=== PATIENT | male | born 1950 | race Caucasian/White ===

== ENCOUNTER → 2016-07-08 | Outpatient (CLI) | payer BC ==
[~2016-07-08] MED LIST: ASCO500T16 PO; ASPI1TAB48 PO; ATOR10TA88 PO; CHOL1000 PO; COLON HEALTH PO; METO-217 PO; MULTTAB5 PO; OCTR20KI IM; OMEG10007 PO; RXC5 PO
[2016-07-13 23:32] LABS: 5-HIAA 5.1 mg/24 h (<=6.0)
== END | disposition home or self-care (01) ==
LOC: C.LABPVFM 16:31
PROVIDERS: ATTEND Nurse Practitioner Family
DX: E34.0 Carcinoid syndrome (principal)

== ENCOUNTER 2016-07-17 10:04 | Day surgery (SDC) | payer BC ==
--- NOTE | 2016-06-25 10:47 | PAT Medication Instructions ---
Service Date Jun 25, 2016. Current Home Medication List Ascorbic Acid (Ascorbic Acid), 500 MG PO QAM Aspirin (Aspirin Low Dose), 81 MG PO QAM Atorvastatin (Lipitor), 10 MG PO QPM Cholecalciferol (Vitamin D3), 5,000 TAB PO BID Fish Oil ([place]-3), 1 CAPSULE PO QAM Metoprolol Succinate (Toprol Xl), 50 MG PO QAM Multiple Vitamins W/ Minerals (Centrum), 1 TABLET PO QAM Octreotide Acetate (Sandostatin [place]), 40 MG IM MONTHLY [Colon Health], 1 TAB PO QAM Medication Instructions For Your Scheduled Surgery - Check with surgeon/regulatory affairs internship for instructions: Aspirin (Aspirin Low Dose), 81 MG PO QAM - Continue as usual: Octreotide Acetate (Sandostatin [place]), 40 MG IM MONTHLY - Hold the following medications starting 06/26/16: Fish Oil ([place]-3), 1 CAPSULE PO QAM - Hold the following medications the morning of surgery: [Colon Health], 1 TAB PO QAM Multiple Vitamins W/ Minerals (Centrum), 1 TABLET PO QAM Cholecalciferol (Vitamin D3), 5,000 TAB PO BID Ascorbic Acid (Ascorbic Acid), 500 MG PO QAM - Take the following medications the morning of surgery with a sip of water: Metoprolol Succinate (Toprol Xl), 50 MG PO QAM - Take the following medications as scheduled the night before surgery: Atorvastatin (Lipitor), 10 MG PO QPM If you have any questions please call us at [phone] (Marva Flores PA-C) or [phone] or [phone]
[2016-06-25 11:28] LABS: BASO % 0.3 %; BASO ABS # 0.02 K/uL (0-0.2); COMPLETE YES; EOS % 1.8 %; HEMATOCRIT 41.2 % (42-52); IG% 0.3 %; LYMPH ABS # 1.91 K/uL (1.2-3.4); MEAN CELL VOLUME 90.5 fL (80-100); MEAN CORPUSCULAR HEMOGLOBIN 31.9 pg (25-34); MEAN CORPUSCULAR HGB CONC 35.2 g/dl (32-36); MEAN PLATELET VOLUME 9.3 fL (7.4-10.4); MONO % 8.7 %; NEUT % 56.9 %; PLATELET COUNT 154 K/uL (130-400); RED BLOOD COUNT 4.55 M/uL (4.7-6.1); WHITE BLOOD COUNT 5.97 K/uL (4.8-10.8)
[2016-06-25 11:36] LABS: PROTHROMBIN TIME (PATIENT) 11.2 SECONDS (9.0-12.0)
--- NOTE | 2016-07-16 12:13 | HISTORY & PHYSICAL EXAMINATION ---
DATE OF ADMISSION: 07/17/2016 HISTORY OF PRESENT ILLNESS: The patient presents as a 66-year-old, 5 foot 4, 183 pounds, BMI of 31.41, white male with left knee pain and loose body as well as a chondral lesion medial femoral condyle presents for arthroscopy, arthroscopic removal of loose bodies, arthroscopic chondroplasty. He has failed attempts at conservative management, physical therapy, anti-inflammatories, relative rest and presents for the above. PAST MEDICAL HISTORY: Consistent with that of a heart murmur, heart valve abnormalities, hypercholesterolemia, sleep apnea, previous history of a TIA. PAST SURGICAL HISTORY: Unremarkable. ALLERGIES: PENICILLIN, TYLENOL WITH CODEINE. REVIEW OF SYSTEMS: Unremarkable. See history of present illness for pertinent positives. MEDICATIONS: Include Lipitor p.o. q. daily, multivitamin p.o. q. daily, metoprolol 50 mg 1 tab p.o. daily, tramadol 50 mg when needed. PAST MEDICAL HISTORY: Otherwise unremarkable. See history of present illness for pertinent positives. 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 PHYSICAL EXAMINATION: GENERAL: A very pleasant 66-year-old male. HEAD, EYES, EARS, NOSE, AND THROAT: Otherwise unremarkable. Atraumatic, normocephalic. HEART: Regular at 72 beats per minute. No murmurs are noted. LUNGS: Clear. No rales, rhonchi, or wheezes noted. ABDOMEN: Soft, nontender, nondistended. Bowel sounds present in all 4 quadrants. RECTAL: No rectal examination was performed. MUSCULOSKELETAL EXAMINATION: Consistent with that of left knee pain with loose body and chondral lesion medial femoral condyle. PLAN: For arthroscopy, arthroscopic chondroplasty, arthroscopic removal of loose body pending findings at time of surgery, postoperative pain management, DVT prophylaxis, antibiotics.
[~2016-07-17] VITALS: Ht 162.6 cm; Wt 80.8 kg
[~2016-07-17 10:04] MED LIST changes: +ATROPINE SULFATE 0.1 MG/ML 5ML SYR IV PRN; +EpHEDrine SULFATE INJ 50 MG/ML AMP IV PRN; +FENTANYL CITRATE INJ 50 MCG/1 ML 2 ML VIAL IV PRN; +LACTATED RINGER'S 1000ML 1,000 ML IV SCH; +ONDANSETRON INJ 2 MG/ML 2 ML VIAL IV PRN; -RXC5 PO
[2016-07-17 10:31] VITALS: BP 143/93; PULSE 82; TEMP 36.3; O2SAT 98; Ht 162.6 cm; Wt 80.8 kg
--- NOTE | 2016-07-17 11:21 | History & Physical Bridge Note ---
H&P Re-Evaluation Bridge Note: I have examined the patient, reviewed the History & Physical and in the interval since the performance of the History & Physical I have noted the following changes of clinical significance: No changes noted
[2016-07-17] MEDS ORDERED: NURSING VERBAL MED ORDER STA (11:31)
[2016-07-17] MEDS ORDERED: CLINDAMYCIN 600 MG/54 ML D5W IV ONE (11:39)
[2016-07-17] MEDS ORDERED: ONDANSETRON INJ 2 MG/ML 2 ML VIAL ONE (11:41)
[2016-07-17] MEDS ORDERED: PROPOFOL IV EMULSION 10 MG/ML 20 ML VIAL IV ONE (11:41)
[2016-07-17] MEDS ORDERED: LIDOCAINE HCL 2% 2 ML VIAL (20MG/ML) ONE (11:41)
[2016-07-17] MEDS ORDERED: FENTANYL CITRATE INJ 50 MCG/1 ML 2 ML VIAL ONE ×2 (11:41→13:37)
[2016-07-17] MEDS ORDERED: MIDAZOLAM HCL 1 MG/ML 2ML VIAL ONE (11:41)
--- NOTE | 2016-07-17 12:54 | Discharge Instructions ---
Discharge Instructions Visit Reason for Visit: Left Knee Loose Body In Unspecified Joint Discharge Discharge Diagnosis / Problem: left knee arthroscopy, loose body removal, chondroplasty Discharge Goals Goal(s): Decrease discomfort, Improve function, Increase independence Activity Recommendations Activity Limitations: as noted below Weightbearing Status: Left weightbearing (as tolerated) Anesthesia . Post Anesthesia Instructions: If you have had General Anesthesia or IV Sedation: * Do not drive today. * Resume driving when surgeon permits. * Do not make important decisions or sign legal documents today. * Call surgeon for: 1. Temperature elevations greater than 101 degrees F. 2. Uncontrollable pain. 3. Excessive bleeding. 4. Persistent nausea and vomiting. 5. Medication intolerance (nausea, vomiting or rash). * For nausea and vomiting use only clear liquids such as: tea, soda, bouillon until nausea subsides, then gradually increase diet as tolerated. * If you have any concerns or questions, call your surgeon's office. If physician is unavailable and it is an emergency, call 911 or go to the nearest emergency room. . Instructions / Follow-Up Instructions / Follow-Up ACTIVITY RECOMMENDATIONS: * You may walk on the leg with or without crutches as comfort permits. * Bending of the knee should start at once. * Do not shower for 48 hours following surgery. SPECIAL CARE INSTRUCTIONS: * You may cleanse the skin adjacent to the small wounds with soap and water at the time of the first dressing change. * The application of an ice bag to the front and sides of the knee will decrease swelling and discomfort for the first 48 hours. * The small incisions may be sore and develop bruising. This bruising does not require any special care. SPECIAL PRECAUTIONS: * If you experience unusual pain unrelieved by prescriptions, temperature elevation (100 degrees F. or above) or progressive swelling or bleeding, you should contact our office at for further evaluation. * You may have been prescribed pain medication. If you experience nausea and/or fine skin rash, discontinue this medication and contact our office at for an alternate medication. DRESSING: * Dressing should be comfortable and absorb any leakage of fluid and/or blood. * The dressing may become moist or bloodstained. * Dressing may be removed _24 hours_ after surgery and bandaids placed over the small surgical incisions. If can be removed sooner if it becomes very soiled or loose. * Bandaids may be used over next several days as needed and can be discontinued when there is not further drainage from the wounds. FOLLOW UP VISIT: If appointment is not already scheduled: YOU SHOULD CALL AND SCHEDULE PHYSICAL THERAPY TO BEGIN 07/19/16. PRESCRIPTION PLACED IN YOUR CHART. Please call [facility] to make a follow-up appointment for your surgery at . Diet Recommendations Recommended Home Diet: resume previous diet Pending Studies Studies pending at discharge: no Medical Emergencies . Who to Call and When: Medical Emergencies: If at any time you feel your situation is an emergency, please call 911 immediately. . Non-Emergent Contact Non-Emergency issues call your: Primary Care Provider, Surgeon . . "Provider Documentation" section prepared by Jatin Mccloud.
[2016-07-17] MEDS ORDERED: RXC5 PO (12:55)
[2016-07-17] MEDS ORDERED: SODIUM CHLORIDE 0.9% 1000ML 1,000 ML IV SCH (12:56)
[2016-07-17] MEDS ORDERED: OXYCODONE/ACETAMINOPHEN 5-325 TAB PO PRN ×2 (13:00)
[2016-07-17] MEDS ORDERED: ONDANSETRON INJ 2 MG/ML 2 ML VIAL IV PRN (13:00)
--- NOTE | 2016-07-17 13:10 | [facility] Post Operative Brief Note ---
Immediate Operative Summary Operative Date Jul 17, 2016. Pre-Operative Diagnosis Loose body times 2 1 x 1 cm Tear lateral meniscus Post-Operative Diagnosis same Procedure(s) Performed Partial lateral menisectomy Surgeon Contreras Cupola Tender Helper Surgeon(s) none Estimated Blood Loss 3cc Findings TLM loose bodies times two Specimens loose bodies 1 x 1 cm times two Complication(s) None Disposition Recovery Room / PACU
[2016-07-17] MEDS ORDERED: BUPIVACAINE/EPINEPHRINE 0.5% MPF 1:200,000 30 ML VIAL INJ ONE (13:28)
--- NOTE | 2016-07-17 13:57 | OPERATIVE REPORT ---
DATE OF OPERATION: 07/17/2016 PREOPERATIVE DIAGNOSIS: Torn lateral meniscus left knee loose bodies x2, left knee 1 x 1 cm. POSTOPERATIVE DIAGNOSIS: Same. PROCEDURE: Arthroscopy, arthroscopic partial lateral meniscectomy, arthroscopic removal of loose bodies 1 x 1 x2, left knee. SURGEON: Dr. Chairez. ANESTHESIA: General. COMPLICATIONS: None. ESTIMATED BLOOD LOSS: 3 mL HISTORY OF PRESENT ILLNESS: The patient presents as a very pleasant 66-year-old male with complaints of ongoing pain attributed to his left knee. He has been nonresponsive to conservative therapy. At time of surgery, the above findings were noted. PROCEDURE: After proper prepping and draping the left lower extremity, arthroscopic examination revealed there to be evidence of a loose body sitting within the anterior intercondylar notch. This loose body was immediately removed. There was a second loose body, they are both measuring approximately 1 x 1 cm, which were both removed. A tear involving the posterior horn of the lateral meniscus was noted, this was debrided back to a stable margin, thus a partial posterior horn lateral meniscectomy was performed. Anterior and posterior cruciate ligaments were visualized and probed and noted to be intact. The medial meniscus visualized and probed and noted to be intact. The patellofemoral joint had grade 3 and 4 diffuse chondrosis and this was all debrided to a stable margin. Subsequently, all particulate matter and debris was removed. Skin portals were closed with 4-0 nylon. Sterile compression dressing was placed. The patient was taken to recovery room in stable condition. I attest to the content of the Intraoperative Record and any orders documented therein. Any exceptio ns are noted below.
--- NOTE | 2016-07-17 14:04 | Anesthesiology Progress Note ---
Anesthesia Post Op Note Date & Time Jul 17, 2016 at 14:03 Vital Signs Pain Intensity: 5 Vital Signs Past 12 Hours Date Time Temp Pulse Resp B/P Pulse Ox O2 Delivery O2 Flow Rate FiO2 07/17/16 13:57 65 15 07/17/16 13:57 65 15 95 07/17/16 13:53 117/80 07/17/16 13:52 64 18 07/17/16 13:52 65 18 94 07/17/16 13:48 116/83 07/17/16 13:47 65 12 93 07/17/16 13:47 65 12 07/17/16 13:43 117/79 07/17/16 13:42 65 14 07/17/16 13:42 65 14 95 07/17/16 13:38 121/81 07/17/16 13:37 67 16 07/17/16 13:37 66 16 97 07/17/16 13:33 123/81 07/17/16 13:32 60 17 100 07/17/16 13:32 60 17 07/17/16 13:28 120/81 07/17/16 13:27 60 19 07/17/16 13:27 60 19 100 07/17/16 13:23 120/82 07/17/16 13:22 61 15 99 07/17/16 13:22 61 15 07/17/16 13:18 125/81 07/17/16 13:17 65 13 07/17/16 13:17 66 13 97 07/17/16 13:17 36.2 62 16 122/85 99 Mask 10 07/17/16 10:31 36.3 82 20 143/93 98 Room Air Notes Mental Status: alert / awake / arousable, participated in evaluation Pt Amnestic to Procedure: Yes Nausea / Vomiting: adequately controlled Pain: adequately controlled Airway Patency, RR, SpO2: stable & adequate BP & HR: stable & adequate Hydration State: stable & adequate Anesthetic Complications: no major complications apparent
[2016-07-17 14:15] VITALS: BP 120/79; PULSE 63; TEMP 36.5; O2SAT 95
[2016-07-17 14:45] VITALS: BP 119/83; PULSE 62; O2SAT 96
[2016-07-17 15:15] VITALS: BP 126/83; PULSE 65; TEMP 36.4; O2SAT 96
== END 2016-07-17 15:40 | disposition home or self-care (01) ==
LOC: C.ACU 10:04
PROVIDERS: ATTEND Orthopaedic Surgery
DX: M23.232 Derangement of other medial meniscus due to old tear or injury, left knee (principal); M23.42 Loose body in knee, left knee; E78.5 Hyperlipidemia, unspecified; R01.1 Cardiac murmur, unspecified; E78.00 Pure hypercholesterolemia, unspecified; G47.30 Sleep apnea, unspecified; Z98.890 Other specified postprocedural states; Z86.73 Personal history of transient ischemic attack (TIA), and cerebral infarction without residual deficits; Z79.899 Other long term (current) drug therapy; Z88.0 Allergy status to penicillin; Z88.5 Allergy status to narcotic agent

== ENCOUNTER → 2016-09-05 | Outpatient (CLI) | payer BC ==
[~2016-09-05] MED LIST changes: -ATROPINE SULFATE 0.1 MG/ML 5ML SYR IV PRN; -EpHEDrine SULFATE INJ 50 MG/ML AMP IV PRN; -FENTANYL CITRATE INJ 50 MCG/1 ML 2 ML VIAL IV PRN; -LACTATED RINGER'S 1000ML 1,000 ML IV SCH; -ONDANSETRON INJ 2 MG/ML 2 ML VIAL IV PRN; +RXC5 PO
[2016-09-05 13:34] LABS: BUN/CREATININE RATIO 9.7 (10-20); CREATININE 1.1 mg/dl (0.60-1.40)
== END | disposition home or self-care (01) ==
LOC: C.LABPVFM 09:03
PROVIDERS: ATTEND Specialist
DX: C78.7 Secondary malignant neoplasm of liver and intrahepatic bile duct (principal); C80.1 Malignant (primary) neoplasm, unspecified

== ENCOUNTER → 2016-10-04 | Outpatient (CLI) | payer BC ==
[~2016-10-04] MED LIST changes: +ATOR10TA82 PO; -ATOR10TA88 PO; +BACL10TA PO; -OCTR20KI IM; +TRAM-10 PO; +[UNRECOGNIZED DRUG - CODE] IM
[2016-10-04 17:45] LABS: BASO % 0.2 %; BASO ABS # 0.02 K/uL (0-0.2); COMPLETE YES; EOS % 0.8 %; HEMATOCRIT 43.5 % (42-52); IG% 0.5 %; LYMPH % 26.6 %; LYMPH ABS # 3.05 K/uL (1.2-3.4); MEAN CELL VOLUME 93.1 fL (80-100); MEAN CORPUSCULAR HEMOGLOBIN 32.1 pg (25-34); MEAN CORPUSCULAR HGB CONC 34.5 g/dl (32-36); MEAN PLATELET VOLUME 9.9 fL (7.4-10.4); MONO % 10.2 %; NEUT % 61.7 %; PLATELET COUNT 147 K/uL (130-400); RED BLOOD COUNT 4.67 M/uL (4.7-6.1); WHITE BLOOD COUNT 11.48 K/uL (4.8-10.8)
[2016-10-04 17:54] LABS: ALT/SGPT 34 U/L (12-78); AST/SGOT 15 U/L (15-37); BLOOD UREA NITROGEN 14 mg/dl (7-18); CALCIUM 8.7 mg/dl (8.5-10.1); CARBON DIOXIDE 30 mmol/L (21-32); CHLORIDE 107 mmol/L (98-107); CREATININE 0.94 mg/dl (0.60-1.40); GLUCOSE 99 mg/dl (70-99); POTASSIUM 4.1 mmol/L (3.5-5.1); SODIUM 142 mmol/L (136-145)
[2016-10-04 17:57] LABS: ALB/GLOB RATIO 0.9 (0.9-2); ALKALINE PHOSPHATASE 92 U/L (45-117)
== END | disposition home or self-care (01) ==
LOC: C.LABPVFM 15:48
PROVIDERS: ATTEND Internal Medicine Hematology & Oncology
DX: E34.0 Carcinoid syndrome (principal)

== ENCOUNTER → 2017-01-30 | Outpatient (CLI) | payer BC ==
[~2017-01-30] MED LIST changes: -ATOR10TA82 PO; +ATOR10TA88 PO; -BACL10TA PO; +OCTR20KI IM; -TRAM-10 PO; -[UNRECOGNIZED DRUG - CODE] IM
[2017-01-30 12:34] LABS: BASO % 0.2 %; BASO ABS # 0.01 K/uL (0-0.2); COMPLETE YES; EOS % 2.2 %; HEMATOCRIT 44.1 % (42-52); IG% 0.3 %; LYMPH % 35.9 %; LYMPH ABS # 2.16 K/uL (1.2-3.4); MEAN CORPUSCULAR HEMOGLOBIN 31.6 pg (25-34); MEAN CORPUSCULAR HGB CONC 33.6 g/dl (32-36); MEAN PLATELET VOLUME 9.8 fL (7.4-10.4); NEUT % 52.4 %; PLATELET COUNT 165 K/uL (130-400); RED BLOOD COUNT 4.69 M/uL (4.7-6.1); WHITE BLOOD COUNT 6.02 K/uL (4.8-10.8)
[2017-01-30 12:52] LABS: ALT/SGPT 47 U/L (12-78); BLOOD UREA NITROGEN 17 mg/dl (7-18); BUN/CREATININE RATIO 17.2 (10-20); CALCIUM 8.9 mg/dl (8.5-10.1); CARBON DIOXIDE 25 mmol/L (21-32); CHLORIDE 106 mmol/L (98-107); CREATININE 0.98 mg/dl (0.60-1.40); GLUCOSE 124 mg/dl (70-99); POTASSIUM 4.4 mmol/L (3.5-5.1); SODIUM 138 mmol/L (136-145)
[2017-01-30 12:54] LABS: CHOLESTEROL/HDL RATIO 3.1
[2017-01-30 12:55] LABS: ALKALINE PHOSPHATASE 93 U/L (45-117); AST/SGOT 39 U/L (15-37)
== END | disposition home or self-care (01) ==
LOC: C.LABPVFM 08:16
PROVIDERS: ATTEND Internal Medicine Hematology & Oncology
DX: C7A.019 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, unspecified portion (principal); E78.5 Hyperlipidemia, unspecified; E55.9 Vitamin D deficiency, unspecified

== ENCOUNTER → 2017-02-07 | Outpatient (CLI) | payer BC ==
--- NOTE | 2017-02-07 15:36 | DIAGNOSTIC IMAGING REPORT ---
L-SPINE MIN 4 VIEWS ROUTINE HISTORY: Pain Low back pain Lumbar radicular pain COMPARISON: None. FINDINGS: Moderate to significant degenerative disc change throughout the entire lumbar region. Moderate sclerosis of the vertebral endplates. No evidence for subluxation. No evidence for compression deformity. Mild degenerative change posterior element. IMPRESSION: Moderate to significant degenerative change primarily of the mid to lower lumbar region. No acute process. No evidence for compression deformity. The above report was generated using voice recognition software. It may contain grammatical, syntax or spelling errors. Electronically signed by: Jatin Farmer M.D. 02/07/2017 3:34 PM Dictated Date/Time: 02/07/2017 3:33 PM
== END | disposition home or self-care (01) ==
LOC: C.RADPV 15:10
PROVIDERS: ATTEND Nurse Practitioner
DX: M54.16 Radiculopathy, lumbar region (principal); M51.36 Other intervertebral disc degeneration, lumbar region

== ENCOUNTER → 2017-04-02 | Outpatient (CLI) | payer BC ==
[~2017-04-02] MED LIST changes: +OPTIRAY 320 IV PRN
--- NOTE | 2017-04-02 14:55 | DIAGNOSTIC IMAGING REPORT ---
LUMBAR SPINE WITH CLINICAL HISTORY: 67 years-old Male presenting with M51.37 Disc degeneration, lumbosacralfailed prednisone, [id number]. TECHNIQUE: Multidetector CT of the lumbar spine was performed after the administration of intravenous contrast. IV contrast: 118 mL of Optiray 320. A dose lowering technique was used consistent with the principles of ALARA (as low as reasonably achievable). COMPARISON: Plain radiographs from 02/07/2017 and MR from [address]. CT DOSE (mGy.cm): The estimated cumulative dose is 635.53 mGycm. FINDINGS: [employer] topogram: Moderate stool burden with gaseous distention of the sigmoid colon. Mild osteopenia. Slight retrolisthesis of L1 on L2 and L2 on 3. Otherwise normal lumbar lordosis. Mild levoscoliotic curvature. Intervertebral disc height loss noted at L2-3, L3-4, and L4-5, where there is also vacuum disc phenomenon. Mixed sclerotic and erosive endplate changes noted at L2-3, greatest along the right aspect of the disc space. Less extensive but similar changes noted at L1-2 along the right aspect. Multilevel degenerative changes further detailed below: L1-2: Disc bulge mildly effaces the ventral thecal sac. No neural foraminal narrowing. L2-3: More significant disc bulge moderately effaces the ventral thecal sac narrowing the spinal canal by nearly 50% of its diameter. Mild right neural foraminal narrowing. L3-4: Disc bulge minimally effaces the ventral thecal sac. Mild facet arthropathy and disc bulge result in mild right neural foraminal narrowing. L4-5: Disc bulge and ligamentum flavum thickening minimally circumferentially efface the thecal sac area mild bilateral neural foraminal narrowing secondary to mild facet arthropathy. L5-S1: Normal. Paraspinal soft tissues remarkable for atherosclerosis of the normal caliber, aorta. Right pelvocaliectasis. Right ureter nondilated. Paraspinal muscles bilaterally atrophic. No inflammatory change is evident. Mild nonspecific subcutaneous edema in the posterior back. IMPRESSION: 1. Multilevel degenerative changes with varying degrees of spinal canal stenosis most severe at L2-3. Mild neural foraminal narrowing noted at several levels, more so on the right. 2. Apparent erosive changes at the L2-3 disc space and less extensively at L1-2. These are most likely degenerative in etiology, however, to exclude infectious symptoms as this appearance can be seen in the setting of discitis osteomyelitis. If there is clinical concern for infection, contrast-enhanced MR of the lumbar spine is recommended. 3. Mild osteopenia. Electronically signed by: Teddy Awan M.D. 04/02/2017 2:53 PM Dictated Date/Time: 04/02/2017 2:41 PM
== END | disposition home or self-care (01) ==
LOC: C.CTS 13:59
PROVIDERS: ATTEND Nurse Practitioner
DX: M51.37 Other intervertebral disc degeneration, lumbosacral region (principal); M48.061 Spinal stenosis, lumbar region without neurogenic claudication; M85.88 Other specified disorders of bone density and structure, other site

== ENCOUNTER → 2017-07-04 | Outpatient (CLI) | payer BC ==
[~2017-07-04] MED LIST changes: +ATOR10TA82 PO; -ATOR10TA88 PO; +BACL10TA PO; -OCTR20KI IM; -OPTIRAY 320 IV PRN; -RXC5 PO; +TRAM-10 PO; +[UNRECOGNIZED DRUG - CODE] IM
[2017-07-04 17:33] LABS: BASO % 0.1 %; BASO ABS # 0.01 K/uL (0-0.2); EOS % 0.8 %; EOS ABS # 0.06 K/uL (0-0.5); HEMATOCRIT 45.6 % (42-52); HEMOGLOBIN 15.4 g/dL (14.0-18.0); IG# 0.04 K/uL (0.00-0.02); LYMPH % 34.2 %; LYMPH ABS # 2.42 K/uL (1.2-3.4); MEAN CELL VOLUME 93.4 fL (80-100); MEAN CORPUSCULAR HEMOGLOBIN 31.6 pg (25-34); MEAN CORPUSCULAR HGB CONC 33.8 g/dl (32-36); MEAN PLATELET VOLUME 9.7 fL (7.4-10.4); MONO ABS # 0.71 K/uL (0.11-0.59); NEUT % 54.3 %; NEUT ABS # 3.84 K/uL (1.4-6.5); PLATELET COUNT 181 K/uL (130-400); RED CELL DISTRIBUTION WIDTH CV 13.4 % (11.5-14.5); RED CELL DISTRIBUTION WIDTH SD 45.9 fL (36.4-46.3); WHITE BLOOD COUNT 7.08 K/uL (4.8-10.8)
[2017-07-04 19:20] LABS: ALBUMIN 3.5 gm/dl (3.4-5.0); ALKALINE PHOSPHATASE 96 U/L (45-117); ALT/SGPT 53 U/L (12-78); AST/SGOT 30 U/L (15-37); BLOOD UREA NITROGEN 18 mg/dl (7-18); CALCIUM 8.7 mg/dl (8.5-10.1); CARBON DIOXIDE 27 mmol/L (21-32); CREATININE 1.06 mg/dl (0.60-1.40); GLUCOSE 110 mg/dl (70-99); POTASSIUM 4.1 mmol/L (3.5-5.1); SODIUM 138 mmol/L (136-145); TOTAL PROTEIN 7.7 gm/dl (6.4-8.2)
== END | disposition home or self-care (01) ==
LOC: C.LABPVFM 15:21
PROVIDERS: ATTEND Internal Medicine Hematology & Oncology
DX: C7A.019 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, unspecified portion (principal)

== ENCOUNTER → 2017-08-08 | Outpatient (CLI) | payer BC ==
[2017-08-08 13:30] LABS: ALBUMIN 3.4 gm/dl (3.4-5.0); ALT/SGPT 46 U/L (12-78); BLOOD UREA NITROGEN 11 mg/dl (7-18); CALCIUM 8.8 mg/dl (8.5-10.1); CARBON DIOXIDE 33 mmol/L (21-32); CHOLESTEROL 124 mg/dl (0-200); CREATININE 0.95 mg/dl (0.60-1.40); GLUCOSE 129 mg/dl (70-99); POTASSIUM 4.5 mmol/L (3.5-5.1); SODIUM 137 mmol/L (136-145)
[2017-08-08 13:33] LABS: ALKALINE PHOSPHATASE 98 U/L (45-117); AST/SGOT 28 U/L (15-37); LDL CHOLESTEROL CALCULATED 27 mg/dl; TOTAL PROTEIN 7.4 gm/dl (6.4-8.2)
== END | disposition home or self-care (01) ==
LOC: C.LABPVFM 08:07
PROVIDERS: ATTEND Nurse Practitioner
DX: E55.9 Vitamin D deficiency, unspecified (principal); E78.5 Hyperlipidemia, unspecified; R73.01 Impaired fasting glucose

== ENCOUNTER → 2017-08-29 | Outpatient (CLI) | payer BC ==
[2017-08-29 17:22] LABS: BASO % 0.3 %; BASO ABS # 0.02 K/uL (0-0.2); EOS ABS # 0.06 K/uL (0-0.5); HEMOGLOBIN 14.4 g/dL (14.0-18.0); IG# 0.01 K/uL (0.00-0.02); LYMPH % 39.9 %; LYMPH ABS # 2.32 K/uL (1.2-3.4); MEAN CELL VOLUME 92.7 fL (80-100); MEAN CORPUSCULAR HEMOGLOBIN 31.8 pg (25-34); MEAN CORPUSCULAR HGB CONC 34.3 g/dl (32-36); MEAN PLATELET VOLUME 9.5 fL (7.4-10.4); MONO % 13.6 %; MONO ABS # 0.79 K/uL (0.11-0.59); NEUT ABS # 2.61 K/uL (1.4-6.5); PLATELET COUNT 163 K/uL (130-400); RED CELL DISTRIBUTION WIDTH CV 14.7 % (11.5-14.5); WHITE BLOOD COUNT 5.81 K/uL (4.8-10.8)
[2017-08-29 17:44] LABS: ALBUMIN 3.7 gm/dl (3.4-5.0); ALT/SGPT 54 U/L (12-78); AST/SGOT 27 U/L (15-37); BLOOD UREA NITROGEN 16 mg/dl (7-18); CALCIUM 8.7 mg/dl (8.5-10.1); CARBON DIOXIDE 28 mmol/L (21-32); CREATININE 0.94 mg/dl (0.60-1.40); GLUCOSE 118 mg/dl (70-99); POTASSIUM 4.3 mmol/L (3.5-5.1); SODIUM 137 mmol/L (136-145)
[2017-08-29 17:47] LABS: ALKALINE PHOSPHATASE 96 U/L (45-117); TOTAL PROTEIN 7.5 gm/dl (6.4-8.2)
[2017-08-30 07:10] LABS: HEMOGLOBIN A1C 6.5 % (4.5-5.6)
== END | disposition home or self-care (01) ==
LOC: C.LABPVFM 14:16
PROVIDERS: ATTEND Nurse Practitioner
DX: C7A.019 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, unspecified portion (principal)

== ENCOUNTER → 2017-10-09 | Outpatient (CLI) | payer BC ==
[2017-10-09 14:02] LABS: ALBUMIN 3.6 gm/dl (3.4-5.0); ALKALINE PHOSPHATASE 87 U/L (45-117); ALT/SGPT 53 U/L (12-78); AST/SGOT 30 U/L (15-37); BLOOD UREA NITROGEN 14 mg/dl (7-18); CREATININE 1.04 mg/dl (0.60-1.40); TOTAL PROTEIN 7.1 gm/dl (6.4-8.2)
== END | disposition home or self-care (01) ==
LOC: C.LABPVFM 08:34
PROVIDERS: ATTEND Specialist
DX: C78.7 Secondary malignant neoplasm of liver and intrahepatic bile duct (principal); C7A.8 Other malignant neuroendocrine tumors; C7B.8 Other secondary neuroendocrine tumors

== ENCOUNTER → 2017-10-31 | Outpatient (CLI) | payer BC ==
[~2017-10-31] MED LIST changes: +PRIM50TA29 PO
[2017-10-31 17:25] LABS: BASO % 0.1 %; BASO ABS # 0.01 K/uL (0-0.2); EOS % 0.7 %; EOS ABS # 0.05 K/uL (0-0.5); HEMATOCRIT 43.5 % (42-52); HEMOGLOBIN 14.9 g/dL (14.0-18.0); IG# 0.04 K/uL (0.00-0.02); LYMPH % 34.1 %; LYMPH ABS # 2.57 K/uL (1.2-3.4); MEAN CELL VOLUME 92.8 fL (80-100); MEAN CORPUSCULAR HEMOGLOBIN 31.8 pg (25-34); MEAN CORPUSCULAR HGB CONC 34.3 g/dl (32-36); MEAN PLATELET VOLUME 9.7 fL (7.4-10.4); MONO % 9.8 %; MONO ABS # 0.74 K/uL (0.11-0.59); NEUT % 54.8 %; NEUT ABS # 4.13 K/uL (1.4-6.5); PLATELET COUNT 172 K/uL (130-400); RED CELL DISTRIBUTION WIDTH CV 12.4 % (11.5-14.5); RED CELL DISTRIBUTION WIDTH SD 42.1 fL (36.4-46.3); WHITE BLOOD COUNT 7.54 K/uL (4.8-10.8)
[2017-10-31 17:46] LABS: ALBUMIN 3.4 gm/dl (3.4-5.0); ALT/SGPT 49 U/L (12-78); AST/SGOT 31 U/L (15-37); BLOOD UREA NITROGEN 19 mg/dl (7-18); CALCIUM 8.5 mg/dl (8.5-10.1); CARBON DIOXIDE 26 mmol/L (21-32); GLUCOSE 163 mg/dl (70-99); POTASSIUM 4.3 mmol/L (3.5-5.1); SODIUM 136 mmol/L (136-145)
[2017-10-31 17:49] LABS: ALKALINE PHOSPHATASE 93 U/L (45-117); TOTAL PROTEIN 7.1 gm/dl (6.4-8.2)
== END | disposition home or self-care (01) ==
LOC: C.LABPVFM 15:48
PROVIDERS: ATTEND Internal Medicine Hematology & Oncology
DX: C7A.019 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, unspecified portion (principal)

== ENCOUNTER → 2018-01-30 | Outpatient (CLI) | payer BC ==
[~2018-01-30] MED LIST changes: -BACL10TA PO; -TRAM-10 PO
[2018-01-30 17:25] LABS: BASO % 0.2 %; BASO ABS # 0.01 K/uL (0-0.2); EOS % 1.4 %; EOS ABS # 0.08 K/uL (0-0.5); HEMATOCRIT 42.6 % (42-52); HEMOGLOBIN 14.3 g/dL (14.0-18.0); IG# 0.03 K/uL (0.00-0.02); LYMPH % 41.3 %; MEAN CELL VOLUME 93.4 fL (80-100); MEAN CORPUSCULAR HEMOGLOBIN 31.4 pg (25-34); MEAN CORPUSCULAR HGB CONC 33.6 g/dl (32-36); MONO % 11.8 %; MONO ABS # 0.66 K/uL (0.11-0.59); NEUT % 44.8 %; NEUT ABS # 2.49 K/uL (1.4-6.5); PLATELET COUNT 174 K/uL (130-400); RED CELL DISTRIBUTION WIDTH CV 13.7 % (11.5-14.5); RED CELL DISTRIBUTION WIDTH SD 46.4 fL (36.4-46.3); WHITE BLOOD COUNT 5.57 K/uL (4.8-10.8)
[2018-01-30 17:51] LABS: ALBUMIN 3.5 gm/dl (3.4-5.0); ALKALINE PHOSPHATASE 83 U/L (45-117); ALT/SGPT 43 U/L (12-78); AST/SGOT 31 U/L (15-37); BLOOD UREA NITROGEN 15 mg/dl (7-18); CALCIUM 8.7 mg/dl (8.5-10.1); CARBON DIOXIDE 27 mmol/L (21-32); CREATININE 1.05 mg/dl (0.60-1.40); GLUCOSE 122 mg/dl (70-99); POTASSIUM 4.2 mmol/L (3.5-5.1); SODIUM 141 mmol/L (136-145); TOTAL PROTEIN 7.1 gm/dl (6.4-8.2)
== END | disposition home or self-care (01) ==
LOC: C.LABPVFM 15:08
PROVIDERS: ATTEND Internal Medicine Hematology & Oncology
DX: C7A.019 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, unspecified portion (principal)

== ENCOUNTER → 2018-02-13 | Outpatient (CLI) | payer BC ==
[2018-02-13 15:56] LABS: HEMOGLOBIN A1C 6.4 % (4.5-5.6)
== END | disposition home or self-care (01) ==
LOC: C.LABPVFM 08:11
PROVIDERS: ATTEND Nurse Practitioner
DX: E55.9 Vitamin D deficiency, unspecified (principal); R73.01 Impaired fasting glucose

== ENCOUNTER 2019-04-15 09:48 | Observation (INO) ==
[2019-04-15] MEDS ORDERED: NiCARDipine HCL INJ 2.5 MG/ML 10 ML AMP ONE (10:25)
[2019-04-15] MEDS ORDERED: HEPARIN (PORCINE) 1000 UNIT/ML 10 ML (CATH LAB USE ONLY) ONE (10:25)
[2019-04-15] MEDS ORDERED: fentaNYL citrate 100 MCG/2 ML VIAL ONE (10:25)
[2019-04-15] MEDS ORDERED: MIDAZOLAM HCL 1 MG/ML 2ML VIAL ONE ×2 (10:26→11:22)
[2019-04-15] MEDS ORDERED: NITROGLYCERIN/D5W 100MCG/ML 20ML SYR ONE (10:27)
[2019-04-15] MEDS ORDERED: ASPIRIN 81 MG CHEW ONE ×2 (11:03→11:04)
--- NOTE | 2019-04-15 11:11 | History & Physical Bridge Note ---
Date of Service April 15, 2019 History & Physical Bridge Note I have examined the patient, reviewed the History & Physical and in the interval since the performance of the History & Physical I have noted the following changes of clinical significance: no changes noted. Discussed with Dr. Bailey and coronary angiography is requested. Right heart catheterization and aortography is not needed per Dr. Bailey. Last dose of Xarelto was 2 days ago.
--- NOTE | 2019-04-15 11:11 | Pre Anesthesia Assessment ---
Date of Service April 15, 2019 Pre Sedation Assessment Vital Signs Temp Pulse Resp BP Pulse Ox 04/15/19 10:07 36.7 C 74 18 135/91 99 Cardiovascular + regular rate + murmur Respiratory normal respiratory effort, lungs clear to auscultation Pre-Sedation Airway Assessment Smoking Status: Former smoker Short, Thick Neck: No Oral Cavity: + Dental Abnormalities Mallampati Class: III ASA: ASA3 NPO Status Date of Last Intake of Fluids: 04/14/19 Time of Last Intake of Fluids: 21:00 Date of Last Intake of Solid Food: 04/14/19 Time of Last Intake of Solid Foods: 21:00 Procedure Planning Contraindications for Sedation: none Current Medications Reviewed: Yes Notes The planned sedation has been discussed with the patient. Informed Consent was obtained. I have identified the patient, determined the appropriateness of sedation and have assessed the patient immediately prior to the procedure. All medicine(s) and interventions are by my order.
--- NOTE | 2019-04-15 12:00 | Cardiac Catheterization ---
[facility] Data: Veneer Gluer Cardiac Status Clinical evaluation leading to the procedure CAD Presenation: No Sxs, No angina Anginal Classification: No Symptoms Heart Failure: No Cardiogenic Shock within 24 Hours: No Cardiac Arrest within 24 Hours: No Imaging Studies Past 6 Months: Yes Stress Studies Past 6 Months: No Standard Exercise Test: No Stress Echocardiogram: No Stress Testing w/SPECT MPI: No Cardiac CTA: No Coronary Anatomy Dominant: Right Left Ventricular Angiography EF (%): n/a Diagnostic Physicians Name: Justin Saenz MD Status: Elective Closure Device Percutaneous Entry Location: Radial Closure Device: Radial Band Recommendations: Valve Replacement (as directed as per Dr. Bailey) Cardiac Cath Procedure Full Procedure Date April 15, 2019 Pre-Procedure Diagnosis Pre-Procedure Diagnosis: Valvular Disease AUC Score AUC Score: 7 Post-Procedure Diagnosis Post-Procedure Diagnosis: Normal Coronary Arteries Procedure(s) Performed Procedure(s) Performed: Coronary Angiography Tinner Helper Justin Saenz MD Bottom Painter(s) You Acosta Estimated Blood Loss Estimated Blood Loss: < 20 ml Medication(s) Medication(s): Fentanyl, Heparin, Lidocaine 1%, Nicardipine and Versed Summary of Findings Procedures: 1. Coronary angiography 2. Moderate sedation Coronary angiography: 1. LMCA is a large-caliber vessel without significant CAD. 2. Left anterior descending: LAD is a large caliber vessel throughout the proximal and midportion but then extends from mid to distal as a small caliber vessel with the apical LAD being very small in caliber. There is a large- caliber D1 and a small caliber D2. No significant CAD within the LAD system. 3. Circumflex: The circumflex is a large-caliber vessel. Circumflex gives rise to a large OM1, large OM 2, medium caliber OM 3, small-caliber OM 4. No significant CAD within the circumflex system. 4. Right coronary artery: The RCA is a large-caliber vessel. RCA is dominant. No significant CAD within the RCA, large PDA, and PL branch. Moderate sedation: 1. Sedation start time: 11:15 AM 2. Sedation end time: 11:46 AM Procedural notes: 1. A 6 [place] JL4 diagnostic catheter was used to selectively engage the LMCA. 2. A 6 [place] multipurpose diagnostic catheter was used to selectively engage the RCA. 3. There was no attempt to cross the aortic valve. Impression: 1. No significant CAD. 2. Previously documented severe aortic stenosis. 3. Previously documented ascending aortic aneurysm (recent CTA). Plan: 1. Continue to follow with Dr. Bailey for cardiology care and with Dr. Kate for CT surgery evaluation/care. Hemodynamics Rest Ao:: 129/69 Final Ao: 134/71 LV: n/a Recommendations Recommendations: Valve Replacement (as directed as per Dr. Bailey) Specimens Specimens: None Radiation Exposure (mGy) 1930 mGy. Fluoro time 13 min. Contrast (mls) 90 ml Procedural Complication(s) None Disposition Veneer Gluer Holding/Recovery I attest to the content of the Intraoperative Record and any orders documented therein. Any exceptions are noted below.
[2019-04-15] MEDS ORDERED: SODIUM CHLORIDE 0.9% 500 ML IV PRN (12:06)
[2019-04-15] MEDS ORDERED: ONDANSETRON INJ 2 MG/ML 2 ML VIAL IV PRN (12:06)
[2019-04-15] MEDS ORDERED: ACETAMINOPHEN 325 MG TAB PO PRN (12:06)
[2019-04-15] MEDS ORDERED: SODIUM CHLORIDE 0.9% 1000ML 1,000 ML IV SCH (12:15)
--- NOTE | 2019-04-15 13:23 | Post Anesthesia Assessment ---
Date of Service April 15, 2019 Post Sedation Assessment Vital Signs Temp Pulse Resp BP Pulse Ox 04/15/19 13:00 65 20 114/73 94 04/15/19 12:30 67 20 125/80 94 04/15/19 12:00 67 20 117/77 94 04/15/19 11:50 67 20 100/70 94 04/15/19 10:07 36.7 C 74 18 135/91 99 Recovery Score Activity: Moves 4 extremities Respiration: Deep Breath/Cough Circulation: +/-20% PreAnes Value Consciousness: Fully Awake Oxygen Saturation: > 92% On Room Air Post Anesthesia Score: 10 Post Sedation Plan On clinical assessment, the patient appears to have tolerated the sedation without complications. Patient is recovering as anticipated. Patient will continue to be monitored by nursing and may be discharged when sedation discharge criteria are met per below protocol. Upon Completions of procedure and additional 15 minutes continue every 5 minute vital signs and the P.A.R. score; then discharge to a Phase I or Fast Track to Phase II per the following guidelines: * Discharge Patient to appropriate Phase II area if PAR is 8 or greater or return to pre- procedure baseline. The post - procedure orders will be as directed. * If PAR score is less than 8 or not return to pre-procedure baseline then patient will follow Phase I monitoring till PAR is reached for Phase II. The Phase I may be done in procedure room or may call to secure a Phase I area. * If naloxone or flumazenil are used for reversal, hold in Phase I for continued monitoring from when last reversal dose was given for a minimum of 60 minutes or longer pending the nurse and/or physician discretion of patient condition before discharge to Phase II. Please call the Sedation Physician to re-evaluate and complete post-note for discharge to Phase II area. Do NOT discharge from procedure sedation or Phase 1 until post- sedation evaluation note is complete by procedure /sedation MD Sedation Discharge Instructions to be given to the patient at discharge to home.
--- NOTE | 2019-04-15 15:53 | Cardiology Progress Note ---
Date of Service April 15, 2019 Subjective Patient has had issues with chronic dizziness, blurry vision, nausea, and vomiting. He was here today for cardiac catheterization. He tolerated the procedure well without known complication. When he was ready for discharge, he developed dizziness. His blood pressure remained stable as it was checked promptly by nursing staff. Orthostatics were also checked and were reported as normal. He and his state that the symptoms have been intermittently occurring for the past several months and that they have reported it to both his CT surgeon, and jitterbug operator. Several studies have been done and ultimately he underwent cardiac catheterization today in anticipation of aortic valve replacement. He was given 200 mL of normal saline. Despite this, he continues to have intermittent dizziness both while standing and while in bed. Once again, vitals have remained stable. He then developed nausea with large amount of vomiting. His had stated that she is uncomfortable taking him home as they do not live close by. Etiology of symptoms not known at this time but not likely cardiac as there has not been a rhythm change on telemetry, with stable vitals. Hospitalist service, Dr. Atkins, was personally called to discuss intermittent symptoms. He was agreeable to have him sent to the floors under observation under his care to further evaluate the symptoms. I will be away for the hospital for the next several days. Dr. Garcia will be available for any cardiology needs. Patient care will be discussed with Dr. Garcia so that he can check on him tomorrow from a cardiology standpoint. Appreciate Dr. Atkins's assistance. Results & Data Vital Signs (Past 12 Hours) Vital Signs Temp Pulse Resp BP Pulse Ox 04/15/19 15:30 65 20 134/70 95 04/15/19 15:00 65 20 128/89 95 04/15/19 14:30 65 20 118/72 95 04/15/19 14:00 68 20 111/80 95 04/15/19 13:00 65 20 114/73 94 04/15/19 12:30 67 20 125/80 94 04/15/19 12:00 67 20 117/77 94 04/15/19 11:50 67 20 100/70 94 04/15/19 10:07 36.7 C 74 18 135/91 99 PG Care Time/CCT Total # of Minutes Spent Total Time Spent with Patient: Total time spent is greater than 50% in coordination of care (as documented) at patient's floor/unit and/or counseling patient:
[2019-04-15] MEDS ORDERED: MECLIZINE HCL 25 MG TAB PO PRN (16:21)
[2019-04-15] MEDS: SODIUM CHLORIDE 0.9% 1000ML 1,000 ML IV SCH (17:19)
[2019-04-15 17:33] LABS: Basophils # (auto) 0.01 K/uL (0-0.2); Basophils % (auto) 0.2 %; Eosinophils # (auto) 0.06 K/uL (0-0.5); Hematocrit (blood only) 42.4 % (42-52); Hemoglobin 14.2 g/dL (14.0-18.0); Immature Granulocytes # (auto) 0.01 K/uL (0.00-0.02); Immature Granulocytes % (auto) 0.2 %; Lymphocytes # (auto) 1.75 K/uL (1.2-3.4); Lymphocytes % (auto) 29.8 %; Mean Corpuscular Hemoglobin 30.8 pg (25-34); Mean Corpuscular Hgb Conc 33.5 g/dL (32-36); Mean Platelet Volume 9.9 fL (7.4-10.4); Monocytes # (auto) 0.48 K/uL (0.11-0.59); Monocytes % (auto) 8.2 %; Neutrophils # (auto) 3.57 K/uL (1.4-6.5); Neutrophils % (auto) 60.6 %; Platelet Count 138 K/uL (130-400); RDW Coefficient of Variation 13.5 % (11.5-14.5); RDW Standard Deviation 44.9 fL (36.4-46.3); Red Blood Count 4.61 M/uL (4.7-6.1); White Blood Count 5.88 K/uL (4.8-10.8)
[2019-04-15 19:15] LABS: Albumin Globulin Ratio 0.9 (0.9-2); Albumin Level 3.4 gm/dl (3.4-5.0); Bilirubin,Total 0.5 mg/dl (0.2-1); Calcium 8.6 mg/dl (8.5-10.1); Creatinine Clr Calc Pharmacy 70.7 ml/min; Est GFR (African American) 99.7; Globulin 3.7 gm/dl (2.5-4.0); Total Protein 7.1 gm/dl (6.4-8.2)
--- NOTE | 2019-04-15 21:02 | History & Physical Report ---
Date of Service April 15, 2019 Assessment & Plan (1) Vertigo: acute onset after heart cath h/o experiencing this periodically will treat with Meclizine PRN see how he feels tomorrow, usually self limiting (2) Nausea and vomiting: associated with vertigo vomited several times today, feels much better after vomiting Zofran PRN clears for tonight NSS at 100cc/hr CMP and lipase normal on labs moving bowels so no signs of obstruction (3) Aortic stenosis due to bicuspid aortic valve: plans for follow up with [facility] cardiothoracic surgeon on 04/28 had left heart cath today, normal (4) Hypertension: BP stable, no orthostatic changes continue home medications Toprol 50mg (5) Hyperlipidemia: continue Lipitor 10mg (6) AF (paroxysmal atrial fibrillation): continue Xarelto, Toprol he has 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 Saenz. He was feeling well prior to the procedure. Afterwards he was also doing well, he ate lunch. He went to get up from his bed and experienced profound dizziness and nausea. He became pale and diaphoretics and vomited several times violently. He did not have any chest pain. Of note his left heart cath did not show any severe disease. He rested in bed for about an hour and then his symptoms returned. Since he lives far away and was not feeling well his did not feel comfortable going home with him. He was put in for observation. Upon arriving to the telemetry floor he had another episode of violent emesis. He says that he did not have any abdominal pain associated with it. He moved his bowels this morning, and he has been regular. He gives a recent history of episodes of dizziness and vomiting. He describes the symptoms as true vertigo with everything spinning. He has had to crawl into his house when he has these episodes. He typically vomits, rests, and the symptoms get better. Allergies Allergy/AdvReac Type Severity Reaction Status Date / Time Penicillins Allergy Mild Nausea Verified 04/01/19 14:24 amoxicillin Allergy Unknown Verified 04/14/19 12:00 codeine AdvReac Mild DIZZINESS, Verified 04/01/19 14:24 NAUSEA Home Medications Home Medications Medication Instructions Recorded Confirmed Type metoprolol succinate ER 50 mg 50 mg PO QAM 03/10/18 04/14/19 History tablet,extended release 24 hr octreotide,microspheres ER 20 mg 40 mg IM MONTHLY ea 03/10/18 04/14/19 History intramuscular susp, extended release rivaroxaban 20 mg tablet 20 mg PO DAILY 11/25/18 04/14/19 History ascorbic acid (vitamin C) 500 mg 500 mg PO DAILY tab 01/22/19 04/14/19 History tablet multivit with min-folic 1 tab PO DAILY 01/22/19 04/14/19 History acid-lutein 400 mcg-250 mcg chewable tablet atorvastatin 10 mg tablet 10 mg PO DAILY #90 tab 02/09/19 04/14/19 Rx L.acidophilus-B.bifidum-B.longum 1 cap PO DAILY cap 03/22/19 04/14/19 History 240 mg (3 billion cell) capsule cholecalciferol (vitamin D3) 5,000 5,000 units PO DAILY 03/22/19 04/14/19 History unit capsule tramadol 50 mg tablet 50 mg PO .COMPLEX PRN #60 tab 04/01/19 04/14/19 Rx Past Med/Surg History Social History Preferred Language: [place] Communication Ability: Effective Passenger Attendant Required: No Beliefs That Will Affect Care: None Current Living Situation: Spouse Feels Safe at Home: Yes Safety Concerns: Feels Safe At This Time Smoking Status: Former smoker Cigarettes Per Day: QUIT 2002 ; Second Hand Exposure: No ; Hx Alcohol Use: No Hx Substance Use: No Review of Systems Review of Systems: All systems reviewed & are unremarkable except as noted in HPI & below Constitutional: + sweats and + weakness; no fever, no chills and no fatigue Respiratory: no cough, no dyspnea, no dyspnea on exertion and no wheezing Cardiovascular: no chest pain, no palpitations, no syncope and no edema Gastrointestinal: + nausea and + vomiting; no abdominal pain, no constipation and no diarrhea/loose stools Genitourinary: no dysuria and no difficulty urinating Musculoskeletal: no back pain and no joint pain Neurologic: + dizziness Physical Exam Constitutional: WD/WN, vitals as above + diaphoretic Eyes: PERRL, conjunctivae normal, anicteric sclerae ENMT: external ear and nose normal, oropharynx normal Neck: trachea midline, no thyromegaly Respiratory: normal respiratory effort, lungs clear to auscultation Cardiovascular: Rate/Rhythm: regular rate and regular rhythm Heart Sounds: normal S1, normal S2 and + murmur (systolic, radiates to apex and carotids) Vessels: no JVD Extremities: normal capillary refill; no edema Gastrointestinal (Abdomen): normal bowel sounds, soft, nontender, no hepatosplenomegaly Musculoskeletal: no cyanosis or clubbing, extremities motor strength 5/5 Skin: no rashes, warm and dry Neurologic: patellar DTR's 2+ bilat, sensation intact and PERRL, EOMI, accommodation nl, no face palsy, no dysarthria Psychiatric: A+Ox3, euthymic affect Lymphatic: no cervical or axillary lymphadenopathy Results & Data Vital Signs (Past 12 Hours) Vital Signs Temp Pulse Resp BP Pulse Ox 04/15/19 20:25 36.4 C L 69 20 129/80 93 04/15/19 16:44 36.8 C 73 18 156/97 H 98 04/15/19 16:00 60 20 135/88 95 04/15/19 15:30 65 20 134/70 95 04/15/19 15:00 65 20 128/89 95 04/15/19 14:30 65 20 118/72 95 04/15/19 14:00 68 20 111/80 95 04/15/19 13:00 65 20 114/73 94 04/15/19 12:30 67 20 125/80 94 04/15/19 12:00 67 20 117/77 94 04/15/19 11:50 67 20 100/70 94 04/15/19 10:07 36.7 C 74 18 135/91 99 Laboratory Results Laboratory Results - last 24 hr 04/15/19 04/15/19 04/15/19 17:08 17:08 17:08 WBC 5.88 RBC 4.61 L Hgb 14.2 Hct 42.4 MCV 92.0 MCH 30.8 MCHC 33.5 RDW Std Deviation 44.9 RDW Coeff of Paulo 13.5 Plt Count 138 MPV 9.9 Immature Gran % (Auto) 0.2 Neut % (Auto) 60.6 Lymph % (Auto) 29.8 [place] % (Auto) 8.2 Eos % (Auto) 1.0 Baso % (Auto) 0.2 Immature Gran # (Auto) 0.01 Neut # (Auto) 3.57 Lymph # (Auto) 1.75 [place] # (Auto) 0.48 Eos # (Auto) 0.06 Baso # (Auto) 0.01 Sodium 138 Potassium 4.0 Chloride 106 Carbon Dioxide 27 Anion Gap 5.0 BUN 16 Creatinine 0.89 Est Cr Clr Drug Dosing 70.7 Est GFR ( Amer) 99.7 Est GFR (Non-Af Amer) 86.0 BUN/Creatinine Ratio 18.0 Glucose 131 H Calcium 8.6 Total Bilirubin 0.5 AST 18 ALT 34 Alkaline Phosphatase 76 Total Protein 7.1 Albumin 3.4 Globulin 3.7 Albumin/Globulin Ratio 0.9 Lipase 78 Hepatitis C Ab Screen Neg Medications Administered Current Inpatient Medications Acetaminophen (Tylenol) 650 mg PO Q4H PRN PRN Reason: PAIN 1-3 Stop: 05/15/19 12:05 Sodium Chloride (Nss) 500 mls @ 999 mls/hr IV .Q31M PRN PRN Reason: IF SYS BP LESS THAN 90 Stop: 05/15/19 12:05 Sodium Chloride (Nss 1000ml) 1,000 mls @ 100 mls/hr IV .Q10H [facility] Stop: 05/15/19 16:59 Last Admin: 04/15/19 17:19 Dose: 100 mls/hr Documented by: Meclizine HCl (Antivert) 25 mg PO Q6H PRN PRN Reason: Dizziness or Vertigo Stop: 05/15/19 16:20 Metoprolol Succinate (Toprol Xl) 50 mg PO QAM [facility] Stop: 05/16/19 08:59 Ondansetron HCl (Zofran) 4 mg IV Q6H PRN PRN Reason: Nausea Stop: 05/15/19 12:05 Last Admin: 04/15/19 17:19 Dose: 4 mg Documented by: Rivaroxaban (Xarelto) 20 mg PO QDD [facility] Stop: 05/16/19 16:29 Code Status & VTE Plan Code Status full code VTE Prophylaxis Plan VTE Prophylaxis will be ordered: Yes PG Care Time/CCT Total # of Minutes Spent Total Time Spent with Patient: Total time spent is greater than 50% in coordination of care (as documented) at patient's floor/unit and/or counseling patient:
[2019-04-16] MEDS: SODIUM CHLORIDE 0.9% 1000ML 1,000 ML IV SCH ×2 (03:11→14:40)
[2019-04-16] MEDS ORDERED: METOPROLOL SUCC 50MG EXT REL TAB PO SCH (09:00)
[2019-04-16] MEDS ORDERED: RIVAROXABAN 20 MG TAB PO SCH (16:30)
--- NOTE | 2019-04-17 08:43 | Discharge Summary ---
Date of Service April 16, 2019 Admission HPI Per Admitting Provider 69 yo male with severe aortic stenosis who presented today for pre-operative left heart cath with Dr. Saenz. He was feeling well prior to the procedure. Afterwards he was also doing well, he ate lunch. He went to get up from his bed and experienced profound dizziness and nausea. He became pale and diaphoretics and vomited several times violently. He did not have any chest pain. Of note his left heart cath did not show any severe disease. He rested in bed for about an hour and then his symptoms returned. Since he lives far away and was not feeling well his did not feel comfortable going home with him. He was put in for observation. Upon arriving to the telemetry floor he had another episode of violent emesis. He says that he did not have any abdominal pain associated with it. He moved h is bowels this morning, and he has been regular. He gives a recent history of episodes of dizziness and vomiting. He describes the symptoms as true vertigo with everything spinning. He has had to crawl into his house when he has these episodes. He typically vomits, rests, and the symptoms get better. Principal Diagnosis Nausea and vomiting Discharge Exam Constitutional WD/WN, vitals as above Eyes PERRL, conjunctivae normal, anicteric sclerae ENMT external ear and nose normal, oropharynx normal Neck trachea midline, no thyromegaly Respiratory normal respiratory effort, lungs clear to auscultation Cardiovascular Rate/Rhythm: regular rate and regular rhythm Heart Sounds: normal S1, normal S2 and + murmur (systolic, radiates to apex and carotids) Vessels: no JVD Extremities: normal capillary refill; no edema Gastrointestinal (Abdomen) normal bowel sounds, soft, nontender, no hepatosplenomegaly Musculoskeletal no cyanosis or clubbing, extremities motor strength 5/5 Skin no rashes, warm and dry Neurologic patellar DTR's 2+ bilat, sensation intact and PERRL, EOMI, accommodation nl, no face palsy, no dysarthria Psychiatric A+Ox3, euthymic affect Lymphatic no cervical or axillary lymphadenopathy Discharge Data Allergies Allergy/AdvReac Type Severity Reaction Status Date / Time Penicillins Allergy Mild Nausea Verified 04/01/19 14:24 amoxicillin Allergy Unknown Verified 04/14/19 12:00 codeine AdvReac Mild DIZZINESS, Verified 04/01/19 14:24 NAUSEA Procedures Performed Operation Date: 04/15/19 11:00 Actual Procedures p Cath, Coronaries ONLY (no LV) - Justin Saenz MD s Cineradiography w/Routine Exam - Justin Saenz MD Ordered Studies 04/15/19 06:42 CL Cath Imgs for PACS use only Urgent Hospital Course (1) Vertigo: acute onset after heart cath h/o experiencing this periodically treated with Meclizine PRN symptoms completely resolved the next morning, ambulating freely around the room will continue to use Meclizine PRN on discharge (2) Nausea and vomiting: associated with vertigo vomited several times, felt much better after vomiting Zofran PRN NSS at 100cc/hr CMP and lipase normal on labs moving bowels so no signs of obstruction diet advanced from clears to regular food tolerated well (3) Aortic stenosis due to bicuspid aortic valve: plans for follow up with [facility] cardiothoracic surgeon on 04/28 had left heart cath, normal coronary arteries (4) Hypertension: BP stable, no orthostatic changes continue home medications Toprol 50mg (5) Hyperlipidemia: continue Lipitor 10mg (6) AF (paroxysmal atrial fibrillation): continue Xarelto, Toprol he has 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 Known severe aortic stenosis. Intermittent vertigo Condition on Discharge: Good Goals: follow up with cardiothoracic surgeon for valve replacement treat vertigo as needed with Meclizine Activity: Per Instructions section Non-emergency contact: Primary Care Provider and Team Guide Call non-emergency contact if: you have any medication questions, your symptoms worsen, you have a fever, your wound has increased redness, your wound has increased drainage and your wound pain has increased Follow-up/Referrals: Anjali Marshall CRNP [Primary Care Provider] - Diet: Regular Addtl Attending Provider Instructions: ACTIVITY RECOMMENDATIONS: Excess manipulation of the wrist should be avoided for the next 24-48 hours. * No lifting over 2 pounds (approximately a 1/2 gallon of milk) with the utilized arm for 24 hours. * No strenuous activity such as bowling or tennis for 3 days. * Keep the site of the procedure covered with a bandage for 24 hours. *You may shower the day after the procedure. Do not take a tub bath or submerge the puncture site in water for the next 3 days. *Do not operate any motorized equipment for 3 days. SPECIAL CARE INSTRUCTIONS: The site may be slightly bruised and sore following your procedure. Should any of the following occur, contact the Dr. who performed your procedure. 1. Redness/inflammation, swelling, chills, or fever, or colored drainage at procedure site within 3-7 days after your procedure. 2. Coldness, discoloration, ongoing numbness, severe pain, or swelling. Expect mild tingling of hand and tenderness at the puncture site for up to three days. If this persists beyond three days, or other symptoms develop, notify the Dr. who performed your procedure. BLEEDING: If the procedure site on your wrist begins to bleed, do not panic 1. Place 1 or 2 fingers firmly just slightly above the insertion site to stop the bleeding. You may be able to feel your pulse as you hold pressure. 2. Lift your finger after 5 minutes to see if the bleeding has stopped. 3. Once the bleeding has stopped, gently wipe the wrist area clean with a bandage. * If the bleeding from your wrist does not stop after 10 minutes, or if there is a large amount of bleeding or spurting, call 911 (do not drive yourself to the hospital). SKIN IRRITATION: * You may experience some redness and/or swelling in the area where radiation was administered. If any skin irritation occurs, please contact your family physician. FOLLOW UP VISIT: 1. Resume Xarelto Friday04/16/19. 2. Follow up with Dr. Bailey and Dr. Kate. 3. Keep any scheduled doctor appointments. Pending Studies at Discharge: No Stand-Alone Forms: Anesthesia/Sedation, Adult, [facility] Medications and DC Order Prescriptions: New meclizine 25 mg Tablet 25 mg PO Q8 PRN (Reason: dizziness) 10 Days Qty: 30 RF: 0 Continued metoprolol succinate [Toprol XL] 50 mg tablet extended release 24 hr 50 mg PO QAM RF: 0 octreotide,microspheres 20 mg suspension,extended rel recon 40 mg IM MONTHLY RF: 0 Xarelto 20 mg tablet 20 mg PO DAILY RF: 0 tramadol 50 mg tablet 50 mg PO .COMPLEX PRN (Reason: pain) Qty: 60 RF: 0 atorvastatin 10 mg tablet 10 mg PO DAILY Qty: 90 RF: 3 cholecalciferol (vitamin D3) 5,000 unit capsule 5,000 units PO DAILY RF: 0 L.acidophilus-B.bifidum,longum 240 mg (3 billion cell) capsule 1 cap PO DAILY RF: 0 Centrum Silver 400-250 mcg tablet,chewable 1 tab PO DAILY RF: 0 ascorbic acid (vitamin C) 500 mg tablet 500 mg PO DAILY RF: 0 Discharge Orders: Discharge Order (Routine); Ordered 04/16/19 Ordered By: Alexys Donato Admission Data Admit Date/Time: 04/15/19 15:45 Attending Provider: Alexys Donato Admit Provider: Justin Saenz Primary Care Provider: Anjali Marshall Other Interventions: Discharge Summary Assessment (RN) Last Done: 04/16/19 12:10 DC Date/Time DO NOT enter until pt leaves facility: 04/16/19 15:19
== END 2019-04-16 15:19 | disposition home or self-care (01) ==
LOC: CC 09:48 → 2E 09:48 → SUATTDRO 15:45
PROC: CLB.CCO (2019-04-15 11:00)

== ENCOUNTER 2019-06-05 11:57 | Observation (INO) ==
[2019-06-05 12:58] LABS: Basophils # (auto) 0.02 K/uL (0-0.2); Basophils % (auto) 0.4 %; Eosinophils # (auto) 0.06 K/uL (0-0.5); Eosinophils % (auto) 1.2 %; Hemoglobin 12.6 g/dL (14.0-18.0); Immature Granulocytes # (auto) 0.02 K/uL (0.00-0.02); Immature Granulocytes % (auto) 0.4 %; Lymphocytes # (auto) 1.48 K/uL (1.2-3.4); Lymphocytes % (auto) 28.6 %; Mean Corpuscular Hemoglobin 29.6 pg (25-34); Mean Corpuscular Hgb Conc 32.3 g/dL (32-36); Mean Corpuscular Volume 91.8 fL (80-100); Monocytes # (auto) 0.68 K/uL (0.11-0.59); Monocytes % (auto) 13.2 %; Neutrophils # (auto) 2.91 K/uL (1.4-6.5); Neutrophils % (auto) 56.2 %; Platelet Count 207 K/uL (130-400); RDW Coefficient of Variation 14.9 % (11.5-14.5); RDW Standard Deviation 50.1 fL (36.4-46.3); Red Blood Count 4.25 M/uL (4.7-6.1); White Blood Count 5.17 K/uL (4.8-10.8)
[2019-06-05 13:14] LABS: Albumin Level 3.1 gm/dl (3.4-5.0); BUN Creatinine Ratio 12.9 (10-20); Calcium 8.9 mg/dl (8.5-10.1); Creatinine Clr Calc Pharmacy 56.3 ml/min; Est GFR (African American) 78.7; Est GFR (Non-African American) 67.9; INR 2.6 (0.9-1.1); Magnesium 2.3 mg/dl (1.8-2.4); Potassium 4.1 mmol/L (3.5-5.1); Prothrombin Time 24.7 Seconds (9.0-12.0)
--- NOTE | 2019-06-05 13:17 | XRay Report ---
XR chest 1V portable HISTORY: Atypical Chest Pain COMPARISON: Chest 04/13/2019. FINDINGS: Poststernotomy changes and a left-sided dual-chamber pacemaker. The heart remains mildly en larged. No evidence for pulmonary edema. The upper lung zones are clear. No pneumothorax. Bibasilar l inear densities have slightly progressed. IMPRESSION: 1. Bibasilar linear densities favor subsegmental atelectasis or scarring. 2. Stable mild cardiomegaly. Electronically signed by: Mauro Harrison M.D. 06/05/2019 1:15 PM
[2019-06-05 13:19] LABS: Albumin Globulin Ratio 0.6 (0.9-2); Bilirubin,Total 0.5 mg/dl (0.2-1); Globulin 4.8 gm/dl (2.5-4.0); Phosphorus 3.2 mg/dl (2.5-4.9); Total Protein 7.9 gm/dl (6.4-8.2); Troponin I 0.015 ng/ml (0-0.045)
[2019-06-05] MEDS ORDERED: SODIUM CHLORIDE 0.9% 500 ML IV ONE ×2 (13:22→14:45)
[2019-06-05 16:03] LABS: Influenza A virus by PCR Neg for Influ A (Neg); Influenza B virus by PCR Neg for Influ B (Neg)
--- NOTE | 2019-06-05 17:26 | Emergency Department Note ---
Entered by Ciara Biswas acting as a scribe for History of Present Illness General Chief complaint: Nausea Stated complaint: NAUSEA, DIZZINESS, WEAKNESS, HAD AORITIC REPLACEME Time Seen by Provider: 06/05/19 12:33 Source: patient and family Mode of arrival: ambulatory Limitations: no limitations History of Present Illness Provider complaint: Nausea Onset (ago): hour(s) (today) Location: head Pain Consistency: + other (worsening) Maximum Pain Intensity: 5 Quality: + other (nausea) Associated symptoms: + cough (mucousy), + loss of appetite, + weakness (legs) and + other (Additional symptoms: diarrhea, dizziness, warmth, weight loss) Treatments prior to arrival: none The patient is a 69 year old male with a history of atrial fibrillation, aortic stenosis due to bicuspid aortic valve, pacemaker, liver cancer, colon cancer, hypertension, hyperlipidemia, TIA, and aortic aneurysm repair who presents to the Emergency Room with complaints of worsening nausea starting today. Per family, the patient had an aortic root replacement performed in [place] on May 13. Since his operation, the patient reports that he has not had a great appetite and has been experiencing 1-2 episodes of diarrhea a day. He states that he had otherwise been feeling good until today when he started feeling nauseous, dizzy, weak in his legs, and hot. One of his family members notes that his temperature was 99.7 this morning and that his blood pressure was lower than normal (101/71). She also complains of a mucousy cough and weight loss. She recalls that the patient was 180 lb before his surgery and 166.8 lb yesterday. Another family member explains that she spoke to Cardiology at [facility] about the patient's symptoms and was recommended to report to the ED out of concern for pneumonia or fluid around the heart. The patient reports that he takes Lasix daily and last took oxycodone yesterday. He adds that he has slept well on his recliner for the past 2 days. Home Medications Home Medications Medication Instructions Recorded Confirmed Type octreotide,microspheres 20 mg 40 mg IM MONTHLY ea 03/10/18 06/05/19 History intramuscular susp, extended release ascorbic acid (vitamin C) 500 mg 500 mg PO QAM tab 01/22/19 06/05/19 History tablet multivit with min-folic 1 tab PO QAM 01/22/19 06/05/19 History acid-lutein 400 mcg-250 mcg chewable tablet tramadol 50 mg tablet 50 mg PO .COMPLEX PRN #60 tab 04/01/19 06/05/19 Rx famotidine 20 mg tablet 20 mg PO BID #60 tab 05/20/19 06/05/19 Rx oxycodone 5 mg tablet 5 mg PO Q4H PRN #30 tab 05/20/19 06/05/19 Rx M87 1 cap PO QAM 06/05/19 06/05/19 History aspirin [Adult Low Dose Aspirin] 162 mg PO QAM 06/05/19 06/05/19 History atorvastatin 10 mg PO HS 06/05/19 06/05/19 History cholecalciferol (vitamin D3) 2,000 unit PO BID 06/05/19 06/05/19 History [Vitamin D3] furosemide 40 mg PO QAM 06/05/19 06/05/19 History potassium chloride 20 meq PO QAM 06/05/19 06/05/19 History warfarin 2.5 mg PO UD 06/05/19 06/05/19 History Allergies Allergy/AdvReac Type Severity Reaction Status Date / Time Penicillins Allergy Mild Nausea Verified 06/05/19 13:31 amoxicillin Allergy Unknown Verified 06/05/19 13:31 codeine AdvReac Mild DIZZINESS, Verified 06/05/19 13:31 NAUSEA Past Med/Surg History Medical History Acute allergic reaction (Resolved) AF (paroxysmal atrial fibrillation) (Chronic) Aortic aneurysm (Resolved) Aortic root, ascending and into arch Aortic stenosis Aortic stenosis due to bicuspid aortic valve (Resolved) Moderate-Severe Arrhythmia (Resolved) 5 YEARS AGO/IMPLANTED PACEMAKER Bicuspid aortic valve (Chronic) Cancer LIVER CANCER COLON CANCER Cardiac pacemaker (Chronic) Chronic low back pain RICHARD (dyspnea on exertion) (Resolved) Dyslipidemia Essential tremor (Chronic) Fatigue (Chronic) Hearing deficit History of malignant carcinoid tumor (Inactive) Hyperlipidemia (Chronic) Hypertension (Chronic) Impaired fasting glucose (Chronic) Kidney stones (Resolved) Left bundle-branch block (Chronic) Liver lesion (Chronic) Lumbar radicular pain (Chronic) Lumbar spinal stenosis (Chronic) 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, 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 Osteoarthritis (Chronic) Personal history of allergy to penicillin Post-op pain (Acute) Prediabetes Supraventricular aortic stenosis Third degree AV block (Chronic) Transient ischemic attack (TIA) (Resolved) "THE DOCTOR THOUGHT HE HAD ONE/ABOUT 5 YEARS AGO" Tremor of both hands (Resolved) Vitamin D deficiency (Chronic) Surgical History H/O knee surgery History of arthroscopy RT/LEFT KNEE History of carpal tunnel release (Inactive) History of cholecystectomy (Inactive) History of colectomy (Inactive) History of colonoscopy (Inactive) History of nasal septoplasty (Inactive) History of surgery RT KIDNEY SURGERY "NOT DRAINING CORRECTLY" History of tooth extraction (Inactive) Hx of resection of liver (Inactive) Pacemaker 5 YEARS AGO WILL BRING CARD TO APT. S/P aortic aneurysm repair (Acute) Status post cardiac surgery (Inactive) 05/13/19 Dr. Armen Kate- Aortic root replacement with a 25 mm epic bioprosthesis and a 30 mm Gelweave graft and left atrial appendage clip Status post small bowel resection Family History Mother Family history of diabetes mellitus Father Kidney disease Brother Valvular heart disease Sister Ovarian cancer Social History Preferred Language: Polish Communication Ability: Effective Filer Metal Patterns Required: No Beliefs That Will Affect Care: None Current Living Situation: Spouse Feels Safe at Home: Yes Smoking Status: Former smoker Cigarettes Per Day: QUIT 2002 ; Second Hand Exposure: No ; Hx Alcohol Use: No Hx Substance Use: No Review of Systems See HPI for pertinent positives & negatives. and A total of 10 systems reviewed and were otherwise negative Physical Exam Vital Signs Vital Signs - 24 hr 06/05/19 12:04 06/05/19 12:25 06/05/19 12:35 Temperature 36.4 C L Temperature Source Oral Pulse Rate 82 Pulse Rate [Left] 80 Pulse Rhythm [Left] Regular Respiratory Rate 20 18 Respiratory Effort / Characteristics Non-Labored Non-Labored Respiratory Depth Normal Normal Respiratory Pattern Regular Blood Pressure 113/75 Blood Pressure [Left Arm] 97/73 L Blood Pressure Mean 87 Blood Pressure Mean [Left Arm] 81 Pulse Oximetry 100 98 97 Oxygen Delivery Method Room Air Room Air Room Air Sepsis Recent Fever Within 48 Hours No Sepsis Action Taken by Nursing No Action Required 06/05/19 14:00 06/05/19 16:14 Temperature Temperature Source Pulse Rate Pulse Rate [Left] 80 80 Pulse Rhythm [Left] Regular Regular Respiratory Rate 20 18 Respiratory Effort / Characteristics Non-Labored Non-Labored Spontaneous Respiratory Depth Normal Normal Respiratory Pattern Regular Blood Pressure Blood Pressure [Left Arm] 111/74 111/69 Blood Pressure Mean Blood Pressure Mean [Left Arm] 86 83 Pulse Oximetry 98 96 Oxygen Delivery Method Room Air Room Air Sepsis Recent Fever Within 48 Hours Sepsis Action Taken by Nursing GENERAL: Awake, alert, fatigued-appearing, in no distress HENT: Normocephalic, atraumatic. Oropharynx with dry mucous membranes and otherwise unremarkable. EYES: Normal conjunctiva. Sclera non-icteric. NECK: Supple. No nuchal rigidity. FROM. No JVD. RESPIRATORY: CTAB. CARDIAC: Regular rate, normal rhythm. Extremities warm and well perfused. Pulses equal. ABDOMEN: Soft, non-distended. No tenderness to palpation. No rebound or guarding. No masses. RECTAL: Deferred. MUSCULOSKELETAL: Chest examination reveals no tenderness. The back is symmetrical on inspection without obvious abnormality. There is no CVA tenderness to palpation. No joint edema. LOWER EXTREMITIES: Calves are equal size bilaterally and non-tender. No edema. No discoloration. NEURO: Normal sensorium. No sensory or motor deficits noted. Cerebellar function intact, including finger to nose, alternating palms, heel to izquierdo. 5/5 strength and SILT x4 extremities. SKIN: No rash or jaundice noted. Procedures Free Text Procedures Limited Point of Care Cardiac Ultrasound performed by me: Indication: Weakness Findings: Limited echocardiography revealed no gross pericardial fluid. Additional findings: Near 100% IVC collapse with sniff c/w intravascular depletion. Impression: No gross pericardial effusion. Intravascular depletion. Course Course 1314: The patient was evaluated in room A2, and a complete history and physical examination were performed. 1430: I performed a bedside echo at this time. 1500: I reviewed the patient's case with Giovanny Ferraro PA-C, Thoracic and Cardiac Surgery, [facility]. Master agrees that the patient seems to be on the dry side and can stop taking his Lasix at this time. 1510: I checked on the patient and updated him on his results. 1538: I reviewed the [facility]'s case [facility] - Hospitalist, [facility] will evaluate the patient for further management. Consultations Consultation #1: I reviewed the patient's case with Giovanny Sandoval, Thoracic and Cardiac Surgery, [facility]. Masonyohan agrees that the patient seems to be on the dry side and can stop taking his Lasix at this time. Time: 15:00 Consultation #2: I reviewed the patient's case with Julio Owens PA-C, [facility] [place]. [facility] will evaluate the patient for further management. Time: 15:38 Administered Medications Discontinued Medications Ascorbic Acid (Vitamin C) 500 mg PO QAM [facility] Stop: 07/06/19 08:59 Last Admin: 06/06/19 08:11 Dose: 500 mg Documented by: [id number] Aspirin (Ecotrin Ectab) 162 mg PO QAM [facility] Stop: 07/06/19 08:59 Last Admin: 06/06/19 08:10 Dose: 162 mg Documented by: [id number] Atorvastatin Calcium (Lipitor) 10 mg PO HS [facility] Stop: 07/05/19 20:59 Last Admin: 06/05/19 20:25 Dose: 10 mg Documented by: [id number] Diphenhydramine HCl (Benadryl Capsule) 25 mg PO HS PRN PRN Reason: Insomnia Stop: 07/05/19 22:01 Last Admin: 06/05/19 22:21 Dose: 25 mg Documented by: [id number] Famotidine (Pepcid) 20 mg PO BID [facility] Stop: 07/05/19 20:59 Last Admin: 06/06/19 08:09 Dose: 20 mg Documented by: [id number] Admin: 06/05/19 20:26 Dose: 20 mg Documented by: [id number] Sodium Chloride (Nss) 500 mls @ 999 mls/hr IV .Q31M ONE Stop: 06/05/19 13:52 Last Infusion: 06/05/19 14:08 Dose: 0 mls/hr Documented by: [id number] Admin: 06/05/19 13:30 Dose: 999 mls/hr Documented by: [id number] Sodium Chloride (Nss) 500 mls @ 999 mls/hr IV .Q31M ONE Stop: 06/05/19 15:15 Last Infusion: 12/07/19 15:54 Dose: 0 mls/hr Documented by: [id number] Admin: 06/05/19 15:11 Dose: 999 mls/hr Documented by: [id number] Potassium Chloride/Sodium Chloride (Normal Saline W/20 Meq Kcl) 20 meq in 1,000 mls @ 75 mls/hr IV .[id number] [facility] Stop: 07/05/19 18:17 Last Admin: 06/06/19 08:13 Dose: 75 mls/hr Documented by: [id number] Infusion: 06/06/19 08:13 Dose: 75 mls/hr Documented by: [id number] Admin: 06/05/19 20:23 Dose: 75 mls/hr Documented by: [id number] Lactobacillus Acidophilus (Floranex) 4 tab PO TIDM [facility] Stop: 07/05/19 18:29 Last Admin: 06/06/19 12:09 Dose: 4 tab Documented by: [id number] Admin: 06/06/19 08:10 Dose: 4 tab Documented by: [id number] Admin: 06/05/19 20:26 Dose: Not Given Documented by: [id number] Multivitamins/Minerals (Multivitamin W/ Minerals Tab) 1 tab PO QAM [facility] Stop: 07/06/19 08:59 Last Admin: 06/06/19 08:11 Dose: 1 tab Documented by: [id number] Potassium Chloride (Klor-Con M20) 20 meq PO QAM [facility] Stop: 07/06/19 08:59 Last Admin: 06/06/19 08:10 Dose: 20 meq Documented by: [id number] Vitamin D (Vitamin D3) 2,000 units PO BID [facility] Stop: 07/05/19 20:59 Last Admin: 06/06/19 08:11 Dose: 2,000 units Documented by: [id number] Admin: 06/05/19 20:26 Dose: Not Given Documented by: [id number] Warfarin Sodium (Coumadin) 1.25 mg PO 1900 ONE Stop: 06/05/19 19:01 Last Admin: 06/05/19 20:24 Dose: 1.25 mg Documented by: [id number] Zolpidem Tartrate (Ambien) 5 mg PO HS PRN PRN Reason: Sleep Stop: 07/06/19 01:59 Last Admin: 06/06/19 02:22 Dose: 5 mg Documented by: [id number] Medical Decision Making Differential Diagnosis Differential diagnosis: Etiologies such as metabolic, infection, hypo/hyperglycemia, electrolyte abnormalities, cardiac sources, intracerebral event, toxicologic, neurologic, as well as others were entertained. Medical Records Attestation: I reviewed the patient's medical records. Home Medications Current Medication List: was personally reviewed by me Laboratory Data Attestation: I reviewed the patient's lab results. Result diagrams: 06/06/19 06:30 06/06/19 06:30 Lab Results 06/05/19 06/05/19 06/05/19 Range/Units 12:48 12:48 12:48 WBC 5.17 (4.8-10.8) K/uL RBC 4.25 L (4.7-6.1) M/uL Hgb 12.6 L (14.0-18.0) g/dL Hct 39.0 L (42-52) % MCV 91.8 (80-100) fL MCH 29.6 (25-34) pg MCHC 32.3 (32-36) g/dL RDW Std Deviation 50.1 H (36.4-46.3) fL RDW Coeff of Paulo 14.9 H (11.5-14.5) % Plt Count 207 (130-400) K/uL MPV 9.0 (7.4-10.4) fL Immature Gran % (Auto) 0.4 % Neut % (Auto) 56.2 % Lymph % (Auto) 28.6 % [place] % (Auto) 13.2 % Eos % (Auto) 1.2 % Baso % (Auto) 0.4 % Immature Gran # (Auto) 0.02 (0.00-0.02) K/uL Neut # (Auto) 2.91 (1.4-6.5) K/uL Lymph # (Auto) 1.48 (1.2-3.4) K/uL [place] # (Auto) 0.68 H (0.11-0.59) K/uL Eos # (Auto) 0.06 (0-0.5) K/uL Baso # (Auto) 0.02 (0-0.2) K/uL PT 24.7 H (9.0-12.0) Seconds INR 2.6 H (0.9-1.1) Sodium 137 (136-145) mmol/L Potassium 4.1 (3.5-5.1) mmol/L Chloride 104 (98-107) mmol/L Carbon Dioxide 27 (21-32) mmol/L Anion Gap 6.0 (3-11) BUN 14 (7-18) mg/dl Creatinine 1.09 (0.6-1.4) mg/dl Est Cr Clr Drug Dosing 56.3 ml/min Est GFR ( Amer) 78.7 Est GFR (Non-Af Amer) 67.9 BUN/Creatinine Ratio 12.9 (10-20) Glucose 141 H (70-99) mg/dl Calcium 8.9 (8.5-10.1) mg/dl Phosphorus 3.2 (2.5-4.9) mg/dl Magnesium 2.3 (1.8-2.4) mg/dl Total Bilirubin 0.5 (0.2-1) mg/dl AST 20 (15-37) U/L ALT 30 (12-78) U/L Alkaline Phosphatase 129 H (45-117) U/L Troponin I 0.015 (0-0.045) ng/ml Total Protein 7.9 (6.4-8.2) gm/dl Albumin 3.1 L (3.4-5.0) gm/dl Globulin 4.8 H (2.5-4.0) gm/dl Albumin/Globulin Ratio 0.6 L (0.9-2) Lipase 124 (73-393) U/L Influenza Type A (PCR) (Neg) Influenza Type B (PCR) (Neg) 06/05/19 Range/Units 15:15 WBC (4.8-10.8) K/uL RBC (4.7-6.1) M/uL Hgb (14.0-18.0) g/dL Hct (42-52) % MCV (80-100) fL MCH (25-34) pg MCHC (32-36) g/dL RDW Std Deviation (36.4-46.3) fL RDW Coeff of Apulo (11.5-14.5) % Plt Count (130-400) K/uL MPV (7.4-10.4) fL Immature Gran % (Auto) % Neut % (Auto) % Lymph % (Auto) % [place] % (Auto) % Eos % (Auto) % Baso % (Auto) % Immature Gran # (Auto) (0.00-0.02) K/uL Neut # (Auto) (1.4-6.5) K/uL Lymph # (Auto) (1.2-3.4) K/uL [place] # (Auto) (0.11-0.59) K/uL Eos # (Auto) (0-0.5) K/uL Baso # (Auto) (0-0.2) K/uL PT (9.0-12.0) Seconds INR (0.9-1.1) Sodium (136-145) mmol/L Potassium (3.5-5.1) mmol/L Chloride (98-107) mmol/L Carbon Dioxide (21-32) mmol/L Anion Gap (3-11) BUN (7-18) mg/dl Creatinine (0.6-1.4) mg/dl Est Cr Clr Drug Dosing ml/min Est GFR ( Amer) Est GFR (Non-Af Amer) BUN/Creatinine Ratio (10-20) Glucose (70-99) mg/dl Calcium (8.5-10.1) mg/dl Phosphorus (2.5-4.9) mg/dl Magnesium (1.8-2.4) mg/dl Total Bilirubin (0.2-1) mg/dl AST (15-37) U/L ALT (12-78) U/L Alkaline Phosphatase (45-117) U/L Troponin I (0-0.045) ng/ml Total Protein (6.4-8.2) gm/dl Albumin (3.4-5.0) gm/dl Globulin (2.5-4.0) gm/dl Albumin/Globulin Ratio (0.9-2) Lipase (73-393) U/L Influenza Type A (PCR) Neg for Influ A (Neg) Influenza Type B (PCR) Neg for Influ B (Neg) Imaging Data Radiologist's Impression: Radiology results as stated below per my review and the radiologist's interpretation: XR chest 1V portable HISTORY: Atypical Chest Pain COMPARISON: Chest 04/13/2019. FINDINGS: Poststernotomy changes and a left-sided dual-chamber pacemaker. The heart remains mildly enlarged. No evidence for pulmonary edema. The upper lung zones are clear. No pneumothorax. Bibasilar linear densities have slightly progressed. IMPRESSION: 1. Bibasilar linear densities favor subsegmental atelectasis or scarring. 2. Stable mild cardiomegaly. Electronically signed by: Mauro Harrison M.D. 06/05/2019 1:15 PM ECG Data Attestation: I personally reviewed and interpreted this ECG as follows: Indication: + nausea Rate (beats per minute): 82 Rhythm: + other (v-paced rhythm) ECG ST segments: no ST depression and no ST elevation ECG Findings: + Other (QTC is 523); no PACs and no PVCs Blood Pressure Blood Pressure Findings: Normal blood pressure MDM Narrative The patient is a pleasant 69-year-old gentleman with a past medical history of heart block status post PPM, history of aortic stenosis and thoracic aortic aneurysm status post AVR last month at [facility] who presents emergency departm ent with generalized fatigue/malaise over the past 48 hours with report of low- grade fever several days ago per HPI. On arrival patient is fatigued appearing but no acute distress, afebrile, BP 90-100s/70s stable vital signs. The patient appears clinically dry. The patient's incision site is clean dry and intact without evidence of infection. Left upper chest wall PPM site also unremarkable. Abdomen is benign. Patient is neurologically intact. EKG demonstrates a paced rhythm. Chest x-ray negative for acute process. WBC and platelets within normal limits. H/H 12.6/39.0 improved from postop values after discussion with [facility] cardiac surgery KERRIE Hodge. INR therapeutic at 2.6. Chemistry without acidosis. Electrolytes and LFTs unremarkable. Troponin negative at 0.015. Interrogation of the patient's pacemaker was negative for any concerning arrhythmias. Patient was reevaluated after initial 500 cc of IV fluids and did report some improvement though still feeling generally unwell. Limited bedside echo was performed and was negative for pericardial effusion. The patient's IVC demonstrates near collapse on sniff (even after initial 500cc NSS) consistent with the patient's clinically dry appearance and likely component of dehydration to his symptoms. BP improved to 100-110s/70s. I did review the case with [facility] cardiac surgery KERRIE Hodge who agreed that the patient's work-up was reassuring and there was no need for transfer at this time. Would suggest likely discontinue his Lasix. Agrees would be reasonable to observe for 24 hours if the patient is continued to feel unwell. I did review findings and recommendation for admission with the patient and his family and the patient was agreeable for admission at this time. Case was discussed with Julio hopkins PAC with rebecca Hooker who will admit the patient under Dr. Munoz. Impression & Plan Dehydration, Status post aortic valve replacement, Normally functioning cardiac pacemaker present, Malaise and fatigue, On warfarin therapy Discharge Plan Visit Data *Final* Discharge Date/Time: 06/05/19 17:46 Chief Complaint: Nausea Stated Complaint: NAUSEA, DIZZINESS, WEAKNESS, HAD AORITIC REPLACEME ED Provider: Oscar Camargo Discharge Problem: Dehydration, Status post aortic valve replacement, Normally functioning cardiac pacemaker present, Malaise and fatigue, On warfarin therapy Patient Disposition: Admitted As Inpatient Discharge Instructions Interventions: ED Discharge Assessment Last Done: 06/05/19 17:46 The scribe's documentation has been prepared under my direction and personally reviewed by me in its entirety. I confirm that the note above accurately reflects all work, treatment, procedures, and medical decision making performed by me.
--- NOTE | 2019-06-05 17:28 | History & Physical Report ---
Date of Service June 05, 2019 Assessment & Plan (1) Weakness: Patient presents with weakness which is probably multifactorial. Although his BUN and creatinine are stable, bedside ultrasound presents with collapsible IVC with sniff and inspiration Patient reports poor oral intake for the last week secondary to malaise and nausea Patient has had no vomiting or diarrhea Patient recently had a AVR 05/14/2019 at [facility] in [place] and is still recovering At this point we will admit the patient under observation for fluid hydration with normal saline with 20 mEq of potassium per liter at 75 mL/h. Patient is currently anticoagulated with Coumadin with an INR of 2.6 -we will follow INR daily as well as usual labs (2) Status post aortic valve replacement: Recent AVR at [facility] Check an echocardiogram in the morning Will have [facility] cardiology group read the echo so they have access to the [facility] records as well At this point we will continue gentle hydration and continue anticoagulation with Coumadin as follows * 's 2.5 mg on Friday and * 1.25 mg on Friday and Friday Check daily INR (3) Dehydration: Normal saline with 20 of K at 75 mL/h Check repeat labs in the morning Check orthostatics (4) AF (paroxysmal atrial fibrillation): Patient currently not on any beta-anthony at home Rate controlled at 80 bpm Pacemaker is in place and firing Interrogation shows atrial fibrillation Continue to monitor on telemetry Continue anticoagulation with warfarin (5) History of malignant carcinoid tumor: First diagnosed in 2002 Chemoembolization of the liver in doses Follows with [facility] No acute issues Sandostatin injection monthly No other chemotherapy per patient (6) Hypertension: Patient has been hypotensive at home with a systolic pressure in the 90s and low 100s Currently systolic pressure is 101 Follow closely as we begin hydration Gentle hydration due to recent AVR Follow on telemetry (7) Hyperlipidemia: Continue atorvastatin at bedtime (8) DVT prophylaxis: Patient chronically anticoagulated with warfarin INR 2.6 Patient may continue to wear his JEFFERY hose Please refer to Dr. Munoz's addendum for further recommendations. History of Present Illness Primary Care Provider: RONNY Wills Attending: Dr. Munoz This is a 69-year-old male who follows with RONNY Morgan at [facility]. He has a past medical history including recent aortic valve root replacement 05/14/2019 at [facility], carcinomatosis, history of chemoembolization in 2014, atrial fibrillation on chronic warfarin th era, cardiac pacemaker, essential tremor, left bundle branch block, hyperlipidemia, hypertension, osteoarthritis, and history of tobacco abuse (40 pack history/quit smoking 2002). The patient presents this morning at about 1130 to the emergency department due to malaise and weakness. The patient recently had an aortic valve replacement May 14, 2019 at [facility]. He has chronic chest wall pain from the surgery but has no protruding wires and he has a well-healed surgical scar. He states that over the last 2 days he has had increasing weakness and nausea which worsened yesterday morning. This morning he got up and could have a little bit of tea but was unable to function so his family brought him to the emergency department. He felt warm but had no fever. He has chronic loose stools since his discharge from [place] with no diarrhea. He has no vomiting. He has no unusual chest pain or back pain. He denies any falls or leg weakness. He has no new paresthesias or neurological findings. The patient is on Coumadin and has an INR of 2.6. He follows with Coumadin clinic. He has no unusual bleeding or ecchymosis. He is tolerating the Coumadin well. The patient denies any recent falls or loss of balance. He has no lightheadedness or dizziness. He has no syncope or presyncope. He denies any awareness of tachyarrhythmia or ectopy. He does however have shortness of breath with exertion. Bedside ultrasound was performed by Dr. guzman who reports a collapsible IVC with sniff. Patient has no significant edema. He does take furosemide daily as scheduled. He does state that his typical blood pressures in the 130 systolically but lately it has been in the 90s and low 100s. The patient has no other acute complaints. Allergies Allergy/AdvReac Type Severity Reaction Status Date / Time Penicillins Allergy Mild Nausea Verified 06/05/19 13:31 amoxicillin Allergy Unknown Verified 06/05/19 13:31 codeine AdvReac Mild DIZZINESS, Verified 06/05/19 13:31 NAUSEA Home Medications Home Medications Medication Instructions Recorded Confirmed Type octreotide,microspheres 20 mg 40 mg IM MONTHLY ea 03/10/18 06/05/19 History intramuscular susp, extended release ascorbic acid (vitamin C) 500 mg 500 mg PO QAM tab 01/22/19 06/05/19 History tablet multivit with min-folic 1 tab PO QAM 01/22/19 06/05/19 History acid-lutein 400 mcg-250 mcg chewable tablet tramadol 50 mg tablet 50 mg PO .COMPLEX PRN #60 tab 04/01/19 06/05/19 Rx famotidine 20 mg tablet 20 mg PO BID #60 tab 05/20/19 06/05/19 Rx oxycodone 5 mg tablet 5 mg PO Q4H PRN #30 tab 05/20/19 06/05/19 Rx Enertiv Health 1 cap PO QAM 06/05/19 06/05/19 History aspirin [Adult Low Dose Aspirin] 162 mg PO QAM 06/05/19 06/05/19 History atorvastatin 10 mg PO HS 06/05/19 06/05/19 History cholecalciferol (vitamin D3) 2,000 unit PO BID 06/05/19 06/05/19 History [Vitamin D3] furosemide 40 mg PO QAM 06/05/19 06/05/19 History potassium chloride 20 meq PO QAM 06/05/19 06/05/19 History warfarin 2.5 mg PO UD 06/05/19 06/05/19 History Past Med/Surg History Medical History Acute allergic reaction (Resolved) AF (paroxysmal atrial fibrillation) (Chronic) Aortic aneurysm (Resolved) Aortic root, ascending and into arch Aortic stenosis Aortic stenosis due to bicuspid aortic valve (Resolved) Moderate-Severe Arrhythmia (Resolved) 5 YEARS AGO/IMPLANTED PACEMAKER Bicuspid aortic valve (Chronic) Cancer LIVER CANCER COLON CANCER Cardiac pacemaker (Chronic) Chronic low back pain RICHARD (dyspnea on exertion) (Resolved) Dyslipidemia Essential tremor (Chronic) Fatigue (Chronic) Hearing deficit History of malignant carcinoid tumor (Inactive) Hyperlipidemia (Chronic) Hypertension (Chronic) Impaired fasting glucose (Chronic) Kidney stones (Resolved) Left bundle-branch block (Chronic) Liver lesion (Chronic) Lumbar radicular pain (Chronic) Lumbar spinal stenosis (Chronic) 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, 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 Osteoarthritis (Chronic) Personal history of allergy to penicillin Post-op pain (Acute) Prediabetes Supraventricular aortic stenosis Third degree AV block (Chronic) Transient ischemic attack (TIA) (Resolved) "THE DOCTOR THOUGHT HE HAD ONE/ABOUT 5 YEARS AGO" Tremor of both hands (Resolved) Vitamin D deficiency (Chronic) Surgical History H/O knee surgery History of arthroscopy RT/LEFT KNEE History of carpal tunnel release (Inactive) History of cholecystectomy (Inactive) History of colectomy (Inactive) History of colonoscopy (Inactive) History of nasal septoplasty (Inactive) History of surgery RT KIDNEY SURGERY "NOT DRAINING CORRECTLY" History of tooth extraction (Inactive) Hx of resection of liver (Inactive) Pacemaker 5 YEARS AGO WILL BRING CARD TO APT. S/P aortic aneurysm repair (Acute) Status post cardiac surgery (Inactive) 05/13/19 Dr. Armen Kate- Aortic root replacement with a 25 mm epic bioprosthesis and a 30 mm Gelweave graft and left atrial appendage clip Status post small bowel resection Family History Mother Family history of diabetes mellitus Father Kidney disease Brother Valvular heart disease Sister Ovarian cancer Social History Preferred Language: Mohawk Communication Ability: Effective Partnership Manager Required: No Beliefs That Will Affect Care: None Current Living Situation: Spouse Feels Safe at Home: Yes Smoking Status: Former smoker Cigarettes Per Day: QUIT 2002 ; Second Hand Exposure: No ; Hx Alcohol Use: No Hx Substance Use: No Review of Systems Review of Systems: All systems reviewed & are unremarkable except as noted in HPI & below Physical Exam Physical Exam: GENERAL : No acute distress. Appears tired EYES: No icterus, gaze conjugate. Pupils equal round and reactive to light NOSE: No evidence of epistaxis. MOUTH: No lesions or candidiasis. Mucosa is moist. Tongue is midline. Upper and lower dentures in place. NECK: Supple. No appreciation carotid bruits LUNGS: CTA B/L, no wheezes, rales or rhonchi. HEART: Regular, rate controlled. No appreciation of ectopy. ABDOMEN: Soft, NT, ND, BS Present EXTREMITIES: No LE edema, pedal pulses intact. JEFFERY hose are in place NEURO: A&OX3. Results & Data Vital Signs (Past 12 Hours) Vital Signs Temp Pulse Pulse Resp BP BP Pulse Ox 06/05/19 16:14 80 18 111/69 96 06/05/19 14:00 80 20 111/74 98 06/05/19 12:35 97 06/05/19 12:25 80 18 97/73 L 98 06/05/19 12:04 36.4 C L 82 20 113/75 100 Laboratory Results 06/05/19 12:48 06/05/19 12:48 INR 2.6 (0.9-1.1) H 06/05/19 12:48 Diagnostic Findings XR chest 1V portable HISTORY: Atypical Chest Pain COMPARISON: Chest 04/13/2019. FINDINGS: Poststernotomy changes and a left-sided dual-chamber pacemaker. The heart remains mildly enlarged. No evidence for pulmonary edema. The upper lung zones are clear. No pneumothorax. Bibasilar linear densities have slightly progressed. IMPRESSION: 1. Bibasilar linear densities favor subsegmental atelectasis or scarring. 2. Stable mild cardiomegaly. Electronically signed by: Mauro Harrison M.D. 06/05/2019 1:15 PM Code Status & VTE Plan Code Status Full resuscitation VTE Prophylaxis Plan VTE Prophylaxis will be ordered: Yes Supervising Physician Co-Signing Physician Notes During my face to face encounter with the patient, I obtained a history and physical examination on the patient. I discussed case with APC, and answered all of the patient's questions. I reviewed above note and agree with it except for the following: Patient will be admitted under Observation. Will give ivf. Will monitor patient, no signs of sepsis at this time. May consider pt consult in am. If no improvement in am, will need to find other causes of his weakness. PG Care Time/CCT Total # of Minutes Spent Total Time Spent with Patient: Total time spent is greater than 50% in c oordination of care (as documented) at patient's floor/unit and/or counseling patient: 60 minutes
[2019-06-05] MEDS ORDERED: ONDANSETRON INJ 2 MG/ML 2 ML VIAL IV PRN (18:18)
[2019-06-05] MEDS ORDERED: POLYETHYLENE (MIRALAX) 17 GM PACK PO PRN (18:18)
[2019-06-05] MEDS ORDERED: OXYCODONE HCL IR 5 MG TAB (IMMEDIATE RELEASE) PO PRN (18:18)
[2019-06-05] MEDS ORDERED: TRAMADOL HCL 50 MG TABLET PO PRN (18:18)
[2019-06-05] MEDS ORDERED: WARFARIN SOD 1.25 MG TAB PO ONE (19:00)
[2019-06-05 19:43] LABS: Prothrombin Time 19.8 Seconds (9.0-12.0)
[2019-06-05] MEDS: NSS + 20MEQ KCL 20 MEQ/1,000 ML BAG IV SCH (20:23)
[2019-06-05] MEDS: FAMOTIDINE 20 MG TAB PO SCH (20:26)
[2019-06-05] MEDS: LACTOBACILLUS ACIDOPHILUS (FLORANEX) TAB PO SCH (20:26)
[2019-06-05] MEDS: CHOLECALCIFEROL 1,000 UNITS 25 MCG TAB PO SCH (20:26)
[2019-06-05] MEDS ORDERED: ATORVASTATIN 10 MG TAB PO SCH (21:00)
[2019-06-06] MEDS ORDERED: ZOLPIDEM TARTRATE 5 MG TAB PO PRN (02:00)
[2019-06-06 07:16] LABS: Basophils # (auto) 0.03 K/uL (0-0.2); Basophils % (auto) 0.6 %; Eosinophils # (auto) 0.12 K/uL (0-0.5); Eosinophils % (auto) 2.3 %; Hematocrit (blood only) 36.3 % (42-52); Hemoglobin 11.5 g/dL (14.0-18.0); Immature Granulocytes # (auto) 0.01 K/uL (0.00-0.02); Immature Granulocytes % (auto) 0.2 %; Lymphocytes % (auto) 30.9 %; Mean Corpuscular Hemoglobin 29.5 pg (25-34); Mean Corpuscular Hgb Conc 31.7 g/dL (32-36); Mean Corpuscular Volume 93.1 fL (80-100); Mean Platelet Volume 9.3 fL (7.4-10.4); Monocytes # (auto) 0.58 K/uL (0.11-0.59); Monocytes % (auto) 11.2 %; Neutrophils # (auto) 2.84 K/uL (1.4-6.5); Neutrophils % (auto) 54.8 %; Platelet Count 184 K/uL (130-400); RDW Coefficient of Variation 15.2 % (11.5-14.5); RDW Standard Deviation 51.1 fL (36.4-46.3); White Blood Count 5.18 K/uL (4.8-10.8)
[2019-06-06 07:27] LABS: INR 1.6 (0.9-1.1); Prothrombin Time 16.2 Seconds (9.0-12.0)
[2019-06-06 07:46] LABS: BUN Creatinine Ratio 15.8 (10-20); Calcium 8.9 mg/dl (8.5-10.1); Creatinine Clr Calc Pharmacy 67.1 ml/min; Est GFR (African American) 97.9; Est GFR (Non-African American) 84.5
[2019-06-06] MEDS: FAMOTIDINE 20 MG TAB PO SCH (08:09)
[2019-06-06] MEDS: LACTOBACILLUS ACIDOPHILUS (FLORANEX) TAB PO SCH ×2 (08:10→12:09)
[2019-06-06] MEDS: CHOLECALCIFEROL 1,000 UNITS 25 MCG TAB PO SCH (08:11)
[2019-06-06] MEDS: NSS + 20MEQ KCL 20 MEQ/1,000 ML BAG IV SCH (08:13)
[2019-06-06] MEDS ORDERED: CEROVITE ADV FORMULA TAB PO SCH (09:00)
[2019-06-06] MEDS ORDERED: POTASSIUM CHLORIDE 20 MEQ TABCR PO SCH (09:00)
[2019-06-06] MEDS ORDERED: ASPIRIN 81 MG ECTAB PO SCH (09:00)
[2019-06-06] MEDS ORDERED: ASCORBIC ACID 500 MG TAB PO SCH (09:00)
[2019-06-06 11:38] VITALS: BP 125/77; PULSE 82; TEMP 97.3; O2SAT 99
[2019-06-06 13:01] LABS: Albumin Level 2.7 gm/dl (3.4-5.0); Bilirubin Direct 0.1 mg/dl (0-0.2); Bilirubin,Total 0.5 mg/dl (0.2-1); Total Protein 6.9 gm/dl (6.4-8.2)
[2019-06-06] MEDS ORDERED: WARFARIN SOD 2.5 MG TAB PO SCH (16:00)
--- NOTE | 2019-06-07 10:47 | XCELERA ---
[id number] \\[email or web address]\[id number]_[email or web address]\[id number]
[2019-06-07] MEDS ORDERED: WARFARIN SOD 1.25 MG TAB PO SCH (16:00)
--- NOTE | 2019-06-09 16:37 | Discharge Summary ---
Date of Service June 06, 2019 Admission HPI Per Admitting Provider Attending: Dr. Munoz This is a 69-year-old male who follows with RONNY Morgan at [facility]. He has a past medical history including recent aortic valve root replacement 05/14/2019 at [facility], carcinomatosis, history of chemoembolization in 2014, atrial fibrillation on chronic warfarin therapy, cardiac pacemaker, essential tremor, left bundle branch block, hyperlipidemia, hypertension, osteoarthritis, and history of tobacco abuse (40 pack history/quit smoking 2002). The patient presents this morning at about 1130 to the emergency department due to malaise and weakness. The patient recently had an aortic valve replacement May 14, 2019 at [facility]. He has chronic chest wall pain from the surgery but has no protruding wires and he has a well-healed surgical scar. He states that over the last 2 days he has had increasing weakness and nausea which worsened yesterday morning. This morning he got up and could have a little bit of tea but was unable to function so his family brought him to the emergency department. He felt warm but had no fever. He has chronic loose stools since his discharge from [place] with no diarrhea. He has no vomiting. He has no unusual chest pain or back pain. He denies any falls or leg weakness. He has no new paresthesias or neurological findings. The patient is on Coumadin and has an INR of 2.6. He follows with Coumadin clinic. He has no unusual bleeding or ecchymosis. He is tolerating the Coumadin well. The patient denies any recent falls or loss of balance. He has no lightheadedness or dizziness. He has no syncope or presyncope. He denies any awareness of tachyarrhythmia or ectopy. He does however have shortness of breath with exertion. Bedside ultrasound was performed by Dr. guzman who reports a collapsible IVC with sniff. Patient has no significant edema. He does take furosemide daily as scheduled. He does state that his typical blood pressures in the 130 systolically but lately it has been in the 90s and low 100s. The patient has no other acute complaints. Principal Diagnosis weakness Discharge Exam GENERAL : No acute distress. Appears well. EYES: No icterus, gaze conjugate. Pupils equal round and reactive to light NOSE: No evidence of epistaxis. MOUTH: No lesions or candidiasis. Mucosa is moist. Tongue is midline. Upper and lower dentures in place. NECK: Supple. No appreciation carotid bruits LUNGS: CTA B/L, no wheezes, rales or rhonchi. HEART: Regular, rate controlled. No appreciation of ectopy. ABDOMEN: Soft, NT, ND, BS Present EXTREMITIES: No LE edema, pedal pulses intact. JEFFERY hose are in place NEURO: A&OX3. Discharge Data Allergies Allergy/AdvReac Type Severity Reaction Status Date / Time Penicillins Allergy Mild Nausea Verified 06/05/19 13:31 amoxicillin Allergy Unknown Verified 06/05/19 13:31 codeine AdvReac Mild DIZZINESS, Verified 06/05/19 13:31 NAUSEA Consultations 06/05/19 15:15 ED Decision to Admit Stat 06/05/19 18:18 Consult Case Management - Discharge Planning Routine Ordered Studies 06/05/19 14:00 US point of care ultrasound Stat Hospital Course (1) Weakness: Patient presents with weakness which is probably multifactorial. Although his BUN and creatinine are stable, bedside ultrasound presents with collapsible IVC with sniff and inspiration Patient reports poor oral intake for the last week secondary to malaise and nausea Patient has had no vomiting or diarrhea Patient recently had a AVR 05/14/2019 at [facility] in [place] and is still recovering At this point we will admit the patient under observation for fluid hydration with normal saline with 20 mEq of potassium per liter at 75 mL/h. Patient is currently anticoagulated with Coumadin with an INR of 2.6 -we will follow INR daily as well as usual labs On day of discharge: Patient improved with IVF. Patient ambulated the halls with no issue. Patient was no longer symptomatic at discharge. (2) Status post aortic valve replacement: Recent AVR at [facility] Check an echocardiogram in the morning Will have [facility] cardiology group read the echo so they have access to the [facility] records as well At this point we will continue gentle hydration and continue anticoagulation with Coumadin as follows * 's 2.5 mg on Friday and * 1.25 mg on Friday and Friday Check daily INR Echo cardio gram shows signs of conduction abnormality. 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 (3) Dehydration: Normal saline with 20 of K at 75 mL/h Check repeat labs in the morning Check orthostatics (4) AF (paroxysmal atrial fibrillation): Patient currently not on any beta-anthony at home Rate controlled at 80 bpm Pacemaker is in place and firing Interrogation shows atrial fibrillation Continue to monitor on telemetry Continue anticoagulation with warfarin (5) History of malignant carcinoid tumor: First diagnosed in 2002 Chemoembolization of the liver in doses Follows with Dr. [facility] No acute issues Sandostatin injection monthly No other chemotherapy per patient (6) Hypertension: Patient has been hypotensive at home with a systolic pressure in the 90s and low 100s Currently systolic pressure is 101 Follow closely as we begin hydration Gentle hydration due to recent AVR Follow on telemetry (7) Hyperlipidemia: Continue atorvastatin at bedtime (8) DVT prophylaxis: Patient chronically anticoagulated with warfarin INR 2.6 Patient may continue to wear his JEFFERY hose Total Time Total Time Spent Total Time Spent (In Minutes): 32 Total Time Includes: Examination of the Patient, Discharge Planning and Medication Reconciliation Discharge Plan Discharge Items Patient Disposition: Home - Self-Care Reason For Visit: DEHYDRATION, WEAKNESS, MALAISE Discharge Diagnosis: weakness, dehydration Activity: Resume your previous activity Non-emergency contact: Primary Care Provider Call non-emergency contact if: you have any medication questions Follow-up/Referrals: Anjali Marshall CRNP [Primary Care Provider] - Diet: Heart Healthy Addtl Attending Provider Instructions: Recommend followup with PCP in 1-2 weeks. Hold lasix for one more day. Restart furosemide on 06/08 Pending Studies at Discharge: No Stand-Alone Forms: My [facility], Smoking Cessation Medications and DC Order Prescriptions: Continued octreotide,microspheres 20 mg suspension,extended rel recon 40 mg IM MONTHLY RF: 0 tramadol 50 mg tablet 50 mg PO .COMPLEX PRN (Reason: pain) Qty: 60 RF: 0 famotidine 20 mg tablet 20 mg PO BID Qty: 60 RF: 0 oxycodone 5 mg tablet 5 mg PO Q4H PRN (Reason: pain) Qty: 30 RF: 0 Centrum Silver 400-250 mcg tablet,chewable 1 tab PO QAM RF: 0 ascorbic acid (vitamin C) 500 mg tablet 500 mg PO QAM RF: 0 potassium chloride 10 mEq tablet extended release 20 meq PO QAM RF: 0 cholecalciferol (vitamin D3) [Vitamin D3] 2,000 unit Tablet 2,000 unit PO BID RF: 0 [employer] 1.5 billion cell Capsule 1 cap PO QAM RF: 0 furosemide 40 mg tablet 40 mg PO QAM RF: 0 atorvastatin 10 mg tablet 10 mg PO HS RF: 0 warfarin 2.5 mg tablet 2.5 mg PO UD RF: 0 aspirin [Adult Low Dose Aspirin] 81 mg tablet,delayed release (DR/EC) 162 mg PO QAM RF: 0 Discharge Orders: Discharge Order (Routine); Ordered 06/06/19 Ordered By: Sanchez Hagan/Other Patient Handouts: Coumadin, Tips Using Less Salt, Choices Low Salt, Eat Healthy, Herbs Spices Use, Diet Low Salt Dc, Foods Heart Healthy Admission Data Admit Date/Time: 06/05/19 17:12 Attending Provider: Sanchez Munoz Admit Provider: Sanchez Munoz Primary Care Provider: Anjali Marshall Other Providers: Alexys Donato Other Interventions: Discharge Summary Assessment (RN) Last Done: 06/06/19 18:53 DC Date/Time DO NOT enter until pt leaves facility: 06/06/19 16:30
[2019-06-26] MEDS ORDERED: [UNRECOGNIZED DRUG - OTHER] SCH (09:00)
[2019-06-26] MEDS ORDERED: OCTREOTIDE SCH (09:00)
== END 2019-06-06 16:30 | disposition home or self-care (01) ==
LOC: ED 11:57 → 2S 11:57

== ENCOUNTER 2022-12-09 08:53 | Inpatient (IN) ==
[2022-12-09] MEDS ORDERED: SODIUM CHLORIDE 0.9% 1000ML 1,000 ML IV STA (09:23)
--- NOTE | 2022-12-09 09:24 | Emergency Department Note ---
Impression & Plan Anemia ADMIT ED Provider Note HPI: The patient is a 72-year-old gentleman with history of atrial fibrillation, currently on Xarelto, presents emergency department with a chief complaint of melanotic stools that of been loose in nature over the past several days. Jodi flores's states that he had some outpatient lab work done on 12/06 that showed that he was anemic. On arrival here to the ED the patient is hemodynamically stable, he denies any abdominal pain, he is otherwise in no acute distress on my initial assessment. States he has had multiple episodes of melanotic and loose stools over the past several days each day. ROS: - Per HPI *Outpatient medications and allergy history reviewed. *Pertinent external medical records reviewed. 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 Medical Decision Making: Shortly after the patient arrived IV was established and lab work obtained, patient was given an IV fluid bolus, lab work shows no leukocytosis, hemoglobin is noted to be low at 7.7, this is in comparison to lab work obtained 3 days ago that shows a hemoglobin of 10.7, platelet count is noted to be within normal limits, CMP shows evidence of uremia with BUN elevated 28, creatinine is within normal limits, no critical electrolyte abnormalities are noted, troponin is slightly elevated at 25.3, patient's EKG per my interpretation does not show any evidence of ischemic changes and he denies any chest pain. Lipase is within normal limits. Patient's abdomen is soft and nontender on my exam, therefore CT imaging of the abdomen pelvis was not ordered. Patient was given IV fluids, started on a Protonix bolus and drip over concern for lower GI bleed. Rectal examination was performed and there is melena within the rectal vault, occult positive stool. No evidence of any gross bleeding. Given the acute drop in the patient's hemoglobin he was consented for 2 units packed red blood cells which were ordered for transfusion. I discussed the patient's presentation with on-call gastroenterology, Dr. Zuluaga, he is in agreement for consultation and at this time given the patient's hemodynamic stability I do not feel that he needs an emergent endoscopy which Dr. Zuluaga was in agreement. Case was also discussed with the anticoagulation specialist, Dr. Rai, and PCC was ordered for the patient given that he is on Xarelto, he tells me his last dose was last night with dinner. Case was then discussed with the on-call hospitalist, Dr. Frederick, and the patient was placed for admission in stable condition. Consultants: - Gastroenterology, Dr. Zuluaga - Anticoagulation specialist, Dr. Rai Disposition discussion held by myself with: - Patient * CRITICAL CARE TIME: ( 45 ) minutes -Management of patient with lower GI bleed with significant drop in hemoglobin level over the past 3 days to 7.7 today requiring packed red blood cell transfusion and initiation of Protonix bolus and drip, time spent at the bedside, discussion with other physicians and arrangement of admission Diagnosis: 1. Lower GI bleed, acute, on anticoagulation 2. Anemia, acute 3. Elevated high-sensitivity troponin level 4. Uremia, acute Disposition: Admission Jatin Shine DO Emergency Medicine Past Med/Surg History Medical History Acute exacerbation of chronic low back pain Aortic aneurysm Aortic stenosis due to bicuspid aortic valve Atrial fibrillation Bicuspid aortic valve Cancer Chronic anticoagulation Chronic congestion of paranasal sinus Chronic low back pain Chronic low back pain Diabetes Dyslipidemia Hearing deficit History of colon cancer History of colon polyps History of kidney stones History of malignant carcinoid tumor History of Mohs micrographic surgery for skin cancer History of stroke Hypertension Liver lesion 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, 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 Osteoarthritis Poor historian Right knee DJD Right knee pain Sensorineural hearing loss (SNHL) of both ears Spinal stenosis Supraventricular aortic stenosis Third degree AV block Transient ischemic attack (TIA) Tubular adenoma Surgical History H/O knee surgery History of arthroscopy History of carpal tunnel release History of cholecystectomy History of colectomy History of colonoscopy History of cystoscopy History of nasal septoplasty History of surgery History of tooth extraction Hx of resection of liver Pacemaker S/P aortic aneurysm repair S/P epidural steroid injection Status post aortic valve replacement Status post aorto-coronary artery bypass graft Status post cardiac surgery Status post small bowel resection Family History Mother Family history of diabetes mellitus Diabetes Father Kidney disease Brother Valvular heart disease Heart disease Hearing loss Cancer Sister Ovarian cancer Cancer Family/Other Colorectal cancer Self Denies family history of Prostate cancer Myocardial infarction Breast cancer Social History Smoking Status: Former smoker Second Hand Exposure: Yes (hx); Do You Dip or Chew Tobacco: No; Hx Alcohol Use: No Hx Substance Use: No Preferred Language: Northern Irish Communication Ability: Effective Territory Account Representative Required: No Beliefs That Will Affect Care: None Current Living Situation: Spouse Feels Safe at Home: Yes Assistive Devices: Denture - Upper, Denture - Lower, Glasses and Hearing Aid - Bilateral Allergies Allergies Allergy/AdvReac Type Severity Reaction Status Date / Time Penicillins Allergy Mild Nausea Verified 12/04/22 14:20 amoxicillin Allergy Unknown Verified 12/04/22 14:20 codeine AdvReac Mild DIZZINESS, Verified 12/04/22 14:20 NAUSEA metformin AdvReac Mild rash Verified 12/04/22 14:20 Home Meds Home Medications Medication Instructions Recorded Confirmed octreotide,microspheres 20 mg 40 mg IM MONTHLY 03/10/18 12/09/22 intramuscular susp, extended release ascorbic acid (vitamin C) 500 mg 500 mg PO QAM 01/22/19 12/09/22 tablet multivit with min-folic 1 tab PO QAM 01/22/19 12/09/22 acid-lutein 400 mcg-250 mcg chewable tablet (Centrum Silver) Lactobacills gasseri-Bifidobac 1 cap PO QAM 06/05/19 12/09/22 bifidum,longum 1.5 billion cell capsule ([employer]) aspirin 81 mg tablet,delayed 81 mg PO QAM 06/18/19 12/09/22 release (Adult Low Dose Aspirin) ferrous sulfate 325 mg (65 mg 325 mg PO QAM 10/30/20 12/09/22 iron) tablet cholecalciferol (vitamin D3) 25 50 mcg PO QAM 12/11/20 12/09/22 mcg (1,000 unit) tablet (Vitamin D3) benzonatate 200 mg capsule 0 mg PO TID PRN cough 12/09/22 diclofenac sodium 1 % topical gel 0 g topical QID 12/09/22 (Arthritis Pain (diclofenac)) losartan 25 mg tablet 0 mg PO DAILY 12/09/22 triamcinolone acetonide 0.1 % 0 applic topical BID 12/09/22 topical ointment Previous Rx's Medication Instructions Recorded blood-glucose meter #1 ea 06/20/20 atorvastatin 10 mg tablet 10 mg PO HS #90 tabs 07/29/22 empagliflozin 10 mg tablet 10 mg PO QAM #30 tabs 09/04/22 (Jardiance) blood sugar diagnostic #50 ea 10/22/22 lancets 30 gauge (Advocate Lancet) #200 ea 10/22/22 tramadol 50 mg tablet 50 mg PO .COMPLEX PRN pain #60 tabs 10/30/22 albuterol sulfate 90 mcg/actuation 2 puff inhalation QID PRN 11/18/22 aerosol inhaler shortness of breath or wheezing #8.5 grams inhalation device to use with #1 ea 11/18/22 albuterol rivaroxaban 20 mg tablet (Xarelto) 20 mg PO HS #90 tabs 11/28/22 Results & Data (ED) Vital Signs Vital Signs - 24 hr 12/09/22 09:03 12/09/22 09:21 12/09/22 09:34 Temperature 37.0 C Temperature Source Temporal Artery Scan Pulse Rate 80 Pulse Rate [Left Apical] 82 Pulse Rhythm [Left Apical] Respiratory Rate 20 20 Respiratory Effort / Characteristics Non-Labored Non-Labored Spontaneous Respiratory Depth Normal Normal Respiratory Pattern Blood Pressure 122/88 Blood Pressure [Right Arm] 117/63 Blood Pressure Mean 99 Blood Pressure Mean [Right Arm] 81 Pulse Oximetry 96 100 100 Oxygen Delivery Method Room Air Room Air Room Air Sepsis Recent Fever Within 48 Hours No Sepsis New/Unexplained Change in Mental Status N/A Sepsis Action Taken by Nursing No Action Required 12/09/22 09:36 12/09/22 11:09 12/09/22 13:26 Temperature Temperature Source Pulse Rate 80 80 Pulse Rate [Left Apical] 80 Pulse Rhythm [Left Apical] Regular Respiratory Rate 18 Respiratory Effort / Characteristics Non-Labored Respiratory Depth Normal Respiratory Pattern Regular Blood Pressure Blood Pressure [Right Arm] 117/72 Blood Pressure Mean Blood Pressure Mean [Right Arm] 87 Pulse Oximetry 99 Oxygen Delivery Method Room Air Sepsis Recent Fever Within 48 Hours Sepsis New/Unexplained Change in Mental Status Sepsis Action Taken by Nursing 12/09/22 13:45 12/09/22 14:25 Temperature Temperature Source Pulse Rate 81 Pulse Rate [Left Apical] 80 Pulse Rhythm [Left Apical] Respiratory Rate 20 18 Respiratory Effort / Characteristics Non-Labored Respiratory Depth Normal Respiratory Pattern Regular Blood Pressure 114/66 Blood Pressure [Right Arm] 104/60 Blood Pressure Mean Blood Pressure Mean [Right Arm] 74 Pulse Oximetry 97 99 Oxygen Delivery Method Room Air Room Air Sepsis Recent Fever Within 48 Hours Sepsis New/Unexplained Change in Mental Status Sepsis Action Taken by Nursing Laboratory Data 12/09/22 09:29 12/09/22 09:29 Lab Results 12/09/22 12/09/22 12/09/22 Range/Units 09:29 09:29 09:29 WBC 6.39 (4.8-10.8) K/ul RBC 2.66 L (4.70-6.10) M/uL Hgb 7.7 L (14.0-18.0) g/dl Hct 24.7 L (42.0-52.0) % MCV 92.9 (80.0-100.0) fL MCH 28.9 (25.0-34.0) pg MCHC 31.2 L (32.0-36.0) g/dL RDW Std Deviation 49.8 H (36.4-46.3) fL RDW Coeff of Paulo 16.6 H (11.5-14.5) % Plt Count 131 (130-400) K/uL MPV 10.3 (9.4-12.4) fL Immature Gran % (Auto) 0.9 % Neut % (Auto) 68.7 % Lymph % (Auto) 21.3 % Davie % (Auto) 8.0 % Eos % (Auto) 0.8 % Baso % (Auto) 0.3 % Neut # (Auto) 4.39 (1.40-6.50) K/uL Lymph # (Auto) 1.36 (1.2-3.4) K/uL Davie # (Auto) 0.51 (0.11-0.59) K/uL Eos # (Auto) 0.05 (0-0.50) K/uL Baso # (Auto) 0.02 (0-0.2) K/uL Immature Gran # (Auto) 0.06 (0.01-0.20) K/uL Absolute Nucleated RBC 0.09 (0-0.12) K/uL Nucleated RBC % (auto) 1.4 % Polychromasia 1+ PT 13.9 H (9.0-12.0) Seconds INR 1.3 H (0.9-1.1) Sodium 136 (136-145) mmol/L Potassium 4.6 (3.5-5.1) mmol/L Chloride 103 (98-107) mmol/L Carbon Dioxide 27 (21-32) mmol/L Anion Gap 6 (3-11) BUN 28 H (6-23) mg/dl Creatinine 1.22 (0.6-1.4) mg/dl Est Cr Clr Drug Dosing 49.2 ml/min Est GFR ( Amer) 67.3 ml/min Est GFR (Non-Af Amer) 58.0 ml/min BUN/Creatinine Ratio 23.0 H (10-20) Glucose 182 H (70-99(Fasting)) mg/dl POC Glucose (70-99) mg/dl Lactate (0.4-2.0) mmol/L Calcium 8.3 L (8.6-10.3) mg/dl Total Bilirubin 0.5 (0.2-1.0) mg/dl AST 19 (13-39) U/L ALT 18 (7-52) U/L Alkaline Phosphatase 64 (34-104) U/L Troponin I High Sens 25.3 H (0-20) pg/ml Total Protein 6.2 (6.0-8.3) gm/dl Albumin 3.5 (3.4-5.0) gm/dl Globulin 2.7 (2.5-4.0) gm/dl Albumin/Globulin Ratio 1.3 (0.9-2) Lipase 30 (11-82) U/L SARS-CoV-2, RNA, NAAT (NEGATIVE) Blood Type Blood Type Recheck Antibody Screen Crossmatch 12/09/22 12/09/22 12/09/22 Range/Units 09:29 09:30 12:11 WBC (4.8-10.8) K/ul RBC (4.70-6.10) M/uL Hgb (14.0-18.0) g/dl Hct (42.0-52.0) % MCV (80.0-100.0) fL MCH (25.0-34.0) pg MCHC (32.0-36.0) g/dL RDW Std Deviation (36.4-46.3) fL RDW Coeff of Paulo (11.5-14.5) % Plt Count (130-400) K/uL MPV (9.4-12.4) fL Immature Gran % (Auto) % Neut % (Auto) % Lymph % (Auto) % Davie % (Auto) % Eos % (Auto) % Baso % (Auto) % Neut # (Auto) (1.40-6.50) K/uL Lymph # (Auto) (1.2-3.4) K/uL Davie # (Auto) (0.11-0.59) K/uL Eos # (Auto) (0-0.50) K/uL Baso # (Auto) (0-0.2) K/uL Immature Gran # (Auto) (0.01-0.20) K/uL Absolute Nucleated RBC (0-0.12) K/uL Nucleated RBC % (auto) % Polychromasia PT (9.0-12.0) Seconds INR (0.9-1.1) Sodium (136-145) mmol/L Potassium (3.5-5.1) mmol/L Chloride (98-107) mmol/L Carbon Dioxide (21-32) mmol/L Anion Gap (3-11) BUN (6-23) mg/dl Creatinine (0.6-1.4) mg/dl Est Cr Clr Drug Dosing ml/min Est GFR ( Amer) ml/min Est GFR (Non-Af Amer) ml/min BUN/Creatinine Ratio (10-20) Glucose (70-99(Fasting)) mg/dl POC Glucose (70-99) mg/dl Lactate 1.8 (0.4-2.0) mmol/L Calcium (8.6-10.3) mg/dl Total Bilirubin (0.2-1.0) mg/dl AST (13-39) U/L ALT (7-52) U/L Alkaline Phosphatase (34-104) U/L Troponin I High Sens (0-20) pg/ml Total Protein (6.0-8.3) gm/dl Albumin (3.4-5.0) gm/dl Globulin (2.5-4.0) gm/dl Albumin/Globulin Ratio (0.9-2) Lipase (11-82) U/L SARS-CoV-2, RNA, NAAT NEGATIVE (NEGATIVE) Blood Type O Positive Blood Type Recheck Antibody Screen NEGATIVE Crossmatch See Detail 12/09/22 12/09/22 12/09/22 Range/Units 13:00 13:50 13:55 WBC (4.8-10.8) K/ul RBC (4.70-6.10) M/uL Hgb (14.0-18.0) g/dl Hct (42.0-52.0) % MCV (80.0-100.0) fL MCH (25.0-34.0) pg MCHC (32.0-36.0) g/dL RDW Std Deviation (36.4-46.3) fL RDW Coeff of Paulo (11.5-14.5) % Plt Count (130-400) K/uL MPV (9.4-12.4) fL Immature Gran % (Auto) % Neut % (Auto) % Lymph % (Auto) % Davie % (Auto) % Eos % (Auto) % Baso % (Auto) % Neut # (Auto) (1.40-6.50) K/uL Lymph # (Auto) (1.2-3.4) K/uL Davie # (Auto) (0.11-0.59) K/uL Eos # (Auto) (0-0.50) K/uL Baso # (Auto) (0-0.2) K/uL Immature Gran # (Auto) (0.01-0.20) K/uL Absolute Nucleated RBC (0-0.12) K/uL Nucleated RBC % (auto) % Polychromasia PT (9.0-12.0) Seconds INR (0.9-1.1) Sodium (136-145) mmol/L Potassium (3.5-5.1) mmol/L Chloride (98-107) mmol/L Carbon Dioxide (21-32) mmol/L Anion Gap (3-11) BUN (6-23) mg/dl Creatinine (0.6-1.4) mg/dl Est Cr Clr Drug Dosing ml/min Est GFR ( Amer) ml/min Est GFR (Non-Af Amer) ml/min BUN/Creatinine Ratio (10-20) Glucose (70-99(Fasting)) mg/dl POC Glucose 166 H (70-99) mg/dl Lactate (0.4-2.0) mmol/L Calcium (8.6-10.3) mg/dl Total Bilirubin (0.2-1.0) mg/dl AST (13-39) U/L ALT (7-52) U/L Alkaline Phosphatase (34-104) U/L Troponin I High Sens 24.3 H (0-20) pg/ml Total Protein (6.0-8.3) gm/dl Albumin (3.4-5.0) gm/dl Globulin (2.5-4.0) gm/dl Albumin/Globulin Ratio (0.9-2) Lipase (11-82) U/L SARS-CoV-2, RNA, NAAT (NEGATIVE) Blood Type Blood Type Recheck O Positive Antibody Screen Crossmatch Administered Medications Pantoprazole Sodium 40 mg/ (Dextrose) 100 mls @ 20 mls/hr IV Q5H ROBIN Stop: 01/08/23 12:29 Last Admin: 12/09/22 12:49 Dose: 8 mg/hr, 20 mls/hr Documented By: DAISY Insulin Aspart (Insulin Aspart Per Unit Charge) 0 units SC Q4 ROBIN Stop: 01/08/23 13:44 Last Admin: 12/09/22 13:57 Dose: Not Given Documented By: MARK Co-signed By: DAISY Discontinued Medications Sodium Chloride (Nss 1000ml) 1,000 mls @ 999 mls/hr IV .Q1H1M STA Stop: 12/09/22 10:23 Last Infusion: 06/12/23 11:12 Dose: 0 mls/hr Documented By: Admin: 12/09/22 09:31 Dose: 999 mls/hr Documented By: VIKRAM Pantoprazole Sodium (Protonix Bolus/Drip) 0 mls @ 1 mls/hr IV ONE STA Stop: 12/09/22 12:11 Last Infusion: 12/09/22 13:12 Dose: 0 mls/hr Documented By: Admin: 12/09/22 12:49 Dose: 1 mls/hr Documented By: DAISY Pantoprazole Sodium 80 mg/ (Dextrose) 120 mls @ 400 mls/hr IV NOW ONE Stop: 12/09/22 12:27 Last Infusion: 12/09/22 13:12 Dose: 0 mls/hr Documented By: Admin: 12/09/22 12:33 Dose: 400 mls/hr Documented By: DAISY Prothrombin Complex Concent ( (Human) 2,000 units/ Syringe) 80 mls @ 10 mls/min IV NOW STA; Protocol Stop: 12/09/22 12:38 Last Admin: 12/09/22 12:44 Dose: 10 mls/min Documented By: DAISY Insulin Aspart (Insulin Aspart Per Unit Charge) 0 units SC ONE STA Stop: 12/09/22 13:43 Last Admin: 12/09/22 13:56 Dose: Not Given Documented By: MARK Co-signed By: DAISY Discharge Plan Visit Data Chief Complaint: Diarrhea Stated Complaint: BLACK DIARRHEA, LOW ENERGY, ED Provider: Jatin Shine Discharge Problem: Anemia Patient Disposition: Admitted As Inpatient Discharge Instructions Interventions: ED Discharge Assessment Last Done: 12/09/22 14:25
[2022-12-09 09:49] LABS: Basophils # (auto) 0.02 K/uL (0-0.2); Basophils % (auto) 0.3 %; Eosinophils # (auto) 0.05 K/uL (0-0.50); Eosinophils % (auto) 0.8 %; Hematocrit (blood only) 24.7 % (42.0-52.0); Hemoglobin 7.7 g/dl (14.0-18.0); Immature Granulocytes # (auto) 0.06 K/uL (0.01-0.20); Immature Granulocytes % (auto) 0.9 %; Lymphocytes # (auto) 1.36 K/uL (1.2-3.4); Lymphocytes % (auto) 21.3 %; Mean Corpuscular Hemoglobin 28.9 pg (25.0-34.0); Mean Corpuscular Hgb Conc 31.2 g/dL (32.0-36.0); Mean Corpuscular Volume 92.9 fL (80.0-100.0); Mean Platelet Volume 10.3 fL (9.4-12.4); Monocytes # (auto) 0.51 K/uL (0.11-0.59); Neutrophils # (auto) 4.39 K/uL (1.40-6.50); Neutrophils % (auto) 68.7 %; Nucleated RBC # (auto) 0.09 K/uL (0-0.12); Nucleated RBC % (auto) 1.4 %; Platelet Count 131 K/uL (130-400); RDW Coefficient of Variation 16.6 % (11.5-14.5); RDW Standard Deviation 49.8 fL (36.4-46.3); Red Blood Count 2.66 M/uL (4.70-6.10); White Blood Count 6.39 K/ul (4.8-10.8)
[2022-12-09 10:09] LABS: Albumin Globulin Ratio 1.3 (0.9-2); Albumin Level 3.5 gm/dl (3.4-5.0); Bilirubin,Total 0.5 mg/dl (0.2-1.0); Calcium 8.3 mg/dl (8.6-10.3); Creatinine Clr Calc Pharmacy 49.2 ml/min; Est GFR (African American) 67.3 ml/min; Globulin 2.7 gm/dl (2.5-4.0); Potassium 4.6 mmol/L (3.5-5.1); Total Protein 6.2 gm/dl (6.0-8.3)
[2022-12-09 10:14] LABS: INR 1.3 (0.9-1.1); Prothrombin Time 13.9 Seconds (9.0-12.0); Troponin I High Sensitivity 25.3 pg/ml (0-20)
[2022-12-09 10:27] LABS: Polychromasia 1+
[2022-12-09] MEDS ORDERED: SODIUM CHLORIDE 0.9% 250 ML IV PRN (11:39)
[2022-12-09] MEDS ORDERED: PANTOprazole 80 MG in DEXTROSE 5% 100 ML IV ONE (12:10)
[2022-12-09] MEDS ORDERED: PANTOPRAZOLE BOLUS/DRIP 1 EACH IV STA (12:10)
[2022-12-09] MEDS ORDERED: KCENTRA (500unit vial) 2000 units IVP IV STA (12:31)
[2022-12-09] MEDS: PANTOprazole 40 MG in DEXTROSE 5% 100 ML IV SCH ×3 (12:49→23:22)
--- NOTE | 2022-12-09 13:30 | History & Physical Report ---
Date of Service December 09, 2022 Assessment & Plan (1) GI bleed: Plan: -Admit to the PCU on tele and pulse oximetry -Currently stable -Has had one week of black stool, with progressive fatigue and nausea -Noted to be Guaiac positive and Hgb of 10.7 on outpatient labs earlier in the week -Hgb today is 7.7, patient still having melena since arrival -S/P 2000 units KCentra in the ED to reverse his Xarelto, last dose was last night -Blood consent obtained by ED staff, Type/Screen and 2 units of PRBC's ordered by ED staff -Started on protonix drip in the ED, will continue with drip for now with his ongoing bleed -GI consulted by the ED, will keep NPO and wait to hear back if they would like to start a bowel prep -Hold all anticoagulants, including home Xarelto and aspirin for now due to active bleed -Order placed for 2 large bore IV's -Will monitor CBC q6h with first repeat approximately 1 hour after his second unit has been given -PRN IV zofran for nausea -BL SCD's for DVT PPX -NPO except meds for now (2) Acute blood loss anemia: Plan: -Hgb down from 10.7 on 12/06 to 7.7 today -Had a long discussion regarding the risks and benefits of holding his Xarelto and aspirin at this time with his active GI bleed. The patient and his are in agreement with holding anticoagulants for now -High sen trop elevated at 25, otherwise no other signs of end organ damage -Monitor CBC q6, transfuse to keep Hgb at or above 8.0 (3) Elevated troponin: Plan: -Initial high sen trop elevated at 25 -Patient is asymptomatic and without acute ECG changes -Likely due to demand from acute blood loss anemia -Will repeat a STAT 2 hour high sen trop now -Continue to monitor on tele (4) Hypertension: Plan: -Stable -Hold losartan for now to prevent hypotension (5) Lumbar radicular pain: Plan: -Prn tylenol and home tramadol (6) Atrial fibrillation, permanent: Plan: -Currently stable -Hold Xarelto for now with active GI bleed (7) Diabetes mellitus: Plan: -Hold Jardiance -Monitor BSG q4h while NPO, goal is 110-140 -Start with 5 units lantus BID for Basal -CF of 50 q4h while NPO -Adjust regimen as needed (8) Dyslipidemia: Plan: -Continue atorvastatin Plan The patient was discussed with Dr. 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 IN the ED he was noted to be stable. Labs were significant for a hgb of 7.7 (down from 10/7 on 12/06), INR of 1.3, BUN of 28, initial high sen trop of 25, and Covid 19 negative. Prior to admission the patient was given 2000 units of Kcentra, started on a protonix drip, given 1L NSS, and ordered 2 units PRBCs. Per chart review, the patient saw his PCP on 12/06 due to multiple days of black stool. Outpatient labs were obtained, including fecal occult screen. He was noted to be anemia and stool guaiac positive, he brought him to the ED today for ongoing symptoms. At the time of the exam the patient was lying in bed in no acute distress with his sitting bedside, history was obtained from both. The patient started to notice black stool approximately one week ago. This has been associated with progressive fatigue/generalized weakness compared to baseline. He and his confirmed he was seen by his PCP who gave him the at home stool test and outpatient labs. His states that they were told they would be called regarding next steps when he was noted to be anemic, but they never received a call. His brought him to the ED today as he continued to clinically decline. The patient's only complaints at this time are fatigue and feeling cold. He had one episode of non-bloody/non-coffee ground emesis yesterday. He had another black bowel movement after arriving to the ED. He denies recent or current fever, chest pain, SOB, abd pain, dysuria, hematuria, LE swelling and recent trauma. His last IM injection of Octreotide was approximately one month ago. His last dose of Xarelto was last night. He denies recent NSAID use, he only uses tylenol and prn tramadol for his chronic back pain. He denies recent alcohol use as well. He is a full code and his is his POA if he cannot make decisions himself. Please refer to Dr. Frederick's attestation for any changes to the treatment plan Allergies Allergy/AdvReac Type Severity Reaction Status Date / Time Penicillins Allergy Mild Nausea Verified 12/04/22 14:20 amoxicillin Allergy Unknown Verified 12/04/22 14:20 codeine AdvReac Mild DIZZINESS, Verified 12/04/22 14:20 NAUSEA metformin AdvReac Mild rash Verified 12/04/22 14:20 Home Medications Medication Instructions Recorded Confirmed Type octreotide,microspheres 20 mg 40 mg IM MONTHLY 03/10/18 12/09/22 History intramuscular susp, extended release ascorbic acid (vitamin C) 500 mg 500 mg PO QAM 01/22/19 12/09/22 History tablet multivit with min-folic 1 tab PO QAM 01/22/19 12/09/22 History acid-lutein 400 mcg-250 mcg chewable tablet (Centrum Silver) Lactobacills gasseri-Bifidobac 1 cap PO QAM 06/05/19 12/09/22 History bifidum,longum 1.5 billion cell capsule (Assurz) aspirin 81 mg tablet,delayed 81 mg PO QAM 06/18/19 12/09/22 History release (Adult Low Dose Aspirin) blood-glucose meter #1 ea 06/20/20 12/04/22 Rx ferrous sulfate 325 mg (65 mg 325 mg PO QAM 10/30/20 12/09/22 History iron) tablet cholecalciferol (vitamin D3) 25 50 mcg PO QAM 12/11/20 12/09/22 History mcg (1,000 unit) tablet (Vitamin D3) atorvastatin 10 mg tablet 10 mg PO HS #90 tabs 07/29/22 12/09/22 Rx empagliflozin 10 mg tablet 10 mg PO QAM #30 tabs 09/04/22 12/09/22 Rx (Jardiance) blood sugar diagnostic #50 ea 10/22/22 12/04/22 Rx lancets 30 gauge (Advocate Lancet) #200 ea 10/22/22 12/04/22 Rx tramadol 50 mg tablet 50 mg PO .COMPLEX PRN pain #60 tabs 10/30/22 12/09/22 Rx albuterol sulfate 90 mcg/actuation 2 puff inhalation QID PRN 11/18/22 12/09/22 Rx aerosol inhaler shortness of breath or wheezing #8.5 grams inhalation device to use with #1 ea 11/18/22 12/04/22 Rx albuterol rivaroxaban 20 mg tablet (Xarelto) 20 mg PO HS #90 tabs 11/28/22 12/09/22 Rx benzonatate 200 mg capsule 0 mg PO TID PRN cough 12/09/22 History diclofenac sodium 1 % topical gel 0 g topical QID 12/09/22 History (Arthritis Pain (diclofenac)) losartan 25 mg tablet 0 mg PO DAILY 12/09/22 History triamcinolone acetonide 0.1 % 0 applic topical BID 12/09/22 History topical ointment Past Med/Surg History Medical History Acute exacerbation of chronic low back pain Aortic aneurysm Aortic root, ascending and into arch Aortic stenosis due to bicuspid aortic valve Moderate-Severe Atrial fibrillation pacemaker/Xarelto Bicuspid aortic valve Cancer LIVER CANCER COLON CANCER sees oncology with [place] Chronic anticoagulation Chronic congestion of paranasal sinus Chronic low back pain Chronic low back pain Diabetes Dyslipidemia Hearing deficit History of colon cancer History of colon polyps History of kidney stones History of malignant carcinoid tumor History of Mohs micrographic surgery for skin cancer History of stroke does not know details> was told this by Anshu Michele Hypertension Liver lesion 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, 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 Osteoarthritis Poor historian Right knee DJD Right knee pain Sensorineural hearing loss (SNHL) of both ears Spinal stenosis Supraventricular aortic stenosis Third degree AV block Transient ischemic attack (TIA) "THE DOCTOR THOUGHT HE HAD ONE/ABOUT 5 YEARS AGO" Tubular adenoma Surgical History H/O knee surgery bilat arthroscopic History of arthroscopy RT/LEFT KNEE History of carpal tunnel release bilat History of cholecystectomy History of colectomy History of colonoscopy History of cystoscopy History of nasal septoplasty History of surgery RT KIDNEY SURGERY "NOT DRAINING CORRECTLY" History of tooth extraction Hx of resection of liver 2006 Pacemaker 2012 > Medtronic > last checked August 2020 > Anshu Michele S/P aortic aneurysm repair pt unaware of details S/P epidural steroid injection Status post aortic valve replacement 2019 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 Armen Kate- Aortic root replacement with a 25 mm epic bioprosthesis and a 30 mm Gelweave graft and left atrial appendage clip Status post small bowel resection Family History Mother Family history of diabetes mellitus Diabetes Father Kidney disease Brother Valvular heart disease Heart disease Hearing loss Cancer Sister Ovarian cancer Cancer Family/Other Colorectal cancer Self Denies family history of Prostate cancer Myocardial infarction Breast cancer Social History Smoking Status: Never smoker Second Hand Exposure: Yes (hx); Do You Dip or Chew Tobacco: No; Hx Alcohol Use: No Hx Substance Use: No Preferred Language: Malagasy Communication Ability: Effective Clay Maker Required: No Beliefs That Will Affect Care: None Current Living Situation: Spouse Feels Safe at Home: Yes Safety Concerns: Feels Safe At This Time Assistive Devices: Glasses Physical Exam Physical Exam: Physical Exam: General: In no acute distress, stated age, pale and chronically ill-appearing but non-toxic HEENT: Normocephalic, atraumatic, no scleral icterus, positive palpebral conjunctival pallor pupils around round, symmetrical, and reactive to light, moist mucus membranes, trachea midline, no thyromegaly Chest/Pulm: No respiratory distress, symmetrical chest expansion, clear breath sounds throughout Cardiac: RRR, systolic murmur noted Abdomen: Negative for ascites and bruising, normoactive bowel sounds, soft, non-tender to palpation throughout Musculoskeletal: Symmetrical and without signs of acute trauma, upper and lower extremities with full ROM, no atrophy, spasticity, or flaccidity Extremities: Radial, dorsalis pedis, and posterior tibial pulses are intact and symmetrical, no edema noted in the BL LE's Skin: Warm, dry, no rashes , lesions, or scars noted Neuro: Alert and oriented to person, place, month, year, and president, no focal defects, CN II-XII tested and intact, no tremors noted Psych: No acute distress, calm and cooperative during the exam Results & Data Results & Data Vital Signs (Past 12 Hours) Vital Signs Temp Pulse Pulse Resp BP BP Pulse Ox 12/09/22 13:26 80 12/09/22 11:09 80 18 117/72 99 12/09/22 09:36 80 12/09/22 09:34 100 12/09/22 09:21 82 20 117/63 100 12/09/22 09:03 37.0 C 80 20 122/88 96 O2 Del Method 12/09/22 13:26 12/09/22 11:09 Room Air 12/09/22 09:36 12/09/22 09:34 Room Air 12/09/22 09:21 Room Air 12/09/22 09:03 Room Air Laboratory Results Abnormal lab results 12/09/22 12/09/22 12/09/22 Range/Units 09:29 09:29 09:29 RBC 2.66 L (4.70-6.10) M/uL Hgb 7.7 L (14.0-18.0) g/dl Hct 24.7 L (42.0-52.0) % MCHC 31.2 L (32.0-36.0) g/dL RDW Std Deviation 49.8 H (36.4-46.3) fL RDW Coeff of Paulo 16.6 H (11.5-14.5) % PT 13.9 H (9.0-12.0) Seconds INR 1.3 H (0.9-1.1) BUN 28 H (6-23) mg/dl BUN/Creatinine Ratio 23.0 H (10-20) Glucose 182 H (70-99(Fasting)) mg/dl Calcium 8.3 L (8.6-10.3) mg/dl Troponin I High Sens 25.3 H (0-20) pg/ml Crossmatch 12/09/22 Range/Units 12:11 RBC (4.70-6.10) M/uL Hgb (14.0-18.0) g/dl Hct (42.0-52.0) % MCHC (32.0-36.0) g/dL RDW Std Deviation (36.4-46.3) fL RDW Coeff of Pauol (11.5-14.5) % PT (9.0-12.0) Seconds INR (0.9-1.1) BUN (6-23) mg/dl BUN/Creatinine Ratio (10-20) Glucose (70-99(Fasting)) mg/dl Calcium (8.6-10.3) mg/dl Troponin I High Sens (0-20) pg/ml Crossmatch See Detail ECG Additional Comments: Ventricular-paced rhythm Abnormal ECG When compared with ECG of 12-AUG-2019 18:09, Vent. rate has decreased BY 8 BPM Code Status & VTE Plan Code Status Full code VTE Prophylaxis Plan VTE Prophylaxis will be ordered: Yes Supervising Physician Co-Signing Physician Notes Patient seen and examined, chart reviewed, case discussed with Hair Bernard PA-C and I agree with the assessment and plan as above except as otherwise noted Labs and images reviewed. Teddy is a 72-year-old male with a history of carcinoid tumor, liver resection, RFA, A-fib on Xarelto, bioprosthetic AVR, heart block post pacer placement who presented with melena and anemia with symptomatic anemia of 7.7. At bedside patient is with pallor, he is not tachycardic or hypotensive. Has received Kcentra, being transfused 2 units on admission. Agree with checking posttransfusion H&H and then trending. Xarelto/aspirin held. GI consulted. Agree with assessment and management above. PG Care Time/CCT Total # of Minutes Spent Total Time Spent with Patient: Total time spent is greater than 50% in coordination of care (as documented) at patient's floor/unit and/or counseling patient: Coding [place] [address] INT INP/OBS CARE 3/75MIN Patient Type Established Medical Decision Making High Complexity Diagnoses GI bleed K92.2 Acute blood loss anemia D62 Elevated troponin R77.8 Hypertension I10 Lumbar radicular pain M54.16 Atrial fibrillation, permanent I48.21 Diabetes mellitus E11.9 Dyslipidemia E78.5
[2022-12-09] MEDS ORDERED: ONDANSETRON INJ 2 MG/ML 2 ML VIAL IV PRN (13:31)
[2022-12-09] MEDS ORDERED: GLUCAGON FOR INJ 1 MG VIAL SQ PRN (13:36)
[2022-12-09] MEDS ORDERED: GLUCOSE 40% GEL 15 GM TUBE PO PRN (13:36)
[2022-12-09] MEDS ORDERED: GLUCOSE 10 TAB/TUBE PO PRN (13:36)
[2022-12-09] MEDS ORDERED: DEXTROSE 50% 50 ML SYRINGE IV PRN (13:36)
[2022-12-09] MEDS ORDERED: CARBOHYDRATES FOR HYPOGLYCEMIA PO PRN (13:36)
[2022-12-09] MEDS ORDERED: INSULIN ASPART PER UNIT CHARGE SC STA (13:42)
[2022-12-09] MEDS ORDERED: ACETAMINOPHEN 325 MG TAB PO PRN (13:50)
[2022-12-09] MEDS: INSULIN ASPART PER UNIT CHARGE SC SCH ×3 (13:57→21:37)
[2022-12-09] MEDS ORDERED: traMADol HCL 50 MG TABLET PO PRN (15:26)
[2022-12-09] MEDS ORDERED: ALBUTEROL HFA 8 GM INHALER INH PRN (15:26)
--- NOTE | 2022-12-09 17:25 | Gastrointestinal Consultation ---
Date of Consultation December 09, 2022 Assessment & Plan (1) Acute blood loss anemia: Continue Protonix gtt at 8 mg/hour Hold Aspirin and Xarelto therapy Transfuse PRN to maintain H/H around 10/30 Plan on EGD in AM for further evaluation History of Present Illness Reason for Consultation: Acute blood loss anemia Attending Physician: Teddy Frederick MD History of Present Illness Teddy Yang is a 72 yo CM with a PMHx of Type II DM and Chronic A-fib on Xarelto and Aspirin therapy who presented to the ER today with complaints of 1 week of melena, and progressive weakness. He states that he was seen by his PCP and had outpatient labs including a Hgb of 10.7 and a heme positive stool. He continued to have black BM's and presented to the ER and was noted to have an H/H of 7.7 and 24.7. He was given KCentra in the ER and started on a Protonix gtt. He was also ordered 2 units of PRBC for transfusion, and admitted to the PCU. At the time I saw the patient he was feeling slightly improved. He denied any lightheadedness or dizziness. He further denied any fevers, chills, nausea, vomiting, abdominal pain, hematemesis or bright red blood per rectum. His last colonoscopy was in 2020, and he was noted to have a poor bowel prep. He was advised to return in 3 months, but did not followup. He has no further complaints at this time. Allergies Allergy/AdvReac Type Severity Reaction Status Date / Time Penicillins Allergy Mild Nausea Verified 12/04/22 14:20 amoxicillin Allergy Unknown Verified 12/04/22 14:20 codeine AdvReac Mild DIZZINESS, Verified 12/04/22 14:20 NAUSEA metformin AdvReac Mild rash Verified 12/04/22 14:20 Home Medications Medication Instructions Recorded Confirmed Type octreotide,microspheres 20 mg 40 mg IM MONTHLY 03/10/18 12/09/22 History intramuscular susp, extended release ascorbic acid (vitamin C) 500 mg 500 mg PO QAM 01/22/19 12/09/22 History tablet multivit with min-folic 1 tab PO QAM 01/22/19 12/09/22 History acid-lutein 400 mcg-250 mcg chewable tablet (Centrum Silver) Lactobacills gasseri-Bifidobac 1 cap PO QAM 06/05/19 12/09/22 History bifidum,longum 1.5 billion cell capsule (TidePool) aspirin 81 mg tablet,delayed 81 mg PO QAM 06/18/19 12/09/22 History release (Adult Low Dose Aspirin) blood-glucose meter #1 ea 06/20/20 12/04/22 Rx ferrous sulfate 325 mg (65 mg 325 mg PO QAM 10/30/20 12/09/22 History iron) tablet cholecalciferol (vitamin D3) 25 50 mcg PO QAM 12/11/20 12/09/22 History mcg (1,000 unit) tablet (Vitamin D3) atorvastatin 10 mg tablet 10 mg PO HS #90 tabs 07/29/22 12/09/22 Rx empagliflozin 10 mg tablet 10 mg PO QAM #30 tabs 09/04/22 12/09/22 Rx (Jardiance) blood sugar diagnostic #50 ea 10/22/22 12/04/22 Rx lancets 30 gauge (Advocate Lancet) #200 ea 10/22/22 12/04/22 Rx tramadol 50 mg tablet 50 mg PO .COMPLEX PRN pain #60 tabs 10/30/22 12/09/22 Rx albuterol sulfate 90 mcg/actuation 2 puff inhalation QID PRN 11/18/22 12/09/22 Rx aerosol inhaler shortness of breath or wheezing #8.5 grams inhalation device to use with #1 ea 11/18/22 12/04/22 Rx albuterol rivaroxaban 20 mg tablet (Xarelto) 20 mg PO HS #90 tabs 11/28/22 12/09/22 Rx benzonatate 200 mg capsule 0 mg PO TID PRN cough 12/09/22 History diclofenac sodium 1 % topical gel 0 g topical QID 12/09/22 History (Arthritis Pain (diclofenac)) losartan 25 mg tablet 0 mg PO DAILY 12/09/22 History triamcinolone acetonide 0.1 % 0 applic topical BID 12/09/22 History topical ointment Patient History Medical History Acute exacerbation of chronic low back pain Aortic aneurysm Aortic root, ascending and into arch Aortic stenosis due to bicuspid aortic valve Moderate-Severe Atrial fibrillation pacemaker/Xarelto Bicuspid aortic valve Cancer LIVER CANCER COLON CANCER sees oncology with [place] Chronic anticoagulation Chronic congestion of paranasal sinus Chronic low back pain Chronic low back pain Diabetes Dyslipidemia Hearing deficit History of colon cancer History of colon polyps History of kidney stones History of malignant carcinoid tumor History of Mohs micrographic surgery for skin cancer History of stroke does not know details> was told this by Anshu Michele Hypertension Liver lesion 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, 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 Osteoarthritis Poor historian Right knee DJD Right knee pain Sensorineural hearing loss (SNHL) of both ears Spinal stenosis Supraventricular aortic stenosis Third degree AV block Transient ischemic attack (TIA) "THE DOCTOR THOUGHT HE HAD ONE/ABOUT 5 YEARS AGO" Tubular adenoma Surgical History H/O knee surgery bilat arthroscopic History of arthroscopy RT/LEFT KNEE History of carpal tunnel release bilat History of cholecystectomy History of colectomy History of colonoscopy History of cystoscopy History of nasal septoplasty History of surgery RT KIDNEY SURGERY "NOT DRAINING CORRECTLY" History of tooth extraction Hx of resection of liver 2006 Pacemaker 2012 > Medtronic > last checked August 2020 > Anshu Michele S/P aortic aneurysm repair pt unaware of details S/P epidural steroid injection Status post aortic valve replacement 2019 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 Armen Kate- Aortic root replacement with a 25 mm epic bioprosthesis and a 30 mm Gelweave graft and left atrial appendage clip Status post small bowel resection Family History Mother Family history of diabetes mellitus Diabetes Father Kidney disease Brother Valvular heart disease Heart disease Hearing loss Cancer Sister Ovarian cancer Cancer Family/Other Colorectal cancer Self Denies family history of Prostate cancer Myocardial infarction Breast cancer Social History Smoking Status: Never smoker Second Hand Exposure: Yes (hx); Do You Dip or Chew Tobacco: No; Hx Alcohol Use: No Hx Substance Use: No Preferred Language: Mozambican Communication Ability: Effective Metal Tank Erector Required: No Beliefs That Will Affect Care: None Current Living Situation: Spouse Feels Safe at Home: Yes Safety Concerns: Feels Safe At This Time Assistive Devices: Denture - Upper, Denture - Lower and Hearing Aid - Bilateral Review of Systems Review of Systems: All systems reviewed & are unremarkable except as noted in Subjective Physical Exam Constitutional: WD/WN, vitals as above Eyes: + anicteric sclerae Respiratory: normal respiratory effort, lungs clear to auscultation Cardiovascular: RRR, no murmur, no edema Gastrointestinal (Abdomen): normal bowel sounds, soft, nontender, no hepatosplenomegaly Skin: + pallor Psychiatric: A+Ox3, euthymic affect Results & Data Vital Signs (Past 12 Hours) Vital Signs Temp Pulse Pulse Resp BP BP Pulse Ox 12/09/22 16:45 36.8 C 90 18 112/64 100 12/09/22 16:15 36.7 C 85 15 106/67 99 12/09/22 16:00 36.6 C 90 18 110/63 100 12/09/22 15:45 36.9 C 80 16 108/65 100 12/09/22 15:43 36.7 C 80 20 107/62 100 12/09/22 14:25 81 18 114/66 99 12/09/22 13:45 80 20 104/60 97 12/09/22 13:26 80 12/09/22 11:09 80 18 117/72 99 12/09/22 09:36 80 12/09/22 09:34 100 12/09/22 09:21 82 20 117/63 100 12/09/22 09:03 37.0 C 80 20 122/88 96 O2 Del Method 12/09/22 16:45 12/09/22 16:15 12/09/22 16:00 12/09/22 15:45 12/09/22 15:43 Room Air 12/09/22 14:25 Room Air 12/09/22 13:45 Room Air 12/09/22 13:26 12/09/22 11:09 Room Air 12/09/22 09:36 12/09/22 09:34 Room Air 12/09/22 09:21 Room Air 12/09/22 09:03 Room Air PG Care Time/CCT Total # of Minutes Spent Total Time Spent with Patient: Total time spent is greater than 50% in coordination of care (as documented) at patient's floor/unit and/or counseling patient: Coding Level of Care Code 45853 IN/OBS CONSULT LVL 4,60M Diagnoses Acute blood loss anemia D62
--- NOTE | 2022-12-09 17:59 | Electrocardiogram Report ---
Test Reason : Blood Pressure : / mmHG Vent. Rate : 080 BPM Atrial Rate : 073 BPM P-R Int : 000 ms QRS Dur : 162 ms QT Int : 464 ms P-R-T Axes : 000 -68 089 degrees QTc Int : 535 ms Ventricular-paced rhythm Abnormal ECG When compared with ECG of 12-AUG-2019 18:09, Vent. rate has decreased BY 8 BPM Confirmed by Master Wayne ([id number]) on 12/09/2022 5:59:07 PM Referred By: Anjali Marshall Confirmed By:Devon Wayne
[2022-12-09] MEDS: ATORVASTATIN 10 MG TAB PO SCH (21:37)
[2022-12-09] MEDS: LANTUS PER UNIT CHARGE SQ SCH (21:37)
[2022-12-09 22:20] LABS: Hematocrit (blood only) 27.9 % (42.0-52.0); Hemoglobin 9.1 g/dl (14.0-18.0); Mean Corpuscular Hemoglobin 29.5 pg (25.0-34.0); Mean Corpuscular Hgb Conc 32.6 g/dL (32.0-36.0); Mean Corpuscular Volume 90.6 fL (80.0-100.0); Mean Platelet Volume 10.7 fL (9.4-12.4); Nucleated RBC # (auto) 0.12 K/uL (0-0.12); Nucleated RBC % (auto) 1.8 %; Platelet Count 115 K/uL (130-400); RDW Standard Deviation 49.7 fL (36.4-46.3); Red Blood Count 3.08 M/uL (4.70-6.10); White Blood Count 6.82 K/ul (4.8-10.8)
[2022-12-09] MEDS ORDERED: MELATONIN 3 MG TAB PO PRN (22:31)
[2022-12-10] MEDS: INSULIN ASPART PER UNIT CHARGE SC SCH ×6 (00:40→20:29)
[2022-12-10 03:34] LABS: Hematocrit (blood only) 27.7 % (42.0-52.0); Hemoglobin 9.1 g/dl (14.0-18.0); Mean Corpuscular Hemoglobin 29.1 pg (25.0-34.0); Mean Corpuscular Hgb Conc 32.9 g/dL (32.0-36.0); Mean Corpuscular Volume 88.5 fL (80.0-100.0); Mean Platelet Volume 10.5 fL (9.4-12.4); Nucleated RBC # (auto) 0.07 K/uL (0-0.12); Platelet Count 117 K/uL (130-400); RDW Coefficient of Variation 17.6 % (11.5-14.5); RDW Standard Deviation 49.1 fL (36.4-46.3); Red Blood Count 3.13 M/uL (4.70-6.10); White Blood Count 7.24 K/ul (4.8-10.8)
[2022-12-10 03:48] LABS: Appearance Urine Clear (Clear); Bacteria Urine Automated Negative (Negative); Bilirubin Urine Negative (Negative); Blood Urine Negative (Negative); Cast Urine Automated 0 /lpf (0-5); Color Urine Yellow; Glucose Urine UA 3+ (Negative); Ketones Urine 1+ (Negative); Leukocyte Esterase Urine Negative (Negative); Nitrite Urine Negative (Negative); Protein Urine Trace (Negative); RBC Urine Automated 0-4 /hpf (0-4); Specific Gravity Urine 1.027 (1.000-1.030); Urobilinogen Urine Negative (Negative); pH Urine 5.5 (4.5-7.5)
[2022-12-10 03:59] LABS: Albumin Globulin Ratio 1.3 (0.9-2); Albumin Level 3.2 gm/dl (3.4-5.0); BUN Creatinine Ratio 25.2 (10-20); Bilirubin,Total 1.2 mg/dl (0.2-1.0); Creatinine Clr Calc Pharmacy 53.9 ml/min; Est GFR (African American) 75.4 ml/min; Est GFR (Non-African American) 65.1 ml/min; Globulin 2.4 gm/dl (2.5-4.0); Magnesium 2.1 mg/dl (1.7-2.4); Potassium 4.2 mmol/L (3.5-5.1); Total Protein 5.6 gm/dl (6.0-8.3)
[2022-12-10 04:03] LABS: INR 1.1 (0.9-1.1); Prothrombin Time 12.1 Seconds (9.0-12.0)
[2022-12-10] MEDS: PANTOprazole 40 MG in DEXTROSE 5% 100 ML IV SCH ×3 (04:41→13:14)
[2022-12-10] MEDS: LANTUS PER UNIT CHARGE SQ SCH ×2 (08:13→20:29)
--- NOTE | 2022-12-10 09:30 | History & Physical Bridge Note ---
Date of Service December 10, 2022 History & Physical Bridge Note I have examined the patient, reviewed the History & Physical and in the interval since the performance of the History & Physical I have noted the following changes of clinical significance: No acute issues overnight. H&H is stable. He endorses, however, that he did have a loose, dark stool this morning. No abdominal pain, n/v or other GI complaints. PE:A&Ox3. RRR. Lungs CTA bilaterally. Abdomen soft, nontender. Normal bowel sounds. A/P: TERESITA, melena. -NPO. -Continue PPI ggt at 8 mg/hr. -Proceed with EGD today by Dr. Zuluaga. -Further recommendations will be made pending results of testing. Supervising Physician Co-Signing Physician Notes Agree with RONNY Caballero as above Abd: Soft, NT, ND, +BS Continue current therapy and supportive care Proceed with EGD now
[2022-12-10] MEDS ORDERED: PROPOFOL IV EMULSION 10 MG/ML 20 ML VIAL IV ONE (09:45)
--- NOTE | 2022-12-10 09:47 | Anesthesiology Consultation ---
Date of Service December 10, 2022 History Surgery Operation Date: 12/10/22 17:30 Proposed Procedures p Esophagogastroduodenoscopy Dr Zuluaga - Ruben Coello Case, DO Height/Weight Height: 5 ft 4 in Weight: 73.8 kg Allergies Allergy/AdvReac Type Severity Reaction Status Date / Time Penicillins Allergy Mild Nausea Verified 12/04/22 14:20 amoxicillin Allergy Unknown Verified 12/04/22 14:20 codeine AdvReac Mild DIZZINESS, Verified 12/04/22 14:20 NAUSEA metformin AdvReac Mild rash Verified 12/04/22 14:20 Medications Home Medications Medication Instructions Recorded Confirmed Last Taken octreotide,microspheres 20 mg 40 mg IM MONTHLY 03/10/18 12/09/22 12/18/20 intramuscular susp, extended release ascorbic acid (vitamin C) 500 mg 500 mg PO QAM 01/22/19 12/09/22 01/14/21 tablet multivit with min-folic 1 tab PO QAM 01/22/19 12/09/22 01/14/21 acid-lutein 400 mcg-250 mcg chewable tablet (Centrum Silver) Lactobacills gasseri-Bifidobac 1 cap PO QAM 06/05/19 12/09/22 01/14/21 bifidum,longum 1.5 billion cell capsule (Badge) aspirin 81 mg tablet,delayed 81 mg PO QAM 06/18/19 12/09/22 02/20/22 release (Adult Low Dose Aspirin) blood-glucose meter #1 ea 06/20/20 12/04/22 Unknown ferrous sulfate 325 mg (65 mg 325 mg PO QAM 10/30/20 12/09/22 01/14/21 iron) tablet cholecalciferol (vitamin D3) 25 50 mcg PO QAM 12/11/20 12/09/22 01/14/21 mcg (1,000 unit) tablet (Vitamin D3) atorvastatin 10 mg tablet 10 mg PO HS #90 tabs 07/29/22 12/09/22 Unknown empagliflozin 10 mg tablet 10 mg PO QAM #30 tabs 09/04/22 12/09/22 Unknown (Jardiance) blood sugar diagnostic #50 ea 10/22/22 12/04/22 Unknown lancets 30 gauge (Advocate Lancet) #200 ea 10/22/22 12/04/22 Unknown tramadol 50 mg tablet 50 mg PO .COMPLEX PRN pain #60 tabs 10/30/22 12/09/22 Unk nown albuterol sulfate 90 mcg/actuation 2 puff inhalation QID PRN 11/18/22 12/09/22 Unknown aerosol inhaler shortness of breath or wheezing #8.5 grams inhalation device to use with #1 ea 11/18/22 12/04/22 Unknown albuterol rivaroxaban 20 mg tablet (Xarelto) 20 mg PO HS #90 tabs 11/28/22 12/09/22 Unknown benzonatate 200 mg capsule 0 mg PO TID PRN cough 12/09/22 Unknown diclofenac sodium 1 % topical gel 0 g topical QID 12/09/22 Unknown (Arthritis Pain (diclofenac)) losartan 25 mg tablet 0 mg PO DAILY 12/09/22 Unknown triamcinolone acetonide 0.1 % 0 applic topical BID 12/09/22 Unknown topical ointment Active Medications Generic Name Dose Route Start Last Admin Trade Name Freq PRN Reason Stop Dose Admin Acetaminophen 650 mg 12/09/22 13:50 12/09/22 21:40 Acetaminophen 325 Mg Tab PO 01/08/23 13:59 650 mg Q6H PRN Administration pain(1,2,3),headache,fever Atorvastatin Calcium 10 mg 12/09/22 21:00 12/09/22 21:37 Atorvastatin 10 Mg Tab PO 01/08/23 20:59 10 mg HS ROBIN Administration Pantoprazole Sodium 40 mg/ 100 mls @ 20 mls/hr 12/09/22 12:30 12/10/22 08:12 Dextrose IV 01/08/23 12:29 8 mg/hr Q5H ROBIN 20 mls/hr Administration 8 MG/HR Insulin Aspart 0 units 12/09/22 13:45 12/10/22 08:12 Insulin Aspart Per Unit Charge SC 01/08/23 13:44 1 units Q4 ROBIN Administration Insulin Glargine 5 units 12/09/22 21:00 12/10/22 08:13 Lantus Per Unit Charge SQ 01/08/23 20:59 5 units BID ROBIN Administration Past Medical History Medical History Acute exacerbation of chronic low back pain Aortic aneurysm Aortic root, ascending and into arch Aortic stenosis due to bicuspid aortic valve Moderate-Severe Atrial fibrillation pacemaker/Xarelto Bicuspid aortic valve Cancer LIVER CANCER COLON CANCER sees oncology with [place] Chronic anticoagulation Chronic congestion of paranasal sinus Chronic low back pain Chronic low back pain Diabetes Dyslipidemia Hearing deficit History of colon cancer History of colon polyps History of kidney stones History of malignant carcinoid tumor History of Mohs micrographic surgery for skin cancer History of stroke does not know details> was told this by Anshu Michele Hypertension Liver lesion 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, 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 Osteoarthritis Poor historian Right knee DJD Right knee pain Sensorineural hearing loss (SNHL) of both ears Spinal stenosis Supraventricular aortic stenosis Third degree AV block Transient ischemic attack (TIA) "THE DOCTOR THOUGHT HE HAD ONE/ABOUT 5 YEARS AGO" Tubular adenoma Past Family History Family History Mother Family history of diabetes mellitus Diabetes Father Kidney disease Brother Valvular heart disease Heart disease Hearing loss Cancer Sister Ovarian cancer Cancer Family/Other Colorectal cancer Self Denies family history of Prostate cancer Myocardial infarction Breast cancer Past Surgical History Surgical History H/O knee surgery bilat arthroscopic History of arthroscopy RT/LEFT KNEE History of carpal tunnel release bilat History of cholecystectomy History of colectomy History of colonoscopy History of cystoscopy History of nasal septoplasty History of surgery RT KIDNEY SURGERY "NOT DRAINING CORRECTLY" History of tooth extraction Hx of resection of liver 2006 Pacemaker 2012 > Medtronic > last checked August 2020 > Anshu Michele S/P aortic aneurysm repair pt unaware of details S/P epidural steroid injection Status post aortic valve replacement 2019 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 Armen Kate- Aortic root replacement with a 25 mm epic bioprosthesis and a 30 mm Gelweave graft and left atrial appendage clip Status post small bowel resection Social History Smoking Status: Never smoker tobacco type: cigarettes Do You Dip or Chew Tobacco: No Hx Alcohol Use: No Hx Substance Use: No substance use type: does not use Physical Exam Vital Signs Last Vital Signs Temp 36.6 C 12/10/22 08:10 Pulse 83 12/10/22 08:10 Resp 18 12/10/22 08:10 BP 125/71 12/10/22 08:10 Pulse Ox 98 12/10/22 08:10 O2 Del Method Room Air 12/10/22 08:10 Testing Laboratory Results 12/10/22 03:18 PT 12.1 Seconds (9.0-12.0) H 12/10/22 03:18 INR 1.1 (0.9-1.1) 12/10/22 03:18 Urine Color Yellow 12/10/22 03:37 Urine Appearance Clear (Clear) 12/10/22 03:37 Urine pH 5.5 (4.5-7.5) 12/10/22 03:37 Ur Specific [place] 1.027 (1.000-1.030) 12/10/22 03:37 Urine Protein Trace (Negative) H 12/10/22 03:37 Urine Glucose (UA) 3+ (Negative) H 12/10/22 03:37 Urine Ketones 1+ (Negative) H 12/10/22 03:37 Urine Nitrite Negative (Negative) 12/10/22 03:37 Ur Leukocyte Esterase Negative (Negative) 12/10/22 03:37 Urine WBC (Auto) 1-5 /hpf (0-5) 12/10/22 03:37 Urine RBC (Auto) 0-4 /hpf (0-4) 12/10/22 03:37 U Hyaline Cast (Auto) 0 /lpf (0-5) 12/10/22 03:37 U Epithel Cells (Auto) 5-10 /lpf (0-5) H 12/10/22 03:37 Urine Bacteria (Auto) Negative (Negative) 12/10/22 03:37 Blood Type O Positive 12/09/22 12:11 Antibody Screen NEGATIVE 12/09/22 12:11 12/10/22 12/10/22 06:10 00:27 POC Glucose 144 H 152 H
[2022-12-10 09:55] LABS: Hematocrit (blood only) 27.1 % (42.0-52.0); Hemoglobin 8.8 g/dl (14.0-18.0); Mean Corpuscular Hgb Conc 32.5 g/dL (32.0-36.0); Mean Corpuscular Volume 89.4 fL (80.0-100.0); Mean Platelet Volume 10.6 fL (9.4-12.4); Nucleated RBC # (auto) 0.08 K/uL (0-0.12); Nucleated RBC % (auto) 1.1 %; Platelet Count 120 K/uL (130-400); RDW Standard Deviation 50.9 fL (36.4-46.3); Red Blood Count 3.03 M/uL (4.70-6.10); White Blood Count 7.18 K/ul (4.8-10.8)
--- NOTE | 2022-12-10 10:39 | GI REPORT ---
Patient Name: Teddy Yang Procedure Date: 12/10/2022 10:03 AM Date of : 1950 Admit Type: Inpatient Age: 72 Gender: Male Attending MD: Ruben Zuluaga DO, Procedure: Upper GI endoscopy Providers: Ruben Zuluaga DO Referring MD: Anjali Marshall Indications: Acute post hemorrhagic anemia Medicines: Monitored Anesthesia Care Complications: No immediate complications. Estimated Blood Loss: Estimated blood loss: none. Procedure: Pre-Anesthesia Assessment: - Prior to the procedure, a History and Physical was performed, and patient medications and allergies were reviewed. The patient's tolerance of previous anesthesia was also reviewed. The risks and benefits of the procedure and the sedation options and risks were discussed with the patient. All questions were answered, and informed consent was obtained. Prior Anticoagulants: The patient has taken Xarelto (rivaroxaban), last dose was 1 day prior to procedure. ASA Grade Assessment: IV - A patient with severe systemic disease that is a constant threat to life. After reviewing the risks and benefits, the patient was deemed in satisfactory condition to undergo the procedure. After obtaining informed consent, the endoscope was passed under direct vision. Throughout the procedure, the patient's blood pressure, pulse, and oxygen saturations were monitored continuously. The Endoscope was introduced through the mouth, and advanced to the second part of duodenum. The upper GI endoscopy was accomplished without difficulty. The patient tolerated the procedure well. Findings: The esophagus was normal. Red blood was found on the greater curvature of the stomach. A Dieulafoy lesion with oozing bleeding and stigmata of recent bleeding was found in the gastric body. Area was unsuccessfully injected with 4 mL of a 0.1 mg/mL solution of epinephrine for hemostasis. Fulguration to ablate the lesion by heater probe was unsuccessful. To stop active bleeding, one hemostatic clip was successfully placed (MR conditional). 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 There was no bleeding at the end of the procedure. The examined duodenum was normal. Impression: - Normal esophagus. - Red blood in the greater curvature of the stomach. - Dieulafoy lesion of stomach. - Normal examined duodenum. - No specimens collected. Recommendation: - Return patient to [facility] for ongoing care. - Clear liquid diet. - Use Protonix (pantoprazole) 40 mg PO BID. Ruben Coello Case, DO 12/10/2022 10:39:24 AM This report has been signed electronically. Note Initiated On: 12/10/2022 10:03 AM Number of Addenda: 0 I attest to the content of the Intraoperative Record and orders documented therein, exceptions below {[id number]}
--- NOTE | 2022-12-10 12:36 | Hospitalist Progress Note ---
Date of Service December 10, 2022 Assessment & Plan (1) GI bleed: Plan: -Admitted to the hospital on account of one week of black stool, with progressive fatigue and nausea -Noted to be Guaiac positive and Hgb of 10.7 on outpatient labs earlier in the week -Hgb today is 7.7, patient still having melena since arrival -S/P 2000 units KCentra in the ED to reverse his Xarelto -GI consulted - He is now s/p EGD which showed evidence of blood in the greater curvature of the stomach and a Dieulafoy lesion with oozing and stigmata of recent bleeding. Hemostasis was achieved after injection fulguration and hemostatic clip -Continue PO Protonix 40m BID per GI -Monitor H and H (2) Acute blood loss anemia: Plan: Secondary to GI bleed from a Dieulafoy lesion, which has been clipped monitor H and H (3) Elevated troponin: Plan: -Initial high sen trop elevated at 25 -Patient is asymptomatic and without acute ECG changes -Likely due to demand from acute blood loss anemia (4) Hypertension: Plan: -Stable -Hold losartan for now to prevent hypotension (5) Lumbar radicular pain: Plan: -Prn tylenol and home tramadol (6) Atrial fibrillation, permanent: Plan: -Currently stable -Hold Xarelto for now with active GI bleed (7) Diabetes mellitus: Plan: -Hold Jardiance -Monitor BSG q4h while NPO, goal is 110-140 -Start with 5 units lantus BID for Basal -CF of 50 q4h while NPO -Adjust regimen as needed (8) Dyslipidemia: Plan: -Continue atorvastatin Plan Continue to monitor for bleed post EGD, hopefully d/c in 24-48 hrs Admission and Anticipated Discharge Date Admission Date: December 09, 2022 Subjective patient seen and exaamined, had EGD this morning Review of Systems Review of Systems: All systems reviewed are negative, apart from the ones contained in the history. Physical Exam Physical Exam: The patient is awake, alert and oriented 3, well developed and well nourished, normocephalic and atraumatic, lying in bed and in no acute distress. HEENT--PERRL, EOMI, mucous membranes and oropharynx mildly dry Neck--supple. No JVD. No bruits. Thyroid normal, trachea midline, no adenopathy. Heart--normal S1 and S2. No murmurs, rubs or gallops. Lungs--clear bilaterally, no respiratory distress, no accessory muscle use. Abdomen--normal bowel sounds and soft. Mild epigastric and left sided abdominal pain Extremities--no cyanosis or clubbing. No edema. Dermatologic--normal skin turgor, normal color, no abnormal lymph nodes, no rash. Neurologic--cranial nerves II through XII grossly intact. Rheumatologic--normal range of motion. Psychiatric--normal affect. Results & Data Results & Data Vital Signs (Past 12 Hours) Vital Signs Temp Pulse Pulse Resp BP Pulse Ox O2 Del Method 12/10/22 11:01 80 16 124/58 L 98 Room Air 12/10/22 10:46 80 16 141/75 H 98 Room Air 12/10/22 10:30 80 16 128/69 96 Room Air 12/10/22 09:41 98.1 F 80 16 138/73 97 Room Air 12/10/22 08:00 Room Air 12/10/22 08:10 97.9 F 83 18 125/71 98 Room Air 12/10/22 07:33 80 12/10/22 02:57 97.9 F 80 16 107/62 95 Room Air PG Care Time/CCT Total # of Minutes Spent Total Time Spent with Patient: Total time spent is greater than 50% in coordination of care (as documented) at patient's floor/unit and/or counseling patient: Coding Level of Care Code 78074 SUB INP/OBS CARE 2/35MIN Diagnoses GI bleed K92.2 Acute blood loss anemia D62 Elevated troponin R77.8 Hypertension I10 Lumbar radicular pain M54.16 Atrial fibrillation, permanent I48.21 Diabetes mellitus E11.9 Dyslipidemia E78.5 Time Spent (min) 35
[2022-12-10] MEDS: PANTOprazole 40 MG TAB PO SCH ×2 (15:02→19:14)
--- NOTE | 2022-12-10 15:11 | Anesthesiology Progress Note ---
Date of Service December 10, 2022 Anesthesia Post Procedure Vital Signs Vital Signs: Temp Pulse Pulse Resp BP BP Pulse Ox 12/10/22 11:01 80 16 124/58 L 98 12/10/22 10:46 80 16 141/75 H 98 12/10/22 10:30 80 16 128/69 96 12/10/22 09:41 36.7 C 80 16 138/73 97 12/10/22 08:00 12/10/22 08:10 36.6 C 83 18 125/71 98 12/10/22 07:33 80 12/10/22 02:57 36.6 C 80 16 107/62 95 12/09/22 23:02 36.6 C 81 16 121/73 96 12/09/22 20:15 36.6 C 80 18 120/77 95 12/09/22 19:25 81 12/09/22 19:15 36.7 C 80 17 127/74 96 12/09/22 18:45 36.6 C 80 15 110/70 100 12/09/22 18:30 36.6 C 84 14 113/67 100 12/09/22 18:30 36.6 C 84 14 113/67 100 12/09/22 18:15 36.7 C 91 H 17 113/67 100 12/09/22 17:45 36.6 C 80 16 120/66 100 12/09/22 16:45 36.8 C 90 18 112/64 100 12/09/22 16:15 36.7 C 85 15 106/67 99 12/09/22 16:00 36.6 C 90 18 110/63 100 12/09/22 15:45 36.9 C 80 16 108/65 100 12/09/22 15:43 36.7 C 80 20 107/62 100 O2 Del Method 12/10/22 11:01 Room Air 12/10/22 10:46 Room Air 12/10/22 10:30 Room Air 12/10/22 09:41 Room Air 12/10/22 08:00 Room Air 12/10/22 08:10 Room Air 12/10/22 07:33 12/10/22 02:57 Room Air 12/09/22 23:02 Room Air 12/09/22 20:15 12/09/22 19:25 12/09/22 19:15 12/09/22 18:45 12/09/22 18:30 12/09/22 18:30 12/09/22 18:15 12/09/22 17:45 12/09/22 16:45 12/09/22 16:15 12/09/22 16:00 12/09/22 15:45 12/09/22 15:43 Room Air Pain Intensity Bilateral Back: Pain Intensity: 10 Transfer of Care Handoff Completed per policy Notes Mental Status: alert / awake / arousable and participated in evaluation Nausea / Vomiting: adequately controlled Pain: adequately controlled Airway Patency, RR, SpO2: stable & adequate BP & HR: stable & adequate Hydration State: stable & adequate Anesthetic Complications: no major complications apparent and Pt Satisfied with anesthetic care
[2022-12-10 15:55] LABS: Hematocrit (blood only) 27.1 % (42.0-52.0); Hemoglobin 8.7 g/dl (14.0-18.0); Mean Corpuscular Hgb Conc 32.1 g/dL (32.0-36.0); Mean Corpuscular Volume 90.3 fL (80.0-100.0); Mean Platelet Volume 10.6 fL (9.4-12.4); Nucleated RBC # (auto) 0.04 K/uL (0-0.12); Nucleated RBC % (auto) 0.5 %; Platelet Count 121 K/uL (130-400); RDW Standard Deviation 50.8 fL (36.4-46.3); White Blood Count 7.33 K/ul (4.8-10.8)
[2022-12-10] MEDS: ATORVASTATIN 10 MG TAB PO SCH (19:13)
[2022-12-10 22:22] LABS: Hematocrit (blood only) 29.5 % (42.0-52.0); Hemoglobin 9.7 g/dl (14.0-18.0); Mean Corpuscular Hemoglobin 29.8 pg (25.0-34.0); Mean Corpuscular Hgb Conc 32.9 g/dL (32.0-36.0); Mean Corpuscular Volume 90.5 fL (80.0-100.0); Nucleated RBC # (auto) 0.08 K/uL (0-0.12); Platelet Count 131 K/uL (130-400); RDW Coefficient of Variation 18.6 % (11.5-14.5); RDW Standard Deviation 51.2 fL (36.4-46.3); Red Blood Count 3.26 M/uL (4.70-6.10); White Blood Count 7.92 K/ul (4.8-10.8)
[2022-12-11 03:46] LABS: Hematocrit (blood only) 25.8 % (42.0-52.0); Hemoglobin 8.4 g/dl (14.0-18.0); Mean Corpuscular Hemoglobin 29.7 pg (25.0-34.0); Mean Corpuscular Hgb Conc 32.6 g/dL (32.0-36.0); Mean Corpuscular Volume 91.2 fL (80.0-100.0); Mean Platelet Volume 10.2 fL (9.4-12.4); Nucleated RBC # (auto) 0.05 K/uL (0-0.12); Nucleated RBC % (auto) 0.7 %; Platelet Count 109 K/uL (130-400); RDW Coefficient of Variation 18.1 % (11.5-14.5); RDW Standard Deviation 50.8 fL (36.4-46.3); Red Blood Count 2.83 M/uL (4.70-6.10); White Blood Count 6.96 K/ul (4.8-10.8)
[2022-12-11 03:58] LABS: Albumin Globulin Ratio 1.4 (0.9-2); Albumin Level 3.1 gm/dl (3.4-5.0); BUN Creatinine Ratio 18.1 (10-20); Bilirubin,Total 0.9 mg/dl (0.2-1.0); Calcium 7.8 mg/dl (8.6-10.3); Creatinine Clr Calc Pharmacy 56.8 ml/min; Est GFR (African American) 80.7 ml/min; Est GFR (Non-African American) 69.6 ml/min; Globulin 2.2 gm/dl (2.5-4.0); Potassium 3.7 mmol/L (3.5-5.1); Total Protein 5.3 gm/dl (6.0-8.3)
[2022-12-11 04:28] LABS: INR 1.1 (0.9-1.1); Prothrombin Time 12.3 Seconds (9.0-12.0)
[2022-12-11] MEDS: INSULIN ASPART PER UNIT CHARGE SC SCH ×2 (07:30→11:42)
[2022-12-11] MEDS: PANTOprazole 40 MG TAB PO SCH (07:42)
[2022-12-11] MEDS: LANTUS PER UNIT CHARGE SQ SCH (08:04)
--- NOTE | 2022-12-11 10:49 | Gastroenterology Progress Note ---
Date of Service December 11, 2022 Assessment & Plan (1) Acute blood loss anemia: Plan: Diet advancement as tolerated. Hold Aspirin and Xarelto therapy 5-7 days upon D/C. Continue Pantoprazole 40 mg BID upon discharge. Outpatient GI follow up in our office in 1-2 weeks. Will sign off at this time. (2) Dieulafoy lesion of stomach: Admission and Anticipated Discharge Date Admission Date: December 09, 2022 Subjective Patient is doing well s/p EGD with findings of gastric Dieulafoy's lesion s/p hemostasis with epinephrine, heater probe and Endoclip placement. He is having some residual dark stools. No abdominal pain. Tolerating clear liquid diet. H&H has stabilized. Continues BID PPI. Review of Systems Constitutional: + fatigue Gastrointestinal: as per Subjective / HPI Physical Exam Constitutional: WD/WN, vitals as above Respiratory: normal respiratory effort, lungs clear to auscultation Cardiovascular: RRR, no murmur, no edema Gastrointestinal (Abdomen): normal bowel sounds, soft, nontender, no hepatosplenomegaly Psychiatric: A+Ox3, euthymic affect Results & Data Results & Data Vital Signs (Past 12 Hours) Vital Signs Temp Pulse Pulse Resp BP Pulse Ox O2 Del Method 12/11/22 08:00 36.6 C 77 20 130/73 98 Room Air 12/11/22 07:36 Room Air 12/11/22 07:30 82 12/11/22 02:54 36.9 C 80 16 126/69 97 Room Air 12/10/22 22:57 36.6 C 78 16 131/77 95 Room Air Laboratory Results Abnormal lab results 12/10/22 12/10/22 12/10/22 Range/Units 11:40 15:37 16:11 RBC 3.00 L (4.70-6.10) M/uL Hgb 8.7 L (14.0-18.0) g/dl Hct 27.1 L (42.0-52.0) % RDW Std Deviation 50.8 H (36.4-46.3) fL RDW Coeff of Paulo 18.0 H (11.5-14.5) % Plt Count 121 L (130-400) K/uL PT (9.0-12.0) Seconds Chloride (98-107) mmol/L Glucose (70-99(Fasting)) mg/dl POC Glucose 172 H 218 H (70-99) mg/dl Calcium (8.6-10.3) mg/dl Total Protein (6.0-8.3) gm/dl Albumin (3.4-5.0) gm/dl Globulin (2.5-4.0) gm/dl 12/10/22 12/10/22 12/11/22 Range/Units 20:01 21:45 03:16 RBC 3.26 L (4.70-6.10) M/uL Hgb 9.7 L (14.0-18.0) g/dl Hct 29.5 L (42.0-52.0) % RDW Std Deviation 51.2 H (36.4-46.3) fL RDW Coeff of Paulo 18.6 H (11.5-14.5) % Plt Count (130-400) K/uL PT 12.3 H (9.0-12.0) Seconds Chloride (98-107) mmol/L Glucose (70-99(Fasting)) mg/dl POC Glucose 139 H (70-99) mg/dl Calcium (8.6-10.3) mg/dl Total Protein (6.0-8.3) gm/dl Albumin (3.4-5.0) gm/dl Globulin (2.5-4.0) gm/dl 12/11/22 12/11/22 12/11/22 Range/Units 03:16 03:16 07:30 RBC 2.83 L (4.70-6.10) M/uL Hgb 8.4 L (14.0-18.0) g/dl Hct 25.8 L (42.0-52.0) % RDW Std Deviation 50.8 H (36.4-46.3) fL RDW Coeff of Paulo 18.1 H (11.5-14.5) % Plt Count 109 L (130-400) K/uL PT (9.0-12.0) Seconds Chloride 108 H (98-107) mmol/L Glucose 102 H (70-99(Fasting)) mg/dl POC Glucose 120 H (70-99) mg/dl Calcium 7.8 L (8.6-10.3) mg/dl Total Protein 5.3 L (6.0-8.3) gm/dl Albumin 3.1 L (3.4-5.0) gm/dl Globulin 2.2 L (2.5-4.0) gm/dl PG Care Time/CCT Total # of Minutes Spent Total Time Spent with Patient: Total time spent is greater than 50% in coordination of care (as documented) at patient's floor/unit and/or counseling patient: Coding Level of Care Code 23434 SUB INP/OBS CARE 3/50MIN Diagnoses Acute blood loss anemia D62 Dieulafoy lesion of stomach K31.82
--- NOTE | 2022-12-11 14:23 | Discharge Summary ---
Date of Service December 11, 2022 Principal Diagnosis GI bleed Discharge Exam The patient is awake, alert and oriented 3, well developed and well nourished, normocephalic and atraumatic, lying in bed and in no acute distress. HEENT--PERRL, EOMI, mucous membranes and oropharynx mildly dry Neck--supple. No JVD. No bruits. Thyroid normal, trachea midline, no adenopathy. Heart--normal S1 and S2. No murmurs, rubs or gallops. Lungs--clear bilaterally, no respiratory distress, no accessory muscle use. Abdomen--normal bowel sounds and soft. Mild epigastric and left sided abdominal pain Extremities--no cyanosis or clubbing. No edema. Dermatologic--normal skin turgor, normal color, no abnormal lymph nodes, no rash. Neurologic--cranial nerves II through XII grossly intact. Rheumatologic--normal range of motion. Psychiatric--normal affect. Discharge Data Allergies Allergy/AdvReac Type Severity Reaction Status Date / Time Penicillins Allergy Mild Nausea Verified 12/04/22 14:20 amoxicillin Allergy Unknown Verified 12/04/22 14:20 codeine AdvReac Mild DIZZINESS, Verified 12/04/22 14:20 NAUSEA metformin AdvReac Mild rash Verified 12/04/22 14:20 Consultations 12/09/22 12:51 Consult Gastroenterology Routine 12/09/22 12:58 ED Decision to Admit Stat Procedures Performed Operation Date: 12/10/22 17:30 Actual Procedures p EGD Hemostasis - Ruben Coello Case, DO Hospital Course (1) GI bleed: -Admitted to the hospital on account of one week of black stool, with progressive fatigue and nausea -Noted to be Guaiac positive and Hgb of 10.7 on outpatient labs earlier in the week -Hgb today is 7.7, patient still having melena since arrival -S/P 2000 units KCentra in the ED to reverse his Xarelto -GI consulted - He is now s/p EGD which showed evidence of blood in the greater curvature of the stomach and a Dieulafoy lesion with oozing and stigmata of recent bleeding. Hemostasis was achieved after injection fulguration and hemostatic clip -Continue PO Protonix 40m BID per GI -Hold xarelto for 1 week (2) Acute blood loss anemia: Secondary to GI bleed from a Dieulafoy lesion, which has been clipped monitor H and H (3) Elevated troponin: -Initial high sen trop elevated at 25 -Patient is asymptomatic and without acute ECG changes -Likely due to demand from acute blood loss anemia (4) Hypertension: -Stable -Hold losartan for now to prevent hypotension (5) Lumbar radicular pain: -Prn tylenol and home tramadol (6) Atrial fibrillation, permanent: -Currently stable -Hold Xarelto for now with active GI bleed (7) Diabetes mellitus: -Hold Jardiance -Monitor BSG q4h while NPO, goal is 110-140 -Start with 5 units lantus BID for Basal -CF of 50 q4h while NPO -Adjust regimen as needed (8) Dyslipidemia: -Continue atorvastatin Plan d/c home Total Time Total Time Spent Total Time Spent (In Minutes): 35 Discharge Plan Discharge Items Patient Disposition: Home - Self-Care Reason For Visit: MELENA, ANEMIA Discharge Diagnosis: GI bleed Activity: Resume your previous activity Non-emergency contact: Primary Care Provider and Lead Custodian Call non-emergency contact if: you have any medication questions Follow-up/Referrals: Anjali Marshall CRNP [Primary Care Provider] - 12/16/22 10:30 am Diet: Regular Addtl Attending Provider Instructions: Please, do not take your blood thinner for 1 week and make appointment to see your dye and chemical coordinator Pending Studies at Discharge: No Stand-Alone Forms: My [facility] [place] [employer], Smoking Cessation Medications and DC Order Prescriptions: New pantoprazole 40 mg Tablet,Delayed Release (Dr/Ec) 40 mg PO BID 30 Days Qty: 60 0RF Continued octreotide,microspheres 20 mg suspension,extended rel recon 40 mg IM MONTHLY atorvastatin 10 mg tablet 10 mg PO HS Qty: 90 3RF Jardiance 10 mg tablet 10 mg PO QAM Qty: 30 11RF (DME) blood sugar diagnostic Strip See Rx Instructions .ROUTE .MEDSUPPLY Qty: 50 5RF Rx Instructions: test 1 x daily (DME) lancets [Advocate Lancet] 30 gauge misc See Rx Instructions .ROUTE .MEDSUPPLY Qty: 200 5RF Rx Instructions: As directed tramadol 50 mg tablet 50 mg PO .COMPLEX PRN (Reason: pain) Qty: 60 0RF Rx Instructions: 50 mg orally 1 PO qd-bid PRN Fluzone HighDose Quad 22-23 PF 240 mcg/0.7 mL syringe 0.7 ml IM ONCE Qty: 0.7 0RF Rx Instructions: had flu vaccine back in fall per albuterol sulfate 90 mcg/actuation HFA aerosol inhaler 2 puff inhalation QID PRN (Reason: shortness of breath or wheezing) Qty: 8.5 1RF (DME) inhalation device to use with albuterol See Rx Instructions .Route .MEDSUPPLY Qty: 1 0RF Rx Instructions: As directed aspirin [Adult Low Dose Aspirin] 81 mg tablet,delayed release (DR/EC) 81 mg PO QAM (DME) blood-glucose meter Kit See Rx Instructions .ROUTE .MEDSUPPLY Qty: 1 0RF Rx Instructions: test 1 x daily Centrum Silver 400-250 mcg tablet,chewable 1 tab PO QAM ascorbic acid (vitamin C) 500 mg tablet 500 mg PO QAM ferrous sulfate 325 mg (65 mg iron) tablet 325 mg PO QAM cholecalciferol (vitamin D3) [Vitamin D3] 25 mcg (1,000 unit) Tablet 50 mcg PO QAM benzonatate 200 mg capsule 0 mg PO TID PRN (Reason: cough) Rx Instructions: per she seemed unsure of this medication triamcinolone acetonide 0.1 % ointment 0 applic topical BID Rx Instructions: per she is unsure of pt using this medication losartan 25 mg tablet 0 mg PO DAILY Rx Instructions: seemed unsure of this medication, she had his list. Filled October 22, 2022 30 ds diclofenac sodium [Arthritis Pain (diclofenac)] 1 % gel 0 g topical QID Rx Instructions: per he hasn't used it but she seems unsure apply to R shoulder Held Xarelto 20 mg tablet 20 mg PO HS Qty: 90 3RF Hold Instructions: Resume on 12/18/22. Rx Instructions: TAKE ONE TABLET BY MOUTH DAILY WITH DINNER Discontinued Shipster 1.5 billion cell Capsule 1 cap PO QAM Discharge Orders: Discharge Order (Routine); Ordered 12/11/22 Ordered By: Tino Jasso Admission Data Admit Date/Time: 12/09/22 13:03 Attending Provider: Tino Jasso Admit Provider: Teddy Frederick Primary Care Provider: Anjali Marshall Other Providers: Ruben Zuluaga ; Teddy Frederick Other Interventions: Discharge Summary Assessment (RN) Last Done: 12/11/22 11:46 Coding Level of Care Code 08013 INP/OBS DISCH >30 MIN Diagnoses GI bleed K92.2 Acute blood loss anemia D62 Elevated troponin R77.8 Hypertension I10 Lumbar radicular pain M54.16 Atrial fibrillation, permanent I48.21 Diabetes mellitus E11.9 Dyslipidemia E78.5 Time Spent (min) 35
--- NOTE | 2022-12-17 11:13 | Coding Query ---
CODING QUERY To promote full compliance with coding requirements relating to patient care, provider participation is requested in all cases of apprentice embalmer uncertainty. Please assist us with the question(s) below: Coding Question(s): The patient was found to have a Dieulafoy lesion in the stomach with oozing and stigmata of recent bleed. The patient was also on anticoagulants at the time of admission and received 2000 units KCentra in the ED to reverse his Xarelto use with PT 13.9, INR 1.3. Given the information above, in your professional opinion, please specify if there is a cause and effect relationship between the patients recent bleed and Xarelto use. Physician's Response(s): ( ) Bleeding Dieulafory lesion caused by Xarelto use (x ) GI bleed from Dieulafoy lesion only, Xarelto not a contributing factor ( ) Other, please specify Thank you Corinne Sheridan Velasquez Principal Diagnosis: "that condition established after study, to be chiefly responsible for occasioning the admission of the patient to the hospital for care." Co-Existing Principal Diagnosis: "when two or more diagnoses equally meet the criteria for principal diagnosis as determined by the circumstances of admission, diagnostic work up, and/or therapy provided, and the Alphabetic Index, Tabular List, or another coding guideline does not provide sequencing direction, any one of the diagnoses may be sequenced first." "When the physician has documented what appears to be a current diagnosis in the body of the record, but has not included the diagnosis in the final diagnostic statement, the physician should be asked whether the diagnosis should be added." (Source Coding [facility] 2 QTR90. p3-4) VANI
== END 2022-12-11 14:08 | disposition home or self-care (01) | DRG 378 ==
LOC: ED 08:53 → SUATTDRO 13:03 → 2E 13:03

== ENCOUNTER 2023-09-02 12:15 | Inpatient (IN) ==
[2023-09-02 13:54] LABS: Alanine Aminotransferase 16 U/L (7-52); Albumin Globulin Ratio 1.3 (0.9-2); Albumin Level 4.4 gm/dl (3.4-5.0); Alkaline Phosphatase 91 U/L (34-104); Anion Gap 6 (3-11); BUN Creatinine Ratio 16.7 (10-20); Bilirubin,Total 0.6 mg/dl (0.2-1.0); Blood Urea Nitrogen 21 mg/dl (6-23); Calcium 8.8 mg/dl (8.6-10.3); Carbon Dioxide 24 mmol/L (21-32); Chloride 106 mmol/L (98-107); Est GFR (African American) 64.2 ml/min; Est GFR (Non-African American) 55.4 ml/min; Globulin 3.5 gm/dl (2.5-4.0); Glucose 156 mg/dl (70-99(Fasting)); Sodium 136 mmol/L (136-145); Total Protein 7.9 gm/dl (6.0-8.3); Troponin I High Sensitivity 26.2 pg/ml (0-20)
--- NOTE | 2023-09-02 15:07 | Electrocardiogram Report ---
Test Reason : Blood Pressure : / mmHG Vent. Rate : 085 BPM Atrial Rate : 073 BPM P-R Int : 000 ms QRS Dur : 168 ms QT Int : 436 ms P-R-T Axes : 000 -66 092 degrees QTc Int : 518 ms Ventricular-paced rhythm Abnormal ECG When compared with ECG of 24-APR-2023 16:38, Vent. rate has increased BY 3 BPM Confirmed by Jhonathan Noe ([id number]) on 09/02/2023 3:06:57 PM Referred By: Confirmed By:Jhonathan Noe
[2023-09-02 16:15] LABS: Hematocrit (blood only) 37.1 % (42.0-52.0); Hemoglobin 11.5 g/dl (14.0-18.0); Mean Corpuscular Hemoglobin 30.3 pg (25.0-34.0); Mean Corpuscular Volume 97.6 fL (80.0-100.0); Mean Platelet Volume 10.8 fL (9.4-12.4); Platelet Count 111 K/uL (130-400); RDW Standard Deviation 57.4 fL (36.4-46.3); White Blood Count 4.83 K/ul (4.8-10.8)
[2023-09-02 16:23] LABS: Appearance Urine Clear (Clear); Bacteria Urine Automated Negative (Negative); Bilirubin Urine Negative (Negative); Blood Urine 3+ (Negative); Color Urine Yellow; Epithelial Cell Urine Auto 0-5 /lpf (0-5); Glucose Urine UA 3+ (Negative); Ketones Urine Negative (Negative); Leukocyte Esterase Urine Negative (Negative); Nitrite Urine Negative (Negative); Protein Urine Negative (Negative); RBC Urine Automated >30 /hpf (0-4); Specific Gravity Urine 1.017 (1.000-1.030); Urobilinogen Urine Negative (Negative); WBC Urine Automated 0 /hpf (0-5)
[2023-09-02 16:51] LABS: INR 1.2 (0.9-1.1); Partial Thromboplastin Ratio 1.1; Partial Thromboplastin Time 32 Seconds (21-31); Prothrombin Time 13.1 Seconds (9.0-12.0)
--- NOTE | 2023-09-02 17:35 | CT Scan Report ---
ABDOMEN AND PELVIS CT WITHOUT CONTRAST CT DOSE: 797.24 mGy.cm HISTORY: Acute hematuria hematuria TECHNIQUE: Multiaxial CT images of the abdomen and pelvis were performed without contrast. A dose lo wering technique was utilized adhering to the principles of ALARA. COMPARISON STUDY: CTA 01/08/2023, PET CT 04/09/2023 FINDINGS: Cardiomegaly with partially imaged is leads. Moderate sized right pleural effusion with dep endent right basilar consolidation. No free air. Soft tissue attenuating subpleural nodules adjacent to the medial lung bases are again noted measuring 1.5 x 1.0 cm on the right. This lesion measured 1. 1 x 0.7 cm on the prior 01/08/2023 exam and was hypermetabolic on the prior PET. Unenhanced spleen is mildly enlarged. Interstitial and peripancreatic edema. Cholecystectomy. Numerous liver lesions are a gain seen, better characterized on the prior study. Cortical thinning of the kidneys with left-sided atrophy. Bilateral perinephric stranding. No renal o r ureteral calculi or hydronephrosis. Prostatomegaly. Decompressed urinary bladder with wall thickeni ng. Atherosclerosis of the aorta. Pathologic retroperitoneal lymphadenopathy again noted. 2.1 x 1.5 c m pericardial lymph node image 132 is measured 2.3 x 1.5 cm. Stable pathologic gastrohepatic lymph no gabe. Moderate fecal retention in the rectum and sigmoid with proximal sigmoidal gaseous distention. Postop erative changes of the right hemicolon. No acute fracture or destructive bone lesion. IMPRESSION: 1. Findings suggestive of mild acute pancreatitis. Correlate with serum lipase. 2. No renal or ureteral calculi or hydronephrosis. 3. Prostatomegaly with evidence of chronic bladder outlet obstruction. 4. Pathologic lymph nodes of the lower chest and upper abdomen are redemonstrated and appear generall y stable from the comparison PET/CT dated 04/09/2023. 5. Hepatic lesions are better visualized on the aforementioned PET/CT. 6. Stable moderate-sized right pleural effusion. ACT 112: Negative or not required by law. The above report was generated using voice recognition software. It may contain grammatical, syntax o r spelling errors. Electronically signed by: Zeke Brunner M.D. 09/02/2023 5:34 PM
--- NOTE | 2023-09-02 19:09 | History & Physical Report ---
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 Lower GI bleed // Hematochezia - Patient with long history of intermittent episodes of GI bleed that resulted in various EGD and colonoscopy studies with ulcer clips placed and colon biopsy sampling. - Had recent endoscopy which revealed 3-4 additional small ulcers in the small bowel and 1 in the colon which were also clipped. - Patient's noted spots of bright red blood in the patient's stool yesterday and called [facility] team, who recc he go to the ED for evaluation. - Patient denies having abdominal pain or epigastric pain, but does refer some suprapubic tenderness only when he is having about to have a bowel movement. - He does note having hemorrhoids as well, which may be another possible explanation for spots of bright red blood in patient's stool. He was advised to start a high fiber diet and a capsule study was ordered and meant to be done by [facility], but did was told that they would not do it due to risk of pacemaker interference. - VS on arrival to the ED were stable, with soft BP but no tachycardia. Patient hemodynamically stable. - CBC showing Hgb of 11.5 which is stable since the last time he had labs done, and improved compared to prior levels. - CMP with electrolytes and renal markers within reference range, liver enzymes normal - Will trend HH Q8H - [facility] GI consulted Hematuria - Not happened before - No urology follow up - May be contributing to patient's noted blood in toilet bowl - Urology consulted Anemia - Was taking PO iron with vitamin C at home as well - Hgb of 11.5 which is stable compared to past levels - Monitor HH DM-II - Blood sugar on admission 156 - Hgb A1c from 01/2023 of 6.5%. - Hgb A1c ordered - Home Jardiance held - Manage with Lantus and SSI A-fib on chronic Xarelto -Patient with history of atrial fibrillation and pacemaker placement -Had been on Xarelto for prophylaxis -Will hold Xarelto until active bleeding has been ruled out Metastatic carcinoid tumor -Followed by Cancer center in [place] -Status post ablation and lesion resection from liver and small bowel -Currently on chemotherapy, which was held due to current episode of possible GI bleed HTN - Continue Losartan HLD - Continue Atorvastatin Dispo: Med/Tele Diet: NPO VTE ppx: SCDs; Xarelto held due to possible active bleed GI ppx: Protonix History of Present Illness Chief Complaint: Blood in stool Primary Care Provider: RONNY Wills 73-year-old male with past medical history of aortic valve replacement, 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 Patient has had history of recurrent GI bleeds that began on November 2022, which led to multiple EGD with clip placement for noted ulcers, and colonoscopy for evaluation of said GI bleed. Most recently, on 07/2023, patient noted melena for which she was seen by [facility] gastroenterology, and had done a capsule study. Through the study, patient was noted to have 3-4 small ulcers in his small intestine as well as 1 ulcer in his colon, which were all clipped. Yesterday, patient's noted spots of bright red blood in patient's stool as well as blood in his urine. He states that the only time that he feels suprapubic pain/pressure is when he is going to have a bowel movement. Patient denies having any abdominal pain, epigastric pain, nausea, vomiting, fevers, lightheadedness, dizziness, dysuria, or any other symptoms. ED Course: Vital signs have remained stable, blood pressures have been soft but not hypotensive, no tachycardia noted, patient has remained afebrile, patient has remained hemodynamically stable Labs/Imaging: Hemoglobin in the emergency department showing level of 11.5 which is stable when compared to prior level from last month, no leukocytosis on CBC, platelets at 111, CMP without any electrolyte abnormalities, renal markers withi n reference range, blood glucose of 156, hemoglobin A1c from 02/19 of 6.5%, liver enzymes within reference range, urine showing +3 hematuria but negative for bacteria/nitrite/leukocyte esterase, abdominal/pelvic CT without contrast showing findings suggestive of mild acute pancreatitis (Lipase was 20), no renal or ureteral calculi or hydronephrosis, prostatomegaly with evidence of chronic bladder outlet obstruction, pathologic lymph nodes of the lower chest and upper abdomen are redemonstrated and appear generally stable from the comparison PET/CT dated , hepatic lesions are better visualized on the aforementioned PET/CT and stable moderate-sized right pleural effusion. Allergies Allergy/AdvReac Type Severity Reaction Status Date / Time metformin Allergy Intermediate rash Verified 09/02/23 15:52 amoxicillin Allergy Unknown Unknown Verified 09/02/23 15:52 Cephalosporins AdvReac Intermediate Diarrhea Verified 09/02/23 15:52 codeine AdvReac Intermediate DIZZINESS, Verified 09/02/23 15:52 NAUSEA Penicillins AdvReac Mild Nausea Verified 09/02/23 15:52 Home Medications Medication Instructions Recorded Confirmed Type ascorbic acid (vitamin C) 500 mg 500 mg PO QPM 01/22/19 09/02/23 History tablet multivit with min-folic 1 tab PO QAM 01/22/19 09/02/23 History acid-lutein 400 mcg-250 mcg chewable tablet (Centrum Silver) aspirin 81 mg tablet,delayed 81 mg PO QAM 06/18/19 09/02/23 History release (Adult Low Dose Aspirin) blood-glucose meter #1 ea 06/20/20 07/17/23 Rx ferrous sulfate 325 mg (65 mg 325 mg PO QPM 10/30/20 09/02/23 History iron) tablet empagliflozin 10 mg tablet 10 mg PO QAM #30 tabs 09/04/22 09/02/23 Rx (Jardiance) lancets 30 gauge (Advocate Lancet) #200 ea 10/22/22 07/17/23 Rx rivaroxaban 20 mg tablet (Xarelto) 20 mg PO HS #90 tabs 11/28/22 09/02/23 Rx cholecalciferol (vitamin D3) 25 500 mcg PO UD 12/12/22 09/02/23 History mcg (1,000 unit) tablet (Vitamin D3) Colon Health 1 tab PO QAM 03/21/23 09/02/23 History octreotide,microspheres 20 mg 40 mg IM Q30D 03/21/23 09/02/23 History intramuscular susp, extended release (Sandostatin LAR Depot) cyanocobalamin (vitamin B-12) 1,000 mcg IM Q30D 03/24/23 09/02/23 History 1,000 mcg/mL injection solution furosemide 20 mg tablet (Lasix) 20 mg PO QAM #30 tabs 03/24/23 09/02/23 Rx losartan 25 mg tablet 25 mg PO QAM #30 tabs 03/24/23 09/02/23 Rx atorvastatin 10 mg tablet 10 mg PO HS #90 tabs 04/30/23 09/02/23 Rx ondansetron HCl 4 mg tablet 4 mg PO Q8H PRN nausea and 05/02/23 09/02/23 Rx vomiting #3 tabs albuterol sulfate 90 mcg/actuation 2 puff inhalation Q6H PRN 05/21/23 09/02/23 Rx aerosol inhaler Shortness Of Breath Or Wheezing #18 grams blood sugar diagnostic #100 ea 07/09/23 07/17/23 Rx tramadol 50 mg tablet 50 mg PO BID PRN Pain #60 tabs 08/14/23 09/02/23 Rx pantoprazole 40 mg tablet,delayed 40 mg PO BID #180 tabs 08/18/23 09/02/23 Rx release Past Med/Surg History Medical History Blood in stool Black stools GERD (gastroesophageal reflux disease) Pleural effusion on right recurrent. s/p thoracentesis Rt side 04/18/23. [facility]. 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 Supraventricular aortic stenosis Third degree AV block History of malignant carcinoid tumor Aortic stenosis due to bicuspid aortic valve Moderate-Severe Aortic aneurysm Aortic root, ascending and into arch>sx to repair Hearing deficit Osteoarthritis Cancer LIVER CANCER COLON CANCER sees oncology with [facility] Transient ischemic attack (TIA) "THE DOCTOR THOUGHT HE HAD ONE/ABOUT 5 YEARS AGO" Surgical History History of esophagogastroduodenoscopy (EGD) 03/27/23 [facility] Hx of cardiac catheterization 2019, clinical eval for procedure, [facility], no stents; f[facility]u [facility] [place] [facility] History of removal of retained hardware wire removed from chest/open sx in 2019 S/P epidural steroid injection History of cystoscopy Status post aorto-coronary artery bypass graft April 2019 > unknown other details Status post aortic valve replacement 2019 S/P aortic aneurysm repair pt unaware of details Status post cardiac surgery 05/13/19 Dr. Armen Kate- Aortic root replacement with a 25 mm epic bioprosthesis and a 30 mm Gelweave graft and left atrial appendage clip History of carpal tunnel release bilat History of arthroscopy RT/LEFT KNEE History of surgery RT KIDNEY SURGERY "NOT DRAINING CORRECTLY" History of colonoscopy History of cholecystectomy Hx of resection of liver 2006 History of colectomy 2003 History of nasal septoplasty History of tooth extraction Pacemaker 2012 > Medtronic > last checked August 2020 > Dr. Wayne, [facility] Family History Mother Family history of diabetes mellitus Diabetes Father Kidney disease Brother Valvular heart disease Heart disease Hearing loss Cancer Sister Ovarian cancer Cancer Family/Other Colorectal cancer Self Denies family history of Prostate cancer Myocardial infarction Breast cancer Social History Smoking Status: Never smoker Tobacco Type: Cigarettes Age Started Using Tobacco: 14; Age Quit Using Tobacco: 53; packs per day: 1; Second Hand Exposure: No; Do You Dip or Chew Tobacco: No; Hx Alcohol Use: No Hx Substance Use: No Preferred Language: Maori Communication Ability: Effective Candles Pourer Required: No Beliefs That Will Affect Care: None Current Living Situation: Spouse Feels Safe at Home: Yes Assistive Devices: Denture - Upper, Denture - Lower, Glasses and Hearing Aid - Bilateral Review of Systems Review of Systems: As per HPI Physical Exam Physical Exam: GENERAL: AAOx3, hard of hearing, afebrile, no acute distress HEAD: AT, NC EYES: EOM intact THROAT: normal to visual inspection CHEST: symmetric, vertical scar noted following sternal line, pacemaker in left chest, symmetric lung expansions with respirations CARDIO: RRR PULMONARY: CTA, normal respiratory effort, no respiratory distress GI: mildly distended, non-tender to palpation of all four quadrants, epigastric region, or suprapubic region : no gastelum EXTREMITIES: no swelling in bilateral LE, no calf tenderness bilaterally, no obvious deformity SKIN: no rashes Results & Data Results & Data Vital Signs (Past 12 Hours) Vital Signs Temp Pulse Resp BP Pulse Ox O2 Del Method 09/02/23 19:02 80 09/02/23 18:23 80 20 123/77 97 Room Air 09/02/23 16:30 81 17 109/73 97 Room Air 09/02/23 16:21 80 09/02/23 16:00 81 20 119/71 99 Room Air 09/02/23 15:30 80 18 114/74 97 Room Air 09/02/23 12:17 36.4 C L 84 18 107/68 99 Room Air Code Status & VTE Plan VTE Prophylaxis Plan VTE Prophylaxis will be ordered: Yes Supervising Physician Co-Signing Physician Notes Patient seen and examined, chart reviewed, case discussed with Thu Burr MD and I agree with the assessment and plan as above except as otherwise noted Labs and images reviewed Teddy is a 73-year-old male with a past medical history of metastatic carcinoid cancer with mets to liver on octreotide infusions and anticoagulated on Xarelto for A-fib stroke prophylaxis who has had intermittent hematochezia. He was last seen by [facility] 08/01/2023 for melanotic stools. He had an upper endoscopy which showed a Geovanna Kieran lesion which was clipped at the time, repeat EGD showed clip in place with no additional bleeding. Patient was later suspected to have possible hemorrhoid bleeding and was referred to [facility] for a [facility] however this was deferred at the time due to theoretical risk of interacting with his pacemaker. At his last [facility] GI visit was noted that this may be able to be done at [place] and was attempting to schedule, with backup plan to refer as outpatient to [facility]. Alternative causes of bleeding or sclerosis. Patient had fiber added to his diet to help minimize hemorrhoidal bleeding and was recommended to continue outpatient follow-up. At time of that visit patient had nonbleeding external hemorrhoids with no masses.Pt reports his bleeding began sin November of last year. Has had intermittent black stools, sometimes just small black spots in stool, sometimes with hematochezia. Melena improved after pt had EGD with clipping. Last Friday has reccurent melena and had a capsule endoscopy --> followed up in [place] and had some gastric lesions clipped did well. This past week however has had some small dark flecks mixed into the bowel movement and some bright red blood in the toilet. Hematochezia: Bright red blood without melena, normal BUN, and hemoglobin is stable without indication for transfusion at this time. Pt had multiple clips placed for lesions as noted. . Bright red blood dripping into the toilet sounds consistent with hemorrhoids, patient may also be having some contamination with hematuria. Dark black flecks mixed in may be recurrent or small amounts of post procedure bleeding hemodynamics are stable, and hemoglobin is stable. No indication for emergent endoscopy at this time. PPI BID, trend H&H, GI consulted Hematuria: Patient is on recurrent 3+ hematuria and also thinks he may be having some blood mixed in from his urine when he has bowel movements. Urology consulted. No known hx of bladder malignancy or lesions. COPD with emphysema: No acute exacerbation, continue inhalers. Last PFTs with ratio 77%, DLCO 82%. Metastatic carcinoid tumor. 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 Pending lutathera chemo once anemia/bleeding is stable. Has a history of A-fib S/p permanent pacemaker and anticoagulated on Xarelto w/ Increased risk of thromboembolism. Xarelto held x24 hours pending hemoglobin trend and reevaluation. If hemoglobin is stable and no further bleeding resume at that time.
[2023-09-02] MEDS ORDERED: ALBUTEROL HFA 8 GM INHALER INH PRN (20:07)
[2023-09-02] MEDS ORDERED: ONDANSETRON INJ 2 MG/ML 2 ML VIAL IV PRN (20:07)
[2023-09-02] MEDS ORDERED: GLUCAGON FOR INJ 1 MG VIAL IM PRN (20:15)
[2023-09-02] MEDS ORDERED: CARBOHYDRATES FOR HYPOGLYCEMIA PO PRN (20:15)
[2023-09-02] MEDS ORDERED: DEXTROSE 50% 50 ML SYRINGE IV PRN (20:15)
[2023-09-02] MEDS ORDERED: GLUCOSE 40% GEL 15 GM TUBE PO PRN (20:15)
[2023-09-02] MEDS ORDERED: GLUCOSE 10 TAB/TUBE PO PRN (20:15)
[2023-09-02] MEDS: INSULIN ASPART PER UNIT CHARGE SC SCH (20:32)
[2023-09-02] MEDS: LANTUS PER UNIT CHARGE SQ SCH (20:51)
[2023-09-02] MEDS: ACETAMINOPHEN 325 MG TAB PO PRN (20:52)
[2023-09-02] MEDS: FERROUS SULFATE 325 MG TAB PO SCH (20:53)
[2023-09-02] MEDS: ASCORBIC ACID 500 MG TAB PO SCH (20:53)
[2023-09-02] MEDS: ATORVASTATIN 10 MG TAB PO SCH (20:53)
[2023-09-02] MEDS: CHOLECALCIFEROL 25 MCG (1000 UNITS) TAB PO SCH (20:54)
--- NOTE | 2023-09-02 21:02 | Emergency Department Note ---
History of Present Illness General Chief complaint: Referred by Doctor Stated complaint: REF BY DOC Time Seen by Provider: 09/02/23 14:59 History of Present Illness Provider Complaint: + gross hematochezia Onset (ago): 9 month(s) Pain Consistency: + intermittent Maximum Pain Intensity: 5 Current Pain Intensity: 0 Relieved By: + none Exacerbated By: + bowel movement Context: + history of GI bleed, + hemorrhoids and + anticoagulant use (On Xarelto); no rectal trauma or no known esophageal varices Associated symptoms: + other bleeding (Hematuria); no abdominal pain, no nausea, no vomiting, no shortness of breath or no syncope Home Medications Medication Instructions Recorded Confirmed Type ascorbic acid (vitamin C) 500 mg 500 mg PO QPM 01/22/19 09/02/23 History tablet multivit with min-folic 1 tab PO QAM 01/22/19 09/02/23 History acid-lutein 400 mcg-250 mcg chewable tablet (Centrum Silver) aspirin 81 mg tablet,delayed 81 mg PO QAM 06/18/19 09/02/23 History release (Adult Low Dose Aspirin) blood-glucose meter #1 ea 06/20/20 07/17/23 Rx ferrous sulfate 325 mg (65 mg 325 mg PO QPM 10/30/20 09/02/23 History iron) tablet empagliflozin 10 mg tablet 10 mg PO QAM #30 tabs 09/04/22 09/02/23 Rx (Jardiance) lancets 30 gauge (Advocate Lancet) #200 ea 10/22/22 07/17/23 Rx rivaroxaban 20 mg tablet (Xarelto) 20 mg PO HS #90 tabs 11/28/22 09/02/23 Rx cholecalciferol (vitamin D3) 25 500 mcg PO UD 12/12/22 09/02/23 History mcg (1,000 unit) tablet (Vitamin D3) Colon Health 1 tab PO QAM 03/21/23 09/02/23 History octreotide,microspheres 20 mg 40 mg IM Q30D 03/21/23 09/02/23 History intramuscular susp, extended release (Sandostatin LAR Depot) cyanocobalamin (vitamin B-12) 1,000 mcg IM Q30D 03/24/23 09/02/23 History 1,000 mcg/mL injection solution furosemide 20 mg tablet (Lasix) 20 mg PO QAM #30 tabs 03/24/23 09/02/23 Rx losartan 25 mg tablet 25 mg PO QAM #30 tabs 03/24/23 09/02/23 Rx atorvastatin 10 mg tablet 10 mg PO HS #90 tabs 04/30/23 09/02/23 Rx ondansetron HCl 4 mg tablet 4 mg PO Q8H PRN nausea and 05/02/23 09/02/23 Rx vomiting #3 tabs albuterol sulfate 90 mcg/actuation 2 puff inhalation Q6H PRN 05/21/23 09/02/23 Rx aerosol inhaler Shortness Of Breath Or Wheezing #18 grams blood sugar diagnostic #100 ea 07/09/23 07/17/23 Rx tramadol 50 mg tablet 50 mg PO BID PRN Pain #60 tabs 08/14/23 09/02/23 Rx pantoprazole 40 mg tablet,delayed 40 mg PO BID #180 tabs 08/18/23 09/02/23 Rx release Allergies Allergy/AdvReac Type Severity Reaction Status Date / Time metformin Allergy Intermediate rash Verified 09/02/23 15:52 amoxicillin Allergy Unknown Unknown Verified 09/02/23 15:52 Cephalosporins AdvReac Intermediate Diarrhea Verified 09/02/23 15:52 codeine AdvReac Intermediate DIZZINESS, Verified 09/02/23 15:52 NAUSEA Penicillins AdvReac Mild Nausea Verified 09/02/23 15:52 Past Med/Surg History Medical History Blood in stool Black stools GERD (gastroesophageal reflux disease) Pleural effusion on right recurrent. s/p thoracentesis Rt side 04/18/23. [facility]. 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 Supraventricular aortic stenosis Third degree AV block History of malignant carcinoid tumor Aortic stenosis due to bicuspid aortic valve Moderate-Severe Aortic aneurysm Aortic root, ascending and into arch>sx to repair Hearing deficit Osteoarthritis Cancer LIVER CANCER COLON CANCER sees oncology with [place] Transient ischemic attack (TIA) "THE DOCTOR THOUGHT HE HAD ONE/ABOUT 5 YEARS AGO" Surgical History History of esophagogastroduodenoscopy (EGD) 03/27/23 [facility] Hx of cardiac catheterization 2018, clinical eval for procedure, [facility], no stents; f/u [facility] [place] cardio History of removal of retained hardware wire removed from chest/open sx in 2019 S/P epidural steroid injection History of cystoscopy Status post aorto-coronary artery bypass graft April 2019 > unknown other details Status post aortic valve replacement 2019 S/P aortic aneurysm repair pt unaware of details Status post cardiac surgery 05/13/19 Dr. Armen Kate- Aortic root replacement with a 25 mm epic bioprosthesis and a 30 mm Gelweave graft and left atrial appendage clip History of carpal tunnel release bilat History of arthroscopy RT/LEFT KNEE History of surgery RT KIDNEY SURGERY "NOT DRAINING CORRECTLY" History of colonoscopy History of cholecystectomy Hx of resection of liver 2006 History of colectomy 2003 History of nasal septoplasty History of tooth extraction Pacemaker 2012 > Medtronic > last checked August 2020 > Dr. [facility] Family History Mother Family history of diabetes mellitus Diabetes Father Kidney disease Brother Valvular heart disease Heart disease Hearing loss Cancer Sister Ovarian cancer Cancer Family/Other Colorectal cancer Self Denies family history of Prostate cancer Myocardial infarction Breast cancer Social History Smoking Status: Never smoker Tobacco Type: Cigarettes Age Started Using Tobacco: 14; Age Quit Using Tobacco: 53; packs per day: 1; Second Hand Exposure: No; Do You Dip or Chew Tobacco: No; Hx Alcohol Use: No Hx Substance Use: No Preferred Language: Sinhala Communication Ability: Effective Life Trainer Required: No Beliefs That Will Affect Care: None Current Living Situation: Spouse Feels Safe at Home: Yes Assistive Devices: Denture - Upper, Denture - Lower, Glasses and Hearing Aid - Bilateral Physical Exam 2 Vital Signs: Vital Signs - 24 hr 09/02/23 12:17 09/02/23 15:30 09/02/23 16:00 Temperature 36.4 C L Temperature Source Oral Pulse Rate 84 80 81 Respiratory Rate 18 18 20 Respiratory Effort / Characteristics Non-Labored Sponta neous Respiratory Depth Normal Blood Pressure 107/68 114/74 119/71 Blood Pressure Shirlene n 81 87 87 Blood Pressure Pos ition Sitting Pulse Oximetry 99 97 99 Oxygen Delivery Me thod Room Air Room Air Room Air Sepsis Recent Feve r Within 48 Hours No Sepsis New/Unexpla ined Change in Men odette Status No Sepsis Action Take n by Nursing No Action Required 09/02/23 16:21 09/02/23 16:30 09/02/23 18:23 Temperature Temperature Source Pulse Rate 80 81 80 Respiratory Rate 17 20 Respiratory Effort / Characteristics Respiratory Depth Blood Pressure 109/73 123/77 Blood Pressure Shirlene n 85 92 Blood Pressure Pos ition Pulse Oximetry 97 97 Oxygen Delivery Me thod Room Air Room Air Sepsis Recent Feve r Within 48 Hours Sepsis New/Unexpla ined Change in Men odette Status Sepsis Action Take n by Nursing 09/02/23 19:02 Temperature Temperature Source Pulse Rate 80 Respiratory Rate Respiratory Effort / Characteristics Respiratory Depth Blood Pressure Blood Pressure Shirlene n Blood Pressure Pos ition Pulse Oximetry Oxygen Delivery Me thod Sepsis Recent Feve r Within 48 Hours Sepsis New/Unexpla ined Change in Men odette Status Sepsis Action Take n by Nursing Physical Exam: Physical Exam GENERAL: She is oriented to person, place, and time. She appears well-developed and well-nourished. She does not appear distressed. HENT: Exam performed. -Head: Normocephalic and atraumatic. -Right Ear: External ear normal. No mastoid erythema -Left Ear: External ear normal. No mastoid erythema -Mouth/Throat: The oropharynx is clear and moist. No trismus in the jaw. No dental abscesses or uvula swelling. No oropharyngeal exudate or tonsillar abscesses. EYES: Conjunctivae and EOM are normal.Right eye exhibits no discharge. Left eye exhibits no discharge. No scleral icterus. NECK: Normal range of motion. Neck supple. No JVD present. No tracheal deviation and normal range of motion present. CV: Normal rate, regular rhythm, normal heart sounds and intact distal pulses. There is no peripheral edema. Palpable radial pulses bue. PULM/CHEST: Effort normal and breath sounds normal. No respiratory distress. No stridor. She has no wheezes. She has no rales. -Chest Wall: She exhibits no tenderness. ABD: The abdomen is soft. Bowel sounds are normal. She has no distension. No mass is present. There is no tenderness. There is no rebound, no guarding, no Loja's sign and no tenderness at McBurney's point. Rovsig negative Rectal: Bright red blood per rectum. Internal and external hemorrhoids present. MUSC/SKEL: Normal range of motion. There is no peripheral edema, tenderness or deformity. NEURO: Motor and sensation grossly intact. SKIN: Skin is warm and dry. She is not diaphoretic. PSYCH: She has a normal mood and affect. Behavior is normal. Judgment and thought content normal. Course Course 1459: The patient was evaluated in room A12. A complete history and physical exam was performed Administered Medications Acetaminophen (Acetaminophen 325 Mg Tab) 650 mg PO Q4H PRN PRN Reason: Pain or Fever Stop: 10/02/23 20:06 Last Admin: 09/02/23 20:52 Dose: 650 mg Documented By: ELDON Ascorbic Acid (Ascorbic Acid 500 Mg Tab) 500 mg PO QPM ROBIN Stop: 10/02/23 20:59 Last Admin: 09/02/23 20:53 Dose: 500 mg Documented By: ELDON Atorvastatin Calcium (Atorvastatin 10 Mg Tab) 10 mg PO HS ROBIN Stop: 10/02/23 20:59 Last Admin: 09/02/23 20:53 Dose: 10 mg Documented By: ELDON Ferrous Sulfate (Ferrous Sulfate 325 Mg Tab) 325 mg PO QPM ROBIN Stop: 10/02/23 20:59 Last Admin: 09/02/23 20:53 Dose: 325 mg Documented By: ELDON Insulin Aspart (Insulin Aspart Per Unit Charge) 0 units SC ACHS ROBIN Stop: 10/02/23 20:59 Last Admin: 09/02/23 20:32 Dose: Not Given Documented By: ELDON Insulin Glargine (Lantus Per Unit Charge) 7 units SQ BID ROBIN Stop: 10/02/23 20:59 Last Admin: 09/02/23 20:51 Dose: 5 units Documented By: ELDON Co-signed By: BHARAT Vitamin D (Cholecalciferol 25 Mcg (1000 Units) Tab) 12.5 mcg PO BID ROBIN Stop: 10/02/23 20:59 Last Admin: 03/05/24 20:54 Dose: 12.5 mcg Documented By: ELDON Medical Decision Making Medical Records Attestation: I reviewed the patient's medical records. External medical records reviewed. Patient had an EGD done by Dr. Zuluaga on May 12, 2023 which showed localized mild inflammation in the gastric antrum. Colonoscopy showing an end-to-end ileocolic anastomosis with healthy- appearing mucosa. There were internal hemorrhoids. Patient had a pill endoscopy which showed normal esophagus gastric erosions with mild active bleeding 2 duodenal polyps and large polyp. This was performed at [facility] on August 29, 2023 and it was recommended the patient resume Xarelto. Laboratory Data Attestation: I reviewed the patient's lab results. 09/02/23 15:09 09/02/23 15:09 Lab Results 09/02/23 09/02/23 09/02/23 Range/Units 12:35 12:47 15:09 WBC Cancelled 4.83 RBC Cancelled 3.80 L Hgb Cancelled 11.5 L Hct Cancelled 37.1 L MCV Cancelled 97.6 MCH Cancelled 30.3 MCHC Cancelled 31.0 L RDW Std Deviation Cancelled 57.4 H RDW Coeff of Paulo Cancelled 16.0 H Plt Count Cancelled 111 L MPV Cancelled 10.8 Absolute Nucleated RBC Cancelled Nucleated RBC % (auto) Cancelled Platelet Estimate Cancelled PT Cancelled 13.1 H INR Cancelled 1.2 H APTT Cancelled 32 H PTT Ratio Cancelled 1.1 Sodium 136 (136-145) mmol/L Potassium TNP 4.0 Chloride 106 (98-107) mmol/L Carbon Dioxide 24 (21-32) mmol/L Anion Gap 6 (3-11) BUN 21 (6-23) mg/dl Creatinine 1.26 (0.6-1.4) mg/dl Est Cr Clr Drug Dosing 45.0 ml/min Est GFR ( Amer) 64.2 ml/min Est GFR (Non-Af Amer) 55.4 ml/min BUN/Creatinine Ratio 16.7 (10-20) Glucose 156 H (70-99(Fasting)) mg/dl POC Glucose (70-99) mg/dl Calcium 8.8 (8.6-10.3) mg/dl Total Bilirubin 0.6 (0.2-1.0) mg/dl AST TNP ALT 16 (7-52) U/L Alkaline Phosphatase 91 (34-104) U/L Troponin I High Sens 26.2 H (0-20) pg/ml Total Protein 7.9 (6.0-8.3) gm/dl Albumin 4.4 (3.4-5.0) gm/dl Globulin 3.5 (2.5-4.0) gm/dl Albumin/Globulin Ratio 1.3 (0.9-2) Lipase (11-82) U/L Urine Color Urine Appearance (Clear) Urine pH (4.5-7.5) Ur Specific [place] (1.000-1.030) Urine Protein (Negative) Urine Glucose (UA) (Negative) Urine Ketones (Negative) Urine Blood (Negative) Urine Nitrite (Negative) Urine Bilirubin (Negative) Urine Urobilinogen (Negative) Ur Leukocyte Esterase (Negative) Urine WBC (Auto) (0-5) /hpf Urine RBC (Auto) (0-4) /hpf U Hyaline Cast (Auto) (0-5) /lpf U Epithel Cells (Auto) (0-5) /lpf Urine Bacteria (Auto) (Negative) Blood Type O Positive Antibody Screen NEGATIVE 09/02/23 09/02/23 09/02/23 Range/Units 15:09 15:09 16:00 WBC RBC Hgb Hct MCV MCH MCHC RDW Std Deviation RDW Coeff of Paulo Plt Count MPV Absolute Nucleated RBC Nucleated RBC % (auto) Platelet Estimate PT INR APTT PTT Ratio Sodium (136-145) mmol/L Potassium 4.0 Chloride (98-107) mmol/L Carbon Dioxide (21-32) mmol/L Anion Gap (3-11) BUN (6-23) mg/dl Creatinine (0.6-1.4) mg/dl Est Cr Clr Drug Dosing ml/min Est GFR ( Amer) ml/min Est GFR (Non-Af Amer) ml/min BUN/Creatinine Ratio (10-20) Glucose (70-99(Fasting)) mg/dl POC Glucose 115 H (70-99) mg/dl Calcium (8.6-10.3) mg/dl Total Bilirubin (0.2-1.0) mg/dl AST 21 20 ALT (7-52) U/L Alkaline Phosphatase (34-104) U/L Troponin I High Sens (0-20) pg/ml Total Protein (6.0-8.3) gm/dl Albumin (3.4-5.0) gm/dl Globulin (2.5-4.0) gm/dl Albumin/Globulin Ratio (0.9-2) Lipase 20 (11-82) U/L Urine Color Yellow Urine Appearance Clear (Clear) Urine pH 5.0 (4.5-7.5) Ur Specific [place] 1.017 (1.000-1.030) Urine Protein Negative (Negative) Urine Glucose (UA) 3+ H (Negative) Urine Ketones Negative (Negative) Urine Blood 3+ H (Negative) Urine Nitrite Negative (Negative) Urine Bilirubin Negative (Negative) Urine Urobilinogen Negative (Negative) Ur Leukocyte Esterase Negative (Negative) Urine WBC (Auto) 0 (0-5) /hpf Urine RBC (Auto) >30 H (0-4) /hpf U Hyaline Cast (Auto) 1-5 (0-5) /lpf U Epithel Cells (Auto) 0-5 (0-5) /lpf Urine Bacteria (Auto) Negative (Negative) Blood Type Antibody Screen Imaging Data Radiologist's Impression: Abdomen/Pelvis CT 09/02/23 16:[address] WITHOUT CONTRAST CT DOSE: 797.24 mGy.cm HISTORY: Acute hematuria hematuria TECHNIQUE: Multiaxial CT images of the abdomen and pelvis were performed without contrast. A dose lowering technique was utilized adhering to the principles of ALARA. COMPARISON STUDY: CTA 01/08/2023, PET CT 04/09/2023 FINDINGS: Cardiomegaly with partially imaged is leads. Moderate sized right pleural effusion with dependent right basilar consolidation. No free air. Soft tissue attenuating subpleural nodules adjacent to the medial lung bases are again noted measuring 1.5 x 1.0 cm on the right. This lesion measured 1.1 x 0.7 cm on the prior 01/08/2023 exam and was hypermetabolic on the prior PET. Unenhanced spleen is mildly enlarged. Interstitial and peripancreatic edema. Cholecystectomy. Numerous liver lesions are again seen, better characterized on the prior study. Cortical thinning of the kidneys with left-sided atrophy. Bilateral perinephric stranding. No renal or ureteral calculi or hydronephrosis. Prostatomegaly. Decompressed urinary bladder with wall thickening. Atherosclerosis of the aorta. Pathologic retroperitoneal lymphadenopathy again noted. 2.1 x 1.5 cm pericardial lymph node image 132 is measured 2.3 x 1.5 cm. Stable pathologic gastrohepatic lymph nodes. Moderate fecal retention in the rectum and sigmoid with proximal sigmoidal gaseous distention. Postoperative changes of the right hemicolon. No acute fracture or destructive bone lesion. IMPRESSION: 1. Findings suggestive of mild acute pancreatitis. Correlate with serum lipase. 2. No renal or ureteral calculi or hydronephrosis. 3. Prostatomegaly with evidence of chronic bladder outlet obstruction. 4. Pathologic lymph nodes of the lower chest and upper abdomen are redemonstrated and appear generally stable from the comparison PET/CT dated 04/09/2023. 5. Hepatic lesions are better visualized on the aforementioned PET/CT. 6. Stable moderate-sized right pleural effusion. ACT 112: Negative or not required by law. The above report was generated using voice recognition software. It may contain grammatical, syntax or spelling errors. Electronically signed by: Zeke Brunner M.D. 09/02/2023 5:34 PM ECG Data Attestation: I personally reviewed and interpreted this ECG as follows: Additional Comments: Paced rhythm with rate of 85. QRS 168 QTc 518. No ectopy. MDM Narrative Cardiac monitoring: An order was placed for continuous cardiac monitoring. The monitor shows a rate of 80 with paced rhythm interpreted by me Patient was seen during a time of extreme volume and extreme acuity in the emergency department. Nursing triage protocols were initiated and labs were drawn by protocol in the triage area. Patient's hemoglobin was stable from previous visits. CT of the abdomen pelvis was conducted because the patient was reporting hematuria and had 3+ blood in his urine. There were no kidney stones and there was possible pancreatitis however this does not correlate with the serum lipase which was within normal limits. The is very frustrated stating that the patient has been has been having GI bleeding for the last 9 months and despite multiple scopes by multiple physicians there has been no resolution of his GI bleeding. I explained to her that his hemoglobin was stable and that he is hemodynamically stable. Patient's high-sensitivity troponin was 26.2. She did ask if stopping his Xarelto would help with the bleeding and I do agree with her that that would help. The patient will be admitted for GI evaluation and to discuss with GI team if the patient can be moved to another blood thinner that might have less effect on his GI bleeding. [facility] Impression & Plan GI bleed, Elevated troponin Discharge Plan Visit Data Chief Complaint: Referred by Doctor Stated Complaint: REF BY DOC ED Provider: Rubens Wilson Discharge Problem: GI bleed, Elevated troponin Patient Disposition: Admitted As Inpatient Discharge Instructions Interventions: ED Discharge Assessment Last Done: 09/02/23 20:08
[2023-09-02] MEDS: MELATONIN 3 MG TAB PO ONE (22:34)
--- OUTSIDE RECORDS SUMMARY | 2023-09-02 22:57 | External Medical Summary | Continuity of Care Document ---
Author Name Unknown Organization [facility] Address [address] [place] [address] [id number] Care Team Providers Care Cement Loader Name Role Phone Anjali Marshall Primary Care Physician [phone] Encounter [facility] [id number] Date(s): 08/29/23 - 08/29/[address] [phone] Encounter Diagnosis Anticoagulated(Discharge Diagnosis) - 08/29/23 GI bleed(Discharge Diagnosis) - 08/29/23 Discharge Disposition: Home or Self Care Attending Physician: MD Rafia, Arnaldo Damon Allergies, Adverse Reactions, Alerts Substance Reaction Severity Status codeine dizziness and nausea Active amoxicillin nausea Active cephalexin diarrhea Active metFORMIN nauseated Active penicillin nausea Active Functional Status 08/29/23 Neurological Symptoms None ADLs Independent Facial Symmetry Symmetric Gait Steady Swallowing Difficulty NPO Level of Consciousness Neuro Alert Hallucinations Present None Speech Pattern Clear 08/29/23 History of Fall in Last 3 Months Cantrell N o Presence of Secondary Diagnosis Cantrell No Use of Ambulatory Aid [place]rell None/bedrest /nurse assist IV/Heparin Lock Fall Risk Cantrell No Gait/Transferring Fall Risk Cantrell Normal /bedrest/immobile Mental Status Fall Risk Cantrell Oriented t o own ability Cantrell Fall Risk Score 0 Cantrell Fall Risk No Risk Medications aspirin 81 mg oral tablet, chewable Start: 08/22/20 13:35:00 EST, 1 tab, PO, Daily Start Date: 08/22/20 Status: Ordered atorvastatin 10 mg oral tablet TAKE 1 TABLET BYMOUTH AT BEDTIME Start Date: 08/22/20 Status: Ordered Centrum Start: 08/22/20 13:35:00 EST, PO, Daily, silver Start Date: 08/22/20 Status: Ordered ferrous sulfate 325 mg (65 mg elemental iron) oral delayed release tablet Start: 08/01/23 11:58:00 EST, 1 tab, PO, Daily Start Date: 08/01/23 Status: Ordered furosemide 20 mg oral tablet Start: 08/01/23 11:56:00 EST, 1 tab, PO, Daily Start Date: 08/01/23 Status: Ordered Jardiance 10 mg oral tablet TAKE 1 TABLET BY MOUTH ONCE DAILY Start Date: 08/22/20 Status: Ordered losartan 25 mg oral tablet Start: 08/01/23 11:57:00 EST, 1 tab, PO, Daily Start Date: 08/01/23 Status: Ordered pantoprazole 40 mg oral delayed release tablet Start: 08/01/23 11:56:00 EST, 2 tab, PO, Daily Start Date: 08/01/23 Status: Ordered Reguloid Start: 08/29/23 13:18:00 EST, 2-3 capsules at bedtime Start Date: 08/29/23 Status: Ordered SandoSTATIN Start: 08/22/20 13:35:00 EST, 2-20 mg once a month Start Date: 08/22/20 Status: Ordered traMADol 50 mg oral tablet Start: 08/22/20 13:34:00 EST, 1 tab, PO, as needed, PRN: as needed for pain Start Date: 08/22/20 Status: Ordered unknown medication Start: 08/22/20 13:36:00 EST, colon health Start Date: 08/22/20 Status: Ordered Vitamin B12 1000 mcg/mL injectable solution Start: 08/01/23 11:59:00 EST, 1,000 mcg =, IM, ONCE Start Date: 08/01/23 Status: Ordered Vitamin C Start: 08/22/20 13:36:00 EST, 500 mg =, PO, Daily Start Date: 08/22/20 Status: Ordered Vitamin D3 Start: 08/22/20 13:36:00 EST, 5,000 Int_Unit =, PO Start Date: 08/22/20 Status: Ordered Xarelto 20 mg oral tablet TAKE ONE TABLET BY MOUTH DAILY WITH DINNER Start Date: 08/22/20 Status: Ordered Zofran 4 mg oral tablet Start: 08/22/23 12:49:00 EST, 1 tab, PO, tid, Disp# 3 tab, Refills: 0, prn for nausea during colon prep, PRN: as needed for nausea/vomiting, Pharmacy: [facility] Start Date: 08/22/23 Status: Ordered Problem List Condition Confirmation Course Effective Dates Status Health St atus Informant Arthritis Confirmed Active Carcinoid tumor Confirmed Active Diabetes Confirmed Active Heart disease Confirmed Active Kidney disease Confirmed Active Right wrist pain Confirmed Active Thrombus 1 Confirmed Active 1blood clots Diagnosis Diagnosis Type Effective Dates Health Status Cl inical Service Informant GI bleed Discharge Diagnosis 08/29/23 Non-Specified Anticoagulated Discharge Diagnosis 08/29/23 Non-Specified Procedures Procedure Date Related Diagnosis Body Site Status Cardiac pacemaker Complet ed Results Laboratory List Name Date Glucose Meter (GLUCOSE METER) 08/29/23 Urine Analysis w/ Reflexed Microscopic. (UA w/ Reflexed Microscopic.) 08/29/23 Added on Lab order 08/29/23 Blood Type/Antibody Screen ( for possible transfusion) (Type and Screen (for possible transfusion)) 08/29/23 Complete Blood Count w Differential (CBC w Platelets and Diff) 08/29/23 Comprehensive Metabolic Panel (CMP) Lipase Level 08/29/23 Prothrombin Time w/ INR (PT/INR) 08/29/23 Ferritin (FERRITIN) 08/29/23 Iron Profile (IRON PROFILE) 08/29/23 Partial Thromboplastin Time (PTT) 08/29/23 Most recent to oldest [Reference Range]: 1 ABO/Rh O POSITIVE (08/29/23 10:26 AM) Antibody Scr NEGATIVE (08/29/23 10:26 AM) Expires at 0600AM on 09/01/2023 (08/29/23 10:26 AM) # Units 0 (08/29/23 10:26 AM) R Number NRQ (08/29/23 10:26 AM) eGFR CKD-EPI [>60 mL/min/1.73 m2] 62 mL/ min/1.73 m2 (08/29/23 10:26 AM) Request of Physician iron profile ferrit in ptt (08/29/23 10:27 AM) Action Taken YES (08/29/23 10:27 AM) Gluc (comment) Testing performed at : 1 (08/29/23 3:53 PM) Estimated CrCl 48.04 mL/min (08/29/23 11:16 AM) MPV [9.0-12.2 fL] 10.6 fL (08/29/23 10:26 AM) Immature Gran% 0.2 % (08/29/23 10:26 AM) Neut% 63.4 % (08/29/23 10:26 AM) Lymph% 24.5 % (08/29/23 10:26 AM) [place]% 9.4 % (08/29/23 10:26 AM) Baso% 0.6 % (08/29/23 10:26 AM) Eos% 1.9 % (08/29/23 10:26 AM) Immat Gran, Abs [0-0.4 K/uL] 0.01 K/uL (08/29/23 10:26 AM) Neut, Abs [2.0-7.7 K/uL] 2.98 K/uL (08/29/23 10:26 AM) Lymph, Abs [1.0-3.4 K/uL] 1.15 K/uL (08/29/23 10:26 AM) [place], Abs [0-1.0 K/uL] 0.44 K/uL (08/29/23 10:26 AM) Baso, Abs [0-0.1 K/uL] 0.03 K/uL (08/29/23 10:26 AM) Eos, Abs [0-0.5 K/uL] 0.09 K/uL (08/29/23 10:26 AM) Type of Diff: AUTO (08/29/23 10:26 AM) RDW [11.5-14.2 %] 16.3 % *HI* (08/29/23 10:26 AM) Component RED CELLS (08/29/23 10: AM) Squamous Epithelial Cells (u) FEW (08/29/23 12:32 PM) Mucous (u) FEW (08/29/23 12:32 PM) Anion Gap [5-14 mmol/L] 12 mmol/L (08/29/23 10:26 AM) Alb [3.5-5.2 g/dL] 4.3 g/dL (08/29/23 10:26 AM) Alk Phos [40-130 unit/L] 108 unit/L (08/29/23 10:26 AM) ALT [0-41 unit/L] 17 unit/L (08/29/23 10:26 AM) AST [0-40 unit/L] 24 unit/L (08/29/23 10:26 AM) Bact (u) [NONE-NONE] NONE (08/29/23 12:32 PM) Bili (u) [NEG] NEGATIVE (08/29/23 12:32 PM) BUN [6-23 mg/dL] 17 mg/dL (08/29/23 10:26 AM) Ca [8.4-10.2 mg/dL] 9.2 mg/dL (08/29/23 10: AM) Cl- [98-107 mmol/L] 105 mmol/L (08/29/23 10: AM) HCO3 [22-29 mmol/L] 23 mmol/L (08/29/23 10: AM) Cret [0.70-1.30 mg/dL] 1.21 mg/dL (08/29/23 10: AM) Iron [50-158 ug/dL] 30 ug/dL *LOW* (08/29/23 10: AM) Ferritin [30.0-400.0 ng/mL] 99.0 ng/mL (08/29/23 10: AM) Glu [74-109 mg/dL] 131 mg/dL 2 *HI* (08/29/23 10: AM) Gluc Meter [74-109 mg/dL] 110 mg/dL *HI* (08/29/23 3:53 PM) Hct [39-48 %] 36.4 % *LOW* (08/29/23 10: AM) Hgb [13.0-17.0 g/dL] 11.4 g/dL *LOW* (08/29/23 10: AM) INR [0.9-1.1] 2.2 3 *HI* (08/29/23 10: AM) K [3.5-5.1 mmol/L] 4.3 mmol/L (08/29/23 10: AM) Ketones [NEG mg/dL] NEGATIVE mg/dL (08/29/23 12:32 PM) Lipase [13-60 unit/L] 28 unit/L (08/29/23 10:26 AM) Leuk Est [NEG] NEGATIVE (08/29/23 12:32 PM) MCH [28-33 pg] 30.9 pg (08/29/23 10:26 AM) MCHC [32-36 g/dL] 31.3 g/dL *LOW* (08/29/23 10: AM) MCV [81-96 fL] 98.6 fL *HI* (08/29/23 10: AM) Na [136-145 mmol/L] 140 mmol/L (08/29/23 10: AM) Nitrite (u) [NEG] NEGATIVE (08/29/23 12:32 PM) Plts [150-350 K/uL] 109 K/uL *LOW* (08/29/23 10: AM) PT [12.0-14.2 seconds] 24.4 seconds *HI* (08/29/23 10: AM) PTT [23-35 seconds] 40 seconds 4 *HI* (08/29/23 10: AM) RBC [4.40-5.60 M/uL] 3.69 M/uL *LOW* (08/29/23 10: AM) Fe Sat [14-50 %] 9 % *LOW* (08/29/23 10: AM) T Bili [0.0-1.2 mg/dL] 0.5 mg/dL (08/29/23 10: AM) Total IBC [250-400 ug/dL] 341 ug/dL (08/29/23 10: AM) Prot [6.4-8.3 g/dL] 7.5 g/dL (08/29/23 10: AM) Transferrin [200-360 mg/dL] 289 mg/dL (08/29/23 10: AM) Appear (u) CLEAR (08/29/23 12:32 PM) Color (u) YELLOW (08/29/23 12:32 PM) Glu (u) [NEG mg/dL] >=500 mg/dL *Abnormal* (08/29/23 12:32 PM) Hgb (u) [NEG] LARGE *Abnormal* (08/29/23 12:32 PM) pH (u) [5.0-8.0 unit] 6.0 unit (08/29/23 12:32 PM) Prot (u) [NEG mg/dL] 30 mg/dL *Abnormal* (08/29/23 12:32 PM) RBC (u) [0-4 /HPF] 50+ /HPF (08/29/23 12:32 PM) Urobili [0.1-1.0 EU/dL] 0.1-1.0 EU/dL (08/29/23 12:32 PM) SG [1.005-1.030] 1.010 (08/29/23 12:32 PM) WBC (u) [0-4 /HPF] 0-4 /HPF (08/29/23 12:32 PM) WBC [4.0-10.4 K/uL] 4.70 K/uL (08/29/23 10:26 AM) 1Result Comment: [facility] [place] [address] [place] [address] 2Result Comment: ADA recommendation for FASTING Serum/Plasma Glucose: Normal: 70-100 mg/dL Prediabetes: 100-125 mg/dL Diabetes: 126 mg/dL or higher 3Result Comment: Suggested therapeutic range for low-intensity Coumadin therapy for venous thromboembolism is INR 2.0-3.0 (ex: atrial fibrillation, history of TIA/stroke). For high risk patients, the suggested therapeutic range is INR 2.5-3.5 (ex: mechanical prosthetic valves). 4Result Comment: Heparin therapeutic range for Anti XA Activity from 0.3 to 0.7 IU/mL is 65-105 seconds. Vital Signs Most recent to oldest [Reference Range]: 1 2 3 Height 161 cm (08/29/23 9:36 AM) Patient Weight 74.3 kg (08/29/23 9:36 AM) Body Mass Index 28.66 kg/m2 (08/29/23 9:36 AM) Temperature [36.5-37.9 DegC] 36.8 DegC (08/29/23 8:15 PM) 36.1 DegC *LOW* (08/29/23 3:56 PM) 36.4 DegC *LOW* (08/29/23 9:36 AM) Heart Rate 80 bpm (08/29/23 8:15 PM) 80 bpm (08/29/23 7:00 PM) 80 bpm (08/29/23 6:45 PM) Respiratory Rate 14 br/min (08/29/23 8:15 PM) 15 br/min (08/29/23 7:00 PM) 17 br/min (08/29/23 6:45 PM) Blood Pressure 125/81mmHg (08/29/23 8:15 PM) 127/75mmHg (08/29/23 7:00 PM) 128/81mmHg (08/29/23 6:45 PM) Mean Blood Pressure 95 mmHg (08/29/23 8:15 PM) 92 mmHg (08/29/23 7:00 PM) 95 mmHg (08/29/23 6:45 PM) Cuff Pulse Pressure 44 mmHg (08/29/23 8:15 PM) 52 mmHg (08/29/23 7:00 PM) 47 mmHg (08/29/23 6:45 PM) BP Location # 1 Right Arm (08/29/23 8:15 PM) Right Arm (08/29/23 9:36 AM) Social History Social History Type Response Smoking Status Former Smoker, quit > 1 yr Sex Male Cardiology * Event Display: Cardiac Device Check Authored Date: Please click on link to see image. Endoscopy study * MD Jame, Calixto Hooks: VERIFY, PERFORM Event Display: Endoscopy Authored Date: Please click on link to see image. 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 Plan for push enteroscopy today. RECOMMENDATIONS: 1 ) NPO for small bowel enteroscopy PROCEDURE FINDINGS: 2 Gastric erosions with mild active bleeding s/p APC. Two duodenal polyps that were biopsied and APC. Jejunum normal. DISCHARGE RECOMMENDATIONS: Ok to discharge home with no plans for repeat endoscopy. Patient should follow up with GI in [facility] if any signs or symptoms of recurrent bleeding. If has hematochezia, will likely need a colonoscopy in the future. The patient was seen and discussed with the attending of record,Dr. Galan, who is in agreementwith the above assessment and plan unless otherwise noted in the addendum below. Gaby Conway DO Department of Gastroenterology & Hepatology, PGY-5 [facility] HPI: _[id number] gentleman with history of multiple comorbidities including A- fib on Xarelto, metastatic carcinoid status post resection in 2005 with ileocolonic anastomosis in the ascending colon on octreotide and immunotherapy, history of aortic valve replacement on aspirin 81 mg daily, iron deficiency anemia who presented to [facility] for consideration of endoscopy with a positive video capsule endoscopy from [facility]. Patient had an EGD for a GI bleed in November 2022 and at that time a Dieulafoy lesion was noted at the greater curvature of the stomach and was treated with epinephrine, cautery, and a clip was placed. He then had persistent iron deficiency anemia and had an EGD and colonoscopy performed on May 12, 2023 for which the EGD was relatively unremarkable and showed a sustained clip from his prior procedure. The colonoscopy demonstrated healthy-appearing ileocolonic anastomosis in the ascending colon, some diverticula in the sigmoid colon and nonbleeding internal hemorrhoids. He then proceeded to have intermittent melena as well as hematochezia per documentation. Per patient report, he mainly has intermittent hematochezia. He saw Dr. Dent at the [facility] location for further evaluation and then proceeded to get a video capsule endoscopy for further information. This was dropped on 08/26/2023 while on Xarelto and aspirin 81 mg. It was then read on 08/27/2023. The video capsule endoscopy was positive for multiple areas of bright red blood in the proximal small bowel as well as the proximal colon. There was a plume of blood concerning for an active bleed approximately 6% into the small bowel but unknown able to identify a clear lesion. He also had a nonbleeding AVM in the proximal colon. He was then instructed based of these capsule reports to come to [facility] for further evaluation. Upon arrival in the ED, patient was afebrile and hemodynamically stable. He had a microcytic anemiawith a hemoglobin of 11.4. No elevation in his BUN or creatinine with each measuring 17 and 1.21 respectively. Last iron infusion was approximately 1 month ago. PAST MEDICAL HISTORY: Problems: Carcinoid tumor Arthritis Thrombus Diabetes Kidney disease Heart disease Right wrist pain Hospital Day: 0 Surgical Hospital Day/Procedure: No procedures found MEDICATIONS: Active Inpt Meds: None Active PRN Meds: None Active IV Meds: Lactated Ringers Injection 1,000 mL (LR 1,000 mL) 1,000 mL 75 mL/HR Allergies and Sensitivities: cephalexin(diarrhea) metFORMIN(nauseated) codeine(dizziness and nausea) amoxicillin(nausea) penicillin(nausea) SOCIAL HISTORY: _ FAMILY HISTORY: _ ROS: (Jatin with an X to the left of the System if asked and negative; otherwise detail under Symptoms) System Symptoms (details) _ Constitutional _ _ Eyes _ _ Ears, Nose, Mouth, Throat _ _ Cardiovascular _ _ Respiratory _ _ Genitourinary _ _ Gastrointestinal _ _ Musculoskeletal _ _ Skin _ _ Neurologic _ _ Psychiatric _ _ Endocrine _ _ Hematologic/Lymphatic _ _ Allergic/Immunologic _ VITAL SIGNS AND EXAM: Vitals Temp Pulse BP RR SpO2 FIO2 Date Wt(kg) Wt(lb) 08/28 15:56 36.1 81 132/81 18 100 RA 08/28 74.3 163 08/28 13:15 ---- 81 ----- 13 100 RA 08/28 74.3 163 08/28 09:36 36.4 83 127/87 16 96 RA 24 Hr Tmax: 36.4 at 08/28 09:36 36 Hr Tmax: 36.4 at 08/28 09:36 Vital Signs are the last 5 in the past 48 hours. Weights display the last 5 within 7 days. Initial Wt: 08/28 kg 163 lb Recorded Input Output Balance 08/28 7a-3p 0 0 0 3p-11p 421 0 421 11p-7a 0 0 0 24 Total 421 0 421 7a-3p 0 0 0 3p-11p 0 0 0 11p-7a 0 0 0 24 Total 0 0 0 Refer to the I-VIEW - I and O tab for details Physical Exam: General: _ HEENT: _ Neck: _ Cardiac: _ Lungs: _ Abdomen: _ Rectal: _ : _ Back: _ Extremities: _ Neuro: _ Skin: _ LABS: Most Recent Lab Results over the last 24 Hours: CBC: on 08/29/2023 10:26 CMP: on 08/29/2023 10:26 11.4 140 105 17 4.7 109 131 36.4 4.3 23 1.21 Abs Neut = 3.0 Ca = 9.2 eGFR CKD-EPI: 62 LFT Results: Alk Phos = 108 on 08/29/2023 10:26 ALT = 17 on 08/29/2023 10:26 AST = 24 on 08/29/2023 10:26 Total Bili = 0.5 on 08/29/2023 10:26 Lipase = 28 on 08/29/2023 10:26 Abumin = 4.3 on 08/29/2023 10:26 Total Protein = 7.5 on 08/29/2023 10:26 Most Recent 24hr Labs as of 08/28 1553 Gluc Meter 110 H Gluc (comment) See Flowsheet 08/28 1232 Bact (u) See Flowsheet Bili (u) See Flowsheet Ketones NEGATIVE Leuk Est See Flowsheet Nitrite (u) See Flowsheet Appear (u) See Flowsheet Color (u) See Flowsheet Glu (u) >=500 Hgb (u) See Flowsheet pH (u) 6.0 Prot (u) 30 RBC (u) 50+ Urobili 0.1-1.0 SG 1.010 WBC (u) 0-4 Squamous Epithe See Flowsheet Mucous (u) See Flowsheet 08/28 1116 Estimated CrCl 48.04 08/28 1027 Request of Phys See Flowsheet Action Taken See Flowsheet 08/28 1026 ABO/Rh See Flowsheet Antibody Scr See Flowsheet Expires at 0600 See Flowsheet # Units 0 R Number See Flowsheet Component See Flowsheet MCH 30.9 MCHC 31.3 L MCV 98.6 H RBC 3.69 L MPV 10.6 Immature Gran% 0.2 Neut% 63.4 Lymph% 24.5 [place]% 9.4 Baso% 0.6 Eos% 1.9 Immat Gran, Abs 0.01 Lymph, Abs 1.15 [place], Abs 0.44 Baso, Abs 0.03 Eos, Abs 0.09 Type of Diff: See Flowsheet RDW 16.3 H Anion Gap 12 eGFR CKD-EPI 62 INR 2.2 H PT 24.4 H PTT 40 H Iron 30 L Ferritin 99.0 Fe Sat 9 L Total IBC 341 Alk Phos 108 ALT 17 AST 24 Lipase 28 T Bili 0.5 Alb 4.3 Prot 7.5 Transferrin 289 Studies: Pending or Completed in the Last 24 Hours No studies found OTHER LABS: RELEVANT IMAGING: RELEVANT CULTURES: Attending Addendum: Pt was seen and discussed with Dr Conway on the above date. I agree with the above note as statedincluding history, physical, and assessment and plan. Electronic Signature on File Electronically Reviewed/Signed by: Gaby Conway DO Author Signature Dt/Tm:08/29/2023 06:06 PM Resident Department of Medicine Electronically Reviewed/Signed by: Dax Galan MD Cosigner Signature Dt/Tm: 08/29/2023 06:29 PM Nutritionists Division of Gastroenterology & Hepatology [facility] [address], [place], [place] [address] [place] Emergency department Summary note * KERRIE Feldman Christopher D: PERFORM, MODIFY, MODIFY, MODIFY MD Rafia, Arnaldo Damon: MODIFY Event Display: ED Summary Authored Date: [id number] Basic Information Time Seen: KERRIE Feldman Christopher D 08/29/2023 09:40 Chief Complaint pt with gi bleed since November; pt had 2 endoscopies and 1 colonscopy; pt has been having iron infusion; capsule camera done Friday and found to have 4 small intestine bleed History of Present Illness GUANAKITO SHERIFF a73 YearsMalehistory of carcinoid cancershe is active, diabetes, heart disease,aortic root repair, pacemaker, anticoagulation usewho presents to the ER forGI consult and abnormal capsule reportfor GI bleeding. Patient is with his daughter. Has hadGI bleedingsince last yeararound November. Was diagnosed with upper GI bleed in November and had his stomach clamped. Since then he has been on iron infusionsbut is still had persistentbloody bowel movements and melena. He has had colonoscopies. He finally had the pill study done 2 days agowhich showed the results of proximal small bowel bleeding, proximal colon bleeding. Multiple sites. No chest pain or shortness of breath, no abdominal pain. No leg swelling. No fevers or chills. No passing out. He gets iron transfusionsbut is only received 1 blood transfusion in the past 6 months. Review of Systems GEN: NO fever, NO chills HEENT: NO sore throat NECK: EYE: NO vision changes CARDIO: NO chest pain, NO edema PULM: NO cough, NO sob ABD: NO abd pain, NO vomiting, NO diarrhea MSK:NO leg swelling : No dysuria SKIN: No rash NEURO: No numbness or weakness LYMPH: PSYCH: Physical Exam Vitals & Measurements T:36.4C HR:83(Monitored) RR:16 BP:127/87 SpO2:96% Oxygen Therapy:Room air HT:161cm WT:74.300kg(Dosing) WT:74.3kg BMI:28.66 GEN: alert, no distress pleasant HENT: normal phonation EYE: no conjunctivitis NECK: CARDIO: Heart rrr no MRG PULM: Lungs CTA bl no wheezes ABD: Soft NT/ND MSK:No lower leg edema or calf tenderness. SKIN:Pale appearing NEURO: alert, PSYCH: appropriate mood LYMPH: Medical Decision Making diagnosis includes GI bleed, anemia, transfusion need Multiple sites of bleeding in the proximalsmall intestine noted on a pill camera as well as 1 distal sitein the proximal colon. Sent to [place] for evaluation and at [place] endosc[place]valuation. He is asymptomatic at this time he does not feel lightheaded or dizzy and is not passing out nochest pain. He is on Xarelto and aspirin. He has a pacemakerand last ate at7am. Plan will screen labs get consent for transfusiontype and screen as well as consult GIand likely admit to medicine. Gi saw patient, and plans to scope this afternoon. Keep NPO. Maintenance fluids ordered. Will come back to ER for discharge if bleeding source controlled. Pt at scope 3:30pm Pt signed out at 4:30pm pending return from scope and GI reccs. Benji Dejesus to follow. Assessment/Plan Anticoagulated GI bleed Medication Reconciliation Unchanged ascorbic acid (Vitamin C)500 Milligram by mouth once daily. aspirin (aspirin 81 mg oral tablet, chewable)1 tab(s) by mouth once daily. atorvastatin (atorvastatin 10 mg oral tablet)TAKE 1 TABLET BYMOUTH AT BEDTIME. cholecalciferol (Vitamin D3)5,000 International Unit by mouth. cyanocobalamin (Vitamin B12 1000 mcg/mL injectable solution)1,000 Microgram intramuscularly once. empagliflozin (Jardiance 10 mg oral tablet)TAKE 1 TABLET BY MOUTH ONCE DAILY. ferrous sulfate (ferrous sulfate 325 mg (65 mg elemental iron) oral delayed release tablet)1 tab(s)by mouth once daily. furosemide (furosemide 20 mg oral tablet)1 tab(s) by mouth once daily. losartan (losartan 25 mg oral tablet)1 tab(s) by mouth once daily. multivitamin with minerals (Centrum)by mouth once daily. silver. octreotide (SandoSTATIN)2-20 mg once a month. ondansetron (Zofran 4 mg oral tablet)1 tab(s) by mouth 3 times daily as needed as needed for nausea/vomiting. prn for nausea during colon prep. Refills: 0. pantoprazole (pantoprazole 40 mg oral delayed release tablet)2 tab(s) by mouth once daily. rivaroxaban (Xarelto 20 mg oral tablet)TAKE ONE TABLET BY MOUTH DAILY WITH DINNER. traMADol (traMADol 50 mg oral tablet)1 tab(s) by mouth as needed as needed for pain. as needed. unknown medicationcolon health. Attestation The patient's history, exam findings, diagnostics, and a summary of any interventions or procedureswas reviewed in detail with the JENNA. I confirm the diagnosis as documented by the JENNA and I agree with the care plan articulated in the disposition section with regards to our discussion of the patients case. Arnaldo Morataya MD Problem List/Past Medical History Ongoing Arthritis Diabetes Heart disease Kidney disease Right wrist pain Thrombus Procedure/Surgical History Cardiac pacemaker Allergies amoxicillinnausea cephalexindiarrhea codeinedizziness and nausea metFORMINnauseated penicillinnausea Lab Results Endocrine LATEST RESULTS Gluc Meter 08/29/23 15:53 110 mg/dL High Gluc (comment) 08/29/23 15:53 Testing performed at: Electronic Signature on File Electronically Reviewed/Signed by: Master Feldman PA-C Author Signature Dt/Tm:08/29/2023 04:25PM Department of Emergency Medicine Electronically Reviewed/Signed by: Arnaldo Morataya MD Cosigner Signature Dt/Tm: 08/30/2023 12:18 PM Department of Emergency Medicine [facility] Patient Care team information Care Team Personnel Name: RONNY Marshall Candace Position: Referring Member Role: Primary Care Provider Address: Address: [address] [place] [id number] [place] Name: KERRIE Alberts Lynn Position: Physician Sql Engineer Exempt - Vasc Surg Member Role: Lifetime Relationship Address: Address: [address] [place] [id number] [place] Name: KERRIE Dejesus Samantha Position: Physician Sql Engineer - Emerg Med Member Role: * Quality Review (1 day after created) Address: Address: [address] [place] [address] Name: DO Linares Garrett Position: Physician - Emerg Med SA Address: Address: [address] [place] [address] Name: KERRIE Feldman Christopher D Position: Physician Sql Engineer - Emerg Med Member Role: On-Service (7 days after disch/visit) Address: Address: [address] [place] [address] Name: STACIE Ewing, Alma Position: RN Member Role: Direct Care Nurse Name: MD Rafia, Arnaldo Damon Position: Physician - Emerg Med SA Member Role: Consulting (5 day after disch/visit) Address: Address: [address] [place] [address] Care Team Related Persons Name: HAMIDA SHERIFF Address: home [address] [id number] Name: HAMIDA SHERIFF Address: [facility] [place] Address: home [address] [place] [place] [address]
--- OUTSIDE RECORDS SUMMARY | 2023-09-02 22:57 | External Medical Summary | Continuity of Care Document ---
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 Name Role Phone Anjali Marshall Primary Care Physician [phone] [facility]counter [facility] [id number] Date(s): 08/27/23 - 08/27/[address] [address] [phone] Encounter Diagnosis Anemia(Discharge Diagnosis) - 08/27/23 Discharge Disposition: Home or Self Care Attending Physician: MD Capri, Jason Hooks Referring Physician: MD Filipe, Ray Foreman Allergies, Adverse Reactions, Alerts Substance Reaction Severity Status codeine dizziness and nausea Active amoxicillin nausea Active cephalexin diarrhea Active metFORMIN nauseated Active penicillin nausea Active Medications aspirin 81 mg oral tablet, chewable [...] prep, PRN: as needed for nausea/vomiting, Pharmacy: [facility] Start Date: 08/22/23 Status: Ordered Problem List Condition Confirmation Course Effective Dates Status Health St atus Informant Arthritis Confirmed Active Carcinoid tumor Confirmed Active Diabetes Confirmed Active Heart disease Confirmed Active Kidney disease Confirmed Active Right wrist pain Confirmed Active Thrombus 1 Confirmed Active 1blood clots Diagnosis Diagnosis Type Effective Dates Health Status Clini [facility] Service Informant Anemia Discharge Diagnosis 08/27/23 Non-Specified Procedures Procedure Date Related Diagnosis Body Site Status Cardiac pacemaker Complet ed Social History Social History Type Response Smoking Status Former Smoker, quit > 1 yr Sex Male Patient Care team information Care Team Personnel Name: RONNY Marshall Candace Position: Referring Member Role: Primary Care Provider Address: Address: [address] [place] [id number] Name: KERRIE Alberts Lynn Position: Physician Ada Accommodation Consultant Exempt - Vasc Surg Member Role: Lifetime Relationship Address: Address: [address] [place] [address] Care Team Related Persons Name: HAMIDA SHERIFF Address: home [address] [id number] Name: HAMIDA SHERIFF Address: [place] Address: home [address] [facility] [place] [address]
[2023-09-02 23:22] LABS: Hematocrit (blood only) 34.3 % (42.0-52.0)
[2023-09-03 07:01] LABS: Estimated Average Glucose 131 mg/dl; Hemoglobin A1C 6.2 % (4.5-5.6)
[2023-09-03 07:17] LABS: Hematocrit (blood only) 35.3 % (42.0-52.0)
[2023-09-03 07:43] LABS: BUN Creatinine Ratio 16.8 (10-20); Calcium 8.6 mg/dl (8.6-10.3); Creatinine Clr Calc Pharmacy 50.2 ml/min; Est GFR (African American) 73.3 ml/min; Est GFR (Non-African American) 63.2 ml/min; Potassium 3.8 mmol/L (3.5-5.1)
[2023-09-03 07:46] LABS: INR 1.2 (0.9-1.1); Prothrombin Time 12.9 Seconds (9.0-12.0)
[2023-09-03] MEDS ORDERED: COLON HEALTH PO SCH (09:00)
[2023-09-03] MEDS: LACTATED RINGER'S 1,000 ML IV ONE (09:34)
--- NOTE | 2023-09-03 09:41 | Urology Consultation ---
Date of Consultation September 03, 2023 Assessment & Plan (1) Gross hematuria: Plan 73yo M who presented with reports of hematochezia and hematuria admitted to medicine service for management of possible GI bleed. Urology consulted for hematuria He is afebrile and hemodynamically stable. Labs today show no leukocytosis, hemoglobin 11.9, normal renal function. Urinalysis on admission with 3+ blood, >[address] A/P reviewed - No renal or ureteral calculi, no hydronephrosis, prostatomegaly with evidence of chronic bladder outlet obstruction. No acute urological intervention indicated Recommend checking urine culture to r/o infection. For now he is voiding well and emptying his bladder. Continue to monitor. Bladder scan as needed. If any evidence of urinary retention, a Mitchell catheter can be placed and manual irrigation can be employed as needed. We discussed hematuria and that there could be several benign causes, however hematuria is never considered normal. We discussed full hematuria workup including cystoscopy and that this can be completed as an outpatient. Patient/ were agreeable. Continue supportive care and management per primary team. Will arrange outpatient follow-up with our service to complete full hematuria work-up. Urology will follow peripherally. Please call with any further questions, concerns, or changes in patient status. 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 Patient and his also reported noticing blood in his urine. On arrival he was afebrile and hemodynamically stable. Labs showing no leukocytosis, hemoglobin 11.5, and creatinine normal. Urinalysis with 3+ blood, >30 RBC, negative nitrite, negative LE, negative bacteria. He was admitted to medicine service for continued care and management. GI consulted. Urology consulted for hematuria. CT abdomen pelvis - 1. Findings suggestive of mild acute pancreatitis. Correlate with serum lipase. 2. No renal or ureteral calculi or hydronephrosis. 3. Prostatomegaly with evidence of chronic bladder outlet obstruction. 4. Pathologic lymph nodes of the lower chest and upper abdomen are r edemonstrated and appear generally stable from the comparison PET/CT dated 04/09/2023. 5. Hepatic lesions are better visualized on the aforementioned PET/CT. 6. Stable moderate-sized right pleural effusion. Patient examined at bedside in the ED this morning. Awake, resting in bed on arrival. No acute distress. Voiding spontaneously. Has noticed intermittent hematuria over the past week. No dysuria. Feels he is emptying well. Has lower abdominal pain with BMs but this resolves after he moves his bowels. Otherwise denies abdominal, flank, or suprapubic pain. Denies f/c/n/v. I spoke with his via the phone and she tells me she has seen intermittent hematuria as well. Hx of nephrolithiasis. Was last seen in the urology office in 08/2022. Denies additional hx. Allergies Allergy/AdvReac Type Severity Reaction Status Date / Time metformin Allergy Intermediate rash Verified 09/03/23 13:29 amoxicillin Allergy Unknown Unknown Verified 09/03/23 13:29 Cephalosporins AdvReac Intermediate Diarrhea Verified 09/03/23 13:29 codeine AdvReac Intermediate DIZZINESS, Verified 09/03/23 13:29 NAUSEA Penicillins AdvReac Mild Nausea Verified 09/03/23 13:29 Home Medications Medication Instructions Recorded Confirmed Type ascorbic acid (vitamin C) 500 mg 500 mg PO QPM 01/22/19 09/02/23 History tablet multivit with min-folic 1 tab PO QAM 01/22/19 09/02/23 History acid-lutein 400 mcg-250 mcg chewable tablet (Centrum Silver) aspirin 81 mg tablet,delayed 81 mg PO QAM 06/18/19 09/02/23 History release (Adult Low Dose Aspirin) blood-glucose meter #1 ea 06/20/20 07/17/23 Rx ferrous sulfate 325 mg (65 mg 325 mg PO QPM 10/30/20 09/02/23 History iron) tablet empagliflozin 10 mg tablet 10 mg PO QAM #30 tabs 09/04/22 09/02/23 Rx (Jardiance) lancets 30 gauge (Advocate Lancet) #200 ea 10/22/22 07/17/23 Rx rivaroxaban 20 mg tablet (Xarelto) 20 mg PO HS #90 tabs 11/28/22 09/02/23 Rx cholecalciferol (vitamin D3) 25 500 mcg PO UD 12/12/22 09/02/23 History mcg (1,000 unit) tablet (Vitamin D3) Colon Health 1 tab PO QAM 03/21/23 09/02/23 History octreotide,microspheres 20 mg 40 mg IM Q30D 03/21/23 09/02/23 History intramuscular susp, extended release (Sandostatin LAR Depot) cyanocobalamin (vitamin B-12) 1,000 mcg IM Q30D 03/24/23 09/02/23 History 1,000 mcg/mL injection solution furosemide 20 mg tablet (Lasix) 20 mg PO QAM #30 tabs 03/24/23 09/02/23 Rx losartan 25 mg tablet 25 mg PO QAM #30 tabs 03/24/23 09/02/23 Rx atorvastatin 10 mg tablet 10 mg PO HS #90 tabs 04/30/23 09/02/23 Rx ondansetron HCl 4 mg tablet 4 mg PO Q8H PRN nausea and 05/02/23 09/02/23 Rx vomiting #3 tabs albuterol sulfate 90 mcg/actuation 2 puff inhalation Q6H PRN 05/21/23 09/02/23 Rx aerosol inhaler Shortness Of Breath Or Wheezing #18 grams blood sugar diagnostic #100 ea 07/09/23 07/17/23 Rx tramadol 50 mg tablet 50 mg PO BID PRN Pain #60 tabs 08/14/23 09/02/23 Rx pantoprazole 40 mg tablet,delayed 40 mg PO BID #180 tabs 08/18/23 09/02/23 Rx release Patient History Medical History Blood in stool Black stools GERD (gastroesophageal reflux disease) Pleural effusion on right recurrent. s/p thoracentesis Rt side 04/18/23. [facility]. 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 Supraventricular aortic stenosis Third degree AV block History of malignant carcinoid tumor Aortic stenosis due to bicuspid aortic valve Moderate-Severe Aortic aneurysm Aortic root, ascending and into arch>sx to repair Hearing deficit Osteoarthritis Cancer LIVER CANCER COLON CANCER sees oncology with [facility] Transient ischemic attack (TIA) "THE DOCTOR THOUGHT HE HAD ONE/ABOUT 5 YEARS AGO" Surgical History History of esophagogastroduodenoscopy (EGD) 03/27/23 [facility] Hx of cardiac catheterization 2018, clinical eval for procedure, [facility], no stents; [place] [facility] [place] History of removal of retained hardware wire removed from chest/open sx in 2019 S/P epidural steroid injection History of cystoscopy Status post aorto-coronary artery bypass graft April 2019 > unknown other details Status post aortic valve replacement 2019 S/P aortic aneurysm repair pt unaware of details Status post cardiac surgery 05/13/19 Dr. Armen Kate- Aortic root replacement with a 25 mm epic bioprosthesis and a 30 mm Gelweave graft and left atrial appendage clip History of carpal tunnel release bilat History of arthroscopy RT/LEFT KNEE History of surgery RT KIDNEY SURGERY "NOT DRAINING CORRECTLY" History of colonoscopy History of cholecystectomy Hx of resection of liver 2005 History of colectomy 2002 History of nasal septoplasty History of tooth extraction Pacemaker 2012 > Medtronic > last checked August 2020 > Dr. Wayne, [facility] Family History Mother Family history of diabetes mellitus Diabetes Father Kidney disease Brother Valvular heart disease Heart disease Hearing loss Cancer Sister Ovarian cancer Cancer Family/Other Colorectal cancer Self Denies family history of Prostate cancer Myocardial infarction Breast cancer Social History Smoking Status: Former smoker Tobacco Type: Cigarettes Age Started Using Tobacco: 14; Age Quit Using Tobacco: 53; packs per day: 1; Second Hand Exposure: No; Do You Dip or Chew Tobacco: No; Hx Alcohol Use: No Hx Substance Use: No Preferred Language: Nepali Communication Ability: Effective Quality Checker Required: No Beliefs That Will Affect Care: None Current Living Situation: Spouse Feels Safe at Home: Yes Safety Concerns: Feels Safe At This Time Assistive Devices: None Review of Systems Review of Systems: All systems reviewed & are unremarkable except as noted in HPI & below Physical Exam Constitutional: no acute distress Neck: normal visual inspection Respiratory: no respiratory distress and no labored breathing Gastrointestinal (Abdomen): Percussion/Palpation: abdomen soft; abdomen nontender Musculoskeletal: Head/Neck/Chest: normocephalic Skin: No visible rashes or lesions to exposed skin areas Neurologic: moves all extremities and awake Psychiatric: A+Ox3, euthymic affect Results & Data Vital Signs (Past 12 Hours) Vital Signs Pulse Pulse Resp BP BP Pulse Ox O2 Del Method 09/03/23 07:28 80 09/03/23 06:48 80 18 109/73 95 Room Air 09/03/23 05:40 80 18 93 09/03/23 05:30 80 18 92 09/03/23 05:10 81 17 94 09/03/23 05:00 80 18 95 09/03/23 04:50 82 16 98 09/03/23 04:40 94 09/03/23 04:30 94 09/03/23 04:20 97 09/03/23 04:11 97 09/03/23 04:00 92 09/03/23 03:52 96 09/03/23 03:52 105/67 09/03/23 03:52 80 18 105/67 95 09/03/23 03:50 95 09/03/23 03:40 90 09/03/23 03:30 94 09/03/23 03:20 94 09/03/23 03:10 91 09/03/23 03:00 105/67 95 09/03/23 02:50 92 09/03/23 02:40 83 L 09/03/23 02:30 95 09/03/23 02:20 94 09/03/23 02:10 94 09/03/23 02:01 124/72 09/03/23 02:01 96 09/03/23 02:00 94 09/03/23 02:00 80 18 124/72 95 Room Air 09/03/23 01:50 95 09/03/23 01:40 94 03/06/24 01:30 80 15 98 09/03/23 01:20 82 18 96 09/03/23 01:10 80 18 99 09/03/23 01:00 80 19 94 09/03/23 00:50 80 18 94 09/03/23 00:40 80 18 94 09/03/23 00:30 80 18 95 09/03/23 00:20 80 18 95 09/03/23 00:10 80 18 95 09/03/23 00:00 80 17 95 09/02/23 23:50 80 19 97 09/02/23 23:40 80 19 95 09/02/23 23:30 80 18 95 09/02/23 23:20 80 19 95 09/02/23 23:10 80 18 97 09/02/23 23:02 81 09/02/23 23:00 80 18 95 09/02/23 23:00 80 18 127/82 95 Room Air 09/02/23 22:58 80 19 96 09/02/23 22:58 127/82 09/02/23 22:53 82 16 97 09/02/23 22:40 80 18 95 09/02/23 22:30 80 21 96 09/02/23 22:30 123/79 09/02/23 22:22 81 19 97 09/02/23 22:10 80 19 96 09/02/23 22:00 80 21 95 09/02/23 22:00 128/77 09/02/23 21:50 80 20 96 09/02/23 21:40 81 17 96 PG Care Time/CCT Total # of Minutes Spent Total Time Spent with Patient: Total time spent is greater than 50% in coordination of care (as documented) at patient's floor/unit and/or counseling patient: Coding Level of Care Code 14851 INT INP/OBS CARE 2/55MIN Diagnoses Gross hematuria R31.0
[2023-09-03] MEDS: ASPIRIN 81 MG ECTAB PO SCH (10:16)
[2023-09-03] MEDS: CYANOCOBALAMIN 1000 MCG/ML VIAL IM SCH (10:17)
[2023-09-03] MEDS: LOSARTAN POTASSIUM 25 MG TAB PO SCH (10:17)
[2023-09-03] MEDS: CEROVITE ADV FORMULA TAB PO SCH (10:17)
--- NOTE | 2023-09-03 11:08 | Gastrointestinal Consultation ---
Date of Consultation September 03, 2023 Assessment & Plan (1) Anemia: Patient with recent enteroscopy at [facility] with 2 gastric erosions with very mild active bleeding. He had seen some blood in the stool yesterday and came to the ED with concerns for ongoing bleeding. hgb relatively stable in the 11 range. I discussed case with Dr. Lazaro who advised on plan. - monitor hgb/hct. - start protonix 40mg po bid. - will set up patient for an EGD today to assess for any bleeding. - I spent more than 90 minutes reviewing records, discussing history and care and examining the patient, as well as discussing with the patient's . 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 Patient has had history of recurrent GI bleeds that began on November 2022, which led to multiple EGD with clip placement for noted ulcers, and colonoscopy for evaluation of said GI bleed. Most recently, in July 2023, patient had seen by [facility] gastroenterology, and had done a capsule study. Through the study, patient was noted to have 3-4 small ulcers in his small intestine as well as 1 ulcer in his colon per patient - I do not have these records. He had an enteroscopy on 08/29/23 showing normal esophagus, 2 gastric erosions with very mild active bleeding and had APC, 2 duodenal polyps. larger polyp biopsied, duodenum otherwise normal, no evidence of significant pathology in entire examined portion of jejunum, aside from small lesions no active bleeding, blood, hematin, or other sources of bleeding identified. He tells me this was cauterized. Yesterday, patient's noted spots of bright red blood in patient's stool as well as blood in his urine. He can get some lower abdominal pain prior to a bowel movement but he tells me that this is better af ter he moves his bowels. he denies any nausea, vomiting, heartburn, dysphagia. His hgb is stable at 11 today and was in the 11 range even last month. I spoke with his via the phone and she tells me he has not seen dark stools but rather darker red blood in his stool. no melena. patient and are agreeable to having another EGD to assess for any active bleeding. colonoscopy 05/12/23 diverticulosis, internal hemorrhoids, ileocolonic anastomosis, fair prep. Allergies Allergy/AdvReac Type Severity Reaction Status Date / Time metformin Allergy Intermediate rash Verified 09/03/23 13:29 amoxicillin Allergy Unknown Unknown Verified 09/03/23 13:29 Cephalosporins AdvReac Intermediate Diarrhea Verified 09/03/23 13:29 codeine AdvReac Intermediate DIZZINESS, Verified 09/03/23 13:29 NAUSEA Penicillins AdvReac Mild Nausea Verified 09/03/23 13:29 Home Medications Medication Instructions Recorded Confirmed Type ascorbic acid (vitamin C) 500 mg 500 mg PO QPM 01/22/19 09/02/23 History tablet multivit with min-folic 1 tab PO QAM 01/22/19 09/02/23 History acid-lutein 400 mcg-250 mcg chewable tablet (Centrum Silver) aspirin 81 mg tablet,delayed 81 mg PO QAM 06/18/19 09/02/23 History release (Adult Low Dose Aspirin) blood-glucose meter #1 ea 06/20/20 07/17/23 Rx ferrous sulfate 325 mg (65 mg 325 mg PO QPM 10/30/20 09/02/23 History iron) tablet empagliflozin 10 mg tablet 10 mg PO QAM #30 tabs 09/04/22 09/02/23 Rx (Jardiance) lancets 30 gauge (Advocate Lancet) #200 ea 10/22/22 07/17/23 Rx rivaroxaban 20 mg tablet (Xarelto) 20 mg PO HS #90 tabs 11/28/22 09/02/23 Rx cholecalciferol (vitamin D3) 25 500 mcg PO UD 12/12/22 09/02/23 History mcg (1,000 unit) tablet (Vitamin D3) Colon Health 1 tab PO QAM 03/21/23 09/02/23 History octreotide,microspheres 20 mg 40 mg IM Q30D 03/21/23 09/02/23 History intramuscular susp, extended release (Sandostatin LAR Depot) cyanocobalamin (vitamin B-12) 1,000 mcg IM Q30D 03/24/23 09/02/23 History 1,000 mcg/mL injection solution furosemide 20 mg tablet (Lasix) 20 mg PO QAM #30 tabs 03/24/23 09/02/23 Rx losartan 25 mg tablet 25 mg PO QAM #30 tabs 03/24/23 09/02/23 Rx atorvastatin 10 mg tablet 10 mg PO HS #90 tabs 04/30/23 09/02/23 Rx ondansetron HCl 4 mg tablet 4 mg PO Q8H PRN nausea and 05/02/23 09/02/23 Rx vomiting #3 tabs albuterol sulfate 90 mcg/actuation 2 puff inhalation Q6H PRN 05/21/23 09/02/23 Rx aerosol inhaler Shortness Of Breath Or Wheezing #18 grams blood sugar diagnostic #100 ea 07/09/23 07/17/23 Rx tramadol 50 mg tablet 50 mg PO BID PRN Pain #60 tabs 08/14/23 09/02/23 Rx pantoprazole 40 mg tablet,delayed 40 mg PO BID #180 tabs 08/18/23 09/02/23 Rx release Patient History Medical History Blood in stool Black stools GERD (gastroesophageal reflux disease) Pleural effusion on right recurrent. s/p thoracentesis Rt side 04/18/23. [facility]. 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 Supraventricular aortic stenosis Third degree AV block History of malignant carcinoid tumor Aortic stenosis due to bicuspid aortic valve Moderate-Severe Aortic aneurysm Aortic root, ascending and into arch>sx to repair Hearing deficit Osteoarthritis Cancer LIVER CANCER COLON CANCER sees oncology with [facility] Transient ischemic attack (TIA) "THE DOCTOR THOUGHT HE HAD ONE/ABOUT 5 YEARS AGO" Surgical History History of esophagogastroduodenoscopy (EGD) 03/27/23 [facility] Hx of cardiac catheterization 2019, clinical eval for procedure, [facility], no stents; f/u [facility] History of removal of retained hardware wire removed from chest/open sx in 2019 S/P epidural steroid injection History of cystoscopy Status post aorto-coronary artery bypass graft April 2019 > unknown other details Status post aortic valve replacement 2019 S/P aortic aneurysm repair pt unaware of details Status post cardiac surgery 05/13/19 Dr. Armen Kate- Aortic root replacement with a 25 mm epic bioprosthesis and a 30 mm Gelweave graft and left atrial appendage clip History of carpal tunnel release bilat History of arthroscopy RT/LEFT KNEE History of surgery RT KIDNEY SURGERY "NOT DRAINING CORRECTLY" History of colonoscopy History of cholecystectomy Hx of resection of liver 2006 History of colectomy 2003 History of nasal septoplasty History of tooth extraction Pacemaker 2012 > Medtronic > last checked August 2020 > [place]. Wayne, [facility] [place] Family History Mother Family history of diabetes mellitus Diabetes Father Kidney disease Brother Valvular heart disease Heart disease Hearing loss Cancer Sister Ovarian cancer Cancer Family/Other Colorectal cancer Self Denies family history of Prostate cancer Myocardial infarction Breast cancer Social History Smoking Status: Former smoker Tobacco Type: Cigarettes Age Started Using Tobacco: 14; Age Quit Using Tobacco: 53; packs per day: 1; Second Hand Exposure: No; Do You Dip or Chew Tobacco: No; Hx Alcohol Use: No Hx Substance Use: No Preferred Language: Indonesian Communication Ability: Effective Spooler Operator Required: No Beliefs That Will Affect Care: None Current Living Situation: Spouse Feels Safe at Home: Yes Safety Concerns: Feels Safe At This Time Assistive Devices: None Review of Systems Review of Systems: All systems reviewed & are unremarkable except as noted in HPI & below Physical Exam Constitutional: WD/WN, vitals as above Respiratory: normal respiratory effort, lungs clear to auscultation Cardiovascular: RRR Gastrointestinal (Abdomen): normal bowel sounds, soft, nontender, no hepatosplenomegaly Psychiatric: Orientation: alert and oriented x 3 Results & Data Vital Signs (Past 12 Hours) Vital Signs Pulse Pulse Resp BP BP Pulse Ox O2 Del Method 09/03/23 07:28 80 09/03/23 06:48 80 18 109/73 95 Room Air 09/03/23 05:40 80 18 93 09/03/23 05:30 80 18 92 09/03/23 05:10 81 17 94 09/03/23 05:00 80 18 95 09/03/23 04:50 82 16 98 09/03/23 04:40 94 09/03/23 04:30 94 09/03/23 04:20 97 09/03/23 04:11 97 09/03/23 04:00 92 09/03/23 03:52 96 09/03/23 03:52 105/67 09/03/23 03:52 80 18 105/67 95 09/03/23 03:50 95 09/03/23 03:40 90 09/03/23 03:30 94 09/03/23 03:20 94 09/03/23 03:10 91 09/03/23 03:00 105/67 95 09/03/23 02:50 92 09/03/23 02:40 83 L 09/03/23 02:30 95 09/03/23 02:20 94 09/03/23 02:10 94 09/03/23 02:01 124/72 09/03/23 02:01 96 09/03/23 02:00 94 09/03/23 02:00 80 18 124/72 95 Room Air 09/03/23 01:50 95 09/03/23 01:40 94 09/03/23 01:30 80 15 98 09/03/23 01:20 82 18 96 09/03/23 01:10 80 18 99 09/03/23 01:00 80 19 94 09/03/23 00:50 80 18 94 09/03/23 00:40 80 18 94 09/03/23 00:30 80 18 95 09/03/23 00:20 80 18 95 09/03/23 00:10 80 18 95 09/03/23 00:00 80 17 95 09/02/23 23:50 80 19 97 09/02/23 23:40 80 19 95 09/02/23 23:30 80 18 95 09/02/23 23:20 80 19 95 09/02/23 23:10 80 18 97 Coding Level of Care Code 21498 INT INP/OBS CARE MIN Diagnoses Anemia D64.9
[2023-09-03 11:38] LABS: Hematocrit (blood only) 38.4 % (42.0-52.0); Hemoglobin 11.9 g/dl (14.0-18.0)
--- NOTE | 2023-09-03 12:56 | Anesthesiology Consultation ---
Date of Service September 03, 2023 Assessment & Plan Chart Review Chart Review: Acceptable Risk for Surgery, Patient NOT seen in Pre Admission Testing and entry level drafter initiated Consults Requested none Proposed Anesthesia Anesthesia Type: MAC History Surgery Operation Date: 09/03/23 16:30 Proposed Procedures p Esophagogastroduodenoscopy Dr. Iveth Lazaro MD Height/Weight Height: 5 ft 3 in Weight: 71.8 kg Allergies Allergy/AdvReac Type Severity Reaction Status Date / Time metformin Allergy Intermediate rash Verified 09/02/23 15:52 amoxicillin Allergy Unknown Unknown Verified 09/02/23 15:52 Cephalosporins AdvReac Intermediate Diarrhea Verified 09/02/23 15:52 codeine AdvReac Intermediate DIZZINESS, Verified 09/02/23 15:52 NAUSEA Penicillins AdvReac Mild Nausea Verified 09/02/23 15:52 Medications Home Medications Medication Instructions Recorded Confirmed Last Taken ascorbic acid (vitamin C) 500 mg 500 mg PO QPM 01/22/19 09/02/23 09/01/23 tablet multivit with min-folic 1 tab PO QAM 01/22/19 09/02/23 09/02/23 acid-lutein 400 mcg-250 mcg chewable tablet (Centrum Silver) aspirin 81 mg tablet,delayed 81 mg PO QAM 06/18/19 09/02/23 09/02/23 release (Adult Low Dose Aspirin) blood-glucose meter #1 ea 06/20/20 07/17/23 Unknown ferrous sulfate 325 mg (65 mg 325 mg PO QPM 10/30/20 09/02/23 09/01/23 iron) tablet empagliflozin 10 mg tablet 10 mg PO QAM #30 tabs 09/04/22 09/02/23 09/02/23 (Jardiance) lancets 30 gauge (Advocate Lancet) #200 ea 10/22/22 07/17/23 Unknown rivaroxaban 20 mg tablet (Xarelto) 20 mg PO HS #90 tabs 11/28/22 09/02/23 09/01/23 cholecalciferol (vitamin D3) 25 500 mcg PO UD 12/12/22 09/02/23 09/02/23 08:00 mcg (1,000 unit) tablet (Vitamin D3) Colon Health 1 tab PO QAM 03/21/23 09/02/23 09/02/23 octreotide,microspheres 20 mg 40 mg IM Q30D 03/21/23 09/02/23 03/24/23 08:00 intramuscular susp, extended release (Sandostatin LAR [place]) cyanocobalamin (vitamin B-12) 1,000 mcg IM Q30D 03/24/23 09/02/23 05/11/23 1,000 mcg/mL injection solution furosemide 20 mg tablet (Lasix) 20 mg PO QAM #30 tabs 03/24/23 09/02/23 09/02/23 losartan 25 mg tablet 25 mg PO QAM #30 tabs 03/24/23 09/02/23 09/02/23 atorvastatin 10 mg tablet 10 mg PO HS #90 tabs 04/30/23 09/02/23 09/01/23 ondansetron HCl 4 mg tablet 4 mg PO Q8H PRN nausea and 05/02/23 09/02/23 Unknown vomiting #3 tabs albuterol sulfate 90 mcg/actuation 2 puff inhalation Q6H PRN 05/21/23 09/02/23 Unknown aerosol inhaler Shortness Of Breath Or Wheezing #18 grams blood sugar diagnostic #100 ea 07/09/23 07/17/23 Unknown tramadol 50 mg tablet 50 mg PO BID PRN Pain #60 tabs 08/14/23 09/02/23 Unknown pantoprazole 40 mg tablet,delayed 40 mg PO BID #180 tabs 08/18/23 09/02/23 09/02/23 08:00 release Active Medications Generic Name Dose Route Start Last Admin Trade Name Freq PRN Reason Stop Dose Admin Acetaminophen 650 mg 09/02/23 20:07 09/02/23 20:52 Acetaminophen 325 Mg Tab PO 10/02/23 20:06 650 mg Q4H PRN Administration Pain or Fever Ascorbic Acid 500 mg 09/02/23 21:00 09/02/23 20:53 Ascorbic Acid 500 Mg Tab PO 10/02/23 20:59 500 mg QPM ROBIN Administration Aspirin 81 mg 09/03/23 09:00 09/03/23 10:16 Aspirin 81 Mg Ectab PO 10/03/23 08:59 81 mg QAM ROBIN Administration Atorvastatin Calcium 10 mg 09/02/23 21:00 09/02/23 20:53 Atorvastatin 10 Mg Tab PO 10/02/23 20:59 10 mg HS ROBIN Administration Cyanocobalamin 1,000 mcg 09/03/23 09:00 09/03/23 10:17 Cyanocobalamin 1000 Mcg/Ml Vial IM 10/03/23 08:59 1,000 mcg Q30D ROBIN Administration Ferrous Sulfate 325 mg 09/02/23 21:00 09/02/23 20:53 Ferrous Sulfate 325 Mg Tab PO 10/02/23 20:59 325 mg QPM ROBIN Administration Lactated Ringer's 1,000 mls @ 125 mls/hr 09/03/23 09:08 09/03/23 09:34 Lr IV 09/03/23 17:07 125 mls/hr .Q8H ONE Administration Insulin Aspart 0 units 09/02/23 21:00 09/03/23 12:09 Insulin Aspart Per Unit Charge SC 10/02/23 20:59 Not Given ACHS ROBIN Insulin Glargine 7 units 09/02/23 21:00 09/03/23 10:17 Lantus Per Unit Charge SQ 10/02/23 20:59 Not Given BID ROBIN Losartan Potassium 25 mg 09/03/23 09:00 09/03/23 10:17 Losartan Potassium 25 Mg Tab PO 10/03/23 08:59 25 mg QAM ROBIN Administration Multivitamins/Minerals 1 tab 09/03/23 09:00 09/03/23 10:17 Cerovite Adv Formula Tab PO 10/03/23 08:59 1 tab QAM ROBIN Administration Vitamin D 12.5 mcg 09/02/23 21:00 09/03/23 10:17 Cholecalciferol 25 Mcg (1000 Units) Tab PO 10/02/23 20:59 12.5 mcg BID ROBIN Administration Past Medical History Medical History Blood in stool Black stools GERD (gastroesophageal reflux disease) Pleural effusion on right recurrent. s/p thoracentesis Rt side 04/18/23. [facility]. 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 Supraventricular aortic stenosis Third degree AV block History of malignant carcinoid tumor Aortic stenosis due to bicuspid aortic valve Moderate-Severe Aortic aneurysm Aortic root, ascending and into arch>sx to repair Hearing deficit Osteoarthritis Cancer LIVER CANCER COLON CANCER sees oncology with [facility] Transient ischemic attack (TIA) "THE DOCTOR THOUGHT HE HAD ONE/ABOUT 5 YEARS AGO" Past Family History Family History Mother Family history of diabetes mellitus Diabetes Father Kidney disease Brother Valvular heart disease Heart disease Hearing loss Cancer Sister Ovarian cancer Cancer Family/Other Colorectal cancer Self Denies family history of Prostate cancer Myocardial infarction Breast cancer Past Surgical History Surgical History History of esophagogastroduodenoscopy (EGD) 03/27/23 [facility] Hx of cardiac catheterization 2019, clinical eval for procedure, [facility], no stents; f/u [facility] [place] [facility] History of removal of retained hardware wire removed from chest/open sx in 2019 S/P epidural steroid injection History of cystoscopy Status post aorto-coronary artery bypass graft April 2019 > unknown other details Status post aortic valve replacement 2019 S/P aortic aneurysm repair pt unaware of details Status post cardiac surgery 05/13/19 Dr. Armen Kate- Aortic root replacement with a 25 mm epic bioprosthesis and a 30 mm Gelweave graft and left atrial appendage clip History of carpal tunnel release bilat History of arthroscopy RT/LEFT KNEE History of surgery RT KIDNEY SURGERY "NOT DRAINING CORRECTLY" History of colonoscopy History of cholecystectomy Hx of resection of liver 2005 History of colectomy 2002 History of nasal septoplasty History of tooth extraction Pacemaker 2012 > Med[employer]onic > last checked August 2020 > Dr. Wayne, [facility] [place] Social History Smoking Status: Former smoker tobacco type: cigarettes Do You Dip or Chew Tobacco: No Hx Alcohol Use: No Hx Substance Use: No substance use type: does not use Physical Exam Vital Signs Last Vital Signs Temp 36.4 C L 09/02/23 12:17 Pulse 80 03/06/24 07:28 Resp 18 09/03/23 06:48 BP 109/73 09/03/23 06:48 Pulse Ox 95 09/03/23 06:48 O2 Del Method Room Air 09/03/23 06:48 Testing Laboratory Results 09/03/23 11:21 09/03/23 06:46 PT 12.9 Seconds (9.0-12.0) H 09/03/23 06:46 INR 1.2 (0.9-1.1) H 09/03/23 06:46 APTT 32 Seconds (21-31) H 09/02/23 15:09 Hemoglobin A1c 6.2 % (4.5-5.6) H 09/02/23 23:08 Urine Color Yellow 09/02/23 16:00 Urine Appearance Clear (Clear) 09/02/23 16:00 Urine pH 5.0 (4.5-7.5) 09/02/23 16:00 Ur Specific [place] 1.017 (1.000-1.030) 09/02/23 16:00 Urine Protein Negative (Negative) 09/02/23 16:00 Urine Glucose (UA) 3+ (Negative) H 09/02/23 16:00 Urine Ketones Negative (Negative) 09/02/23 16:00 Urine Nitrite Negative (Negative) 09/02/23 16:00 Ur Leukocyte Esterase Negative (Negative) 09/02/23 16:00 Urine WBC (Auto) 0 /hpf (0-5) 09/02/23 16:00 Urine RBC (Auto) >30 /hpf (0-4) H 09/02/23 16:00 U Hyaline Cast (Auto) 1-5 /lpf (0-5) 09/02/23 16:00 U Epithel Cells (Auto) 0-5 /lpf (0-5) 09/02/23 16:00 Urine Bacteria (Auto) Negative (Negative) 09/02/23 16:00 Blood Type O Positive 09/02/23 12:47 Antibody Screen NEGATIVE 09/02/23 12:47 09/03/23 07:26 POC Glucose 89 Electrocardiogram Date: 09/02/23 Test Reason : Blood Pressure : / mmHG Vent. Rate : 085 BPM Atrial Rate : 073 BPM P-R Int : 000 ms QRS Dur : 168 ms QT Int : 436 ms P-R-T Axes : 000 -66 092 degrees QTc Int : 518 ms Ventricular-paced rhythm Abnormal ECG When compared with ECG of 24-APR-2023 16:38, Vent. rate has increased BY 3 BPM Confirmed by Jhonathan Noe ([id number]) on 09/02/2023 3:06:57 PM Chest X-Ray Date: 04/18/23 HISTORY: s/p thoracentesis COMPARISON: Chest 05/09/2023. FINDINGS: Decrease in size in the small right pleural effusion status post thoracentesis. No pneumothorax. Right basilar densities persist. This favors atelectasis. A pneumonia could also have a similar appearance. There are low lung volumes. The left lung is clear. The heart remains mildly enlarged. The left-sided dual-chamber pacemaker. IMPRESSION: Decrease in size in the small right pleural effusions status post thoracentesis. No pneumothorax. Echocardiogram Date: 01/13/23 EF: 60-65 LV Function: normal RWMA: + none Prosthetic aortic valve moderate TR
--- NOTE | 2023-09-03 14:52 | GI REPORT ---
Patient Name: Teddy Yang Procedure Date: 09/03/2023 2:07 PM Date of : 1950 Admit Type: Inpatient Age: 73 Gender: Male Attending MD: Deep Lazaro MD, Procedure: Upper GI endoscopy Providers: Deep Lazaro MD Referring MD: Tanmay Tapia Indications: Hematochezia Medicines: Monitored Anesthesia Care Complications: No immediate complications. Estimated blood loss: None. Estimated Blood Loss: Estimated blood loss: none. Procedure: Pre-Anesthesia Assessment: - Prior Anticoagulants: The patient has taken Xarelto (rivaroxaban), last dose was 1 day prior to procedure. - ASA Grade Assessment: II - A patient with mild systemic disease. After obtaining informed consent, the endoscope was passed under direct vision. Throughout the procedure, the patient's blood pressure, pulse, and oxygen saturations were monitored continuously. The Scope was introduced through the mouth, and advanced to the second part of duodenum. The upper GI endoscopy was accomplished without difficulty. The patient tolerated the procedure well. Findings: The examined esophagus was normal. Diffuse moderate inflammation characterized by erosions, erythema and shallow ulcerations was found in the stomach. no active bleeding noted. a clip was noted in the stomach on a fundic gland polyp. A single 10 mm pedunculated and sessile polyp with no bleeding was found in the duodenal bulb. Biopsies were taken with a cold forceps for histology. Estimated blood loss: none. a smaller 4 mm polyp was also noted in the duodenal bulb adjacent to the 10 mm polyp. this was NOT biopsied. Impression: - Normal esophagus. - Gastritis. - A single duodenal polyp. Biopsied. Recommendation: - Advance diet as tolerated today. - Await pathology results. -protonix 40 mg BID - [facility] care. -consider repeat EGD off of xarelto with polypectomy if duodenal polyp is adenomatous. Deep Lazaro MD 09/03/2023 2:52:14 PM This report has been signed electronically. Note Initiated On: 09/03/2023 2:07 PM Number of Addenda: 0 I attest to the content of the Intraoperative Record and orders documented therein, exceptions below {[id number]}
--- NOTE | 2023-09-03 15:51 | Anesthesiology Progress Note ---
Date of Service September 03, 2023 Anesthesia Post Procedure Vital Signs Vital Signs: Temp Pulse Pulse Pulse Pulse Resp BP 09/03/23 15:19 80 16 09/03/23 15:04 80 16 09/03/23 14:49 82 16 09/03/23 13:30 36.8 C 81 16 09/03/23 07:28 80 09/03/23 06:48 80 18 09/03/23 05:40 80 18 09/03/23 05:30 80 18 09/03/23 05:10 81 17 09/03/23 05:00 80 18 09/03/23 04:50 82 16 09/03/23 04:40 09/03/23 04:30 09/03/23 04:20 09/03/23 04:11 09/03/23 04:00 09/03/23 03:52 09/03/23 03:52 105/09/03/23 03:52 80 18 105/09/03/23 03:50 09/03/23 03:40 09/03/23 03:30 09/03/23 03:20 09/03/23 03:10 09/03/23 03:00 105/67 09/03/23 02:50 09/03/23 02:40 09/03/23 02:30 09/03/23 02:20 09/03/23 02:10 09/03/23 02:01 124/72 09/03/23 02:01 09/03/23 02:00 09/03/23 02:00 80 18 09/03/23 01:50 09/03/23 01:40 09/03/23 01:30 80 15 09/03/23 01:20 82 18 09/03/23 01:10 80 18 09/03/23 01:00 80 19 09/03/23 00:50 80 18 09/03/23 00:40 80 18 09/03/23 00:30 80 18 09/03/23 00:20 80 18 09/03/23 00:10 80 18 09/03/23 00:00 80 17 09/02/23 23:50 80 19 09/02/23 23:40 80 19 09/02/23 23:30 80 18 09/02/23 23:20 80 19 09/02/23 23:10 80 18 09/02/23 23:02 81 09/02/23 23:00 80 18 09/02/23 23:00 80 18 09/02/23 22:58 80 19 09/02/23 22:58 127/82 09/02/23 22:53 82 16 09/02/23 22:40 80 18 09/02/23 22:30 80 21 09/02/23 22:30 123/79 09/02/23 22:22 81 19 09/02/23 22:10 80 19 09/02/23 22:00 80 21 09/02/23 22:00 128/77 09/02/23 21:50 80 20 09/02/23 21:40 81 17 09/02/23 21:30 81 16 09/02/23 21:30 126/88 09/02/23 21:20 80 22 09/02/23 21:10 80 16 09/02/23 21:01 81 19 09/02/23 21:01 120/82 09/02/23 21:00 80 16 09/02/23 20:50 80 20 09/02/23 20:07 80 18 09/02/23 20:07 09/02/23 19:02 80 09/02/23 18:23 80 20 123/77 09/02/23 16:30 81 17 109/73 09/02/23 16:21 80 09/02/23 16:00 81 20 119/71 BP BP Pulse Ox Pulse Ox O2 Del Method O2 Del Method O2 Flow Rate 09/03/23 15:19 109/71 97 Aerosol Mask 09/03/23 15:04 110/65 97 Aerosol Mask 09/03/23 14:49 105/61 97 Aerosol Mask 09/03/23 13:30 134/73 98 Room Air 09/03/23 07:28 09/03/23 06:48 109/73 95 Room Air 09/03/23 05:40 93 09/03/23 05:30 92 09/03/23 05:10 94 09/03/23 05:00 95 09/03/23 04:50 98 09/03/23 04:40 94 09/03/23 04:30 94 09/03/23 04:20 97 09/03/23 04:11 97 09/03/23 04:00 92 09/03/23 03:52 96 09/03/23 03:52 09/03/23 03:52 95 09/03/23 03:50 95 09/03/23 03:40 90 09/03/23 03:30 94 09/03/23 03:20 94 09/03/23 03:10 91 09/03/23 03:00 95 09/03/23 02:50 92 09/03/23 02:40 83 L 09/03/23 02:30 95 09/03/23 02:20 94 09/03/23 02:10 94 09/03/23 02:01 09/03/23 02:01 96 09/03/23 02:00 94 09/03/23 02:00 124/72 95 Room Air 09/03/23 01:50 95 09/03/23 01:40 94 09/03/23 01:30 98 09/03/23 01:20 96 09/03/23 01:10 99 09/03/23 01:00 94 09/03/23 00:50 94 09/03/23 00:40 94 09/03/23 00:30 95 09/03/23 00:20 95 09/03/23 00:10 95 09/03/23 00:00 95 09/02/23 23:50 97 09/02/23 23:40 95 09/02/23 23:30 95 09/02/23 23:20 95 09/02/23 23:10 97 09/02/23 23:02 09/02/23 23:00 95 09/02/23 23:00 127/82 95 Room Air 09/02/23 22:58 96 09/02/23 22:58 09/02/23 22:53 97 09/02/23 22:40 95 09/02/23 22:30 96 09/02/23 22:30 09/02/23 22:22 97 09/02/23 22:10 96 09/02/23 22:00 95 09/02/23 22:00 09/02/23 21:50 96 09/02/23 21:40 96 09/02/23 21:30 09/02/23 21:30 09/02/23 21:20 09/02/23 21:10 09/02/23 21:01 09/02/23 21:01 09/02/23 21:00 09/02/23 20:50 96 09/02/23 20:07 121/79 96 Room Air 09/02/23 20:07 96 Room Air 09/02/23 19:02 09/02/23 18:23 97 Room Air 09/02/23 16:30 97 Room Air 09/02/23 16:21 09/02/23 16:00 99 Room Air Transfer of Care Handoff Completed per policy Notes Mental Status: alert / awake / arousable and participated in evaluation Patient Amnestic to Procedure: Yes Nausea / Vomiting: adequately controlled Pain: adequately controlled Airway Patency, RR, SpO2: stable & adequate BP & HR: stable & adequate Hydration State: stable & adequate Anesthetic Complications: no major complications apparent and Pt Satisfied with anesthetic care
[2023-09-03] MEDS: PANTOprazole 40 MG TAB PO SCH (16:48)
--- NOTE | 2023-09-03 18:25 | Hospitalist Progress Note ---
Date of Service September 03, 2023 Assessment & Plan (1) Hematochezia: Plan: - Patient with long history of intermittent episodes of GI bleed that resulted in various EGD and colonoscopy studies with ulcer clips placed and colon biopsy sampling. - Had recent endoscopy which revealed 3-4 additional small ulcers in the small bowel and 1 in the colon which were also clipped. - Patient's noted spots of bright red blood in the patient's stool yesterday and called [facility] [place], who rec he go to the ED for evaluation. - He does note having hemorrhoids, which may be another possible explanation for spots of bright red blood in patient's stool. He was advised to start a high fiber diet and a capsule study was ordered and meant to be done by [facility], but did was told that they would not do it due to risk of pacemaker interference. - VS on arrival to the ED were stable, with soft BP but no tachycardia. Patient hemodynamically stable. - CBC showing Hgb of 11.5 which is stable since the last time he had labs done, and improved compared to prior levels. - CMP with electrolytes and renal markers within reference range, liver enzymes normal - Trend HH Q8H - GI Consulted -- EGD 09/03/23: Normal esophagus. Gastritis. Single duodenal polyp - biopsied. -- Protonix 40 mg p.o. twice daily -- Consider repeat EGD off of Xarelto with polypectomy of duodenal polyp with adenomatous - Consider course of Carafate for gastritis on discharge (2) Gross hematuria: Plan: - New onset - No urology follow up - Urinalysis on admission with 3+ blood, >30 RBC otherwise negative - CT A/P reviewed - No renal or ureteral calculi, no hydronephrosis, prostatomegaly with evidence of chronic bladder outlet obstruction - Urine culture -- pending - Urology consulted: -- No acute urological intervention indicated -- Discussed full hematuria workup including cystoscopy and that this can be completed as an outpatient. Patient/ were agreeable. -- Will arrange outpatient follow-up with our service to complete full hematuria work-up. 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 He reports that he has h/o reccurent GI bleeds requiring multiple EGDs with clip placment for ulcers, colonoscopies, and capsule study. Patient states he has had some blood in his urine for the past few days, and intermittent red blood noted in his stool. He reports feeling suprapubic pain and pressure with bowel movements. Denies abdominal pain, epigastric pain, nausea, vomiting, dysuria, diarrhea, fever, lightheadedness, dizziness, shortness of breath, or chest pain. GI performed an EGD this afternoon and I discussed these results with the patient and his bedside this evening. Physical Exam Physical Exam: General: No acute distress, nondiaphoretic, well-developed, well-nourished. Skin: The skin was without rashes, erythema, edema, or bruising. Cardiac: Regular rate and rhythm without murmurs gallops or rubs. Pulm: Clear to auscultation bilaterally without wheezes, rales or rhonchi. No retractions or accessory muscle use. Abdominal: Positive bowel sounds x 4. Soft, nontender, without masses or organomegaly. No guarding or rebound tenderness. Neuro: A&O x3. No focal neurological deficits. Results & Data Results & Data Vital Signs (Past 12 Hours) Vital Signs Temp Pulse Pulse Pulse Pulse Resp BP 09/03/23 15:19 80 16 109/71 09/03/23 15:04 80 16 110/65 09/03/23 14:49 82 16 105/61 09/03/23 13:30 36.8 C 81 16 09/03/23 07:28 80 09/03/23 06:48 80 18 BP Pulse Ox O2 Del Method O2 Flow Rate 09/03/23 15:19 97 Aerosol Mask 10 09/03/23 15:04 97 Aerosol Mask 10 09/03/23 14:49 97 Aerosol Mask 10 09/03/23 13:30 134/73 98 Room Air 09/03/23 07:28 09/03/23 06:48 109/73 95 Room Air Laboratory Results Reviewed chemistries Reviewed H&H Diagnostic Findings EGD 09/03/23: FINDINGS: Normal esophagus. Gastritis. Single duodenal polyp - biopsied. 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
[2023-09-03] MEDS: CHOLECALCIFEROL 25 MCG (1000 UNITS) TAB PO SCH (18:28)
[2023-09-03 23:15] LABS: Hematocrit (blood only) 34.3 % (42.0-52.0); Hemoglobin 11.2 g/dl (14.0-18.0)
[2023-09-04] MEDS: LIDOCAINE 2% 2 ML VIAL/AMP(20MG/ML) INFIL ONE (01:31)
[2023-09-04] MEDS: PROPOFOL IV EMULSION 10 MG/ML 20 ML VIAL IV ONE (01:32)
[2023-09-04 06:03] LABS: Hematocrit (blood only) 35.8 % (42.0-52.0); Hemoglobin 11.2 g/dl (14.0-18.0); Mean Corpuscular Hemoglobin 29.9 pg (25.0-34.0); Mean Corpuscular Hgb Conc 31.3 g/dL (32.0-36.0); Mean Corpuscular Volume 95.7 fL (80.0-100.0); Mean Platelet Volume 10.5 fL (9.4-12.4); Platelet Count 104 K/uL (130-400); RDW Coefficient of Variation 15.9 % (11.5-14.5); RDW Standard Deviation 56.3 fL (36.4-46.3); Red Blood Count 3.74 M/uL (4.70-6.10); White Blood Count 4.56 K/ul (4.8-10.8)
[2023-09-04 06:24] LABS: BUN Creatinine Ratio 13.9 (10-20); Calcium 8.8 mg/dl (8.6-10.3); Creatinine Clr Calc Pharmacy 46.5 ml/min; Est GFR (African American) 66.8 ml/min; Est GFR (Non-African American) 57.6 ml/min
--- NOTE | 2023-09-04 18:18 | Discharge Summary ---
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 Patient has had history of recurrent GI bleeds that began on November 2022, which led to multiple EGD with clip placement for noted ulcers, and colonoscopy for evaluation of said GI bleed. Most recently, on 07/2023, patient noted melena for which she was seen by [facility] gastroenterology, and had done a capsule study. Through the study, patient was noted to have 3-4 small ulcers in his small intestine as well as 1 ulcer in his colon, which were all clipped. Yesterday, patient's noted spots of bright red blood in patient's stool as well as blood in his urine. He states that the only time that he feels suprapubic pain/pressure is when he is going to have a bowel movement. Patient denies having any abdominal pain, epigastric pain, nausea, vomiting, fevers, lightheadedness, dizziness, dysuria, or any other symptoms. ED Course: Vital signs have remained stable, blood pressures have been soft but not hypotensive, no tachycardia noted, patient has remained afebrile, patient has remained hemodynamically stable Labs/Imaging: Hemoglobin in the emergency department showing level of 11.5 which is stable when compared to prior level from last month, no leukocytosis on CBC, platelets at 111, CMP without any electrolyte abnormalities, renal markers within reference range, blood glucose of 156, hemoglobin A1c from 02/19 of 6.5%, liver enzymes within reference range, urine showing +3 hematuria but negative for bacteria/nitrite/leukocyte esterase, abdominal/pelvic CT without contrast showing findings suggestive of mild acute pancreatitis (Lipase was 20), no renal or ureteral calculi or hydronephrosis, prostatomegaly with evidence of chronic bladder outlet obstruction, pathologic lymph nodes of the lower chest and upper abdomen are redemonstrated and appear generally stable from the comparison PET/CT dated , hepatic lesions are better visualized on the aforementioned PET/CT and stable moderate-sized right pleural effusion. Admission Exam Per Admitting Provider GENERAL: AAOx3, hard of hearing, afebrile, no acute distress HEAD: AT, NC EYES: EOM intact THROAT: normal to visual inspection CHEST: symmetric, vertical scar noted following sternal line, pacemaker in left chest, symmetric lung expansions with respirations CARDIO: RRR PULMONARY: CTA, normal respiratory effort, no respiratory distress GI: mildly distended, non-tender to palpation of all four quadrants, epigastric region, or suprapubic region : no gastelum EXTREMITIES: no swelling in bilateral LE, no calf tenderness bilaterally, no obvious deformity SKIN: no rashes Principal Diagnosis Gastritis Hematochezia Hematuria Discharge Exam General: No acute distress, nondiaphoretic, well-developed, well-nourished. Skin: The skin was without rashes, erythema, edema, or bruising. Cardiac: Regular rate and rhythm without murmurs gallops or rubs. Pulm: Clear to auscultation bilaterally without wheezes, rales or rhonchi. No retractions or accessory muscle use. Abdominal: Positive bowel sounds x 4. Soft, nontender, without masses or organomegaly. No guarding or rebound tenderness. Neuro: A&O x3. No focal neurological deficits. Discharge Data Allergies Allergy/AdvReac Type Severity Reaction Status Date / Time metformin Allergy Intermediate rash Verified 09/03/23 13:29 amoxicillin Allergy Unknown Unknown Verified 09/03/23 13:29 Cephalosporins AdvReac Intermediate Diarrhea Verified 09/03/23 13:29 codeine AdvReac Intermediate DIZZINESS, Verified 09/03/23 13:29 NAUSEA Penicillins AdvReac Mild Nausea Verified 09/03/23 13:29 Consultations 09/02/23 17:41 ED Decision to Admit Stat 09/02/23 20:07 Consult Gastroenterology Routine Consult Urology Routine Procedures Performed Operation Date: 09/03/23 16:30 Actual Procedures p EGD Biopsy Cytology - Deep Lazaro MD Ordered Studies 09/02/23 16:38 CT abd pelvis wo con Stat Hospital Course (1) Hematochezia: - Patient with long history of intermittent episodes of GI bleed that resulted in various EGD and colonoscopy studies with ulcer clips placed and colon biopsy sampling. - Had recent endoscopy which revealed 3-4 additional small ulcers in the small bowel and 1 in the colon which were also clipped. - Patient's noted spots of bright red blood in the patient's stool yesterday and called [facility], who rec he go to the ED for evaluation. - He does note having hemorrhoids, which may be another possible explanation for spots of bright red blood in patient's stool. He was advised to start a high fiber diet and a capsule study was ordered and meant to be done by [facility], but did was told that they would not do it due to risk of pacemaker interference. - VS on arrival to the ED were stable, with soft BP but no tachycardia. Patient hemodynamically stable. - CBC showing Hgb of 11.5 which is stable since the last time he had labs done, and improved compared to prior levels. - CMP with electrolytes and renal markers within reference range, liver enzymes normal - Trend HH Q8H - GI Consulted -- EGD 09/03/23: Normal esophagus. Gastritis. Single duodenal polyp - biopsied. -- Protonix 40 mg p.o. twice daily -- Consider repeat EGD off of Xarelto with polypectomy of duodenal polyp with adenomatous - Carafate 1g 4 times daily for 2 weeks - Will follow-up with GI in outpatient setting (2) Gross hematuria: - New onset - No urology follow up - Urinalysis on admission with 3+ blood, >30 RBC otherwise negative - CT A/P reviewed - No renal or ureteral calculi, no hydronephrosis, prostatomegaly with evidence of chronic bladder outlet obstruction - Urine culture --no growth - Urology consulted: -- No acute urological intervention indicated -- Discussed full hematuria workup including cystoscopy -- Follow-up with urology in outpatient setting (3) Atrial fibrillation, permanent: -Patient with history of atrial fibrillation and pacemaker placement -Had been on Xarelto for prophylaxis -Patient requested change from Xarelto to Eliquis -This was discussed with Anshu Michele in cardiology who approved this change -Will hold blood thinners for 1 week on discharge due to GI bleeding in the setting of GI ulcers -Will follow-up with cardiology in outpatient setting (4) Anemia: - Was taking PO iron with vitamin C at home as well - Hgb of 11.5 which is stable compared to past levels - Hold ascorbic acid for 1 to 2 weeks (5) Diabetes mellitus: - Hgb A1c 6.2% on 09/02/23 - Home Jardiance held while in hospital, can resume upon discharge - Manage with Lantus and SSI while in hospital (6) 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 Discharge Plan Discharge Items Patient Disposition: Home - Self-Care Reason For Visit: GI BLEED Discharge Diagnosis: Hematochezia (blood in stool) Gross hematuria (blood in urine) Activity: Resume your previous activity Non-emergency contact: Primary Care Provider, Waxing Machine Operator, Setter Out and Urologist Call non-emergency contact if: your symptoms worsen Follow-up/Referrals: Anjali Marshall CRNP [Primary Care Provider] - 09/08/23 10:30 am (Hospital follow up appointment) Anshu Michele PA-C [Physician Director [facility]] - 09/10/23 1:00 pm () Ruben Zuluaga DO [Physician] - (Office will call to schedule this appointment) Gail Gu CRNP [Nurse Practitioner] - (Office will call to schedule this appointment) Diet: Carb Consistent or DM2 Addtl Attending Provider Instructions: You were admitted to the hospital because of blood in your stool and urine. While in the hospital, you had an EGD with gastroenterology (GI) which found a normal esophagus, gastritis, and a single duodenal polyp which was biopsied. Pathology is still pending on the biopsy results. You also saw urology who recommended an outpatient follow-up to complete full hematuria (blood in urine) workup. As we discussed in detail, through various scopes (EGD and colonoscopy) and capsule study, you have multiple small ulcers in your small intestine and colon. Between these and the gastritis, we must heal the irritation and ulcers in order to stop the bleeding you continue to experience. After discussing your case with your b2b sales executive, Anshu Michele, we agree on stopping your Xarelto and starting Eliquis as your blood thinner medication. However, in order to prevent continued bleeding from these ulcers, we recommend holding your blood thinner medication for 1 week. - After calculating both your risk of stroke ([id number]) and risk of bleeding (HAS-BLED), you have about a 9% chance of either. - Therefore, we recommend a "blood thinner holiday" where we hold your blood thinner medication for a short course (about 1 week) to allow the ulcers/irritation throughout your GI tract to heal which will reduce the likelihood of continued bleeding. Listed below is your medication/treatment plan: - Continue Protonix 40 mg twice daily. - Start Carafate 4 times daily for 2 weeks. -- Please take this either 1 hour before or 2 hours after your other medications due to Carafate interacting with medications when taken together. - Stop Xarelto. - Switch to taking Eliquis as your blood thinner. This will be 5 mg twice daily. -- Hold on taking this medication for 1 week. - Hold on taking ascorbic acid for 1 week. Listed below are your upcoming follow-up appointments: - PCPAnjali appointment scheduled for 09/08/2023 at 10:30 AM. - Cardiology, Anshu Michele office will call with appointment date and time. - Urology, Gail Gu office will call with appointment date and time. - Gastroenterology, Ruben Zuluaga office will call with appointment date and time. Additionally, early next week the outpatient nurse navigator will call you. She will help with organizing appointments and communication between providers/specialties. Symptoms of stroke to be aware of: Blocked blood flow in different areas of the brain can cause different symptoms. A memory aid for the basic signs of a stroke is B.E. F.A.S.T. B.E. F.A.S.T. - B is for balance. Sudden loss of balance or coordination. - E is for eyes. Vision changes in one or both eyes. - F is for face drooping. Drooping or numbness on one side of the face. This may be more noticeable when you ask the affected person to smile. - A is for arm weakness or numbness. The affected person may have trouble using or lifting one side. - S is for speech difficulty. Speech may be slurred or hard to understand. The affected person may also use the wrong words. - T is for time to call 911. Time is critical in treating a stroke. Call 911 as soon as you suspect a stroke has happened-even a small one. The sooner treatment is started the better, even if the symptoms go away. Other common symptoms of a stroke include: - Having trouble getting the right words to come out - Weakness in one leg - Numbness on one side - Trouble walking - Trouble with coordination - Trouble with vision - Severe headache - Confusion - Dizziness Please return to the hospital if you experience any of the following symptoms: Chest pain, shortness of breath, lightheadedness, dizziness, trouble breathing, extreme tiredness, confusion, slurred speech, numbness on one side of the body, severe headache, trouble walking, or trouble with coordination or vision. Pending Studies at Discharge: No Stand-Alone Forms: My [employer], Smoking Cessation Medications and DC Order Prescriptions: New Eliquis 5 mg tablet 5 mg PO BID Qty: 60 0RF sucralfate [Carafate] 1 gram tablet 1 g PO Q6H 14 Days Qty: 56 0RF Continued (DME) lancets [Advocate Lancet] 30 gauge misc See Rx Instructions .ROUTE .MEDSUPPLY Qty: 200 5RF Rx Instructions: As directed cholecalciferol (vitamin D3) [Vitamin D3] 25 mcg (1,000 unit) tablet 500 mcg PO UD Rx Instructions: 500 units daily in a.m and supper and then every other day at noon. orally daily in the morning; losartan 25 mg tablet 25 mg PO QAM Qty: 30 11RF atorvastatin 10 mg tablet 10 mg PO HS Qty: 90 3RF ondansetron HCl 4 mg tablet 4 mg PO Q8H PRN (Reason: nausea and vomiting) Qty: 3 0RF (DME) blood sugar diagnostic Strip See Rx Instructions .ROUTE .MEDSUPPLY Qty: 100 3RF Rx Instructions: test 1 x daily tramadol 50 mg tablet 50 mg PO BID PRN (Reason: Pain) Qty: 60 0RF pantoprazole 40 mg tablet,delayed release (DR/EC) 40 mg PO BID Qty: 180 3RF Jardiance 10 mg tablet 10 mg PO QAM Qty: 30 11RF furosemide [Lasix] 20 mg tablet 20 mg PO QAM Qty: 30 11RF aspirin [Adult Low Dose Aspirin] 81 mg tablet,delayed release (DR/EC) 81 mg PO QAM Hold Instructions: PER DC WAS TO BE PUT ON HOLD-WAS NOT DONE BY PROVIDER (DME) blood-glucose meter Kit See Rx Instructions .ROUTE .MEDSUPPLY Qty: 1 0RF Rx Instructions: test 1 x daily albuterol sulfate 90 mcg/actuation HFA aerosol inhaler 2 puff inhalation Q6H PRN (Reason: Shortness Of Breath Or Wheezing) Qty: 18 3RF Centrum Silver 400-250 mcg tablet,chewable 1 tab PO QAM ascorbic acid (vitamin C) 500 mg tablet 500 mg PO QPM Patient Comments: lunch time ferrous sulfate 325 mg (65 mg iron) tablet 325 mg PO QPM Patient Comments: lunch Sandostatin LAR Depot 20 mg Suspension,Extended Rel Recon 40 mg IM Q30D Colon Health 1 tab PO QAM cyanocobalamin (vitamin B-12) 1,000 mcg/mL Solution 1,000 mcg IM Q30D Discontinued Xarelto 20 mg tablet 20 mg PO HS Qty: 90 3RF Hold Instructions: Resume on 12/18/22. Rx Instructions: TAKE ONE TABLET BY MOUTH DAILY WITH DINNER Discharge Orders: Discharge Order (Routine); Ordered 09/04/23 Ordered By: Corinne Munoz Admission Data Admit Date/Time: 09/02/23 19:08 Attending Provider: Tanmay Tapia Admit Provider: Thu Burr Primary Care Provider: Anjali Marshall Other Providers: Teddy Frederick; Thomas Calabrese Jr; Clifton Angulo Other Interventions: Discharge Summary Assessment (RN) Last Done: 09/04/23 17:01 Coding Level of Care Code 65039 INP/OBS DISCH >30 MIN Diagnoses Hematochezia K92.1 Gross hematuria R31.0 Atrial fibrillation, permanent I48.21 Anemia D64.9 Diabetes mellitus E11.9 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
== END 2023-09-04 17:00 | disposition home or self-care (01) | DRG 378 ==
LOC: ED 12:15 → SUATTDRO 19:08 → EDINP 19:08

== ENCOUNTER 2024-04-07 11:38 | Inpatient (IN) ==
[2024-04-07 12:32] LABS: Basophils # (auto) 0.03 K/uL (0.00-0.20); Basophils % (auto) 0.5 %; Eosinophils # (auto) 0.08 K/uL (0.00-0.50); Eosinophils % (auto) 1.4 %; Hemoglobin 12.1 g/dl (14.0-18.0); Immature Granulocytes # (auto) 0.01 K/uL (0.01-0.20); Immature Granulocytes % (auto) 0.2 %; Lymphocytes # (auto) 1.05 K/uL (1.20-3.40); Lymphocytes % (auto) 18.8 %; Mean Corpuscular Hemoglobin 27.1 pg (25.0-34.0); Mean Corpuscular Volume 87.2 fL (80.0-100.0); Mean Platelet Volume 10.8 fL (9.4-12.4); Monocytes % (auto) 10.8 %; Neutrophils # (auto) 3.81 K/uL (1.40-6.50); Neutrophils % (auto) 68.3 %; Platelet Count 117 K/uL (130-400); RDW Standard Deviation 51.3 fL (36.4-46.3); Red Blood Count 4.47 M/uL (4.70-6.10); White Blood Count 5.58 K/ul (4.8-10.8)
--- NOTE | 2024-04-07 12:41 | Emergency Department Note ---
Impression & Plan Pneumothorax ED Provider Note ED Provider Note NAME: GUANAKITO SHERIFF AGE:74 SEX: Male : 1950 ARRIVES VIA: Private vehicle INFORMANT: Patient ED PROVIDER(s): Terrie Arnett DO CHIEF COMPLAINT: Referred for abnormal chest x-ray HPI: This is a 74-year-old male who was referred to the emergency department after finding of an abnormal outpatient chest x-ray when he presented to the pulmonology clinic. Patient underwent recent thoracentesis due to significant pleural effusion. Patient also has a history of COPD. He states he did feel improved after the draining of the fluid. He was found to have a large pneumothorax on outpatient chest x-ray today and was referred to come to the ER immediately. I did receive a phone call prior to have his arrival from Pato Barlow PA-C with pulmonology. They intend to see him upon arrival here, place a chest tube, and asked that the patient be admitted overnight. On arrival here patient stable appearing, denies chest pain, admits to slightly increased shortness of breath. He denies fevers, chills, nausea or vomiting. He was updated on the plan per pulmonology. PAST MEDICAL HISTORY:See Below PAST SURGICAL HISTORY:See Below FAMILY HISTORY:See Below SOCIAL HISTORY:See Below HOME MEDICATIONS:See Below ALLERGIES:See Below VITALS:See Below PHYSICAL EXAMINATION: GENERAL: alert, well appearing, well nourished, no distress, non-toxic EYE EXAM: normal conjunctiva, PERRL and EOM's grossly intact OROPHARYNX: no exudate, no erythema, lips, buccal mucosa, and tongue normal and mucous membranes are moist NECK: supple, no nuchal rigidity, no adenopathy, non-tender, no stridor, no tracheal deviation LUNGS: Lung sounds absent on the right, normal chest wall mechanics, no w/r/r, mild tachypnea noted HEART: no murmurs, S1 normal and S2 normal ABDOMEN: abdomen soft, non-tender, normo-active bowel sounds, no masses, no rebound or guarding. SKIN: no rashes, petechiae, orbruising UPPER EXTREMITIES: upper extremities are grossly normal. FROM, nml pulses b/l. LOWER EXTREMITIES: No pitting edema. FROM, nml pulses b/l. NEURO EXAM: Normal sensorium, cranial nerves II-XII grossly intact, normal speech, no facial droop,nogross weakness of arms, no gross weakness of legs. Gross sensation intact. No ataxia. Vital Signs: reviewed and remarkable Differential Diagnosis: Pneumothorax, hemothorax, pneumonia, pleural effusion, CHF, bleb, COPD, as well as others were concern MEDICAL DECISION MAKING: This is a 74-year-old male referred here by pulmonology after repeat outpatient chest x-ray showed a large right pneumothorax. In-house pulmonology aware and called down stating plan was to place a chest tube once he arrived in the emergency department as long as he was stable and admit him to medicine. Case discussed with Pato Montoya PA-C with pulmonology. Patient well-appearing on arrival, vital signs stable. Labs drawn and sent, IV established, EKG performed at bedside interpreted by me and patient monitored on telemetry. Case then discussed [facility] team while awaiting pulmonology procedure. Consultation(s): 1206: Discussed with Dr. Ruiz, [facility] team, for additional evaluation and management. ER Treatment Provided: See below 1330: Pulmonary team at bedside. Diagnostics Interpreted By Me: -ECG: Paced at 80, left axis, prolonged intervals consistent with paced rhythm, no acute ST/T wave changes -Cardiac Monitoring: An order was placed for continuous cardiac monitoring. The monitor shows a rate of 78 with paced rhythm. -Laboratory studies: As stated above and show below. -Imaging studies: cxr: Outpatient chest x-ray performed earlier today reviewed by myself and shows a large right pneumothorax, pacemaker noted, no wide mediastinum, no focal consolidation Triage Nursing Note Reviewed Prior/Outside Records Reviewed -recent discharge summary reviewed Past Med/Surg History Problem List Metastatic carcinoid tumor (HFpEF) heart failure with preserved ejection fraction Pneumothorax (Acute) Hydropneumothorax Pleural effusion, bilateral Diarrhea Shingles Pain of left hip Viral illness Recurrent gastrointestinal hemorrhage Hyperlipidemia Hematochezia Gross hematuria Restrictive lung disease 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 Abnormal PFTs (pulmonary function tests) COPD with emphysema Acute blood loss anemia GI bleed (Acute) Bronchitis Right shoulder strain Eczema Calculus of distal left ureter Pacemaker Proteinuria due to type 2 diabetes mellitus Aortic valve replaced Dizziness Anemia Diabetes mellitus (Chronic) Postnasal drip Atrial fibrillation, permanent Decreased stamina (Chronic) Cardiac pacemaker (Chronic) Essential tremor (Chronic) Left bundle-branch block (Chronic) Vitamin D deficiency (Chronic) Lumbar radicular pain (Chronic) Lumbar spinal stenosis (Chronic) Hypertension (Chronic) Pleural effusion on right recurrent. s/p thoracentesis Rt side 04/18/23. [facility]. Right knee DJD Right knee pain Chronic low back pain Sensorineural hearing loss (SNHL) of both ears Chronic anticoagulation (Chronic) Dyslipidemia (Chronic) Chronic congestion of paranasal sinus (Acute) pt denies Third degree AV block (Chronic) Osteoarthritis (Chronic) Medical History Melena Elevated troponin Pleural effusion Blood in stool Black stools GERD (gastroesophageal reflux disease) History of colon cancer History of colon polyps Hypertension Atrial fibrillation Poor historian Spinal stenosis History of Mohs micrographic surgery for skin cancer Diabetes Tubular adenoma History of kidney stones History of stroke Bicuspid aortic valve Liver lesion 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 Supraventricular aortic stenosis History of malignant carcinoid tumor Aortic stenosis due to bicuspid aortic valve Aortic aneurysm Hearing deficit Cancer Transient ischemic attack (TIA) Surgical History History of esophagogastroduodenoscopy (EGD) Hx of cardiac catheterization History of removal of retained hardware S/P epidural steroid injection History of cystoscopy Status post aorto-coronary artery bypass graft Status post aortic valve replacement S/P aortic aneurysm repair Status post cardiac surgery History of carpal tunnel release History of arthroscopy History of surgery History of colonoscopy History of cholecystectomy Hx of resection of liver History of colectomy History of nasal septoplasty History of tooth extraction Pacemaker Family History Mother Family history of diabetes mellitus Diabetes Father Kidney disease Brother Valvular heart disease Heart disease Hearing loss Cancer Sister Ovarian cancer Cancer Family/Other Colorectal cancer Self Denies family history of Prostate cancer Myocardial infarction Breast cancer Social History Smoking Status: Former smoker Tobacco Type: Cigarettes Age Started Using Tobacco: 14; Age Quit Using Tobacco: 53; packs per day: 1; Cigarettes Per Day: 5 (13-14 years); Second Hand Exposure: No; Do You Dip or Chew Tobacco: No; Hx Alcohol Use: No Hx Substance Use: No Preferred Language: Qatari Communication Ability: Effective Hearing Ability: Use of Hearing Aid Brand Ambassador Promotional Model Required: No Beliefs That Will Affect Care: None marital status: Current Living Situation: Alone current occupational status: retired How many Children do You have: 1 Feels Safe at Home: Yes Childhood Exposure to Second-Hand Smoke: Yes Diet: regular caffeine: Yes Dental Care, Regularly: No Physical Activity Frequency: Daily Seatbelt Use: always Sunscreen Use: No Assistive Devices: None Allergies Allergies Allergy/AdvReac Type Severity Reaction Status Date / Time metformin Allergy Intermediate rash Verified 03/29/24 14:05 amoxicillin Allergy Unknown Unknown Verified 03/29/24 14:05 Cephalosporins AdvReac Intermediate Diarrhea Verified 03/29/24 14:05 codeine AdvReac Intermediate DIZZINESS, Verified 03/29/24 14:05 NAUSEA Penicillins AdvReac Mild Nausea Verified 03/29/24 14:05 Home Meds Home Medications Medication Instructions Recorded Confirmed multivit with min-folic 1 tab PO QAM 01/22/19 04/07/24 acid-lutein 400 mcg-250 mcg chewable tablet (Centrum Silver) aspirin 81 mg tablet,delayed 81 mg PO QAM 06/18/19 04/07/24 release (Adult Low Dose Aspirin) ferrous sulfate 325 mg (65 mg 325 mg PO QPM 10/30/20 04/07/24 iron) tablet cholecalciferol (vitamin D3) 25 500 mcg PO UD 12/12/22 04/07/24 mcg (1,000 unit) tablet (Vitamin D3) Colon Health 1 tab PO QAM 03/21/23 04/07/24 octreotide,microspheres 20 mg 40 mg IM Q30D 03/21/23 04/07/24 intramuscular susp, extended release (Sandostatin LAR Depot) cyanocobalamin (vitamin B-12) 1,000 mcg IM Q30D 03/24/23 04/07/24 1,000 mcg/mL injection solution Previous Rx's Medication Instructions Recorded blood-glucose meter #1 ea 06/20/20 atorvastatin 10 mg tablet 10 mg PO HS #90 tabs 04/30/23 blood sugar diagnostic #100 ea 07/09/23 tramadol 50 mg tablet 50 mg PO BID PRN Pain #60 tabs 08/14/23 pantoprazole 40 mg tablet,delayed 40 mg PO BID #180 tabs 08/18/23 release empagliflozin 10 mg tablet 10 mg PO QAM #30 tabs 09/04/23 (Jardiance) apixaban 5 mg tablet (Eliquis) 5 mg PO BID #60 tabs 10/01/23 lancets 30 gauge (Advocate Lancet) #200 ea 11/18/23 lidocaine HCl 4 % topical cream 1 applic topical TID PRN pain #60 12/25/23 (Aspercreme (lidocaine HCl)) grams sucralfate 1 gram tablet 1 g PO QID #120 tabs 12/30/23 losartan 25 mg tablet 25 mg PO QAM #30 tabs 03/22/24 furosemide 40 mg tablet 40 mg PO DAILY #90 tabs 04/01/24 metoprolol succinate 50 mg 50 mg PO DAILY #90 tabs 04/01/24 tablet,extended release 24 hr potassium chloride 20 mEq 20 meq PO DAILY #90 tabs 04/01/24 tablet,extended release(part/cryst) (Klor-Con M) Results & Data (ED) Vital Signs Vital Signs - 24 hr 04/07/24 11:43 04/07/24 12:13 04/07/24 12:31 Temperature 36.9 C Temperature Source Skin Pulse Rate 97 H 80 Pulse Rate [Right Brachial] 81 Pulse Rhythm [Right Brachial] Regular Pulse Strength [Right Brachial] Normal Respiratory Rate 20 18 Respiratory Effort / Characteristics Non-Labored Spontaneous Non-Labored Respiratory Depth Normal Normal Respiratory Pattern Regular Blood Pressure 127/83 Blood Pressure [Right Arm] 126/95 Blood Pressure Mean 97 Blood Pressure Mean [Right Arm] 105 Blood Pressure Position [Right Arm] Lying Pulse Oximetry 99 96 Oxygen Delivery Method Room Air Nasal Cannula Oxygen Flow Rate 2 Sepsis Recent Fever Within 48 Hours No Sepsis New/Unexplained Change in Mental Status No Sepsis Action Taken by Nursing No Action Required Laboratory Data 04/08/24 07:17 04/08/24 07:17 Lab Results 04/07/24 Range/Units 12:11 WBC 5.58 (4.8-10.8) K/ul RBC 4.47 L (4.70-6.10) M/uL Hgb 12.1 L (14.0-18.0) g/dl Hct 39.0 L (42.0-52.0) % MCV 87.2 (80.0-100.0) fL MCH 27.1 (25.0-34.0) pg MCHC 31.0 L (32.0-36.0) g/dL RDW Std Deviation 51.3 H (36.4-46.3) fL RDW Coeff of Paulo 16.0 H (11.5-14.5) % Plt Count 117 L (130-400) K/uL MPV 10.8 (9.4-12.4) fL Immature Gran % (Auto) 0.2 % Neut % (Auto) 68.3 % Lymph % (Auto) 18.8 % Jewell % (Auto) 10.8 % Eos % (Auto) 1.4 % Baso % (Auto) 0.5 % Neut # (Auto) 3.81 (1.40-6.50) K/uL Lymph # (Auto) 1.05 L (1.20-3.40) K/uL Jewell # (Auto) 0.60 H (0.11-0.59) K/uL Eos # (Auto) 0.08 (0.00-0.50) K/uL Baso # (Auto) 0.03 (0.00-0.20) K/uL Immature Gran # (Auto) 0.01 (0.01-0.20) K/uL PT 14.6 H (9.0-12.0) Seconds INR 1.4 H (0.9-1.1) Sodium 142 (136-145) mmol/L Potassium 3.8 (3.5-5.1) mmol/L Chloride 107 (98-107) mmol/L Carbon Dioxide 30 (21-32) mmol/L Anion Gap 5 (3-11) BUN 16 (6-23) mg/dl Creatinine 1.23 (0.6-1.4) mg/dl Est Cr Clr Drug Dosing 45.2 ml/min eGFR 60.84 BUN/Creatinine Ratio 13.0 (10-20) Glucose 145 H (70-99(Fasting)) mg/dl Calcium 8.7 (8.6-10.3) mg/dl Total Bilirubin 0.8 (0.2-1.0) mg/dl AST 17 (13-39) U/L ALT 12 (7-52) U/L Alkaline Phosphatase 92 (34-104) U/L Total Protein 7.6 (6.0-8.3) gm/dl Albumin 3.7 (3.4-5.0) gm/dl Globulin 3.9 (2.5-4.0) gm/dl Albumin/Globulin Ratio 0.9 (0.9-2) Administered Medications Acetaminophen (Acetaminophen 325 Mg Tab) 650 mg PO Q4H PRN PRN Reason: Pain or Fever Stop: 05/07/24 16:48 Last Admin: 04/08/24 22:03 Dose: 650 mg Documented By: Admin: 04/08/24 18:04 Dose: 650 mg Documented By: Admin: 04/08/24 08:28 Dose: 650 mg Documented By: [facility] Admin: 04/08/24 04:14 Dose: 650 mg Documented By: [facility] Admin: 04/07/24 22:01 Dose: 650 mg Documented By: [facility] Apixaban (Apixaban 5 Mg Tablet) 5 mg PO BID [facility] Stop: 05/07/24 20:59 Last Admin: 04/08/24 21:05 Dose: 5 mg Documented By: Admin: 04/08/24 08:29 Dose: 5 mg Documented By: [facility] Admin: 04/07/24 19:45 Dose: 5 mg Documented By: [facility] Aspirin (Aspirin 81 Mg Ectab) 81 mg PO [facility] Stop: 05/08/24 08:59 Last Admin: 04/08/24 08:29 Dose: 81 mg Documented By: [facility] Atorvastatin Calcium (Atorvastatin 10 Mg Tab) 10 mg PO [facility] Stop: 05/07/24 20:59 Last Admin: 04/08/24 21:05 Dose: 10 mg Documented By: Admin: 04/07/24 19:45 Dose: 10 mg Documented By: [facility] Empagliflozin (Empagliflozin 10 Mg Tab) 10 mg PO [facility] Stop: 05/08/24 08:59 Last Admin: 04/08/24 08:29 Dose: 10 mg Documented By: [facility] Ferrous Sulfate (Ferrous Sulfate 325 Mg Tab) 325 mg PO QPM ROBIN Stop: 05/07/24 20:59 Last Admin: 04/08/24 21:05 Dose: 325 mg Documented By: Admin: 04/07/24 19:45 Dose: 325 mg Documented By: [facility] Furosemide (Furosemide 40 Mg Tab) 40 mg PO DAILY [facility] Stop: 05/08/24 08:59 Last Admin: 04/08/24 08:29 Dose: 40 mg Documented By: [facility] Insulin Aspart (Insulin Aspart Per Unit Charge) 0 units SC ACHS ROBIN Stop: 05/07/24 16:29 Last Admin: 04/08/24 21:06 Dose: Not Given Documented By: [facility] Admin: 04/08/24 16:40 Dose: Not Given Documented By: [facility] Admin: 04/08/24 11:49 Dose: Not Given Documented By: [facility] Admin: 04/08/24 08:00 Dose: Not Given Documented By: [facility] Admin: 04/07/24 22:00 Dose: Not Given Documented By: [facility] Admin: 04/07/24 17:11 Dose: Not Given Documented By: Losartan Potassium (Losartan Potassium 25 Mg Tab) 25 mg PO QAM ROBIN Stop: 05/08/24 08:59 Last Admin: 04/08/24 09:26 Dose: Not Given Documented By: ROBERT Metoprolol Succinate (Metoprolol Succ 50mg Ext Rel Tab) 50 mg PO DAILY [facility] Stop: 05/08/24 08:59 Last Admin: 04/08/24 08:29 Dose: 50 mg Documented By: [facility] Morphine Sulfate (Morphine Sulfate 2 Mg/Ml Carp) 2 mg IV Q4H PRN PRN Reason: Pain, breakthrough Stop: 04/21/24 16:48 Last Admin: 04/08/24 22:03 Dose: 2 mg Documented By: [facility] Admin: 04/08/24 18:04 Dose: 2 mg Documented By: [facility] Admin: 04/08/24 08:28 Dose: 2 mg Documented By: [facility] Admin: 04/08/24 04:10 Dose: 2 mg Documented By: [facility] Admin: 04/07/24 22:00 Dose: 2 mg Documented By: [facility] Admin: 04/07/24 17:36 Dose: 2 mg Documented By: Pantoprazole Sodium (Pantoprazole 40 Mg Tab) 40 mg PO BID ROBIN Stop: 05/07/24 20:59 Last Admin: 04/08/24 21:04 Dose: 40 mg Documented By: [facility] Admin: 04/08/24 08:28 Dose: 40 mg Documented By: [facility] Admin: 04/07/24 19:44 Dose: 40 mg Documented By: [facility]I Potassium Chloride (Potassium Chloride Crtab 20 Meq Tabcr) 20 meq PO DAILY ROBIN Stop: 05/08/24 08:59 Last Admin: 04/08/24 08:59 Dose: 20 meq Documented By: ROBERT Sucralfate (Sucralfate 1 Gm Tab) 1 gm PO QID ROBIN Stop: 05/07/24 16:59 Last Admin: 04/08/24 21:04 Dose: 1 gm Documented By: TLBrandon Admin: 04/08/24 16:41 Dose: 1 gm Documented By: Admin: 04/08/24 13:28 Dose: 1 gm Documented By: Admin: 04/08/24 08:28 Dose: 1 gm Documented By: Admin: 04/07/24 19:44 Dose: 1 gm Documented By: [facility] Admin: 04/07/24 18:29 Dose: 1 gm Documented By: [facility] Discharge Plan Visit Data Chief Complaint: Referred by Doctor Stated Complaint: DOC REFERRAL ED Provider: Terrie Arnett Discharge Problem: Pneumothorax Patient Disposition: Admitted As Inpatient Discharge Instructions Interventions: ED Discharge Assessment Last Done: 04/07/24 16:54
[2024-04-07 12:44] LABS: Albumin Globulin Ratio 0.9 (0.9-2); Albumin Level 3.7 gm/dl (3.4-5.0); Bilirubin,Total 0.8 mg/dl (0.2-1.0); Calcium 8.7 mg/dl (8.6-10.3); Creatinine Clr Calc Pharmacy 45.2 ml/min; Globulin 3.9 gm/dl (2.5-4.0); Potassium 3.8 mmol/L (3.5-5.1); Total Protein 7.6 gm/dl (6.0-8.3)
[2024-04-07 12:59] LABS: INR 1.4 (0.9-1.1); Prothrombin Time 14.6 Seconds (9.0-12.0)
--- NOTE | 2024-04-07 13:19 | History & Physical Report ---
Date of Service April 07, 2024 Assessment & Plan (1) Pneumothorax: Plan: Pneumothorax Following thoracentesis 04/05 Chest x-ray: Large right-sided hydropneumothorax with mid leftward midline shift suggesting developing tension component S/p chest tube placement in the ER. Repeat chest x-ray pending. Fluid analysis pending Pulmonology consulted (2) Metastatic carcinoid tumor: Plan: History of metastatic carcinoid tumor S/p small bowel resection 2002, liver resection and RFA 2005 confirming metastatic carcinoid, relapse liver disease 2014 with 3 cycles of TASC with streptozotocin, clipped Delanois lesion 2022, disease progression noted on PET scan March 2023 and referred to liver cancer specialist at [facility] Dr. Wick who had recommended Lutathera treatment however this was delayed due to GI bleeding and complications and subsequently indefinitely on hold per patient preference since 10/2023 No evidence of pulmonary abnormalities on PET scan 2022. Multifocal uptake within the liver, enlarged portacaval/peripancreatic/periaortic lymph nodes was present. Cytology from 04/05/2024 Thoro: Negative for malignancy, histiocytes mesothelial cells and leukocytes noted (3) (HFpEF) heart failure with preserved ejection fraction: Plan: Bilateral pleural effusion, hx HFpEF With underlying heart failure preserved ejection fraction. S/p right-sided thoracentesis 04/18/2023 with 900 cc of lymphocytic fluid with rare atypical cells suspicious for reactive mesothelial cells was seen S/p chest tube placement. Fluid analysis pending, appears sanguinous bedside Continue diuretics, renal function is at baseline Continue Lasix, increase to twice daily Continue losartan Continue Jardiance Continue statin Continue aspirin. May resume Eliquis tonight. Continue low-sodium diet A-fib, history of type III heart block s/p pacemaker placement On Eliquis. Temporarily held around chest tube placement, may resume this evening S/p bioprosthetic AVR replacement with atrial clipping EKG on admission ventricular paced. No acute ischemic changes noted Eliquis continued (4) COPD with emphysema: Plan: COPD, mixed with restrictive lung dysfunction Gold class a Last PFTs 2022: FEV1 1.61 69%, FEV1/FVC ratio 77%, TLC 69%, FVC 63% Suspected to have obstructive disease with superimposed mild to moderate restrictive disease likely due to obesity/effusion [id number] former smoker, quit 2002 (5) Recurrent gastrointestinal hemorrhage: Plan: - Tolerating eliquis with no recent hematochezia, melena per pt (6) Diabetes mellitus: Plan: DM2 Continue Jardiance Goal BSG [id number] SGLT2 continued for both DM and heart failure SSI continued Heart healthy, type II DM diet Plan DVT prophylaxis: Anticoagulated Diet: Heart healthy/DM2 CODE STATUS: Full code Disposition: PCU post chest tube placement History of Present Illness Primary Care Provider: RONNY Wills Teddy Yang is a 74-year-old male with a past medical history of permanent atrial fibrillation, third-degree AV block s/p pacemaker placement, bioprosthetic aortic valve replacement with RIGO clipping 2018, hypertension, DM 2, hyperlipidemia, COPD with emphysema who presents on referral from pulmonology clinic for large pneumothorax. Patient found to have a large pneumothorax on outpatient chest x-ray. Patient recently underwent a thoracentesis for recurrent pleural effusion, on subsequent follow-up with his x-ray was found to have a large pneumothorax. Patient was discussed with pulmonology prior to arrival in the ER. On ER arrival patient had a chest tube placed and was admitted to medical telemetry for monitoring. Endorses history of GI bleeding but doesn't know when, and reports no problems recently. Shortness of breath for the last few weeks. After the tap breathing did seem much better, and could sleep comfortably. Does not feel it really got any worse since the tap. Denies chest pain and chest pressure No fever, chills, or sweats Denies dyspnea at bedside Medical History: Reviewed Medications: Reviewed Surgical History: Reviewed Family history: Reviewed Allergies: Reviewed Social History: Review Code Status: Code Allergies Allergy/AdvReac Type Severity Reaction Status Date / Time metformin Allergy Intermediate rash Verified 03/29/24 14:05 amoxicillin Allergy Unknown Unknown Verified 03/29/24 14:05 Cephalosporins AdvReac Intermediate Diarrhea Verified 03/29/24 14:05 codeine AdvReac Intermediate DIZZINESS, Verified 03/29/24 14:05 NAUSEA Penicillins AdvReac Mild Nausea Verified 03/29/24 14:05 Home Medications Medication Instructions Recorded Confirmed Type multivit with min-folic 1 tab PO QAM 01/22/19 04/07/24 History acid-lutein 400 mcg-250 mcg chewable tablet (Centrum Silver) aspirin 81 mg tablet,delayed 81 mg PO QAM 06/18/19 04/07/24 History release (Adult Low Dose Aspirin) blood-glucose meter #1 ea 06/20/20 03/29/24 Rx ferrous sulfate 325 mg (65 mg 325 mg PO QPM 10/30/20 04/07/24 History iron) tablet cholecalciferol (vitamin D3) 25 500 mcg PO UD 12/12/22 04/07/24 History mcg (1,000 unit) tablet (Vitamin D3) Colon Health 1 tab PO QAM 03/21/23 04/07/24 History octreotide,microspheres 20 mg 40 mg IM Q30D 03/21/23 04/07/24 History intramuscular susp, extended release (Sandostatin LAR Depot) cyanocobalamin (vitamin B-12) 1,000 mcg IM Q30D 03/24/23 04/07/24 History 1,000 mcg/mL injection solution atorvastatin 10 mg tablet 10 mg PO HS #90 tabs 04/30/23 04/07/24 Rx blood sugar diagnostic #100 ea 07/09/23 03/29/24 Rx tramadol 50 mg tablet 50 mg PO BID PRN Pain #60 tabs 08/14/23 04/07/24 Rx pantoprazole 40 mg tablet,delayed 40 mg PO BID #180 tabs 08/18/23 04/07/24 Rx release empagliflozin 10 mg tablet 10 mg PO QAM #30 tabs 09/04/23 04/07/24 Rx (Jardiance) apixaban 5 mg tablet (Eliquis) 5 mg PO BID #60 tabs 10/01/23 04/07/24 Rx lancets 30 gauge (Advocate Lancet) #200 ea 11/18/23 03/29/24 Rx lidocaine HCl 4 % topical cream 1 applic topical TID PRN pain #60 12/25/23 04/07/24 Rx (Aspercreme (lidocaine HCl)) grams sucralfate 1 gram tablet 1 g PO QID #120 tabs 12/30/23 04/07/24 Rx losartan 25 mg tablet 25 mg PO QAM #30 tabs 03/22/24 04/07/24 Rx furosemide 40 mg tablet 40 mg PO DAILY #90 tabs 04/01/24 04/07/24 Rx metoprolol succinate 50 mg 50 mg PO DAILY #90 tabs 04/01/24 04/07/24 Rx tablet,extended release 24 hr potassium chloride 20 mEq 20 meq PO DAILY #90 tabs 04/01/24 04/07/24 Rx tablet,extended release(part/cryst) (Brianne Taylor) Past Med/Surg History Problem List Metastatic carcinoid tumor (HFpEF) heart failure with preserved ejection fraction Pneumothorax (Acute) Hydropneumothorax Pleural effusion, bilateral Diarrhea Shingles Pain of left hip Viral illness Recurrent gastrointestinal hemorrhage Hyperlipidemia Hematochezia Gross hematuria Restrictive lung disease 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 Abnormal PFTs (pulmonary function tests) COPD with emphysema Acute blood loss anemia GI bleed (Acute) Bronchitis Right shoulder strain Eczema Calculus of distal left ureter Pacemaker Proteinuria due to type 2 diabetes mellitus Aortic valve replaced Dizziness Anemia Diabetes mellitus (Chronic) Postnasal drip Atrial fibrillation, permanent Decreased stamina (Chronic) Cardiac pacemaker (Chronic) Essential tremor (Chronic) Left bundle-branch block (Chronic) Vitamin D deficiency (Chronic) Lumbar radicular pain (Chronic) Lumbar spinal stenosis (Chronic) Hypertension (Chronic) Pleural effusion on right recurrent. s/p thoracentesis Rt side 04/18/23. [facility]. Right knee DJD Right knee pain Chronic low back pain Sensorineural hearing loss (SNHL) of both ears Chronic anticoagulation (Chronic) Dyslipidemia (Chronic) Chronic congestion of paranasal sinus (Acute) pt denies Third degree AV block (Chronic) Osteoarthritis (Chronic) Medical History Melena Elevated troponin Pleural effusion Blood in stool Black stools GERD (gastroesophageal reflux disease) History of colon cancer History of colon polyps Hypertension Atrial fibrillation Poor historian Spinal stenosis History of Mohs micrographic surgery for skin cancer Diabetes Tubular adenoma History of kidney stones History of stroke Bicuspid aortic valve Liver lesion 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 Supraventricular aortic stenosis History of malignant carcinoid tumor Aortic stenosis due to bicuspid aortic valve Aortic aneurysm Hearing deficit Cancer Transient ischemic attack (TIA) Surgical History History of esophagogastroduodenoscopy (EGD) Hx of cardiac catheterization History of removal of retained hardware S/P epidural steroid injection History of cystoscopy Status post aorto-coronary artery bypass graft Status post aortic valve replacement S/P aortic aneurysm repair Status post cardiac surgery History of carpal tunnel release History of arthroscopy History of surgery History of colonoscopy History of cholecystectomy Hx of resection of liver History of colectomy History of nasal septoplasty History of tooth extraction Pacemaker Family History Mother Family history of diabetes mellitus Diabetes Father Kidney disease Brother Valvular heart disease Heart disease Hearing loss Cancer Sister Ovarian cancer Cancer Family/Other Colorectal cancer Self Denies family history of Prostate cancer Myocardial infarction Breast cancer Social History Smoking Status: Former smoker Tobacco Type: Cigarettes Age Started Using Tobacco: 14; Age Quit Using Tobacco: 53; packs per day: 1; Cigarettes Per Day: 5 (13-14 years); Second Hand Exposure: No; Do You Dip or Chew Tobacco: No; Hx Alcohol Use: No Hx Substance Use: No Preferred Language: [place] Communication Ability: Effective Hearing Ability: Use of Hearing Aid Importer Or Exporter Required: No Beliefs That Will Affect Care: None marital status: Current Living Situation: Alone current occupational status: retired How many Children do You have: 1 Feels Safe at Home: Yes Childhood Exposure to Second-Hand Smoke: Yes Diet: regular caffeine: Yes Dental Care, Regularly: No Physical Activity Frequency: Daily Seatbelt Use: always Sunscreen Use: No Assistive Devices: Denture - Upper, Denture - Lower, Glasses and Hearing Aid - Bilateral Physical Exam Physical Exam: General: A&Ox3. NAD. Cooperative. HEENT: Atraumatic, normocephalic. Vision and hearing grossly intact Pulm: Diminished in the bases bilaterally. Symmetrical chest rise. No increased work of breathing. No respiratory distress. Right chest tube in place draining serosanguineous material. Cardiac: RRR, +soft sm. Radial pulses intact and symmetrical. Abdominal: Nontender, nondistended, soft. BS present. Results & Data Results & Data Vital Signs (Past 12 Hours) Vital Signs Temp Pulse Pulse Resp BP BP Pulse Ox 04/07/24 12:31 80 04/07/24 12:13 81 18 126/95 96 04/07/24 11:43 36.9 C 97 H 20 127/83 99 O2 Del Method O2 Flow Rate 04/07/24 12:31 04/07/24 12:13 Nasal Cannula 2 04/07/24 11:43 Room Air PG Care Time/CCT Total # of Minutes Spent Total Time Spent with Patient: Total time spent is greater than 50% in coordination of care (as documented) at patient's floor/unit and/or counseling patient: Coding Level of Care Code 94177 INT INP/OBS CARE 3/75MIN Diagnoses Pneumothorax J93.9 Metastatic carcinoid tumor C7B.00 (HFpEF) heart failure with preserved ejection fraction I50.30 Centrilobular emphysema J43.2 Emphysema type: centrilobular Recurrent gastrointestinal hemorrhage K92.2 Type 2 diabetes mellitus with other specified complication, without long-term current use of insulin E11.69 Diabetes mellitus complication status: with other specified complication Diabetes mellitus assistant terminal manager insulin use: without assistant terminal manager use Diabetes mellitus type: type 2 (4) COPD with emphysema Emphysema type: centrilobular Qualified Code(s): J43.2 - Centrilobular emphysema (6) Diabetes mellitus Diabetes mellitus complication status: with other specified complication Diabetes mellitus care home insulin use: without assistant terminal manager use Diabetes mellitus type: type 2 Qualified Code(s): E11.69 - Type 2 diabetes mellitus with other specified complication
[2024-04-07] MEDS ORDERED: GLUCOSE 40% GEL 15 GM TUBE PO PRN (13:57)
[2024-04-07] MEDS ORDERED: CARBOHYDRATES FOR HYPOGLYCEMIA PO PRN (13:57)
[2024-04-07] MEDS ORDERED: GLUCOSE 10 TAB/TUBE PO PRN (13:57)
[2024-04-07] MEDS ORDERED: DEXTROSE 50% 50 ML SYRINGE IV PRN (13:57)
[2024-04-07] MEDS ORDERED: GLUCAGON FOR INJ 1 MG VIAL SQ PRN (13:57)
--- NOTE | 2024-04-07 14:11 | Procedure Note ---
Procedure Note Date of Service April 07, 2024 Procedure: Pigtail chest tube insertion Canvas Repairer: Dr. Vitaliy Carlisle Indication: Right-sided large hydropneumothorax Consent: Signed by patient and verified with timeout prior to procedure Anesthesia: 1% lidocaine without epinephrine local Procedure: Consent was verified and timeout performed. Appropriate imaging studies were reviewed prior to the procedure. Patient was placed in a seated position. Appropriate site above the diaphragm on the right midaxillary line fourth intercostal space for chest tube insertion was selected. The skin was prepped and draped in normal sterile fashion. Lidocaine was used for local analgesia. Fluid was aspirated via the finder needle. A small skin tri was made with the scalpel and the catheter over the needle apparatus was advanced over the rib into the pleural space. With the help of guidewire and Seldinger technique, 14 Gren[place] pigtail catheter was inserted and connected to Pleur-evac. Bubbling of air was appreciated for less than 20 seconds on the Dari VAC Chest x-ray to follow Fluid was sent for labs and cytology The patient tolerated the procedure without obvious complication Complications: None Blood loss: Less than 2 cc. [facility] [place] Codes (Charges) Pulmonary/Thoracic Procedure 1: Pulmonary and Thoracic: 76377 Tube thoracostomy Procedure 3: Pulmonary and Thoracic: 44077 Pleural drainage w/o imaging Tubes, Drains, and Vasc Access Procedure 2: Tubes, Drains, and Vasc Access: [id number] Ultrasound Guidance For Vascular Coding CPT Codes Tubes, Drains, and Vasc Access - Tubes, Drains, and Vasc Access: [id number] Ultrasound Guidance For Vascular ([id number]) Pulmonary/Thoracic - Pulmonary and Thoracic: 61939 Tube thoracostomy ([id number]) Pulmonary/Thoracic - Pulmonary and Thoracic: 35744 Pleural drainage w/o imaging ([id number]) Additional Codes Date of Service ([facility].SURGERY)
--- NOTE | 2024-04-07 15:21 | XRay Report ---
SINGLE VIEW CHEST CLINICAL HISTORY: Pneumothorax with chest tube placement. FINDINGS: An AP, portable, upright chest radiograph is compared to study performed earlier the same d ay 04/07/2024. Correlation is made with chest CT dated 12/18/2023. A 2-lead cardiac pacemaker is unchan ged in position and partially obscures the left mid chest. The heart is enlarged noting atherosclerot ic calcification of the thoracic aorta. There is pulmonary vascular congestion. A chest tube has been placed at the right lung base. A right-sided pneumothorax has significantly decreased in size. There is approximately 1 cm of persistent apical pleural separation. The trachea is midline. Cervical fusi on from the superior mediastinum. There is a layering right pleural effusion with right basilar conso lidation. Atelectasis is noted at the left lung base. No pneumothorax is seen. The skeletal structure s are osteopenic. The bony thorax is grossly intact. A surgical clip projects over the stomach. IMPRESSION: 1. A right-sided chest tube has been placed as above, and there is a small residual right-sided hydro pneumothorax. This has significantly decreased in size from today's earlier examination. 2. Cardiomegaly and cardiac pacemaker with pulmonary vascular congestion. ACT 112: Negative or not required by law. Electronically signed by: Julio Sorto M.D. 04/07/2024 3:20 PM
--- NOTE | 2024-04-07 15:37 | Electrocardiogram Report ---
Test Reason : Blood Pressure : */* mmHG Vent. Rate : 80 BPM Atrial Rate : 76 BPM P-R Int : * ms QRS Dur : 174 ms QT Int : 452 ms P-R-T Axes : * -72 99 degrees QTcB Int : 521 ms Ventricular-paced rhythm Abnormal ECG When compared with ECG of 02-Sep-2023 12:33, Vent. rate has decreased by 5 bpm Confirmed by Ray Garcia ([id number]) on 04/07/2024 3:37:33 PM Referred By: Confirmed By: Ray Garcia
--- NOTE | 2024-04-07 16:19 | Pulmonary Consultation ---
Date of Consultation April 07, 2024 Assessment & Plan (1) (HFpEF) heart failure with preserved ejection fraction: (2) Hydropneumothorax: (3) Pleural effusion, bilateral: (4) COPD with emphysema: Emphysema type: centrilobular Qualified Code(s): J43.2 - Centrilobular emphysema (5) Restrictive lung disease: (6) Atrial fibrillation, permanent: Plan PFT 04/08/2023 personally reviewed: Mild to moderate restrictive lung dysfunction, air trapping, no obstruction, insignificant bronchodilator response, normal DLCO FVC 2.08 L 63%, FEV1 1.61 L 69%, FEV1/FVC 77%, ERV 10%, RV 85%, TLC 69%, RV/TLC 124%, DLCO 82% -- Right-sided hydropneumothorax Iatrogenic s/p thoracentesis Pigtail catheter placed 04/07/2024 --Bilateral pleural effusion Likely HFpEF playing a part S/p right-sided thoracentesis 04/18/2023, 900 mL lymphocytic fluid, cytology showing rare atypical cells consistent with reactive mesothelial cells Repeat right-sided thoracentesis 04/05/2024, 1500 ml transudative, lymphocytic, cytology negative for malignancy Lymphocytic cells could be present because of chronic effusion that the patient had. 2D echo 04/01/2024: EF 50-55 %, moderate concentric LVH, mildly dilated RV with reduced systolic function, RVSP 36 mmHg, moderate to severe TR CT chest 01/08/2023 personally reviewed: Bilateral pleural effusion, Moderate on the right, small on the left Centrilobular emphysema appreciated bilaterally Compression atelectasis of the right lower lobe No significant mediastinal lymphadenopathy --Pulmonary hypertension Likely type II Plan as per cardiology -- COPD with emphysema Gold class A Only on albuterol inhaler right now. 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 Send the fluid back for labs and cytology Case was discussed with primary team at bedside Please note the above document was generated using voice recognition software. It may contain grammatical, syntax or spelling errors.Any formal questions or concerns about the content, text or information contained within the body of this dictation should be directly addressed to the provider for clarification. 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 Patient was supposed to have repeat chest x-ray done I see his initial chest x- ray postthoracentesis showed small pneumothorax. Patient's and daughter was in the room at the time of examination. He stated that his breathing was getting worse compared to his baseline Denied any significant cough. No chest pain No headache, no blurry vision No fever or chills No night sweats, no unintentional weight loss He did take his Eliquis today Social history: Approximately [id number] smoking history, quit in 2002, no alcohol, denies any illicit drug use. 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 Pets: Has a dog at home. No birds or poultry nearby Allergies: Seasonal Asthma: No personal or family history of asthma Lung cancer: No history of lung cancer in the family Allergies Allergy/AdvReac Type Severity Reaction Status Date / Time metformin Allergy Intermediate rash Verified 03/29/24 14:05 amoxicillin Allergy Unknown Unknown Verified 03/29/24 14:05 Cephalosporins AdvReac Intermediate Diarrhea Verified 03/29/24 14:05 codeine AdvReac Intermediate DIZZINESS, Verified 03/29/24 14:05 NAUSEA Penicillins AdvReac Mild Nausea Verified 03/29/24 14:05 Home Medications Medication Instructions Recorded Confirmed Type multivit with min-folic 1 tab PO QAM 01/22/19 04/07/24 History acid-lutein 400 mcg-250 mcg chewable tablet (Centrum Silver) aspirin 81 mg tablet,delayed 81 mg PO QAM 06/18/19 04/07/24 History release (Adult Low Dose Aspirin) blood-glucose meter #1 ea 06/20/20 03/29/24 Rx ferrous sulfate 325 mg (65 mg 325 mg PO QPM 10/30/20 04/07/24 History iron) tablet cholecalciferol (vitamin D3) 25 500 mcg PO UD 12/12/22 04/07/24 History mcg (1,000 unit) tablet (Vitamin D3) Colon Health 1 tab PO QAM 03/21/23 04/07/24 History octreotide,microspheres 20 mg 40 mg IM Q30D 03/21/23 04/07/24 History intramuscular susp, extended release (Sandostatin LAR Depot) cyanocobalamin (vitamin B-12) 1,000 mcg IM Q30D 03/24/23 04/07/24 History 1,000 mcg/mL injection solution atorvastatin 10 mg tablet 10 mg PO HS #90 tabs 04/30/23 04/07/24 Rx blood sugar diagnostic #100 ea 07/09/23 03/29/24 Rx tramadol 50 mg tablet 50 mg PO BID PRN Pain #60 tabs 08/14/23 04/07/24 Rx pantoprazole 40 mg tablet,delayed 40 mg PO BID #180 tabs 08/18/23 04/07/24 Rx release empagliflozin 10 mg tablet 10 mg PO QAM #30 tabs 09/04/23 04/07/24 Rx (Jardiance) apixaban 5 mg tablet (Eliquis) 5 mg PO BID #60 tabs 10/01/23 04/07/24 Rx lancets 30 gauge (Advocate Lancet) #200 ea 11/18/23 03/29/24 Rx lidocaine HCl 4 % topical cream 1 applic topical TID PRN pain #60 12/25/23 04/07/24 Rx (Aspercreme (lidocaine HCl)) grams sucralfate 1 gram tablet 1 g PO QID #120 tabs 12/30/23 04/07/24 Rx losartan 25 mg tablet 25 mg PO QAM #30 tabs 03/22/24 04/07/24 Rx furosemide 40 mg tablet 40 mg PO DAILY #90 tabs 04/01/24 04/07/24 Rx metoprolol succinate 50 mg 50 mg PO DAILY #90 tabs 04/01/24 04/07/24 Rx tablet,extended release 24 hr potassium chloride 20 mEq 20 meq PO DAILY #90 tabs 04/01/24 04/07/24 Rx tablet,extended release(part/cryst) (Brianne Taylor) Patient History Medical History Melena Elevated troponin Pleural effusion Blood in stool Black stools GERD (gastroesophageal reflux disease) History of colon cancer History of colon polyps Hypertension Atrial fibrillation Poor historian Spinal stenosis History of Mohs micrographic surgery for skin cancer Diabetes Tubular adenoma History of kidney stones History of stroke Bicuspid aortic valve Liver lesion 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 Supraventricular aortic stenosis History of malignant carcinoid tumor Aortic stenosis due to bicuspid aortic valve Aortic aneurysm Hearing deficit Cancer Transient ischemic attack (TIA) Surgical History History of esophagogastroduodenoscopy (EGD) Hx of cardiac catheterization History of removal of retained hardware S/P epidural steroid injection History of cystoscopy Status post aorto-coronary artery bypass graft Status post aortic valve replacement S/P aortic aneurysm repair Status post cardiac surgery History of carpal tunnel release History of arthroscopy History of surgery History of colonoscopy History of cholecystectomy Hx of resection of liver History of colectomy History of nasal septoplasty History of tooth extraction Pacemaker Family History Mother Family history of diabetes mellitus Diabetes Father Kidney disease Brother Valvular heart disease Heart disease Hearing loss Cancer Sister Ovarian cancer Cancer Family/Other Colorectal cancer Self Denies family history of Prostate cancer Myocardial infarction Breast cancer Social History Smoking Status: Never smoker Tobacco Type: Cigarettes Age Started Using Tobacco: 14; Age Quit Using Tobacco: 53; packs per day: 1; Second Hand Exposure: No; Do You Dip or Chew Tobacco: No; Hx Alcohol Use: No Hx Substance Use: No Preferred Language: German Communication Ability: Effective Hearing Ability: Use of Hearing Aid [employer] Required: No Beliefs That Will Affect Care: None marital status: Current Living Situation: Spouse current occupational status: retired How many Children do You have: 1 Feels Safe at Home: Yes Childhood Exposure to Second-Hand Smoke: Yes Diet: regular caffeine: Yes Dental Care, Regularly: No Physical Activity Frequency: Daily Seatbelt Use: always Sunscreen Use: No Assistive Devices: None Review of Systems 2 Review of Systems: All systems reviewed & are unremarkable except as noted in HPI & below Physical Exam 2 Physical Exam: Constitutional: No acute distress HEENT: EOMI, PERRLA Respiratory system: Decreased air entry bilaterally, more decreased on the right, no wheeze, no rhonchi, mild crackles bilateral lower lung CVS: S1-S2 positive, no murmurs or gallops, prosthetic heart sounds Abdomen: Soft, nontender, nondistended, positive bowel sounds x4 Extremities: +2 pulses bilaterally radialis, no cyanosis, +2 pitting edema bilateral lower extremity Neuro: Awake alert oriented x3 Psych: Normal mood and affect Skin: no rashes, warm and dry Lymphatic: no cervical or axillary lymphadenopathy Results & Data Results & Data Vital Signs (Past 12 Hours) Vital Signs Temp Pulse Pulse Resp BP BP Pulse Ox 04/07/24 12:31 80 04/07/24 12:13 81 18 126/95 96 04/07/24 11:43 36.9 C 97 H 20 127/83 99 O2 Del Method O2 Flow Rate 04/07/24 12:31 04/07/24 12:13 Nasal Cannula 2 04/07/24 11:43 Room Air Laboratory Results 04/07/24 12:11 04/07/24 12:11 PG Care Time/CCT Total # of Minutes Spent Total Time Spent with Patient: Total time spent is greater than 50% in coordination of care (as documented) at patient's floor/unit and/or counseling patient: Coding Level of Care Code 94770 INT INP/OBS CARE 375MIN Diagnoses (HFpEF) heart failure with preserved ejection fraction I50.30 Hydropneumothorax J94.8 Pleural effusion, bilateral J90 Centrilobular emphysema J43.2 Emphysema type: centrilobular Restrictive lung disease J98.4 Atrial fibrillation, permanent I48.21
[2024-04-07] MEDS: INSULIN ASPART PER UNIT CHARGE SC SCH (17:11)
[2024-04-07] MEDS: MoRPHine SULFATE 2 MG/ML CARP IV PRN (17:36)
[2024-04-07] MEDS: SUCRALFATE 1 GM TAB PO SCH (18:29)
[2024-04-07 19:25] LABS: Appearance Pleural Fluid Bloody; Color Pleural Fluid Red; Eosinophils, Fluid 1 %; Lymphocytes, Fluid 48 %; Mono,Macrophage,Mesothelial 10 %; Neutrophils, Fluid 41 %; RBC Pleural Fluid Auto 345000 /uL; Source Pleural Fluid Right Lung; WBC Pleural Fluid Auto 826 /uL
[2024-04-07 19:32] LABS: Total Protein Pleural Fluid 3.7 gm/dl
[2024-04-07] MEDS: PANTOprazole 40 MG TAB PO SCH (19:44)
[2024-04-07] MEDS: ATORVASTATIN 10 MG TAB PO SCH (19:45)
[2024-04-07] MEDS: FERROUS SULFATE 325 MG TAB PO SCH (19:45)
[2024-04-07] MEDS: APIXABAN 5 MG TABLET PO SCH (19:45)
[2024-04-07] MEDS: ACETAMINOPHEN 325 MG TAB PO PRN (22:01)
--- NOTE | 2024-04-08 07:24 | XRay Report ---
SINGLE VIEW CHEST CLINICAL HISTORY: Follow-up pneumothorax with chest tube. FINDINGS: An AP, portable, upright chest radiograph is compared to studies dated 04/07/2024. Correlati on is made with chest CT dated 12/18/2023. A 2-lead cardiac pacemaker is unchanged in position and par tially obscures the left mid chest. The heart is enlarged noting atherosclerotic calcification of the thoracic aorta. The pulmonary vasculature is not congested. A chest tube at the right lung base is u nchanged in position. A right-sided pneumothorax is again seen. The amount of pleural fluid at the [facility] lung base has decreased from yesterday, while the component of pneumothorax has modestly increase d in size The trachea is midline. Surgical clips project over the superior mediastinum. There is pers istent consolidation at the right lung base. Atelectasis is noted at the left lung base. No pneumotho rax is seen on the left. The skeletal structures are osteopenic. The bony thorax is grossly intact. A surgical clip projects over the stomach. IMPRESSION: 1. A right-sided chest tube is unchanged in position. Right-sided hydropneumothorax is again noted. T he volume of pleural fluid has decreased, while the component of pneumothorax has modestly increased from yesterday. 2. Cardiomegaly and cardiac pacemaker without radiographic evidence of congestive failure. ACT 112: Negative or not required by law. Electronically signed by: Julio Sorto M.D. 04/08/2024 7:23 AM
[2024-04-08 08:01] LABS: Basophils # (auto) 0.04 K/uL (0.00-0.20); Basophils % (auto) 0.7 %; Eosinophils # (auto) 0.09 K/uL (0.00-0.50); Eosinophils % (auto) 1.6 %; Hematocrit (blood only) 38.1 % (42.0-52.0); Hemoglobin 11.8 g/dl (14.0-18.0); Immature Granulocytes # (auto) 0.01 K/uL (0.01-0.20); Immature Granulocytes % (auto) 0.2 %; Lymphocytes # (auto) 1.47 K/uL (1.20-3.40); Lymphocytes % (auto) 25.4 %; Mean Corpuscular Hemoglobin 27.1 pg (25.0-34.0); Mean Corpuscular Volume 87.4 fL (80.0-100.0); Mean Platelet Volume 10.7 fL (9.4-12.4); Monocytes # (auto) 0.73 K/uL (0.11-0.59); Monocytes % (auto) 12.6 %; Neutrophils # (auto) 3.44 K/uL (1.40-6.50); Neutrophils % (auto) 59.5 %; Platelet Count 104 K/uL (130-400); RDW Coefficient of Variation 15.9 % (11.5-14.5); RDW Standard Deviation 51.1 fL (36.4-46.3); Red Blood Count 4.36 M/uL (4.70-6.10); White Blood Count 5.78 K/ul (4.8-10.8)
[2024-04-08 08:25] LABS: BUN Creatinine Ratio 17.7 (10-20); Calcium 8.5 mg/dl (8.6-10.3); Creatinine Clr Calc Pharmacy 49.2 ml/min; Potassium 3.8 mmol/L (3.5-5.1)
[2024-04-08] MEDS: EMPAGLIFLOZIN 10 MG TAB PO SCH (08:29)
[2024-04-08] MEDS: ASPIRIN 81 MG ECTAB PO SCH (08:29)
[2024-04-08] MEDS: METOPROLOL SUCC 50MG EXT REL TAB PO SCH (08:29)
[2024-04-08] MEDS: FUROSEMIDE 40 MG TAB PO SCH (08:29)
--- NOTE | 2024-04-08 08:57 | Pulmonology Progress Note ---
Date of Service April 08, 2024 Assessment & Plan (1) (HFpEF) heart failure with preserved ejection fraction: (2) Hydropneumothorax: (3) Pleural effusion, bilateral: (4) COPD with emphysema: Emphysema type: centrilobular Qualified Code(s): J43.2 - Centrilobular emphysema (5) Restrictive lung disease: (6) Atrial fibrillation, permanent: Plan PFT 04/08/2023 personally reviewed: Mild to moderate restrictive lung dysfunction, air trapping, no obstruction, insignificant bronchodilator response, normal DLCO FVC 2.08 L 63%, FEV1 1.61 L 69%, FEV1/FVC 77%, ERV 10%, RV 85%, TLC 69%, RV/TLC 124%, DLCO 82% -- Right-sided hydropneumothorax Iatrogenic s/p thoracentesis Pigtail catheter placed 04/07/2024 Near complete resolution of significant pleural fluid present. Output of 1500 mL since placement. Residual pneumo present with +1-2 air leak with forced cough. Occasional +1 leak noted with normal respiration. Likely representing more of a trapped lung pattern in a patient with recurrent pleural effusion. --Bilateral pleural effusion Likely HFpEF playing a part S/p right-sided thoracentesis 04/18/2023, 900 mL lymphocytic fluid, cytology showing rare atypical cells consistent with reactive mesothelial cells Repeat right-sided thoracentesis 04/05/2024, 1500 ml transudative, lymphocytic, cytology negative for malignancy Lymphocytic cells could be present because of chronic effusion that the patient had. 2D echo 04/01/2024: EF 50-55 %, moderate concentric LVH, mildly dilated RV with reduced systolic function, RVSP 36 mmHg, moderate to severe TR CT chest 01/08/2023 personally reviewed: Bilateral pleural effusion, Moderate on the right, small on the left Centrilobular emphysema appreciated bilaterally Compression atelectasis of the right lower lobe No significant mediastinal lymphadenopathy --Pulmonary hypertension Likely type II Plan as per cardiology -- COPD with emphysema Gold class A Only on albuterol inhaler right now. Continue with the same regimen --Restrictive lung dysfunction TLC 69%, FVC 63%, DLCO 82% Likely from pleural effusion that he had when he had the PFT done Obesity also playing a role -- Metastatic carcinoid tumor S/p ablation, relapse March 2023 Following up with oncology I do not see any signs of carcinoid in the lungs on the latest CAT scan of the chest 12/2022 -- Ex-smoker [id number] smoking history Quit in 2002 Encouraged to continue abstinence from smoking --S/p bioprosthetic aortic valve replacement 2018 -- A-fib s/p permanent pacemaker On [facility] Admission and Anticipated Discharge Date Admission Date: April 07, 2024 Supervising Physician Co-Signing Physician Notes I saw and evaluated the patient with Pato Barlow PA-C, MBA, and agree with findings and plan as documented in the note. Patient seen and examined at bedside. No acute distress, no adverse events overnight Patient did drain approximately 1600 mL of serosanguineous fluid. Cytology was negative again Unfortunately patient is still having +1-week intermittent while on suction Denies any chest pain, shortness of breath is improved No nausea vomiting Fair appetite Constitutional: No acute distress HEENT: EOMI, PERRLA Respiratory system: Decreased air entry bilaterally, no wheeze, no rhonchi, mild crackles bilateral lower lung CVS: S1-S2 positive, no murmurs or gallops, prosthetic heart sounds Abdomen: Soft, nontender, nondistended, positive bowel sounds x4 Extremities: +2 pulses bilaterally radialis, no cyanosis, +2 pitting edema bilateral lower extremity Neuro: Awake alert oriented x3 Psych: Normal mood and affect Plan: Unfortunately there is +1 intermittent leak appreciated from the chest tube Chest x-ray today shows significant improvement in pleural effusion I think there is a component of pneumothorax ex vacuo Pleural fluid with moderate amounts of blood. Cytology negative Continue pain control as you are. Anticipate additional 24 hours at least with chest tube in place. Please note the above document was generated using voice recognition software. It may contain grammatical, syntax or spelling errors.Any formal questions or concerns about the content, text or information contained within the body of this dictation should be directly addressed to the provider for clarification. Subjective Patient seen and evaluated at bedside. Reports that he is having some discomfort at the site of chest tube placement. Otherwise, no complaints of shortness of breath, hemoptysis, or significant pleuritic discomfort. Patient had a relatively uneventful night otherwise. He is doing well on room air alone. Review of Systems 2 Review of Systems: Unchanged from admission. Physical Exam 2 Physical Exam: VITAL SIGNS Vital signs and nursing notes were reviewed. GENERAL 74-year-old male appearing his stated age who is in no acute distress. Communicates well with provider and answers questions appropriately. SKIN RIGHT sided chest tube in place. Dressing clean, dry, and intact. NOSE Midline and without cyanosis. No epistaxis or purulent drainage noted. MOUTH/OROPHARYNX Without perioral cyanosis. Buccal mucosa pink and moist and without leukoplakia or thrush. LUNGS Chest wall evaluation demonstrates normal chest wall A:P diameter. Auscultation reveals clear breath sounds on the LEFT with slightly diminished breath sounds on the RIGHT. No wheezing noted. CARDIAC RRR with S1/S2. No murmur, rubs, or gallops appreciated. ABDOMEN Abdominal inspection demonstrates a flat abdomen. BS normoactive all four quadrants. No tenderness, palpable masses, or ascites noted. EXTREMITIES Nail clubbing not present. No peripheral cyanosis. No pretibial edema present. +3/5 radial palpated throughout. PSYCH A&Ox3 and cooperates fully with examiner. Pt is very pleasant and interacts well with examiner. Skin: no rashes, warm and dry Lymphatic: no cervical or axillary lymphadenopathy Results & Data Results & Data Vital Signs (Past 12 Hours) Vital Signs Temp Pulse Pulse Resp BP Pulse Ox O2 Del Method 04/08/24 07:46 36.5 C 98 H 20 103/71 96 Room Air 04/08/24 03:06 36.3 C L 80 16 99/64 L 95 Room Air 04/07/24 22:52 36.6 C 78 16 99/63 L 95 Room Air 04/07/24 21:51 80 Laboratory Results 04/08/24 07:17 04/08/24 07:17 PG Care Time/CCT Total # of Minutes Spent Total Time Spent with Patient: Total time spent is greater than 50% in coordination of care (as documented) at patient's floor/unit and/or counseling patient: Coding Level of Care Code 34246 SUB INP/OBS CARE 2/35MIN Diagnoses (HFpEF) heart failure with preserved ejection fraction I50.30 Hydropneumothorax J94.8 Pleural effusion, bilateral J90 Centrilobular emphysema J43.2 Emphysema type: centrilobular Restrictive lung disease J98.4 Atrial fibrillation, permanent I48.21
[2024-04-08] MEDS: POTASSIUM CHLORIDE CRTAB 20 MEQ TABCR PO SCH (08:59)
[2024-04-08] MEDS: LOSARTAN POTASSIUM 25 MG TAB PO SCH (09:26)
--- NOTE | 2024-04-08 15:54 | Hospitalist Progress Note ---
Date of Service April 08, 2024 Assessment & Plan (1) Pneumothorax: Plan: Hydropneumothorax Dalonev hydropneumothorax following thoracentesis 04/05.. Chest x-ray: Large right-sided hydropneumothorax with mid leftward midline shift suggesting developing tension component S/p chest tube placement 04/07/2024 repeat chest x-ray with dramatic improvement. approximately 1500 cc of serosanguineous output overnight. Seen by pulmonology. Airleak is appreciated. Commend monitoring for at least another 24 hours with chest tube in place. Appreciate recommendations Prior fluid analysis was transudative. 04/07 Initial fluid analysis with serum protein7.6, serum LDH 171, pleural protein 3.7, pleural LDH 378 with a bloody appearance suggestive of exudative effusion by lights. Pathology without evidence of malignant cells. No significant change clinically in breathing status, patient has no dyspnea/difficulty breathing at bedside assessment (2) Metastatic carcinoid tumor: Plan: History of metastatic carcinoid tumor S/p small bowel resection 2002, liver resection and RFA 2005 confirming metastatic carcinoid, relapse liver disease 2014 with 3 cycles of TASC with streptozotocin, clipped [place] lesion 2022, disease progression noted on PET scan March 2023 and referred to liver cancer specialist at [facility] Dr. Wick who had recommended Lutathera treatment however this was delayed due to GI bleeding and complications and subsequently indefinitely on hold per patient preference since 10/2023 No evidence of pulmonary abnormalities on PET scan 2022. Multifocal uptake within the liver, enlarged portacaval/peripancreatic/periaortic lymph nodes was present. Cytology from 04/05/2024 Thoro: Negative for malignancy, histiocytes mesothelial cells and leukocytes noted Cytology 04/07/2024 without evidence of malignancy (3) (HFpEF) heart failure with preserved ejection fraction: Plan: Bilateral pleural effusion, hx HFpEF With underlying heart failure preserved ejection fraction. S/p right-sided thoracentesis 04/18/2023 with 900 cc of lymphocytic fluid with rare atypical cells suspicious for reactive mesothelial cells was seen S/p chest tube placement. Fluid analysis pending, appears sanguinous bedside Continue diuretics, renal function is at baseline Continue Lasix, increase to twice daily Continue losartan Continue Jardiance Continue statin Continue aspirin. May resume Eliquis tonight. Continue low-sodium diet A-fib, history of type III heart block s/p pacemaker placement On Eliquis. Temporarily held around chest tube placement, may resume this evening S/p bioprosthetic AVR replacement with atrial clipping EKG on admission ventricular paced. No acute ischemic changes noted Eliquis continued (4) COPD with emphysema: Plan: COPD, mixed with restrictive lung dysfunction Gold class a Last PFTs 2022: FEV1 1.61 69%, FEV1/FVC ratio 77%, TLC 69%, FVC 63% Suspected to have obstructive disease with superimposed mild to moderate restrictive disease likely due to obesity/effusion [id number] former smoker, quit 2002 Continue albuterol (5) Recurrent gastrointestinal hemorrhage: Plan: - Tolerating eliquis with no recent hematochezia, melena per pt (6) Diabetes mellitus: Plan: DM2 Continue Jardiance Goal BSG [id number] SGLT2 continued for both DM and heart failure SSI continued Heart healthy, type II DM diet Plan DVT prophylaxis: Anticoagulated Diet: Heart healthy/DM2 CODE STATUS: Full code Disposition: PCU post chest tube placement Admission and Anticipated Discharge Date Admission Date: April 07, 2024 Subjective Seen at the bedside on reevaluation in the morning. Reports that he feels pretty much unchanged since when he came in other than some mild pain at his right flank where the chest tube was inserted. Denies shortness of breath, difficulty breathing, chest pain, chest pressure. Does not feel his breathing has significantly improved or worsened. No fevers chills or sweats. Physical Exam Physical Exam: General: A&Ox3. NAD. Cooperative. HEENT: Atraumatic, normocephalic. Vision and hearing grossly intact Pulm: CTAB A&P. -wheezes, -rales, -rhonchi. Symmetrical chest rise. No increased work of breathing. No respiratory distress. Right chest tube is in place right- sided chest tube in place draining serosanguineous material, or nursing approximately 1.5 L since placement. Cardiac: RRR, -mrg. Radial pulses intact and symmetrical. Abdominal: Nontender, nondistended, soft. BS present. Extremities: Bilateral mild pitting edema Results & Data Results & Data Vital Signs (Past 12 Hours) Vital Signs Temp Pulse Pulse Resp BP Pulse Ox O2 Del Method 04/08/24 11:01 36.6 C 76 20 119/74 98 Room Air 04/08/24 08:28 Room Air 04/08/24 07:46 36.5 C 98 H 20 103/71 96 Room Air 04/08/24 07:15 80 PG Care Time/CCT Total # of Minutes Spent Total Time Spent with Patient: Total time spent is greater than 50% in coordination of care (as documented) at patient's floor/unit and/or counseling patient: Coding Level of Care Code 10244 SUB INP/OBS CARE 3/50MIN Diagnoses Pneumothorax J93.9 Metastatic carcinoid tumor C7B.00 (HFpEF) heart failure with preserved ejection fraction I50.30 Centrilobular emphysema J43.2 Emphysema type: centrilobular Recurrent gastrointestinal hemorrhage K92.2 Type 2 diabetes mellitus with other specified complication, without long-term current use of insulin E11.69 Diabetes mellitus type: type 2 Diabetes mellitus [facility] insulin use: without [facility] use Diabetes mellitus complication status: with other specified complication (4) COPD with emphysema Emphysema type: centrilobular Qualified Code(s): J43.2 - Centrilobular emphysema (6) Diabetes mellitus Diabetes mellitus type: type 2 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
--- NOTE | 2024-04-09 07:06 | XRay Report ---
XR chest 1V portable HISTORY: 74 years-old Male f/u acute shortness of breath COMPARISON: 04/08/2024 TECHNIQUE: AP view the chest FINDINGS: Right-sided pleural catheter again noted, slightly more lateral than yesterday's study. Small pleural effusions with bibasilar atelectasis. Pulmonary vascular congestion. Cardiomegaly with left atrial e xclusion device. Dual lead left subclavian pacer. Bones appear grossly intact. Trace right-sided pneu mothorax with pleural separation 9 mm, similar to yesterday's study. The degree of lateral pleural se paration has improved. IMPRESSION: Right-sided hydropneumothorax with right-sided pleural catheter in place, stable to slightly decrease d in size. ACT 112: Negative or not required by law. The above report was generated using voice recognition software. It may contain grammatical, syntax o r spelling errors. Electronically signed by: Zeke Brunner M.D. 04/09/2024 7:05 AM
--- NOTE | 2024-04-09 07:50 | Hospitalist Progress Note ---
Date of Service April 09, 2024 Assessment & Plan (1) Pneumothorax: Plan: Hydropneumothorax Developed hydropneumothorax following thoracentesis 04/05.. Chest x-ray: Large right-sided hydropneumothorax with mid leftward midline shift suggesting developing tension component S/p chest tube placement 04/07/2024 repeat chest x-ray with dramatic improvement. approximately 1500 cc of serosanguineous output overnight. Seen by pulmonology. Airleak is appreciated. Commend monitoring for at least another 24 hours with chest tube in place. Appreciate recommendations Prior fluid analysis was transudative. 04/07 Initial fluid analysis with serum protein7.6, serum LDH 171, pleural protein 3.7, pleural LDH 378 with a bloody appearance suggestive of exudative effusion by lights. Pathology without evidence of malignant cells. . Was for status stable and patient is comfortable, nontoxic however continues to have an air leak and requires ongoing inpatient monitoring Repeat x-ray 04/09 with trace right-sided pneumothorax. Greatly improved from admitting exam but with residual 9 mm of pleural separation similar to prior.. Appreciate pulmonology recommendations No leukocytosis (2) Metastatic carcinoid tumor: Plan: History of metastatic carcinoid tumor S/p small bowel resection 2002, liver resection and RFA 2005 confirming metastatic carcinoid, relapse liver disease 2014 with 3 cycles of TASC with streptozocin, clipped [place] lesion 2022, disease progression noted on PET scan March 2023 and referred to liver cancer specialist at [facility] Dr. Wick who had recommended Lutathera treatment however this was delayed due to GI bleeding and complications and subsequently indefinitely on hold per patient preference since 10/2023 No evidence of pulmonary abnormalities on PET scan 2022. Multifocal uptake within the liver, enlarged portacaval/peripancreatic/periaortic lymph nodes was present. Cytology from 04/05/2024 Thoro: Negative for malignancy, histiocytes mesothelial cells and leukocytes noted Cytology 04/07/2024 without evidence of malignancy Patient was due for Sandostatin 04/09/2024 has not been able to receive this due to being inpatient. He has had increasingly loose bowel movements while hospitalized which has been an issue due to his metastatic carcinoid tumor towards his dosing interval and becomes very symptomatic with this. Patient and family are highly concerned and would like him to receive his IM shot while inpatient if at all possible. Requested from pharmacy as nonformulary as only IM/SQ is available. Additionally as patient has been having 4 bowel movements per day, loose with a family exposure to C. difficile will test for C. difficile prior to giving Imodium. (3) (HFpEF) heart failure with preserved ejection fraction: Plan: Bilateral pleural effusion, hx HFpEF With underlying heart failure preserved ejection fraction. S/p right-sided thoracentesis 04/18/2023 with 900 cc of lymphocytic fluid with rare atypical cells suspicious for reactive mesothelial cells was seen S/p chest tube placement. Fluid analysis pending, appears sanguinous bedside Continue diuretics, renal function is at baseline Continue Lasix. Creatinine today Continue losartan Continue Jardiance Continue statin Continue aspirin. Continue Eliquis Continue low-sodium diet A-fib, history of type III heart block s/p pacemaker placement On Eliquis. Temporarily held around chest tube placement, subsequently resumed S/p bioprosthetic AVR replacement with atrial clipping EKG on admission ventricular paced. No acute ischemic changes noted (4) COPD with emphysema: Plan: COPD, mixed with restrictive lung dysfunction Gold class a Last PFTs 2022: FEV1 1.61 69%, FEV1/FVC ratio 77%, TLC 69%, FVC 63% Suspected to have obstructive disease with superimposed mild to moderate restrictive disease likely due to obesity/effusion [id number] former smoker, quit 2002 Continue albuterol (5) Recurrent gastrointestinal hemorrhage: Plan: - Tolerating eliquis with no recent hematochezia, melena per pt (6) Diabetes mellitus: Plan: DM2 Continue Jardiance Goal BSG [id number] SGLT2 continued for both DM and heart failure SSI continued Heart healthy, type II DM diet Plan DVT prophylaxis: Anticoagulated Diet: Heart healthy/DM2 CODE STATUS: Full code Disposition: PCU post chest tube placement Admission and Anticipated Discharge Date Admission Date: April 07, 2024 Subjective Seen at the bedside. Continues to feel generally unchanged, reports he feels maybe a little bit better than prior and that his breathing is a little less labored. Does continue to have some minimal pain at his chest tube site which has not changed very much but which is tolerable. Denies fever chills or sweats. Denies shortness of breath/dyspnea. No chest pain Physical Exam Physical Exam: General: A&Ox3. NAD. Cooperative. HEENT: Atraumatic, normocephalic. Vision and hearing grossly intact Pulm: CTAB A&P. -wheezes, -rales, -rhonchi. Symmetrical chest rise. No increased work of breathing. No respiratory distress. Right chest tube is in place right- sided chest tube in place draining serosanguineous material. Slight air leak. Cardiac: RRR, -mrg. Radial pulses intact and symmetrical. Abdominal: Nontender, nondistended, soft. BS present. Extremities: Bilateral mild pitting edema Results & Data Results & Data Vital Signs (Past 12 Hours) Vital Signs Temp Pulse Pulse Resp BP Pulse Ox O2 Del Method 04/09/24 07:44 80 04/09/24 06:32 80 16 102/70 93 Room Air 04/09/24 03:18 36.6 C 80 18 99/67 L 93 Room Air 04/08/24 23:42 36.6 C 80 18 109/69 94 Room Air 04/08/24 22:00 80 04/08/24 20:32 36.6 C 78 18 108/72 95 Room Air PG Care Time/CCT Total # of Minutes Spent Total Time Spent with Patient: Total time spent is greater than 50% in coordination of care (as documented) at patient's floor/unit and/or counseling patient: Coding Level of Care Code 34731 SUB INP/OBS CARE 3/50MIN Diagnoses Pneumothorax J93.9 Metastatic carcinoid tumor C7B.00 (HFpEF) heart failure with preserved ejection fraction I50.30 Centrilobular emphysema J43.2 Emphysema type: centrilobular Recurrent gastrointestinal hemorrhage K92.2 Type 2 diabetes mellitus with other specified complication, without long-term current use of insulin E11.69 Diabetes mellitus complication status: with other specified complication Diabetes mellitus correction insulin use: without intermodal dispatcher use Diabetes mellitus type: type 2 (4) COPD with emphysema Emphysema type: centrilobular Qualified Code(s): J43.2 - Centrilobular emphysema (6) Diabetes mellitus Diabetes mellitus complication status: with other specified complication 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
[2024-04-09 08:22] LABS: Basophils # (auto) 0.04 K/uL (0.00-0.20); Basophils % (auto) 0.7 %; Eosinophils # (auto) 0.15 K/uL (0.00-0.50); Eosinophils % (auto) 2.8 %; Hematocrit (blood only) 40.7 % (42.0-52.0); Hemoglobin 12.2 g/dl (14.0-18.0); Immature Granulocytes # (auto) 0.02 K/uL (0.01-0.20); Immature Granulocytes % (auto) 0.4 %; Lymphocytes # (auto) 1.37 K/uL (1.20-3.40); Lymphocytes % (auto) 25.3 %; Mean Corpuscular Hemoglobin 26.5 pg (25.0-34.0); Mean Corpuscular Volume 88.5 fL (80.0-100.0); Mean Platelet Volume 10.9 fL (9.4-12.4); Monocytes # (auto) 0.66 K/uL (0.11-0.59); Monocytes % (auto) 12.2 %; Neutrophils # (auto) 3.17 K/uL (1.40-6.50); Neutrophils % (auto) 58.6 %; Platelet Count 122 K/uL (130-400); RDW Coefficient of Variation 15.9 % (11.5-14.5); RDW Standard Deviation 51.8 fL (36.4-46.3); White Blood Count 5.41 K/ul (4.8-10.8)
--- NOTE | 2024-04-09 08:30 | Pulmonology Progress Note ---
Date of Service April 09, 2024 Assessment & Plan (1) (HFpEF) heart failure with preserved ejection fraction: (2) Hydropneumothorax: (3) Pleural effusion, bilateral: (4) COPD with emphysema: Emphysema type: centrilobular Qualified Code(s): J43.2 - Centrilobular emphysema (5) Restrictive lung disease: (6) Atrial fibrillation, permanent: Plan PFT 04/08/2023 personally reviewed: Mild to moderate restrictive lung dysfunction, air trapping, no obstruction, insignificant bronchodilator response, normal DLCO FVC 2.08 L 63%, FEV1 1.61 L 69%, FEV1/FVC 77%, ERV 10%, RV 85%, TLC 69%, RV/TLC 124%, DLCO 82% -- Right-sided hydropneumothorax Iatrogenic s/p thoracentesis Pigtail catheter placed 04/07/2024 --Bilateral pleural effusion Likely HFpEF playing a part S/p right-sided thoracentesis 04/18/2023, 900 mL lymphocytic fluid, cytology showing rare atypical cells consistent with reactive mesothelial cells Repeat right-sided thoracentesis 04/05/2024, 1500 ml transudative, lymphocytic, cytology negative for malignancy Lymphocytic cells could be present because of chronic effusion that the patient had. 2D echo 04/01/2024: EF 50-55 %, moderate concentric LVH, mildly dilated RV with reduced systolic function, RVSP 36 mmHg, moderate to severe TR CT chest 01/08/2023 personally reviewed: Bilateral pleural effusion, Moderate on the right, small on the left Centrilobular emphysema appreciated bilaterally Compression atelectasis of the right lower lobe No significant mediastinal lymphadenopathy --Pulmonary hypertension Likely type II Plan as per cardiology -- COPD with emphysema Gold class A Only on albuterol inhaler right now. Continue with the same regimen --Restrictive lung dysfunction TLC 69%, FVC 63%, DLCO 82% Likely from pleural effusion that he had when he had the PFT done Obesity also playing a role -- Metastatic carcinoid tumor S/p ablation, relapse March 2023 Following up with oncology I do not see any signs of carcinoid in the lungs on the latest CAT scan of the chest 12/2022 -- Ex-smoker [id number] smoking history Quit in 2002 Encouraged to continue abstinence from smoking --S/p bioprosthetic aortic valve replacement 2018 -- A-fib s/p permanent pacemaker On Eliquis Plan: Chest x-ray from today still shows small apical pneumothorax No leak appreciated today in the chest tube, continue with -20 suction, plan is tomorrow to see if he can put on waterseal Case was discussed with RN at bedside Please note the above document was generated using voice recognition software. It may contain grammatical, syntax or spelling errors.Any formal questions or concerns about the content, text or information contained within the body of this dictation should be directly addressed to the provider for clarification. Admission and Anticipated Discharge Date Admission Date: April 07, 2024 Subjective Patient seen and examined at bedside. No acute distress, no adverse events overnight Denied any chest pain, shortness of breath is improved Chest tube is draining serosanguineous fluid No nausea or vomiting Denied any headache Appetite is fair Review of Systems 2 Review of Systems: All systems reviewed & are unremarkable except as noted in Subjective Physical Exam 2 Physical Exam: Constitutional: No acute distress HEENT: EOMI, PERRLA Respiratory system: Decreased air entry bilaterally, no wheeze, no rhonchi, mild crackles bilateral lower lung CVS: S1-S2 positive, no murmurs or gallops, prosthetic heart sounds Abdomen: Soft, nontender, nondistended, positive bowel sounds x4 Extremities: +2 pulses bilaterally radialis, no cyanosis, +1 pitting edema bilateral lower extremity Neuro: Awake alert oriented x3 Psych: Normal mood and affect Skin: no rashes, warm and dry Lymphatic: no cervical or axillary lymphadenopathy Results & Data Results & Data Vital Signs (Past 12 Hours) Vital Signs Temp Pulse Pulse Resp BP Pulse Ox O2 Del Method 04/09/24 07:57 37.1 C 80 18 98/64 L 95 Room Air 04/09/24 07:44 80 04/09/24 06:32 80 16 102/70 93 Room Air 04/09/24 03:18 36.6 C 80 18 99/67 L 93 Room Air 04/08/24 23:42 36.6 C 80 18 109/69 94 Room Air 04/08/24 22:00 80 04/08/24 20:32 36.6 C 78 18 108/72 95 Room Air Laboratory Results 04/09/24 07:17 PG Care Time/CCT Total # of Minutes Spent Total Time Spent with Patient: Total time spent is greater than 50% in coordination of care (as documented) at patient's floor/unit and/or counseling patient: Coding Level of Care Code 29085 SUB INP/OBS CARE 2MIN Diagnoses (HFpEF) heart failure with preserved ejection fraction I50.30 Hydropneumothorax J94.8 Pleural effusion, bilateral J90 Centrilobular emphysema J43.2 Emphysema type: centrilobular Restrictive lung disease J98.4 Atrial fibrillation, permanent I48.21
[2024-04-09 08:37] LABS: Blood Urea Nitrogen 26 mg/dl (6-23); Calcium 8.5 mg/dl (8.6-10.3); Carbon Dioxide 26 mmol/L (21-32); Chloride 105 mmol/L (98-107); Creatinine Clr Calc Pharmacy 38.9 ml/min; Glucose 108 mg/dl (70-99(Fasting))
[2024-04-09 09:26] LABS: Potassium 3.8 mmol/L (3.5-5.1)
[2024-04-09] MEDS ORDERED: LOPERAMIDE HCL 2 MG CAP PO PRN (15:10)
[2024-04-09] MEDS ORDERED: NON-FORMULARY MEDICATION SCH (15:15)
[2024-04-09] MEDS: OCTREOTIDE ACETATE 100 MCG/ML VIAL SQ SCH (23:40)
[2024-04-10 06:24] LABS: Basophils # (auto) 0.03 K/uL (0.00-0.20); Basophils % (auto) 0.6 %; Eosinophils % (auto) 3.8 %; Hematocrit (blood only) 39.9 % (42.0-52.0); Hemoglobin 11.9 g/dl (14.0-18.0); Immature Granulocytes # (auto) 0.02 K/uL (0.01-0.20); Immature Granulocytes % (auto) 0.4 %; Lymphocytes # (auto) 1.12 K/uL (1.20-3.40); Lymphocytes % (auto) 21.2 %; Mean Corpuscular Hemoglobin 25.9 pg (25.0-34.0); Mean Corpuscular Hgb Conc 29.8 g/dL (32.0-36.0); Mean Corpuscular Volume 86.7 fL (80.0-100.0); Mean Platelet Volume 10.2 fL (9.4-12.4); Monocytes # (auto) 0.59 K/uL (0.11-0.59); Monocytes % (auto) 11.2 %; Neutrophils # (auto) 3.33 K/uL (1.40-6.50); Neutrophils % (auto) 62.8 %; Platelet Count 119 K/uL (130-400); RDW Coefficient of Variation 15.9 % (11.5-14.5); RDW Standard Deviation 50.4 fL (36.4-46.3); White Blood Count 5.29 K/ul (4.8-10.8)
[2024-04-10 06:39] LABS: BUN Creatinine Ratio 22.9 (10-20); Calcium 8.5 mg/dl (8.6-10.3); Creatinine Clr Calc Pharmacy 42.9 ml/min; Potassium 3.9 mmol/L (3.5-5.1)
--- NOTE | 2024-04-10 08:03 | Pulmonology Progress Note ---
Date of Service April 10, 2024 Assessment & Plan (1) (HFpEF) heart failure with preserved ejection fraction: (2) Hydropneumothorax: (3) Pleural effusion, bilateral: (4) COPD with emphysema: Emphysema type: centrilobular Qualified Code(s): J43.2 - Centrilobular emphysema (5) Restrictive lung disease: (6) Atrial fibrillation, permanent: Plan PFT 04/08/2023 personally reviewed: Mild to moderate restrictive lung dysfunction, air trapping, no obstruction, insignificant bronchodilator response, normal DLCO FVC 2.08 L 63%, FEV1 1.61 L 69%, FEV1/FVC 77%, ERV 10%, RV 85%, TLC 69%, RV/TLC 124%, DLCO 82% -- Right-sided hydropneumothorax Iatrogenic s/p thoracentesis Pigtail catheter placed 04/07/2024 --Bilateral pleural effusion Likely HFpEF playing a part S/p right-sided thoracentesis 04/18/2023, 900 mL lymphocytic fluid, cytology showing rare atypical cells consistent with reactive mesothelial cells Repeat right-sided thoracentesis 04/05/2024, 1500 ml transudative, lymphocytic, cytology negative for malignancy Lymphocytic cells could be present because of chronic effusion that the patient had. 2D echo 04/01/2024: EF 50-55 %, moderate concentric LVH, mildly dilated RV with reduced systolic function, RVSP 36 mmHg, moderate to severe TR CT chest 01/08/2023 personally reviewed: Bilateral pleural effusion, Moderate on the right, small on the left Centrilobular emphysema appreciated bilaterally Compression atelectasis of the right lower lobe No significant mediastinal lymphadenopathy --Pulmonary hypertension Likely type II Plan as per cardiology -- COPD with emphysema Gold class A Only on albuterol inhaler right now. Continue with the same regimen --Restrictive lung dysfunction TLC 69%, FVC 63%, DLCO 82% Likely from pleural effusion that he had when he had the PFT done Obesity also playing a role -- Metastatic carcinoid tumor S/p ablation, relapse March 2023 Following up with oncology I do not see any signs of carcinoid in the lungs on the latest CAT scan of the chest 12/2022 -- Ex-smoker [id number] smoking history Quit in 2002 Encouraged to continue abstinence from smoking --S/p bioprosthetic aortic valve replacement 2018 -- A-fib s/p permanent pacemaker On Eliquis Plan: Today's chest x-ray shows stable right-sided hydro normal No leak appreciated today in the chest tube, we will put the chest tube on waterseal. Repeat chest x-ray around 2 PM Case was discussed with RN at bedside as well as primary team Please note the above document was generated using voice recognition software. It may contain grammatical, syntax or spelling errors.Any formal questions or concerns about the content, text or information contained within the body of this dictation should be directly addressed to the provider for clarification. Admission and Anticipated Discharge Date Admission Date: April 07, 2024 Subjective Patient seen and examined at bedside. No acute distress, no adverse events overnight His breathing is doing okay Denies any chest pain, mild discomfort at the site of the chest tube No headache, no blurry vision Fair appetite, no nausea vomiting Review of Systems 2 Review of Systems: All systems reviewed & are unremarkable except as noted in Subjective Physical Exam 2 Physical Exam: Constitutional: No acute distress HEENT: EOMI, PERRLA Respiratory system: Decreased air entry bilaterally, no wheeze, no rhonchi, mild crackles bilateral lower lung CVS: S1-S2 positive, no murmurs or gallops, prosthetic heart sounds Abdomen: Soft, nontender, nondistended, positive bowel sounds x4 Extremities: +2 pulses bilaterally radialis, no cyanosis, +1 pitting edema bilateral lower extremity Neuro: Awake alert oriented x3 Psych: Normal mood and affect Skin: no rashes, warm and dry Lymphatic: no cervical or axillary lymphadenopathy Results & Data Results & Data Vital Signs (Past 12 Hours) Vital Signs Temp Pulse Pulse Resp BP Pulse Ox O2 Del Method 04/10/24 07:37 80 04/10/24 07:29 36.8 C 80 16 117/73 96 Room Air 04/10/24 03:13 36.7 C 81 18 111/77 94 Room Air 04/09/24 23:00 80 04/09/24 22:25 36.7 C 90 18 107/67 98 Room Air 04/09/24 21:00 Room Air Laboratory Results 04/10/24 05:49 04/10/24 05:49 PG Care Time/CCT Total # of Minutes Spent Total Time Spent with Patient: Total time spent is greater than 50% in coordination of care (as documented) at patient's floor/unit and/or counseling patient: Coding Level of Care Code 71988 SUB INP/OBS CARE Diagnoses (HFpEF) heart failure with preserved ejection fraction I50.30 Hydropneumothorax J94.8 Pleural effusion, bilateral J90 Centrilobular emphysema J43.2 Emphysema type: centrilobular Restrictive lung disease J98.4 Atrial fibrillation, permanent I48.21
--- NOTE | 2024-04-10 08:38 | XRay Report ---
XR chest 1V portable HISTORY: 74 years-old Male f/u right-sided hydropneumothorax COMPARISON: 04/09/2024 TECHNIQUE: AP view of the chest FINDINGS: Cardiac silhouette is enlarged. Left atrial exclusion device. Left dual lead subclavian pacer. Mild p ulmonary vascular congestion suggested. Small layering pleural effusions. Right-sided pleural cathete r is unchanged. Hydropneumothorax redemonstrated. Pleural separation at the right lung apex measures 1.6 cm, previously 9 mm and at the right lateral lung base measures 1.3 cm, previously not well visua lized. Bones appear grossly intact. An endoscopy clip projects over the abdominal left upper quadrant . IMPRESSION: Right-sided pleural catheter in place with small persistent hydropneumothorax. ACT 112: Negative or not required by law. The above report was generated using voice recognition software. It may contain grammatical, syntax o r spelling errors. Electronically signed by: Zeke Brunner M.D. 04/10/2024 8:36 AM
--- NOTE | 2024-04-10 11:17 | Hospitalist Progress Note ---
Date of Service April 10, 2024 Assessment & Plan (1) Pneumothorax: Plan: Hydropneumothorax Developed hydropneumothorax following thoracentesis 04/05.. Chest x-ray: Large right-sided hydropneumothorax with mid leftward midline shift suggesting developing tension component S/p chest tube placement 04/07/2024 repeat chest x-ray with dramatic improvement. approximately 1500 cc of serosanguineous output overnight. Seen by pulmonology. Airleak is appreciated. Commend monitoring for at least another 24 hours with chest tube in place. Appreciate recommendations Prior fluid analysis was transudative. 04/07 Initial fluid analysis with serum protein7.6, serum LDH 171, pleural protein 3.7, pleural LDH 378 with a bloody appearance suggestive of exudative effusion by lights. Pathology without evidence of malignant cells. Repeat x-ray 04/09 with trace right-sided pneumothorax. Greatly improved from admitting exam but with residual 9 mm of pleural separation similar to prior.. Appreciate pulmonology recommendations - 04/10/2024 doing well, no air leak on deep inspiration or forced cough. Discussed with pulmonology. Will place to waterseal and follow. If no air leak then anticipate clamp tomorrow and if continuing to do well after that then we will left chest tube removal and progression at that time (2) Metastatic carcinoid tumor: Plan: History of metastatic carcinoid tumor S/p small bowel resection 2002, liver resection and RFA 2005 confirming metastatic carcinoid, relapse liver disease 2014 with 3 cycles of TASC with streptozocin, clipped [place] lesion 2022, disease progression noted on PET scan March 2023 and referred to liver cancer specialist at [facility] Dr. Wick who had recommended Lutathera treatment however this was delayed due to GI bleeding and complications and subsequently indefinitely on hold per patient preference since 10/2023 No evidence of pulmonary abnormalities on PET scan 2022. Multifocal uptake within the liver, enlarged portacaval/peripancreatic/periaortic lymph nodes was present. Cytology from 04/05/2024 Thoro: Negative for malignancy, histiocytes mesothelial cells and leukocytes noted Cytology 04/07/2024 without evidence of malignancy Patient was due for Sandostatin 04/09/2024 has not been able to receive this due to being inpatient. He has had increasingly loose bowel movements while hospitalized which has been an issue due to his metastatic carcinoid tumor towards his dosing interval and becomes very symptomatic with this. Patient and family are highly concerned and would like him to receive his IM shot while inp atient if at all possible. Requested from pharmacy as nonformulary as only IM/SQ is available. Unfortunately this is not able to be obtained as it is both to being on formulary with high cost, not clinically required while inpatient this is not able to be given at time of hospitalization. Substituted for 50 mcg twice daily of octreotide subcu while inpatient. on reevaluation 04/10 bowel movements have firmed up, have had difficulty getting a sample which is pending this morning however given formed bowel movements this is inconsistent with C. difficile and Imodium is not currently indicated. Did review the [facility]. Agree with 50 mcg twice daily dosing of octreotide as scheduled. When patient is ready for discharge/on Friday please call the [facility] and they will arrange for an infusion either that day or the following day. (3) (HFpEF) heart failure with preserved ejection fraction: Plan: Bilateral pleural effusion, hx HFpEF With underlying heart failure preserved ejection fraction. S/p right-sided thoracentesis 04/18/2023 with 900 cc of lymphocytic fluid with rare atypical cells suspicious for reactive mesothelial cells was seen S/p chest tube placement. Fluid analysis pending, appears sanguinous bedside Continue diuretics, renal function is at baseline Continue Lasix. Creatinine today Continue losartan Continue Jardiance Continue statin Continue aspirin. Continue Eliquis Continue low-sodium diet A-fib, history of type III heart block s/p pacemaker placement On Eliquis. Temporarily held around chest tube placement, subsequently resumed S/p bioprosthetic AVR replacement with atrial clipping EKG on admission ventricular paced. No acute ischemic changes noted (4) COPD with emphysema: Plan: COPD, mixed with restrictive lung dysfunction Gold class a Last PFTs 2022: FEV1 1.61 69%, FEV1/FVC ratio 77%, TLC 69%, FVC 63% Suspected to have obstructive disease with superimposed mild to moderate restrictive disease likely due to obesity/effusion [id number] former smoker, quit 2002 Continue albuterol (5) Recurrent gastrointestinal hemorrhage: Plan: - Tolerating eliquis with no recent hematochezia, melena per pt (6) Diabetes mellitus: Plan: DM2 Continue Jardiance Goal BSG [id number] SGLT2 continued for both DM and heart failure SSI continued Heart healthy, type II DM diet (7) UTI (urinary tract infection): Plan: Patient with slight urinary burning and change in urine odor morning of 04/10 UA does not appear infected, antibiotics deferred. Will continue to monitor. No leukocytosis, no fever Plan DVT prophylaxis: Anticoagulated Diet: Heart healthy/DM2 CODE STATUS: Full code Disposition: PCU post chest tube placement Admission and Anticipated Discharge Date Admission Date: April 07, 2024 Subjective Bolus seen at the bedside this morning. He has developed some dysuria and polyuria since last night, UA has been sent. Breathing is stable. No chest pain or chest pressure. No shortness of breath at bedside. The subcu Sandostatin injections appear to be helping, he feels that his bowel movements have become more firm since last night. No abdominal pain. Still has a little residual pain in his chest tube site but feels this is tolerable. He is eager to progress out of the hospital when able and is somewhat frustrated by having to wait for the chest tube to be placed to waterseal and then to gravity, but expresses an understanding of the plan of care. No additional questions at time of visit denies lightheadedness/dizziness Reviewed plan of care with patient's daughter is present at bedside in the afternoon. No further questions at time of visit Physical Exam Physical Exam: General: A&Ox3. NAD. Cooperative. HEENT: Atraumatic, normocephalic. Vision and hearing grossly intact Pulm: CTAB A&P. -wheezes, -rales, -rhonchi. Symmetrical chest rise. No increased work of breathing. No respiratory distress. Right chest tube is in place right- sided chest tube in place draining serosanguineous material. No airleak at rest today, no air leak on cough or deep inspiration Cardiac: RRR, -mrg. Radial pulses intact and symmetrical. Abdominal: Nontender, nondistended, soft. BS present. Extremities: Bilateral mild pitting edema Results & Data Results & Data Vital Signs (Past 12 Hours) Vital Signs Temp Pulse Pulse Resp BP Pulse Ox O2 Del Method 04/10/24 09:43 Room Air 04/10/24 07:37 80 04/10/24 07:29 36.8 C 80 16 117/73 96 Room Air 10/12/24 03:13 36.7 C 81 18 111/77 94 Room Air PG Care Time/CCT Total # of Minutes Spent Total Time Spent with Patient: Total time spent is greater than 50% in coordination of care (as documented) at patient's floor/unit and/or counseling patient: Coding Level of Care Code 56570 SUB INP/OBS CARE 3/50MIN Diagnoses Pneumothorax J93.9 Metastatic carcinoid tumor C7B.00 (HFpEF) heart failure with preserved ejection fraction I50.30 Centrilobular emphysema J43.2 Emphysema type: centrilobular Recurrent gastrointestinal hemorrhage K92.2 Type 2 diabetes mellitus with other specified complication, without long-term current use of insulin E11.69 Diabetes mellitus complication status: with other specified complication Diabetes mellitus termite treater helper insulin use: without alf use Diabetes mellitus type: type 2 UTI (urinary tract infection) N39.0 (4) COPD with emphysema Emphysema type: centrilobular Qualified Code(s): J43.2 - Centrilobular emphysema (6) Diabetes mellitus Diabetes mellitus complication status: with other specified complication Diabetes mellitus termite treater helper insulin use: without alf use Diabetes mellitus type: type 2 Qualified Code(s): E11.69 - Type 2 diabetes mellitus with other specified complication
[2024-04-10 13:04] LABS: Appearance Urine Clear (Clear); Bilirubin Urine Negative (Negative); Blood Urine Negative (Negative); Color Urine Yellow; Glucose Urine UA 2+ (Negative); Ketones Urine Negative (Negative); Leukocyte Esterase Urine Negative (Negative); Nitrite Urine Negative (Negative); Protein Urine Negative (Negative); Specific Gravity Urine 1.011 (1.000-1.030); Urobilinogen Urine Negative (Negative)
--- NOTE | 2024-04-10 15:26 | XRay Report ---
SINGLE VIEW CHEST CLINICAL HISTORY: Follow-up pneumothorax with chest tube. FINDINGS: An AP, portable, upright chest radiograph is compared to study performed earlier the same d ay 04/18/2024. Correlation is made with chest CT dated 12/18/2023. The examination is degraded by port able technique and patient rotation. A 2-lead cardiac pacemaker is unchanged in position and partial ly obscures the left mid chest. The heart is enlarged noting atherosclerotic calcification of the tho racic aorta. The pulmonary vasculature is not congested. A chest tube at the right lung base is uncha nged in position. Right-sided hydropneumothorax has decreased in size from today's earlier examinatio n The trachea is midline. Surgical clips project over the superior mediastinum. There is persistent c onsolidation at the right lung base. Atelectasis an pleural fluid is seen at the left lung base. No p neumothorax is seen on the left. The skeletal structures are osteopenic. The bony thorax is grossly i ntact. A surgical clip projects over the stomach. IMPRESSION: 1. A right-sided chest tube is unchanged in position. A small residual right-sided hydropneumothorax has decreased in size from today's earlier examination. 2. Cardiomegaly and cardiac pacemaker without radiographic evidence of congestive failure. 3. There is a small amount of pleural fluid at the left lung base. ACT 112: Negative or not required by law.\ Electronically signed by: Julio Sorto M.D. 04/10/2024 3:25 PM
[2024-04-10] MEDS: LACTATED RINGER'S 500 ML IV ONE (15:33)
[2024-04-10] MEDS: LACTATED RINGER'S 1,000 ML IV SCH (16:15)
--- NOTE | 2024-04-11 07:34 | Pulmonology Progress Note ---
Date of Service April 11, 2024 Assessment & Plan (1) (HFpEF) heart failure with preserved ejection fraction: (2) Hydropneumothorax: (3) Pleural effusion, bilateral: (4) COPD with emphysema: Emphysema type: centrilobular Qualified Code(s): J43.2 - Centrilobular emphysema (5) Restrictive lung disease: (6) Atrial fibrillation, permanent: Plan PFT 04/08/2023 personally reviewed: Mild to moderate restrictive lung dysfunction, air trapping, no obstruction, insignificant bronchodilator response, normal DLCO FVC 2.08 L 63%, FEV1 1.61 L 69%, FEV1/FVC 77%, ERV 10%, RV 85%, TLC 69%, RV/TLC 124%, DLCO 82% -- Right-sided hydropneumothorax Iatrogenic s/p thoracentesis Pigtail catheter placed 04/07/2024 --Bilateral pleural effusion Likely HFpEF playing a part S/p right-sided thoracentesis 04/18/2023, 900 mL lymphocytic fluid, cytology showing rare atypical cells consistent with reactive mesothelial cells Repeat right-sided thoracentesis 04/05/2024, 1500 ml transudative, lymphocytic, cytology negative for malignancy Lymphocytic cells could be present because of chronic effusion that the patient had. 2D echo 04/01/2024: EF 50-55 %, moderate concentric LVH, mildly dilated RV with reduced systolic function, RVSP 36 mmHg, moderate to severe TR CT chest 01/08/2023 personally reviewed: Bilateral pleural effusion, Moderate on the right, small on the left Centrilobular emphysema appreciated bilaterally Compression atelectasis of the right lower lobe No significant mediastinal lymphadenopathy --Pulmonary hypertension Likely type II Plan as per cardiology -- COPD with emphysema Gold class A Only on albuterol inhaler right now. Continue with the same regimen --Restrictive lung dysfunction TLC 69%, FVC 63%, DLCO 82% Likely from pleural effusion that he had when he had the PFT done Obesity also playing a role -- Metastatic carcinoid tumor S/p ablation, relapse March 2023 Following up with oncology I do not see any signs of carcinoid in the lungs on the latest CAT scan of the chest 12/2022 -- Ex-smoker [id number] smoking history Quit in 2002 Encouraged to continue abstinence from smoking --S/p bioprosthetic aortic valve replacement 2018 -- A-fib s/p permanent pacemaker On Eliquis Plan: Chest x-ray from today does not show any significant change compared to yesterday. Minimal right-sided apical pneumothorax persists I will clamp the tube, repeat chest x-ray in 5 hours. If there is no significant change in the size of the pneumothorax, chest tube will be discontinued Case was discussed with RN at bedside as well as primary team Please note the above document was generated using voice recognition software. It may contain grammatical, syntax or spelling errors.Any formal questions or concerns about the content, text or information contained within the body of this dictation should be directly addressed to the provider for clarification. Admission and Anticipated Discharge Date Admission Date: April 07, 2024 Subjective Patient seen and examined at bedside. No acute distress, no adverse events overnight Saturating well on room air Fair appetite, no nausea vomiting Mild discomfort at the site of chest tube but no overt chest pain Shortness of breath is improved Review of Systems 2 Review of Systems: All systems reviewed & are unremarkable except as noted in Subjective Physical Exam 2 Physical Exam: Constitutional: No acute distress HEENT: EOMI, PERRLA Respiratory system: Decreased air entry bilaterally, no wheeze, no rhonchi, mild crackles bilateral lower lung CVS: S1-S2 positive, no murmurs or gallops, prosthetic heart sounds Abdomen: Soft, nontender, nondistended, positive bowel sounds x4 Extremities: +2 pulses bilaterally radialis, no cyanosis, +1 pitting edema bilateral lower extremity Neuro: Awake alert oriented x3 Psych: Normal mood and affect Skin: no rashes, warm and dry Lymphatic: no cervical or axillary lymphadenopathy Results & Data Results & Data Vital Signs (Past 12 Hours) Vital Signs Temp Pulse Pulse Resp BP Pulse Ox O2 Del Method 04/11/24 03:00 36.7 C 80 20 107/74 93 Room Air 04/10/24 23:01 36.7 C 74 18 104/73 95 Room Air 04/10/24 23:00 80 04/10/24 21:00 Room Air Laboratory Results 04/10/24 05:49 04/10/24 05:49 PG Care Time/CCT Total # of Minutes Spent Total Time Spent with Patient: Total time spent is greater than 50% in coordination of care (as documented) at patient's floor/unit and/or counseling patient: Coding Level of Care Code 38063 SUB INP/OBS CARE MIN Diagnoses (HFpEF) heart failure with preserved ejection fraction I50.30 Hydropneumothorax J94.8 Pleural effusion, bilateral J90 Centrilobular emphysema J43.2 Emphysema type: centrilobular Restrictive lung disease J98.4 Atrial fibrillation, permanent I48.21
--- NOTE | 2024-04-11 08:08 | XRay Report ---
XR chest 1V portable HISTORY: 74 years-old Male f/u acute shortness of breath COMPARISON: 04/10/2024 TECHNIQUE: AP view of the chest FINDINGS: Cardiac silhouette is enlarged. Dual left subclavian pacer with left atrial occlusion device. Small p leural effusions with bibasilar atelectasis. Right pleural catheter is in stable positioning with tra ce persistent right-sided pneumothorax. IMPRESSION: 1. Stable positioning of the right-sided pleural catheter with stable small right hydropneumothorax. 2. Unchanged small left pleural effusion with mild bibasilar atelectasis. ACT 112: Negative or not required by law. The above report was generated using voice recognition software. It may contain grammatical, syntax o r spelling errors. Electronically signed by: Zeke Brunner M.D. 04/11/2024 8:07 AM
[2024-04-11 08:42] LABS: BUN Creatinine Ratio 22.7 (10-20); Calcium 8.4 mg/dl (8.6-10.3); Potassium 3.9 mmol/L (3.5-5.1)
[2024-04-11 08:46] LABS: Basophils # (auto) 0.03 K/uL (0.00-0.20); Basophils % (auto) 0.6 %; Eosinophils # (auto) 0.13 K/uL (0.00-0.50); Eosinophils % (auto) 2.6 %; Hematocrit (blood only) 39.9 % (42.0-52.0); Hemoglobin 12.2 g/dl (14.0-18.0); Immature Granulocytes # (auto) 0.01 K/uL (0.01-0.20); Immature Granulocytes % (auto) 0.2 %; Lymphocytes # (auto) 0.86 K/uL (1.20-3.40); Lymphocytes % (auto) 17.2 %; Mean Corpuscular Hemoglobin 26.6 pg (25.0-34.0); Mean Corpuscular Hgb Conc 30.6 g/dL (32.0-36.0); Mean Corpuscular Volume 87.1 fL (80.0-100.0); Mean Platelet Volume 10.2 fL (9.4-12.4); Monocytes # (auto) 0.54 K/uL (0.11-0.59); Monocytes % (auto) 10.8 %; Neutrophils # (auto) 3.42 K/uL (1.40-6.50); Neutrophils % (auto) 68.6 %; Platelet Count 125 K/uL (130-400); RDW Coefficient of Variation 15.9 % (11.5-14.5); RDW Standard Deviation 50.7 fL (36.4-46.3); Red Blood Count 4.58 M/uL (4.70-6.10); White Blood Count 4.99 K/ul (4.8-10.8)
--- NOTE | 2024-04-11 13:55 | XRay Report ---
XR chest 1V portable HISTORY: 74 years-old Male f/u acute shortness of breath COMPARISON: Chest radiograph of same day at 6:42 AM TECHNIQUE: AP view of the chest FINDINGS: Cardiac silhouette is enlarged. Dual left subclavian pacer with left atrial occlusion device. Small p leural effusions with bibasilar atelectasis. Right pleural catheter is in stable positioning with tra ce persistent right-sided pneumothorax demonstrating a few millimeters of pleural separation at the a pex. IMPRESSION: 1. Stable positioning of the right-sided pleural catheter with stable small right hydropneumothorax. 2. Unchanged small left pleural effusion with mild bibasilar atelectasis. ACT 112: Negative or not required by law. The above report was generated using voice recognition software. It may contain grammatical, syntax o r spelling errors. Electronically signed by: Zeke Brunner M.D. 04/11/2024 1:54 PM
--- NOTE | 2024-04-11 14:38 | Hospitalist Progress Note ---
Date of Service April 11, 2024 Assessment & Plan (1) Pneumothorax: Plan: Hydropneumothorax Developed hydropneumothorax following thoracentesis 04/05.. Chest x-ray: Large right-sided hydropneumothorax with mid leftward midline shift suggesting developing tension component S/p chest tube placement 04/07/2024 repeat chest x-ray with dramatic improvement. approximately 1500 cc of serosanguineous output overnight. Seen by pulmonology. Airleak is appreciated. Commend monitoring for at least another 24 hours with chest tube in place. Appreciate recommendations Prior fluid analysis was transudative. 04/07 Initial fluid analysis with serum protein7.6, serum LDH 171, pleural protein 3.7, pleural LDH 378 with a bloody appearance suggestive of exudative effusion by lights. Pathology without evidence of malignant cells. Repeat x-ray 04/09 with trace right-sided pneumothorax. Greatly improved from admitting exam but with residual 9 mm of pleural separation similar to prior.. Appreciate pulmonology recommendations Chest x-ray 04/11 stable with small residualApical pneumothorax, and small left pleural effusion. Doing well s/p chest tube removal 04/11. Will follow for stability overnight and expect discharge tomorrow. (2) Metastatic carcinoid tumor: Plan: History of metastatic carcinoid tumor S/p small bowel resection 2002, liver resection and RFA 2005 confirming metastatic carcinoid, relapse liver disease 2014 with 3 cycles of TASC with streptozocin, clipped [place] lesion 2022, disease progression noted on PET scan March 2023 and referred to liver cancer specialist at [facility] Dr. Wick who had recommended Lutathera treatment however this was delayed due to GI bleeding and complications and subsequently indefinitely on hold per patient preference since 10/2023 No evidence of pulmonary abnormalities on PET scan 2022. Multifocal uptake within the liver, enlarged portacaval/peripancreatic/periaortic lymph nodes was present. Cytology from 04/05/2024 Thoro: Negative for malignancy, histiocytes mesothelial cells and leukocytes noted Cytology 04/07/2024 without evidence of malignancy Patient was due for Sandostatin 04/09/2024 has not been able to receive this due to being inpatient. He has had increasingly loose bowel movements while hospitalized which has been an issue due to his metastatic carcinoid tumor towards his dosing interval and becomes very symptomatic with this. Patient and family are highly concerned and would like him to receive his IM shot while inpatient if at all possible. Requested from pharmacy as nonformulary as only IM/SQ is available. Unfortunately this is not able to be obtained as it is both to being on formulary with high cost, not clinically required while inpatient this is not able to be given at time of hospitalization. Substituted for 50 mcg twice daily of octreotide subcu while inpatient. on reevaluation 04/10 bowel movements had improved but on reevaluation remain loose. Increase to 75 mcg daily twice daily. C. difficile testing is negative, patient may use Imodium as needed Did review w/ the [facility]. Agree with 50 mcg twice daily dosing of octreotide as scheduled. When patient is ready for discharge/on Friday please call the [facility] and they will arrange for an infusion either that day or the following day. (3) (HFpEF) heart failure with preserved ejection fraction: Plan: Bilateral pleural effusion, hx HFpEF With underlying heart failure preserved ejection fraction. S/p right-sided thoracentesis 04/18/2023 with 900 cc of lymphocytic fluid with rare atypical cells suspicious for reactive mesothelial cells was seen S/p chest tube placement. Fluid analysis pending, appears sanguinous bedside Continue diuretics, renal function is at baseline Continue Lasix. Creatinine today Continue losartan Continue Jardiance Continue statin Continue aspirin. Continue Eliquis Continue low-sodium diet Standing weight ordered, patient is clinically at his euvolemic state and this should be used as his dry weight moving forward A-fib, history of type III heart block s/p pacemaker placement On Eliquis. Temporarily held around chest tube placement, subsequently resumed S/p bioprosthetic AVR replacement with atrial clipping EKG on admission ventricular paced. No acute ischemic changes noted (4) COPD with emphysema: Plan: COPD, mixed with restrictive lung dysfunction Gold class a Last PFTs 2022: FEV1 1.61 69%, FEV1/FVC ratio 77%, TLC 69%, FVC 63% Suspected to have obstructive disease with superimposed mild to moderate restrictive disease likely due to obesity/effusion [id number] former smoker, quit 2002 Continue albuterol (5) Recurrent gastrointestinal hemorrhage: Plan: - Tolerating eliquis with no recent hematochezia, melena per pt (6) Diabetes mellitus: Plan: DM2 Continue Jardiance Goal BSG [id number] SGLT2 continued for both DM and heart failure SSI continued Heart healthy, type II DM diet (7) UTI (urinary tract infection): Plan: Patient with slight urinary burning and change in urine odor morning of 04/10 UA does not appear infected, antibiotics deferred. Will continue to monitor. No leukocytosis, no fever Plan DVT prophylaxis: Anticoagulated Diet: Heart healthy/DM2 CODE STATUS: Full code Disposition: Required IV pain control in the last 24 hours. Patient received chest tube removal. Will follow for stability and anticipate discharge 04/12/2024 if doing well Admission and Anticipated Discharge Date Admission Date: April 07, 2024 Subjective Clinically unchanged. Has required 1 dose of IV pain control overnight. Still some discomfort at the site of his chest tube otherwise feels well. Is hopeful to go home today or tomorrow, no other questions or concerns at bedside. On initial visit is pending chest tube removal, has had tube clamped but feels he is breathing well with no shortness of breath. On after reassessment has had chest tube removed, has some discomfort at the chest tube site but no dyspnea. Discussed plan of care and medical course with patient's at bedside. Patient has continued to have loose bowel movements which are improved but not normal. Will trial increasing octreotide to 75 mg twice daily while inpatient, may use Imodium as needed, and reviewed C. difficile testing which was negative Physical Exam Physical Exam: General: A&Ox3. NAD. Cooperative. HEENT: Atraumatic, normocephalic. Pulm: Chest tube s/p removal on afternoon revisit. CTAB A&P. -wheezes, -rales, - rhonchi Cardiac: RRR, -mrg. Radial pulses intact and symmetrical. Abdominal: Thin. Nontender, nondistended Extremities: Warm, dry. Mild ankle pitting edema is present bilaterally Results & Data Results & Data Vital Signs (Past 12 Hours) Vital Signs Temp Pulse Resp BP Pulse Ox O2 Del Method 04/11/24 11:16 36.4 C L 80 20 97/62 L 97 Room Air 04/11/24 08:15 Room Air 04/11/24 07:35 36.5 C 80 19 113/73 97 Room Air 04/11/24 03:00 36.7 C 80 20 107/74 93 Room Air PG Care Time/CCT Total # of Minutes Spent Total Time Spent with Patient: Total time spent is greater than 50% in coordination of care (as documented) at patient's floor/unit and/or counseling patient: Coding Level of Care Code 32991 SUB INP/OBS CARE 3/50MIN Diagnoses Pneumothorax J93.9 Metastatic carcinoid tumor C7B.00 (HFpEF) heart failure with preserved ejection fraction I50.30 Centrilobular emphysema J43.2 Emphysema type: centrilobular Recurrent gastrointestinal hemorrhage K92.2 Type 2 diabetes mellitus with other specified complication, without long-term current use of insulin E11.69 Diabetes mellitus complication status: with other specified complication 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
--- NOTE | 2024-04-11 15:02 | Procedure Note ---
Procedure Note Date of Service April 11, 2024 Procedure: Pigtail chest tube removal Room Service Waiter: Dr. Vitaliy Carlisle Indication: Resolvent of pneumothorax Consent: Consent obtained from the patient Anesthesia: None Procedure: After placing the patient in the sitting position. The old dressing of the pigtail catheter was removed Under aseptic and sterile conditions, thread was unwound and the pigtail catheter was removed on exhalation. It was found to be intact. Vaseline gauze was placed on top of the small incision, 4 x 4 were placed on top of it and dressed with silk tape Complications: None Blood loss: None [facility] Procedure Codes (Charges) Pulmonary/Thoracic Procedure 1: Pulmonary and Thoracic: 47990 Remove lung catheter Coding CPT Codes Pulmonary/Thoracic - Pulmonary and Thoracic: 64169 Remove lung catheter ([id number]) Additional Codes Date of Service ([facility].SURGERY)
[2024-04-11] MEDS: traMADol HCL 50 MG TABLET PO PRN (15:43)
[2024-04-11] MEDS: OCTREOTIDE ACETATE 100 MCG/ML VIAL SQ SCH (20:46)
[2024-04-12 06:47] LABS: Basophils # (auto) 0.03 K/uL (0.00-0.20); Basophils % (auto) 0.6 %; Eosinophils # (auto) 0.17 K/uL (0.00-0.50); Eosinophils % (auto) 3.2 %; Hematocrit (blood only) 37.5 % (42.0-52.0); Immature Granulocytes # (auto) 0.01 K/uL (0.01-0.20); Immature Granulocytes % (auto) 0.2 %; Lymphocytes # (auto) 1.23 K/uL (1.20-3.40); Lymphocytes % (auto) 23.4 %; Mean Corpuscular Hemoglobin 26.7 pg (25.0-34.0); Mean Corpuscular Volume 83.5 fL (80.0-100.0); Mean Platelet Volume 10.1 fL (9.4-12.4); Monocytes # (auto) 0.59 K/uL (0.11-0.59); Monocytes % (auto) 11.2 %; Neutrophils # (auto) 3.23 K/uL (1.40-6.50); Neutrophils % (auto) 61.4 %; Platelet Count 123 K/uL (130-400); RDW Coefficient of Variation 15.7 % (11.5-14.5); RDW Standard Deviation 47.5 fL (36.4-46.3); Red Blood Count 4.49 M/uL (4.70-6.10); White Blood Count 5.26 K/ul (4.8-10.8)
[2024-04-12 07:06] LABS: BUN Creatinine Ratio 21.9 (10-20); Calcium 8.5 mg/dl (8.6-10.3); Creatinine Clr Calc Pharmacy 44.4 ml/min
--- NOTE | 2024-04-12 10:42 | Discharge Summary ---
Discharge Summary Date of Service April 12, 2024 Principal Dx & Hospital Course #1 = Principal Diagnosis (1) Pneumothorax: Right pneumothorax developed after outpatient elective thoracentesis. He had a small chest tube placed by pulmonary medicine with eventual resolution of the pneumothorax. He is now stable. (2) Metastatic carcinoid tumor: Continued follow-up with oncology. [facility] was notified today, April 12, that the patient is discharged from the hospital so he can resume his intramuscular Sandostatin treatments. (3) (HFpEF) heart failure with preserved ejection fraction: Stable. Continue current medical management. (4) COPD with emphysema: Stable. Continue current medical management (5) Recurrent gastrointestinal hemorrhage: Tolerating eliquis with no recent hematochezia, melena per pt (6) Diabetes mellitus: ADA diet. Sliding scale insulin coverage if needed. Continue Jardiance. (7) UTI (urinary tract infection): Ruled out. Plan Home todayApril 12 Admission HPI Per Admitting Provider Teddy Yang is a 74-year-old male with a past medical history of permanent atrial fibrillation, third-degree AV block s/p pacemaker placement, bioprosthetic aortic valve replacement with RIGO clipping 2018, hypertension, DM 2, hyperlipidemia, COPD with emphysema who presents on referral from pulmonology clinic for large pneumothorax. Patient found to have a large pneumothorax on outpatient chest x-ray. Patient recently underwent a thoracentesis for recurrent pleural effusion, on subsequent follow-up with his x-ray was found to have a large pneumothorax. Patient was discussed with pulmonology prior to arrival in the ER. On ER arrival patient had a chest tube placed and was admitted to medical telemetry for monitoring. Endorses history of GI bleeding but doesn't know when, and reports no problems recently. Shortness of breath for the last few weeks. After the tap breathing did seem much better, and could sleep comfortably. Does not feel it really got any worse since the tap. Denies chest pain and chest pressure No fever, chills, or sweats Denies dyspnea at bedside Medical History: Reviewed Medications: Reviewed Surgical History: Reviewed Family history: Reviewed Allergies: Reviewed Social History: Review Code Status: Code Discharge Exam General-alert and oriented x3, no fever, no chills HEENT-head atraumatic and normocephalic, pupils equal and reactive to light, extraocular muscles intact Neck-no lymphadenopathy or thyromegaly, trachea midline Chest-clear to auscultation. No rales, wheezing or rhonchi Cardiac-regular rate and rhythm, normal S1 and S2 Abdomen-normal bowel sounds, no hepatosplenomegaly Extremities-no cyanosis, clubbing, or edema Neuro-cranial nerves II through XII intact, motor and sensory function within normal limits, strength symmetrical, no focal deficits Psych-normal affect, normal mood Discharge Plan Discharge Items Patient Disposition: Home - Self-Care Reason For Visit: TENSION PNEUMONIA Discharge Diagnosis: Right pneumothorax status post thoracentesis Activity: Resume your previous activity Non-emergency contact: Primary Care Provider and Oncologist Call non-emergency contact if: you have any medication questions and your symptoms worsen Follow-up/Referrals: Anjali Marshall CRNP [Primary Care Provider] - Diet: Carb Consistent or DM2 and Heart Healthy Addtl Attending Provider Instructions: Follow-up with cancer care center within 48 hours to resume intramuscular Sandostatin injection Pending Studies at Discharge: No Stand-Alone Forms: [employer], Smoking Cessation Medications and DC Order Prescriptions: Continued cholecalciferol (vitamin D3) [Vitamin D3] 25 mcg (1,000 unit) tablet 500 mcg PO UD Rx Instructions: 500 units daily in a.m and supper and then every other day at noon. orally daily in the morning; atorvastatin 10 mg tablet 10 mg PO HS Qty: 90 3RF (DME) blood sugar diagnostic Strip See Rx Instructions .ROUTE .MEDSUPPLY Qty: 100 3RF Rx Instructions: test 1 x daily tramadol 50 mg tablet 50 mg PO BID PRN (Reason: Pain) Qty: 60 0RF Hold Instructions: till GI is better Rx Instructions: filled Jun 2023 pantoprazole 40 mg tablet,delayed release (DR/EC) 40 mg PO BID Qty: 180 3RF Jardiance 10 mg tablet 10 mg PO QAM Qty: 30 11RF Eliquis 5 mg tablet 5 mg PO BID Qty: 60 11RF (DME) lancets [Advocate Lancet] 30 gauge misc See Rx Instructions .ROUTE .MEDSUPPLY Qty: 200 5RF Rx Instructions: As directed sucralfate 1 gram tablet 1 g PO QID Qty: 120 2RF Rx Instructions: filled feb 2024 30 day supply losartan 25 mg tablet 25 mg PO QAM Qty: 30 11RF aspirin [Adult Low Dose Aspirin] 81 mg tablet,delayed release (DR/EC) 81 mg PO QAM Hold Instructions: PER DC WAS TO BE PUT ON HOLD-WAS NOT DONE BY PROVIDER (JENNIE) blood-glucose meter Kit See Rx Instructions .ROUTE .MEDSUPPLY Qty: 1 0RF Rx Instructions: test 1 x daily Centrum Silver 400-250 mcg tablet,chewable 1 tab PO QAM metoprolol succinate 50 mg tablet extended release 24 hr 50 mg PO DAILY Qty: 90 3RF Rx Instructions: filled 10/3 furosemide 40 mg tablet 40 mg PO DAILY Qty: 90 3RF potassium chloride [Klor-Con M20] 20 mEq tablet,ER particles/crystals 20 meq PO DAILY Qty: 90 3RF Rx Instructions: filled 10/3 lidocaine HCl [Aspercreme (lidocaine HCl)] 4 % cream 1 applic topical TID PRN (Reason: pain) Qty: 60 0RF ferrous sulfate 325 mg (65 mg iron) tablet 325 mg PO QPM Patient Comments: lunch Sandostatin LAR [place] 20 mg Suspension,Extended Rel Recon 40 mg IM Q30D Colon Health 1 tab PO QAM cyanocobalamin (vitamin B-12) 1,000 mcg/mL Solution 1,000 mcg IM Q30D Discharge Orders: Discharge Order (Routine); Ordered 04/12/24 Ordered By: Henry Monteiro Admission Data Admit Date/Time: 04/07/24 13:55 Attending Provider: Henry Monteiro Admit Provider: Teddy Frederick Primary Care Provider: Anjali Marshall Other Providers: Vitaliy Carlisle; Teddy Frederick Hospital Stay Data Consultations 04/07/24 12:19 ED Decision to Admit Stat 04/07/24 13:55 Consult Pulmonology Stat Diagnostic Imagining Performed 04/07/24 13:19 sono, invasive monitoring [US point of care ultrasound] Urgent Pending Results Patient Have Any Pending Studies at Discharge: No Discharge Instructions Given to Patient (Per Discharging Provider) Follow-up with cancer care center within 48 hours to resume intramuscular Sandostatin injection Total Time Total Time Spent Total Time Spent (In Minutes): 45 minutes Coding Level of Care Code 27234 INP/OBS DISCH >30 MIN Diagnoses Pneumothorax J93.9 Metastatic carcinoid tumor C7B.00 (HFpEF) heart failure with preserved ejection fraction I50.30 Centrilobular emphysema J43.2 Emphysema type: centrilobular Recurrent gastrointestinal hemorrhage K92.2 Type 2 diabetes mellitus with other specified complication, without long-term current use of insulin E11.69 Diabetes mellitus type: type 2 Diabetes mellitus half-way insulin use: without half-way use Diabetes mellitus complication status: with other specified complication UTI (urinary tract infection) N39.0
[2024-04-12 11:17] VITALS: RESP 18; TEMP 97.7; O2SAT 97
[2024-04-12 11:23] VITALS: BP 108/70
[2024-04-12 14:12] VITALS: PULSE 81
--- NOTE | 2024-04-19 13:22 | Coding Query ---
CONGESTIVE HEART FAILURE To Promote full compliance with coding requirements relating to patient care, physician participation is requested in all cases of data coder operator uncertainty. Please assist us with the following questions. A diagnosis of Congestive Heart Failure is documented in the patient's medical record. To accurately code this diagnosis and to compare patient severity, we ask that you specify the type of heart failure by placing an X within the parenthesis (x). SYSTOLIC HEART FAILURE ( ) Acute ( ) Chronic ( ) Acute on Chronic ( ) Rheumatic ( ) Unknown DIASTOLIC HEART FAILURE ( ) Acute ( ) Chronic (X ) Acute on Chronic ( ) Rheumatic ( ) Unknown COMBINED SYSTOLIC AND DIASTOLIC HEART FAILURE ( ) Acute ( ) Chronic ( ) Acute on Chronic ( ) Rheumatic ( ) Unknown Was the CHF Present On Admission? Please check the appropriate box: (X ) Present on Admission ( ) Not Present On Admission ( ) Clinically undetermined Thank you Sharon LUDWIG
== END 2024-04-12 14:25 | disposition home health service (06) | DRG 199 ==
LOC: ED 11:38 → 2S 13:55 → SUATTDRO 13:55 → 2S 16:54